=== PATIENT | male | born 1965 | race Caucasian/White ===

== ENCOUNTER → 2022-12-12 | Outpatient (CLI) | payer OTHER ==
[~2022-12-12] MED LIST: CYCL10TA25 PO
--- NOTE | 2022-12-12 16:29 | Diagnostic Imaging Report ---
PROCEDURE: US Scrotum. TECHNIQUE: Multiple real-time grayscale images were obtained over the scrotum in various projections bilaterally. INDICATION: Epididymitis. Right testicle measures 4.3 x 2.2 x 2.8 cm and the left testicle measures 4.3 x 2.3 x 3.0 cm. Both testes show homogeneous echotexture. No discrete mass is detected. There is blood flow to both testes. Right epididymis does appear to be enlarged and heterogeneous and shows some increased vascularity consistent with epididymitis. Left epididymis is unremarkable apart from a small approximately 6.9 mm cyst. No hydroceles or varicoceles are seen. IMPRESSION: 1. No evidence of testicular mass or vascular compromise. 2. Findings suggestive of acute right-sided epididymitis. 3. Left epididymal cyst. Dictated by: Dictated on workstation # [id number]
== END ==
LOC: RAD 12:13
PROVIDERS: ATTEND Hospitalist
DX: N50.3 Cyst of epididymis (principal); N45.1 Epididymitis
CPT/HCPCS: 76870

== ENCOUNTER 2023-03-26 14:31 | Inpatient (IN) | payer OTHER ==
[~2023-03-26] VITALS: Ht 172 cm; Wt 72.5 kg
[2023-03-26] MEDS ORDERED: ATOR40TA70 PO (15:13)
[2023-03-26] MEDS ORDERED: CARV3.122 PO (15:13)
[2023-03-26] MEDS ORDERED: LISI10TA25 PO (15:13)
[2023-03-26] MEDS ORDERED: CARV12.53 PO (15:13)
[2023-03-26] MEDS ORDERED: APIX5TAB PO (15:13)
[2023-03-26] MEDS ORDERED: OMEP20CA18 PO (15:13)
--- NOTE | 2023-03-26 16:47 | PM&R Post Admission Assessment ---
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 Currently he has regained most of his deficits but still remains left upper extremity deficit in need of aggressive therapy. Smoking cessation discussed. Denies pain or bowel issues. He is swallowing well and is ready to work hard to regain function. He is very motivated. [facility] summary: Name: Phil Vivas Date Of : 1965 Age: 57 y.o. Admit date: 03/21/2023 Discharge date: 03/26/2023 Discharge Attending: Dr. Delmy Cat Discharge Summary Completed By: JUDITH Cottrell Service: Neurology Stroke Reason for hospitalization: Vertebral artery dissection (HCC) [I77.74] Primary Discharge Diagnosis: Dissection of extracranial vertebral artery (HCC) Hospital Diagnoses: Hospital Problems Active Problems * (Principal) Dissection of extracranial vertebral artery (HCC) Acute ischemic multifocal posterior circulation stroke (HCC) Ataxia due to recent cerebrovascular accident Hyponatremia Anticoagulated Impaired mobility and ADLs Primary hypertension Current tobacco use Dyslipidemia Resolved Problems RESOLVED: Dysphagia due to recent stroke RESOLVED: Dysarthria due to acute cerebrovascular accident (CVA) Significant Past Medical History Loredo esophagus GERD (gastroesophageal reflux disease) HLD (hyperlipidemia) HTN (hypertension) TIA (transient ischemic attack) Tobacco abuse Allergies Penicillin, Tetracycline, and Hydrochlorothiazide Brief Hospital Course The patient was admitted and the following issues were addressed during this hospitalization: Phil Vivas is a 57 y.o. male with PMH HTN, HLD, diet controlled DMII, current tobacco use, GERD, Loredo's esophagus, and recent right cerebellar infarct (Jan 2023) with diagnosis of pituitary apoplexy who presented to [facility] on 03/20/2023 after waking with left eye blurred vision with symptom progression to left sided weakness & ataxia. CT head showed left cerebellar infarct. Outside IV thrombolytic window. CTA H/N showed left superior cerebellar artery occlusion and probable right vertebral artery occlusion. Transferred to [facility] on 03/21/2023 with admission to Neuro ICU for close monitoring. He was started on a heparin drip for right vertebral artery dissection at origin, then transitioned to Eliquis on 03/22/2023. He remained stable and transferred to Stroke Service on 03/22/2023. MRI head showed several small acute infarcts bilateral cerebellar hemispheres and right occipital lobe without hemorrhagic conversion. MRA head/neck showed left SCA occlusion and right vertebral artery occlusion at origin with reconstitution at V1 segment favoring dissection. Echo showed EF 63%, LA normal size, and no shunt. He was started on atorvastatin 40 mg daily for LDL 78 with goal < 70. His Hgb A1c was within goal range at 5.7. He was continued on his home Coreg and lisinopril doses. Smoking Cessation was consulted with patient interested in quitting smoking, but declined medication support. 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 Plan to repeat CTA head/neck in 3 months and continue Eliquis until outpatient follow up with Neurology after vessel imaging. Given his history of Loredo's esophagus, his home PPI dose was increased while on anticoagulation. He will continue with his previously scheduled follow up with Endocrinology for management of pituitary apoplexy and hyponatremia. He remained stable and discharged to [facility] by way of private vehicle in stable condition. Exam at discharge: A&Ox4, speech fluent & clear, CN II-XII intact, LUE 4+/5 distally otherwise 5/5 strength throughout, ataxia LUE, sensation intact Past Lxphmgh-Mcwmru-Envizd Hx Past Med/Social Hx: Reviewed Nursing Past Med/Soc Hx, Reviewed and Corrections made Patient Social History Marrital Status: Employed/Student: unemployed Alcohol Use: Occasionally Uses Smoking Status: Current Everyday Smoker Seasonal Allergies Seasonal Allergies: No Past Medical History Surgeries: Abdominal, Appendectomy, Gallbladder, Tonsillectomy Cardiac: Heart Attack, High Cholesterol, Hypertension Neurological: Neuropathy Reproductive: No Gastrointestinal: Gastroesophageal Reflux, Loredo's Esophagus, Pancreatitis, Ulcer Endocrine: Diabetes, Non-Insulin dep PM&R Allergy/Meds/Data Review Allergies Coded Allergies: Penicillins (Verified Allergy, Unknown, 02/07/15) Tetracyclines (Verified Allergy, Unknown, 02/07/15) Home Medications Scheduled Apixaban (Eliquis), 5 MG PO BID, (Reported) Atorvastatin Calcium (Atorvastatin Calcium), 40 MG PO DAILY, (Reported) Carvedilol (Carvedilol), 12.5 MG PO BID WITH MEALS, (Reported) Lisinopril (Lisinopril), 10 MG PO DAILY, (Reported) Omeprazole (Omeprazole), 40 MG PO DAILY BEFORE B-FAST, (Reported) Discontinued Medications Carvedilol (Carvedilol), 3.125 MG PO BID WITH MEALS, (Reported) Discontinued Reason: Prescription changed Cyclobenzaprine HCl (Cyclobenzaprine HCl), 10 MG PO Q8H PRN for SPASMS Discontinued Reason: No Longer Taking Current Medications Current Medications Reviewed Review of Systems Constitutional: see HPI, malaise, weakness EENTM: no symptoms reported Respiratory: no symptoms reported Cardiovascular: no symptoms reported Gastrointestinal: no symptoms reported Genitourinary: no symptoms reported Musculoskeletal: no symptoms reported Skin: no symptoms reported Psychiatric/Neurological: Anxiety, Depressed, Numbness, Tingling, Weakness All Other Systems Reviewed Negative Unless Noted: Yes Physical Exam Physical Exam Vital Signs Capillary Refill : Height, Weight, BMI Height: 5'8" Weight: 155lbs. oz. [id number]; 25.00 BMI Method:Stated General Appearance: No Apparent Distress, WD/WN, Chronically ill, Thin Eyes: Bilateral Eye Normal Inspection, Bilateral Eye PERRL HEENT: PERRL/EOMI, Normal ENT Inspection, Pharynx Normal Neck: Full Range of Motion, Normal Inspection, Non Tender, Supple, Carotid Bruit Respiratory: Chest Non Tender, Lungs Clear, Normal Breath Sounds, No Accessory Muscle Use, No Respiratory Distress Cardiovascular: Regular Rate, Rhythm, No Edema, No Gallop, No JVD, No Murmur, Normal Peripheral Pulses Gastrointestinal: Normal Bowel Sounds, No Organomegaly, No Pulsatile Mass, Non Tender, Soft Back: Normal Inspection, No CVA Tenderness, No Vertebral Tenderness Extremity: Normal Capillary Refill, Normal Inspection, Normal Range of Motion, Non Tender, No Calf Tenderness, No Pedal Edema Neurologic/Psychiatric: Alert, Oriented x3, Normal Mood/Affect, assessment clinician II-XII Norm as Tested, Abnormal Gait, Motor Weakness (LUE 4/5) Skin: Normal Color, Warm/Dry Lymphatic: No Adenopathy PM&R Medical Assessment & Plan REHAB/MEDICAL ASSESSMENT AND PLAN: REHAB IMPAIRMENT GROUP: Bilateral involvement ETIOLOGIC DIAGNOSIS: Acute bilateral cerebellar strokes The comorbidities that impact the patients function and/or functional outcome by: smoker, fall risk, HTN, embolic source of CVA REHAB PLAN: The patient is being admitted to our comprehensive inpatient rehabilitation facility and can tolerate the intensity of service consisting of at least: 180 minutes of therapy a day, 5 out of 7 days a week Rehab treatment will consist of: PT OT will focus on regaining function with the use of AD in order to decrease falls and increase stamina and return to independence The patient/family has a good understanding of our discharge process and will benefit from an interdisciplinary inpatient rehabilitation program. The patient has potential to make improvement and is in need of at least two of the following multidisciplinary therapies including but not limited to physical, occupational, speech, and prosthetics and orthotics. Additionally the patient will need services from respiratory, nutritional services, wound care, psychology, etc. (Customize this to each patient). Given the patients complex condition and risk of further medical complications, rehabilitation services cannot be safely or effectively provided at a lower level of care such as a half-way facility. BARRIERS TO DISCHARGE: Loss of balance increased fall risk ESTIMATED LOS: 7 days DISPOSITION: Home RELEVANT CHANGES SINCE PREADMISSION SCREENING: I have compared the patients medical and functional status at the time of the preadmission screening and there are: no changes PROGNOSIS: Good REHABILITATION GOALS: 1. PT OT will focus on regaining function with the use of AD in order to decrease falls and increase stamina and return to independence All the above goals were reviewed with the patient and he/she is in agreement. By signing this document, I acknowledge that I have personally performed a full physical examination on this patient within 24 hours of admission to this inpatient rehabilitation facility and have determined the patient to be able to tolerate the above course of treatment at an intensive level for a reasonable period of time. I will be completing a detailed individualized Plan of Care for this patient by day #4 of the patients stay based upon the Preadmission Screen, the Post-Admission Evaluation, and the therapy evaluations. Admission Dx/Comorbidities: (1) Cerebellar stroke ICD Codes: I63.9 - Cerebral infarction, unspecified Assessment/Plan Assessment and Plan Assess & Plan/Chief Complaint Assessment: Bilateral cerebellar strokes suspected embolic event maintained on OAC HTN HLP Smoker Loredo's esophagus Plan: Monitor closely Fall risk Home meds Aggressive therapy DIA MOORE DO Mar 26, 2023 16:47
[2023-03-26 16:50] VITALS: BP 140/72
--- OUTSIDE RECORDS SUMMARY | 2023-03-26 16:53 | XMS REPORT | Clinical Summary ---
Author Author [facility] Organization [facility] Address Unknown Phone Unavailable Care Team Providers Care Senior Service Technician Name Role Phone Taran Prajapati MD PCP [phone] Source Comments Some departments are not documenting in the electronic medical record. If you do not see the information that you expected, contact Release of Information in the Health Information Management department at [phone] for further assistance in locating additional records.[facility] Allergies Active Allergy Reactions Criticality Noted Date Comments Hydrochlorothiazide SEE COMMENTS Low 03/21/2023 "Acute Pancreatitis" Penicillin ANAPHYLAXIS High 03/21/2023 Tetracycline ANAPHYLAXIS High 03/21/2023 Medications Medication Sig Dispensed Refills Start Date End Date Status lisinopriL (ZESTRIL) 10 mg tablet Take one tablet by mouth daily. 0 Active carvediloL (COREG) 12.5 mg tablet Take one tablet by mouth twice daily with meals. Take with food. 0 Active atorvastatin (LIPITOR) 40 mg tablet Take one tablet by mouth daily. [address] (PRILOSEC) 20 mg capsule Take two capsules by mouth daily before breakfast. 90 capsule 0 03/26/20 23 Active apixaban (ELIQUIS) 5 mg tabletIndications: prevention of thromboembolism with vertebral artery dissection Take one tablet by mouth twice daily. Indications: prevention of thromboembolism with vertebral artery dissection 180 tablet 1 03/26/20 23 Active aspirin EC (ASPIR-LOW) 81 mg tablet Take one tablet by mouth daily. [address] (PRILOSEC) 20 mg capsule Take one capsule by mouth daily before breakfast. 0 023 Discontinued(R eorder) Active Problems Problem Noted Date Diagnosed Date Acute ischemic multifocal posterior circulation stroke 03/21/2023 Dissection of extracranial vertebral artery 02/22 Overview: Right Ataxia due to recent cerebrovascular accident Hyponatremia 03/21/2023 Anticoagulated 03/21/2023 Impaired mobility and ADLs 03/21/2023 Primary hypertension 03/21/2023 Current tobacco use 03/21/2023 Dyslipidemia 03/21/2023 Overview: Hdl 32 Resolved Problems Problem Noted Date Diagnosed Date Resolved Date Dysphagia due to recent stroke 03/21/2023 03/26/2023 Dysarthria due to acute cere brovascular accident (CVA) 03/21/2023 03/26/2023 Encounters Date Type Department Care Team Description 03/21/2023 12:06 AM CDT - 03/26/2023 1:00 PM CDT Hospital Encounter Patient Care Unit CA6: [facility] A [address] [place] [address] [address] [place] [address] Meet Cerda MD Husmann, MD Cristiano Hearn Yunxia, MD Barkley, Delmy Duran, DO Dissection of extracranial vertebral artery (HCC) Discharge Disposition: Rehab Facility (Not [facility]) from Last 3 Months Medical History Medical History Date Comments TIA (transient ischemic attack) 02/21/2023 HTN (hypertension) HLD (hyperlipidemia) GERD (gastroesophageal reflux disease) Loredo esophagus Tobacco abuse Social History Tobacco Use Types Packs/Day Years Used Date Smoking Tobacco: Every Day Cigarettes 1 Smokeless Tobacco: Current Tobacco Cessation:Ready to Q uit: No; Counseling Given: Yes Alcohol Use Standard Drinks/Week Comments Yes 6 (1 standard drink = 0.6 oz pur e alcohol) drinks 2-3 days week/beer Alcohol Use Answer Date Recorded Alcohol Use Yes Male: 9+ ounces (15+ Standard Drinks) per week T hreshold 3.6 Female: 4.8+ ounces (8+ Standard Drinks) per wee k Threshold Not on file Sex and Gender Information Value Date Recorded Sex Assigned at Not on file Gender Identity Not on file Sexual Orientation Not on file Obstetrics History Last Filed Vital Signs Vital Sign Reading Time Taken Comments Blood Pressure 150/65 03/26/2023 8:31 AM CDT Pulse 72 03/26/2023 8:31 AM CDT Temperature 36.3 °C (97.4 °F) 03/26/2023 8:31 AM C DT Respiratory Rate - - Oxygen Saturation 98% 03/26/2023 8:31 AM CDT Inhaled Oxygen Concentration - - Weight 73.5 kg (162 lb 0.6 oz) 03/26/2023 5:00 AM CDT Height 172.7 cm (5' 8") 03/21/2023 12:00 PM CDT Body Mass Index 24.64 03/21/2023 12:00 PM CDT Plan of Treatment Health Maintenance Due Date Last Done Comments COVID-19 VACCINE (#1) 1963 PNEUMOCOCCAL VACCINE 0-64 YRS (1 - PCV) 1969 HIV SCREENING 1978 DTAP/TDAP VACCINES (1 - Tdap) 1981 HEPATITIS C SCREENING 1981 PHYSICAL (COMPREHENSIVE) EXAM 1981 COLORECTAL CANCER SCREENING 2008 SHINGLES RECOMBINANT VACCINE (1 of 2) 2013 DEPRESSION SCREENING 06/23/2022 INFLUENZA VACCINE Completed 03/12/2023 Goals Goal Patient Goal Type Associated Problems Recent Progress Patient-Stated? Author GOAL General On track(03/25/20 23 1:55 PM CDT) Yes Carolina Page, RN Note: Take first step without being nervous. Procedures Procedure Name Priority Date/Time Associated Diagnosis Comments PHOSPHORUS Routine 03/26/2023 6:05 AM CDT MAGNESIUM Routine 03/26/2023 6:05 AM CDT CBC AND DIFF Routine 03/26/2023 6:05 AM CDT BASIC METABOLIC PANEL Routine 03/26/2023 6:05 AM CDT HC PHOSPHOROUS, SERUM Routine 03/25/2023 6:45 AM CDT HC MAGNESIUM Routine 03/25/2023 6:45 AM CDT HC CBC W/ AUTOMATED DIFF Routine 03/25/2023 6:45 AM CDT HC BASIC METABOLIC PANEL Routine 03/25/2023 6:45 AM CDT HC PHOSPHOROUS, SERUM Routine 03/24/2023 5:02 AM CDT HC MAGNESIUM Routine 03/24/2023 5:02 AM CDT HC CBC W/ AUTOMATED DIFF Routine 03/24/2023 5:02 AM CDT HC BASIC METABOLIC PANEL Routine 03/24/2023 5:02 AM CDT HC PHOSPHOROUS, SERUM Routine 03/23/2023 3:56 AM CDT HC MAGNESIUM Routine 03/23/2023 3:56 AM CDT HC BASIC METABOLIC PANEL Routine 03/23/2023 3:56 AM CDT HC CBC W/ AUTOMATED DIFF Routine 03/23/2023 3:56 AM CDT HC HEPARIN ASSAY STAT 03/22/2023 9:1 0 AM CDT HC CREATININE-URINE Routine 03/22/2023 4:39 AM CDT HC SODIUM-URINE Routine 03/22/2023 4:39 AM CDT HC OSMOLALITY-URINE Routine 03/22/2023 4:39 AM CDT HC UREA NITROGEN-URINE Routine 4:39 AM CDT HC OSMOLALITY;BLOOD Routine 03/22/2023 4:[address] HEAD WO CONTRAST Routine 03/22/2023 4:38 AM CDT HC HEPARIN ASSAY STAT 03/22/2023 2:0 8 AM CDT HC PHOSPHOROUS, SERUM Routine 03/22/2023 2:08 AM CDT HC MAGNESIUM Routine 03/22/2023 2:08 AM CDT HC CALCIUM IONIZED Routine 03/22/2023 2 :08 AM CDT HC BASIC METABOLIC PANEL Routine 03/22/2023 2:08 AM CDT HC CBC W/ AUTOMATED DIFF Routine 03/22/2023 2:08 AM CDT HC HEPARIN ASSAY STAT 03/21/2023 7:[address] HEAD WO CONTRAST Routine 03/21/2023 1:08 PM CDT HC HEPARIN ASSAY STAT 03/21/2023 12:2 8 PM CDT 2D + DOPPLER ECHO W/ CONTRAST Routine 03/21/2023 12:21 PM CDT HC FENTANYL URINE Routine 03/21/2023 5: 45 AM CDT HC PHENCYCLIDINES; QUAL Routine 03/21/2023 5:45 AM CDT HC OPIATES; QUAL Routine 03/21/2023 5:4 5 AM CDT HC COCAINE; QUAL Routine 03/21/2023 5:4 5 AM CDT HC CANNABINOIDS; QUAL Routine 03/21/2023 5:45 AM CDT HC BENZODIAZEPINES, QUAL Routine 03/21/2023 5:45 AM CDT HC BARBITURATES Routine 03/21/2023 5:45 AM CDT HC AMPHETAMINES QUAL, URINE Routine 03/21/2023 5:45 AM CDT HC PTT(APTT) Routine 03/21/2023 4:52 AM CDT HC PT(INR) Routine 03/21/2023 4:52 AM CDT HC HEMOGLOBIN A1C 03/21/2023 3: 16 AM CDT HC PHOSPHOROUS, SERUM Routine 03/21/2023 3:16 AM CDT HC MAGNESIUM Routine 03/21/2023 3:16 AM CDT HC CALCIUM IONIZED Routine 03/21/2023 3 :16 AM CDT HC COMPREHENSIVE METABOLIC PANEL Routine 03/21/2023 3:16 AM CDT HC CBC W/ AUTOMATED DIFF Routine 03/21/2023 3:16 AM CDT HC LIPID-5:CHOL/TRG/HDL/L DL+VLDL Routine 03/21/2023 3:16 AM CDT MRA NECK WO/W CONTRAST STAT 3:10 AM CDT MRA HEAD WO CONTRAST STAT 03/21/2023 3:10 AM CDT MRI HEAD WO CONTRAST STAT 03/21/2023 3:10 AM CDT HC CALCIUM IONIZED Routine 03/21/2023 12 :17 AM CDT HC MAGNESIUM STAT 03/21/2023 12:08 AM CDT COMPREHENSIVE METABOLIC PANEL STAT 03/21/2023 12:08 AM CDT HC CBC W/ AUTOMATED DIFF STAT 03/21/2023 12:08 AM CDT HC HEMOGLOBIN A1C STAT 03/21/2023 12: 08 AM CDT TELEMETRY STRIPS-SCAN 03/21/2023 12:00 AM CDT TELEMETRY STRIPS-SCAN 03/21/2023 12:00 AM CDT TELEMETRY STRIPS-SCAN 03/21/2023 12:00 AM CDT TELEMETRY STRIPS-SCAN 03/21/2023 12:00 AM CDT TELEMETRY STRIPS-SCAN 03/21/2023 12:00 AM CDT TELEMETRY STRIPS-SCAN 03/21/2023 12:00 AM CDT TELEMETRY STRIPS-SCAN 03/21/2023 12:00 AM CDT TELEMETRY STRIPS-SCAN 03/21/2023 12:00 AM CDT TELEMETRY STRIPS-SCAN 03/21/2023 12:00 AM CDT from Last 3 Months Results * (ABNORMAL) CBC AND DIFF (03/26/2023 6:05 AM CDT) Only the most recent of7 resultswithin the time period is included. White Blood Cells 5.8 4.5 - 11.0 K/UL 03/26/2023 6:30 AM CDT [facility] RBC 4.73 4.4 - 5.5 M/UL 03/26/2023 6:30 AM CDT [facility] Hemoglobin 14.8 13.5 - 16.5 GM/DL 03/26/2023 6:30 AM CDT [facility] PATH AND LAB MEDICINE Hematocrit 43.0 40 - 50 % 03/26/2023 6:30 AM CDT [facility] DE[facility] PATH AND LAB MEDICINE MCV 90.9 80 - 100 FL 03/26/2023 6:30 AM CDT [facility] MCH 31.2 26 - 34 PG 03/26/2023 6:30 AM CDT [facility] MCHC 34.3 32.0 - 36.0 G/DL 03/26/2023 6:30 AM CDT [facility] RDW 13.7 11 - 15 % 03/26/2023 6:30 AM CDT [facility] Platelet Count 182 150 - 400 K/UL 03/26/2023 6:30 AM CDT [facility] MPV 9.9 7 - 11 FL 03/26/2023 6:30 AM CDT [facility] Neutrophils 52 41 - 77 % 03/26/2023 6:30 AM CDT [facility] Lymphocytes 26 24 - 44 % 03/26/2023 6:30 AM CDT [facility] Monocytes 15(H) 4 - 12 % 03/26/2023 6:30 AM CDT [facility] Eosinophils 6(H) 0 - 5 % 03/26/2023 6:30 AM CDT [facility] Basophils 1 0 - 2 % 03/26/2023 6:30 AM CDT [facility] Absolute Neutrophil Count 3.06 1.8 - 7.0 K/UL 03/26/2023 6:30 AM CDT [facility] Absolute Lymph Count 1.53 1.0 - 4.8 K/UL 03/26/2023 6:30 AM CDT [facility] Absolute Monocyte Count 0.88(H) 0 - 0.80 K/UL 03/26/2023 6:30 AM CDT [facility] Absolute Eosinophil Count 0.32 0 - 0.45 K/UL 03/26/2023 6:30 AM CDT [facility] Absolute Basophil Count 0.06 0 - 0.20 K/UL 03/26/2023 6:30 AM CDT [facility] LAB [facility] BLOOD / Unknown 03/26/2023 6:05 AM CDT 03/26/2023 6:06 AM CDT Aspen Quinonez MD LABORATORY ORDERABLE S Performing Organization Address [facility]/ZIP Co de Phone Number [facility] PATH AND LAB MEDICINE [address] [place] [address], * (ABNORMAL) PHOSPHORUS (03/26/2023 6:05 AM CDT) Only the most recent of6 resultswithin the time period is included. Phosphorus 5.1(H) 2.0 - 4.5 MG/DL 03/26/2023 6:57 AM CDT [facility] BLOOD / Unknown 03/26/2023 6:05 AM CDT 03/26/2023 6:06 AM CDT Aspen Quinonez MD LABORATORY ORDERABLE S Performing Organization Address [facility] Co de Phone Number [facility] [address] [place] [address], [place] * MAGNESIUM (03/26/2023 6:05 AM CDT) Only the most recent of7 resultswithin the time period is included. Magnesium 1.7 1.6 - 2.6 mg/dL 03/26/2023 6:57 AM CDT [facility] BLOOD / Unknown 03/26/2023 6:05 AM CDT 03/26/2023 6:06 AM CDT Aspen Quinonez MD LABORATORY ORDERABLE S Performing Organization Address City/[facility]/ZIP Co de Phone Number [facility] [address] [place] [address], [place] * (ABNORMAL) BASIC METABOLIC PANEL (03/26/2023 6:05 AM CDT) Only the most recent of6 resultswithin the time period is included. Sodium 134(L) 137 - 147 MMOL/L 03/26/2023 6:57 AM CDT [facility] DE[facility] PATH [facility] LAB MEDICINE Potassium 4.2 3.5 - 5.1 MMOL/L 03/26/2023 6:57 AM CDT [facility] Chloride 101 98 - 110 MMOL/L 03/26/2023 6:57 AM CDT [facility] LAB MED[facility] CO2 23 21 - 30 MMOL/L 03/26/2023 6:57 AM CDT [facility] Anion Gap 10 3 - 12 03/26/2023 6:57 AM CDT [facility] Glucose 95 70 - 100 MG/DL 03/26/2023 6:57 AM CDT [facility] Blood Urea Nitrogen 8 7 - 25 MG/DL 03/26/2023 6:57 AM CDT [facility] MEDIC[facility] Creatinine 0.58 0.4 - 1.24 MG/DL 03/26/2023 6:57 AM CDT [facility] LAB MEDIC[facility] Calcium 9.6 8.5 - 10.6 MG/DL 03/26/2023 6:57 AM CDT [facility] DE[facility] PATH AND LAB MEDICINE eGFR >60 >60 mL/min 03/26/2023 6:57 AM CDT [facility] DEPT PATH AND LAB MEDICINE Comment:eGFR calculated glen mohamud the CKD-EPIcr_R equation BLOOD / Unknown 03/26/2023 6:05 AM CDT 03/26/2023 6:06 AM CDT Aspen Quinonez MD LABORATORY ORDERABLE S [facility] [address] [place] [address], * HEPARIN ASSAY (UNFRACTIONATED) (03/22/2023 9:10 AM CDT) Only the most recent of4 resultswithin the time period is included. Heparin Assay 0.37 0.30 - 0.70 IU/ML 03/22/2023 9:55 AM CDT [facility] DE[facility] PATH [facility] LAB MED[facility] BLOOD / Unknown 03/22/2023 9:10 AM CDT 03/22/2023 10:19 AM CDT Parul Coronel APRN-TURNTABLE WORKER LABORATORY ORD ERABLES Performing Organization Address City/[facility]/ZIP Co de Phone Number [facility] [address] [place] [address], [place] * UREA NITROGEN-URINE RANDOM (03/22/2023 4:39 AM CDT) Urea Nitrogen 148 MG/DL 03/22/2023 5:[address] [facility] Urine URINE SPECIMEN / Unknown 03/22/2023 4:39 AM CDT 03/22/2023 5:06 AM CDT Parul Coronel APRN-TURNTABLE WORKER URINE ORDERABL ES Performing Organization Address [facility] Co de Phone Number [facility] [address] [place] [address], [place] * SODIUM-URINE RANDOM (03/22/2023 4:39 AM CDT) Sodium, Random 39 MMOL/L 03/22/2023 5:[address] [facility] Urine URINE SPECIMEN / Unknown 03/22/2023 4:39 AM CDT 03/22/2023 5:06 AM CDT Parul Coronel BLADE SHARPENER-TURNTABLE WORKER URINE ORDERABL ES Performing Organization Address [facility] Co de Phone Number [facility] [address] [place] [address], [place] * OSMOLALITY-URINE RANDOM (03/22/2023 4:39 AM CDT) Osmolality-Urin e 145 50 - 1,400 MOS/KG 03/22/2023 6:[address] [facility] Urine URINE SPECIMEN / Unknown 03/22/2023 4:39 AM CDT 03/22/2023 5:06 AM CDT Parul Coronel BLADE SHARPENER-TURNTABLE WORKER URINE ORDERABL ES Performing Organization Address [facility] Co de Phone Number [facility] [address] [place] [address], [place] * CREATININE-URINE RANDOM (03/22/2023 4:39 AM CDT) Creatinine, Random 32 MG/DL 03/22/2023 5:56 AM CDT [facility] Urine URINE SPECIMEN / Unknown 03/22/2023 4:39 AM CDT 03/22/2023 5:06 AM CDT Parul Coronel APRN-TURNTABLE WORKER URINE ORDERABL ES Performing Organization Address [facility] Phone Number [facility] [address] [place] [address], [place] * OSMOLALITY (03/22/2023 4:39 AM CDT) Osmolality 282 280 - 307 MOSMOL/KG 03/22/2023 5:58 AM CDT [facility] BLOOD / Unknown 03/22/2023 4:39 AM CDT 03/22/2023 5:06 AM CDT Parul Coronel APRN-TURNTABLE WORKER LABORATORY ORD ERABLES Performing Organization Address [facility] Co de Phone Number [facility] [address] [place] [address], [place] * CT HEAD WO CONTRAST (03/22/2023 4:38 AM CDT) Only the most recent of2 resultswithin the time period is included. Anatomical Region Laterality Modality Head Computed Tomogra phy 03/22/2023 6:3 7 AM CDT Impressions 03/22/2023 6:41 AM CDT 1. Evolving recent infarcts involving the bilateral cerebellar hemispheres and right occipital lobe without gross hemorrhagic conversion or obvious new area of infarct. 2. Mild patchy cerebral white matter hyperintensities, likely chronic microvascular ischemic changes, with stable chronic right deep burt nuclei lacunar infarcts. Finalized by Fabrizio Jones DO on 03/22/2023 6:41 AM. Dictated by Fabrizio Jones DO on 03/22/2023 6:37 AM. Narrative 03/22/2023 6:41 AM CDT EXAM: CT HEAD HISTORY: Stability CT while patient on IV heparin drip after ischemic stroke / vert dissection. TECHNIQUE: Multiple contiguous axial images were obtained of the brain without intravenous contrast. COMPARISON: CT head 03/21/2023. FINDINGS: Evolving multifocal recent infarcts involving the bilateral cerebellar hemispheres and right occipital lobe without gross hemorrhagic conversion or obvious new area of infarct identified. Small chronic right deep burt nuclei lacunar infarcts. Mild patchy supratentorial white matter hypointensities, likely chronic microvascular ischemic changes. Ventricles and subarachnoid spaces are normal in size and configuration. No midline shift or mass effect. Burt white matter interfaces are otherwise maintained. Basal cisterns are patent. No evidence of acute intracranial hemorrhage or extra-axial fluid collection. Mastoid air cells and visualized paranasal sinuses are well-aerated. No acute calvarial fracture. Procedure Note Fabrizio Jones DO - 03/22/2023 EXAM: CT HEAD HISTORY: Stability CT while patient on IV heparin drip after ischemicstroke / vert dissection. TECHNIQUE: Multiple contiguous axial images were obtained of the brainwithout intravenous contrast. COMPARISON: CT head 03/21/2023. FINDINGS: Evolving multifocal recent infarcts involving the bilateral cerebellarhemispheres and right occipital lobe without gross hemorrhagic conversionor obvious new area of infarct identified. Small chronic right deep graynuclei lacunar infarcts. Mild patchy supratentorial white matterhypointensities, likely chronic microvascular ischemic changes. Ventriclesand subarachnoid spaces are normal in size and configuration. No midlineshift or mass effect. Burt white matter interfaces are otherwisemaintained. Basal cisterns are patent. No evidence of acute intracranialhemorrhage or extra- axial fluid collection. Mastoid air cells andvisualized paranasal sinuses are well- aerated. No acute calvarialfracture. IMPRESSION 1. Evolving recent infarcts involving the bilateral cerebellarhemispheres and right occipital lobe without gross hemorrhagic conversionor obvious new area of infarct. 2. Mild patchy cerebral white matter hyperintensities, likely chronicmicrovascular ischemic changes, with stable chronic right deep burt nucleilacunar infarcts. Finalized by Fabrizio Jones DO on 03/22/2023 6:41 AM. Dictated by DO Hawa on 03/22/2023 6:37 AM. Debbie Roblero MD CT ORDERABLES * IONIZED CALCIUM (03/22/2023 2:08 AM CDT) Only the most recent of3 resultswithin the time period is included. Pathologist [facility] Ionized Calcium 1.15 1.0 - 1.3 MMOL/L 03/22/2023 2:32 AM CDT [facility] DEPT PATH AND LAB MEDICINE BLOOD / Unknown 03/22/2023 2:08 AM CDT 03/22/2023 2:23 AM CDT Meet Cerda MD LABORATORY ORDERABLE S Performing Organization Address City/State/[facility] Co de Phone Number [facility] DEPT PATH AND LAB MEDICINE [address] [place] [address], * 2D + DOPPLER ECHO W/ CONTRAST (03/21/2023 12:21 PM CDT) Left Ventricle Diastolic Volume 109.00 62 - 150 mL OTHER OUTSIDE LAB Left Ventricle Systolic Volume 40.00 21 - 61 mL OTHER OUTSIDE LAB IVS 0.80 0.6 - 1.0 cm OTHER OUTSIDE LAB LVIDD 5.00 4.2 - 5.8 cm OTHER OUTSIDE LAB LVIDS 3.40 2.5 - 4.0 cm OTHER OUTSIDE LAB LVOT diameter 2.00 cm OTHER OUTSIDE LAB LVOT peak VTI 20.90 cm OTHER OUTSIDE LAB PW 1.00 0.6 - 1.0 cm OTHER OUTSIDE LAB TDI lateral e' 0.10 m/s OTHER OUTSIDE LAB TDI Medial e' 0.09 m/s OTHER OUTSIDE LAB LA volume 55.00 18 - 58 mL OTHER OUTSIDE LAB LA size 3.70 3.0 - 4.0 cm OTHER OUTSIDE LAB AV peak velocity 1.10 m/s OTHER OUTSIDE LAB Sinus 3.50 2.8 - 4.0 cm OTHER OUTSIDE LAB MV Peak A Samuel 0.51 m/s OTHER OUTSIDE LAB MV Peak E Samuel PW 0.77 m/s OTHER OUTSIDE LAB Right Heart Systolic Mmode TAPSE 2.06 >1.7 cm OTHER OUTSIDE LAB Right Ventricular Mid Diameter 3.30 1.9 - 3.5 cm OTHER OUTSIDE LAB Right Ventricular Basal Diameter 4.10 2.5 - 4.1 cm OTHER OUTSIDE LAB Right Atrial Area 14.60 <18 cm2 OTHER OUTSIDE LAB Right Heart Systolic TDI S' 0.12 m/s OTHER OUTSID E LAB BSA 1.87 m2 OTHER OUTS [facility] LAB FS 32.00 28 - 44 % OTHER OUTS [facility] LAB Teichholtz 54.40 % OTHER OUT SIDE LAB Left Ventricle Systolic Volume Index 21 11 - 31 mL/m2 OTHER OUTSIDE LAB Left Ventricle Diastolic Volume Index 58 34 - 74 mL/m2 OTHER OUTSIDE LAB Left Atrium Index 29.41 16 - 34 mL/m2 OTHER OUTSIDE LAB LV mass 158 88 - 224 g OTHER OUTSIDE LAB Left Ventricle Mass Index 85 49 - 115 g/m2 OTHER OUTSIDE LAB RWT 0.40 <=0.42 OTHER OUTS [facility] LAB LVOT area 3.14 cm2 OTHER OUT[facility] LVOT stroke volume 65.66 cm3 OTHER OUTSIDE LAB E/A ratio 1.51 OTHER OUTS [facility] LAB Medial E/E' ratio 8.56 OTHER OUTSIDE LAB Lateral E/E' ratio 7.70 OTHER OUTSIDE LAB CV ECHO PV INSPECTOR TYPE SALUD Rojas OTHER OUTSIDE LAB Cardiology Ultrasound Machine Massimo Epiq OTHER OUTSIDE LAB GARCIA'S BIPLANE EF 63 % OTHER OUTSIDE LAB Ascending aorta 3.8 cm OTHE R OUTSIDE LAB RA PRESSURE 3 OTHER OU TSIDE LAB Anatomical Region Laterality Modality Ultrasound Narrative 03/21/2023 1:00 PM CDT Normal left ventricular size and wall thickness. Normal left ventricular systolic function with an estimated ejection fraction of 60 to 65%. Normal left ventricular diastolic function. Normal right ventricular size and systolic function. Normal biatrial size. There is no interatrial shunting by color-flow Doppler and saline contrast studies. Normal central venous pressure (0-5 mm Hg). No hemodynamically significant valvular abnormalities. The ascending aorta is mildly dilated. No pericardial effusion. No prior studies available for comparison. Please see full report below. Left Ventricle The left ventricular size is normal. The left ventricular wall thickness is normal. Normal geometry. The left ventricular systolic function is normal. The ejection fraction by Garcia's biplane method is 63%. Normal left ventricular diastolic function. Normal left atrial pressure. Right Ventricle The right ventricular size is normal. The right ventricular systolic function is normal. The pulmonary artery pressure could not be estimated due to inadequate tricuspid regurgitation signal. Left Atrium Normal size. There is no interatrial shunting by color flow Doppler and saline contrast studies. Right Atrium Normal size. IVC/SVC Normal central venous pressure (0-5 mm Hg). Mitral Valve Normal valve structure. No stenosis. Trace regurgitation. Tricuspid Valve Normal valve structure. No stenosis. Trace regurgitation. Aortic Valve Normal valve structure. No stenosis. No regurgitation. Pericardium No pericardial effusion. Pulmonary The pulmonic valve was not seen well but no Doppler evidence of stenosis. Trace regurgitation. Aorta The aortic root is normal in size. The ascending aorta is mildly dilated. Wall Scoring Resting Score Index: 1.00 The left ventricular wall motion is normal. Meet Cerda MD ECHO ORDERABLES * FENTANYL URINE (03/21/2023 5:45 AM CDT) Fentanyl Urine NEG NEG-NEG 03/21/2023 6:[address] [facility] Comment: RESULTS WERE OBTAINED BY IMMUNOASSAY AND ARE PRESUMPTIVE ONLY. POSITIVE INDICATES THE PRESENCE OF SUBSTANCE WITH CHARACTERISTICS SIMILAR TO DRUG-DRUG CLASS OR METABOLITE IN CONC. EQUAL TO OR EXCEEDING VALUES LISTED. FENTANYL 5 NG/ML Urine URINE SPECIMEN / Unknown 03/21/2023 5:45 AM CDT 03/21/2023 5:50 AM CDT Meet Cerda MD URINE ORDERABLES [facility] [address] [place] [address], * PHENCYCLIDINES-URINE RANDOM (03/21/2023 5:45 AM CDT) Phencyclidine (PCP) NEG NEG-NEG 03/21 6:[address] [facility] Comment: RESULTS WERE OBTAINED BY IMMUNOASSAY AND ARE PRESUMPTIVE ONLY. POSITIVE INDICATES THE PRESENCE OF SUBSTANCE WITH CHARACTERISTICS SIMILAR TO DRUG-DRUG CLASS OR METABOLITE IN CONC. EQUAL TO OR EXCEEDING VALUES LISTED. PHENCYCLIDINE (PCP) 25 NG/ML Urine URINE SPECIMEN / Unknown 03/21/2023 5:45 AM CDT 03/21/2023 5:50 AM CDT Meet Cerda MD URINE ORDERABLES Performing Organization Address [facility] Co de Phone Number [facility] [address] * OPIATES-URINE RANDOM (03/21/2023 5:45 AM CDT) Opiates-Urine NEG NEG-NEG 03/21/2023 6:[address] [facility] Comment: RESULTS WERE OBTAINED BY IMMUNOASSAY AND ARE PRESUMPTIVE ONLY. POSITIVE INDICATES THE PRESENCE OF SUBSTANCE WITH CHARACTERISTICS SIMILAR TO DRUG-DRUG CLASS OR METABOLITE IN CONC. EQUAL TO OR EXCEEDING VALUES LISTED. OPIATES 2000 NG/ML Urine URINE SPECIMEN / Unknown 03/21/2023 5:45 AM CDT 03/21/2023 5:50 AM CDT Meet Cerda MD URINE ORDERABLES Performing Organization Address [facility] de Phone Number [email or web address] [address] * COCAINE-URINE RANDOM (03/21/2023 5:45 AM CDT) Cocaine-Urine NEG NEG-NEG 03/21/2023 6:[address] [facility] Comment: RESULTS WERE OBTAINED BY IMMUNOASSAY AND ARE PRESUMPTIVE ONLY. POSITIVE INDICATES THE PRESENCE OF SUBSTANCE WITH CHARACTERISTICS SIMILAR TO DRUG-DRUG CLASS OR METABOLITE IN CONC. EQUAL TO OR EXCEEDING VALUES LISTED. COCAINE 300 NG/ML Urine URINE SPECIMEN / Unknown 03/21/2023 5:45 AM CDT 03/21/2023 5:50 AM CDT Meet Cerda MD URINE ORDERABLES Performing Organization Address [facility] Co de Phone Number [facility] [address] [place] [address], * CANNABINOIDS-URINE RANDOM (03/21/2023 5:45 AM CDT) THC NEG NEG-NEG 03/21/2023 6:[address] [facility] Comment: RESULTS WERE OBTAINED BY IMMUNOASSAY AND ARE PRESUMPTIVE ONLY. POSITIVE INDICATES THE PRESENCE OF SUBSTANCE WITH CHARACTERISTICS SIMILAR TO DRUG-DRUG CLASS OR METABOLITE IN CONC. EQUAL TO OR EXCEEDING VALUES LISTED. CANNABINOIDS 50 NG/ML Urine URINE SPECIMEN / Unknown 03/21/2023 5:45 AM CDT 03/21/2023 5:50 AM CDT Meet Cerda MD URINE ORDERABLES Performing Organization Address [facility] Co de Phone Number [facility] PATH AND LAB MEDICINE [address] [place] [address], * BENZODIAZEPINES-URINE RANDOM (03/21/2023 5:45 AM CDT) Benzodiazepines NEG NEG-NEG 6:[address] [facility] Comment: RESULTS WERE OBTAINED BY IMMUNOASSAY AND ARE PRESUMPTIVE ONLY. POSITIVE INDICATES THE PRESENCE OF SUBSTANCE WITH CHARACTERISTICS SIMILAR TO DRUG-DRUG CLASS OR METABOLITE IN CONC. EQUAL TO OR EXCEEDING VALUES LISTED. BENZODIAZEPINES 200 NG/ML Urine URINE SPECIMEN / Unknown 03/21/2023 5:45 AM CDT 03/21/2023 5:50 AM CDT Meet Cerda MD URINE ORDERABLES [facility] PATH [facility] LAB MEDICINE [address] [place] [address], * BARBITURATES-URINE RANDOM (03/21/2023 5:45 AM CDT) Barbiturates,Urine NEG NEG-NEG 2022 6:[address] [facility] Comment: RESULTS WERE OBTAINED BY IMMUNOASSAY AND ARE PRESUMPTIVE ONLY. POSITIVE INDICATES THE PRESENCE OF SUBSTANCE WITH CHARACTERISTICS SIMILAR TO DRUG-DRUG CLASS OR METABOLITE IN CONC. EQUAL TO OR EXCEEDING VALUES LISTED. BARBITURATES 200 NG/ML Urine URINE SPECIMEN / Unknown 03/21/2023 5:45 AM CDT 03/21/2023 5:50 AM CDT Meet Cerda MD URINE ORDERABLES Performing Organization Address [facility] Co de Phone Number [facility] PATH AND LAB MEDICINE [address] [place] [address], * AMPHETAMINES-URINE RANDOM (03/21/2023 5:45 AM CDT) Amphetamines NEG NEG-NEG 03/21/2023 6:[address] [facility] Comment: RESULTS WERE OBTAINED BY IMMUNOASSAY AND ARE PRESUMPTIVE ONLY. POSITIVE INDICATES THE PRESENCE OF SUBSTANCE WITH CHARACTERISTICS SIMILAR TO DRUG-DRUG CLASS OR METABOLITE IN CONC. EQUAL TO OR EXCEEDING VALUES LISTED. AMPHETAMINES 1000 NG/ML Urine URINE SPECIMEN / Unknown 03/21/2023 5:45 AM CDT 03/21/2023 5:50 AM CDT Meet Cerda MD URINE ORDERABLES Performing Organization Address [facility] Co de Phone Number [facility] PATH [facility] LAB MEDICINE [address] [place] [address], * PTT (APTT) (03/21/2023 4:52 AM CDT) APTT 28.6 24.0 - 36.5 SEC 03/21/2023 5:41 AM CDT [facility] BLOOD / Unknown 03/21/2023 4:52 AM CDT 03/21/2023 5:09 AM CDT Parul Coronel APRN-TURNTABLE WORKER LABORATORY ORD ERABLES Performing Organization Address [facility] Co de Phone Number [facility] [address] [place] [address], [place] * PROTIME INR (PT) (03/21/2023 4:52 AM CDT) Protime 12.8 9.5 - 14.2 SEC 03/21/2023 5:41 AM CDT [facility]IC[facility] INR 1.1 0.8 - 1.2 03/21/2023 5:41 AM CDT [facility] PATH AND LAB MEDICINE BLOOD / Unknown 03/21/2023 4:52 AM CDT 03/21/2023 5:09 AM CDT Parul Coronel BLADE SHARPENER-TURNTABLE WORKER LABORATORY ORD ERABLES [facility] MED[facility] [address] [place] [address], * HEMOGLOBIN A1C (03/21/2023 3:16 AM CDT) Only the most recent of2 resultswithin the time period is included. Hemoglobin A1C 5.7 4.0 - 5.7 % 03/21/2023 5:56 AM CDT [facility] PATH AND LAB MEDICINE Comment: The ADA recommends that most patients with type 1 and type 2 diabetes maintain an A1c level <7%. 03/21/2023 3:1 6 AM CDT 03/21/2023 3:47 AM CDT Maddy Whalen DO LABORATORY ORDERABLE S Performing Organization Address [facility]/ZIP Co de Phone Number [facility] [address] [place] [address], * (ABNORMAL) LIPID PROFILE (03/21/2023 3:16 AM CDT) Cholesterol 123 <200 MG/DL 03/21/2023 4:26 AM CDT [facility] Triglycerides 84 <150 MG/DL 03/21/2023 4:26 AM CDT [facility] PATH AND LAB MEDICINE HDL 32(L) >40 MG/DL 03/21/2023 4:26 AM CDT [facility] LDL 78 <100 mg/dL 03/21/2023 4:26 AM CDT [facility]IC[facility] VLDL 17 MG/DL 03/21/2023 4:[address] [facility] Non HDL Cholesterol 91 MG/DL 03/21/2023 4:[address] [facility] Comment: Calculated non-HDL Cholesterol (non-HDL-C) indirectly measures LDL-C, Lp(a), IDL-C, and VLDL-C. It is a surrogate marker for Apoprotein B. Goal should be less than 130 mg/dL. BLOOD / Unknown 03/21/2023 3:16 AM CDT 03/21/2023 3:47 AM CDT Meet Cerda MD LABORATORY ORDERABLE [facility] [address] [place] [address], [place] * MRA NECK WO/W CONTRAST (03/21/2023 3:10 AM CDT) Anatomical Region Laterality Modality HEAD/NECK Magnetic Resonan ce 03/21/2023 3:1 8 AM CDT Addenda Addendum by Mack Juarez MD on 03/21/2023 5:31 AM CDT Finalized by Mack Juarez M.D. on 03/21/2023 3:32 AM. Dictated by Mack Juarez M.D. on 03/21/2023 3:18 AM.Addendum: Addendum: Following corrected reviewing attention to the pituitary gland, note is made of eccentric T1 hypointense circumscribed nodule in the left aspect of the sella measuring 7 mm (series 5 image 12). This favored to represent eccentric position of the normal pituitary bright spot. A proteinaceous Rathke's cyst could appear similar. Dedicated MRI of the pituitary gland with contrast could be obtained for further evaluation as indicated. Patchy T1 hypointense calvarial and skull base marrow signal favored to represent marrow heterogeneity related to red marrow reconversion. Findings were discussed with Dr. Whalen by Dr. Juarez by telephone at 5:23 AM 03/21/2023. Finalized by Mack Juarez M.D. on 03/21/2023 5:28 AM. Dictated by Mack Juarez M.D. on 03/21/2023 5:26 AM. Impressions 03/21/2023 3:32 AM CDT MR brain: 1. Several small acute appearing infarcts involving the bilateral cerebellar hemispheres and right occipital lobe. No hemorrhagic conversion. 2. Mild to moderate nonspecific cerebral white matter and pontine FLAIR hyperintensity, likely small vessel ischemic change. Chronic right deep burt nuclei lacunar infarcts are also present. MRA head: 1. Occluded left superior cerebellar artery. 2. Diminutive flow within a small caliber intracranial right vertebral artery. 3. Otherwise patent intracranial arterial vasculature without additional flow-limiting stenosis or branch occlusion. MRA neck: 1. Occluded right vertebral artery origin, reconstituting at the V1 segment with otherwise diminutive flow throughout the remaining cervical right vertebral artery. Findings are similar to outside CTA neck and favored for dissection. 2. Multifocal irregularity of the bilateral carotid arteries without measurable stenosis by NASCET criteria. 3. Patent dominant left cervical vertebral artery without superimposed stenosis. 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 This was done both before and after the administration of MultiHance contrast. 3D [id number] images of the [place] was performed without contrast. 3D contrast enhanced MRA of the carotids and the vertebral arteries was performed. MRA maximum intensity projection images were obtained of the brain and neck with image postprocessing. COMPARISON: CTA/CTA head 03/20/2023 FINDINGS: MR brain: There are a few small acute infarcts involving the inferomedial right and superolateral right cerebellum and paramedian and basal right occipital lobe. No hemorrhagic conversion or significant mass effect is identified. No herniation or hydrocephalus. Mild patchy cerebral white matter FLAIR hyperintensity and moderate confluent pontine FLAIR hyperintensity. Chronic appearing right basal ganglia and thalamic lacunar infarcts patchy areas of T1 hypointense marrow signal throughout the calvarium and skull base. MRA head: Multifocal irregularity of the intracranial internal carotid arteries without stenosis. The anterior and middle cerebral arteries. Irregularity of the nondominant left vertebral artery without stenosis. The basilar artery is widely patent. 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 There is absent flow related signal in the left superior cerebellar artery. There is muted flow related enhancement and small luminal caliber of the intracranial right vertebral artery. MRA neck: Three-vessel arch branching pattern patent origins. Diffuse irregularity of the bilateral common carotid artery without stenosis. Irregularity of the bilateral carotid bifurcation and proximal ICAs without measurable stenosis by NASCET criteria. Left vertebral artery is patent without focal stenosis. The right vertebral artery origin is occluded with reconstitution at the proximal V1 segment and diffuse diminutive flow-related enhancement of the extracranial right vertebral artery. Procedure Note Mack Juarez MD - 03/21/2023 EXAM: MRI AND MRA BRAIN, MRA NECK HISTORY: Acute cerebellar infarct with L SCA occlusion and possible rightvertebral dissection; blurry vision and L ataxia, TECHNIQUE: Multiplanar and multisequence MR imaging of the head wasperformed. This was done both before and after the administration ofMultiHance contrast. 3D vgnh-ud-tzjpkq images of the [place] wasperformed without contrast. 3D contrast enhanced MRA of the carotids andthe vertebral arteries was performed. MRA maximum intensity projectionimages were obtained of the brain and neck with image postprocessing. COMPARISON: CTA/CTA head 03/20/2023 FINDINGS: MR brain: There are a few small acute infarcts involving the inferomedial right andsuperolateral right cerebellum and paramedian and basal right occipitallobe. No hemorrhagic conversion or significant mass effect is identified.No herniation or hydrocephalus. Mild patchy cerebral white matter FLAIRhyperintensity and moderate confluent pontine FLAIR hyperintensity.Chronic appearing right basal ganglia and thalamic lacunar infarcts patchyareas of T1 hypointense marrow signal throughout the calvarium and skullbase. MRA head: Multifocal irregularity of the intracranial internal carotid arterieswithout stenosis. The anterior and middle cerebral arteries. Irregularityof the nondominant left vertebral artery without stenosis. The basilarartery is widely patent. 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 There is absentflow related signal in the left superior cerebellar artery. There is mutedflow related enhancement and small luminal caliber of the intracranialright vertebral artery. MRA neck: Three-vessel arch branching pattern patent origins. Diffuse irregularityof the bilateral common carotid artery without stenosis. Irregularity ofthe bilateral carotid bifurcation and proximal ICAs without measurablestenosis by NASCET criteria. Left vertebral artery is patent without focalstenosis. The right vertebral artery origin is occluded withreconstitution at the proximal V1 segment and diffuse diminutiveflow-related enhancement of the extracranial right vertebral artery. IMPRESSION MR brain: 1. Several small acute appearing infarcts involving the bilateralcerebellar hemispheres and right occipital lobe. No hemorrhagicconversion. 2. Mild to moderate nonspecific cerebral white matter and pontine FLAIRhyperintensity, likely small vessel ischemic change. Chronic right deepgray nuclei lacunar infarcts are also present. MRA head: 1. Occluded left superior cerebellar artery. 2. Diminutive flow within a small caliber intracranial right vertebralartery. 3. Otherwise patent intracranial arterial vasculature without additionalflow-limiting stenosis or branch occlusion. MRA neck: 1. Occluded right vertebral artery origin, reconstituting at the [id number] with otherwise diminutive flow throughout the remaining cervicalright vertebral artery. Findings are similar to outside CTA neck andfavored for dissection. 2. Multifocal irregularity of the bilateral carotid arteries withoutmeasurable stenosis by NASCET criteria. 3. Patent dominant left cervical vertebral artery without superimposedstenosis. Meet Cerda MD MR ORDERABLES * MRA HEAD WO CONTRAST (03/21/2023 3:10 AM CDT) Anatomical Region Laterality Modality Head Magnetic Resonan ce 03/21/2023 3:1 8 AM CDT Addenda Addendum by Mack Juarez MD on 03/21/2023 5:31 AM CDT Finalized by Mack Juarez M.D. on 03/21/2023 3:32 AM. Dictated by Mack Juarez M.D. on 03/21/2023 3:18 AM.Addendum: Addendum: Following corrected reviewing attention to the pituitary gland, note is made of eccentric T1 hypointense circumscribed nodule in the left aspect of the sella measuring 7 mm (series 5 image 12). This favored to represent eccentric position of the normal pituitary bright spot. A proteinaceous Rathke's cyst could appear similar. Dedicated MRI of the pituitary gland with contrast could be obtained for further evaluation as indicated. Patchy T1 hypointense calvarial and skull base marrow signal favored to represent marrow heterogeneity related to red marrow reconversion. Findings were discussed with Dr. Whalen by Dr. Juarez by telephone at 5:23 AM 03/21/2023. Finalized by Mack Juarez M.D. on 03/21/2023 5:28 AM. Dictated by Mack Juarez M.D. on 03/21/2023 5:26 AM. Impressions 03/21/2023 3:32 AM CDT MR brain: 1. Several small acute appearing infarcts involving the bilateral cerebellar hemispheres and right occipital lobe. No hemorrhagic conversion. 2. Mild to moderate nonspecific cerebral white matter and pontine FLAIR hyperintensity, likely small vessel ischemic change. Chronic right deep burt nuclei lacunar infarcts are also present. MRA head: 1. Occluded left superior cerebellar artery. 2. Diminutive flow within a small caliber intracranial right vertebral artery. 3. Otherwise patent intracranial arterial vasculature without additional flow-limiting stenosis or branch occlusion. MRA neck: 1. Occluded right vertebral artery origin, reconstituting at the V1 segment with otherwise diminutive flow throughout the remaining cervical right vertebral artery. Findings are similar to outside CTA neck and favored for dissection. 2. Multifocal irregularity of the bilateral carotid arteries without measurable stenosis by NASCET criteria. 3. Patent dominant left cervical vertebral artery without superimposed stenosis. 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 This was done both before and after the administration of MultiHance contrast. 3D fywq-ga-swyrje images of the [place] was performed without contrast. 3D contrast enhanced MRA of the carotids and the vertebral arteries was performed. MRA maximum intensity projection images were obtained of the brain and neck with image postprocessing. COMPARISON: CTA/CTA head 03/20/2023 FINDINGS: MR brain: There are a few small acute infarcts involving the inferomedial right and superolateral right cerebellum and paramedian and basal right occipital lobe. No hemorrhagic conversion or significant mass effect is identified. No herniation or hydrocephalus. Mild patchy cerebral white matter FLAIR hyperintensity and moderate confluent pontine FLAIR hyperintensity. Chronic appearing right basal ganglia and thalamic lacunar infarcts patchy areas of T1 hypointense marrow signal throughout the calvarium and skull base. MRA head: Multifocal irregularity of the intracranial internal carotid arteries without stenosis. The anterior and middle cerebral arteries. Irregularity of the nondominant left vertebral artery without stenosis. The basilar artery is widely patent. 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 There is absent flow related signal in the left superior cerebellar artery. There is muted flow related enhancement and small luminal caliber of the intracranial right vertebral artery. MRA neck: Three-vessel arch branching pattern patent origins. Diffuse irregularity of the bilateral common carotid artery without stenosis. Irregularity of the bilateral carotid bifurcation and proximal ICAs without measurable stenosis by NASCET criteria. Left vertebral artery is patent without focal stenosis. The right vertebral artery origin is occluded with reconstitution at the proximal V1 segment and diffuse diminutive flow-related enhancement of the extracranial right vertebral artery. Procedure Note Mack Juarez MD - 03/21/2023 EXAM: MRI AND MRA BRAIN, MRA NECK HISTORY: Acute cerebellar infarct with L SCA occlusion and possible rightvertebral dissection; blurry vision and L ataxia, TECHNIQUE: Multiplanar and multisequence MR imaging of the head wasperformed. This was done both before and after the administration ofMultiHance contrast. 3D ssbe-vm-csaxel images of the [place] wasperformed without contrast. 3D contrast enhanced MRA of the carotids andthe vertebral arteries was performed. MRA maximum intensity projectionimages were obtained of the brain and neck with image postprocessing. COMPARISON: CTA/CTA head 03/20/2023 FINDINGS: MR brain: There are a few small acute infarcts involving the inferomedial right andsuperolateral right cerebellum and paramedian and basal right occipitallobe. No hemorrhagic conversion or significant mass effect is identified.No herniation or hydrocephalus. Mild patchy cerebral white matter FLAIRhyperintensity and moderate confluent pontine FLAIR hyperintensity.Chronic appearing right basal ganglia and thalamic lacunar infarcts patchyareas of T1 hypointense marrow signal throughout the calvarium and skullbase. MRA head: Multifocal irregularity of the intracranial internal carotid arterieswithout stenosis. The anterior and middle cerebral arteries. Irregularityof the nondominant left vertebral artery without stenosis. The basilarartery is widely patent. 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 There is absentflow related signal in the left superior cerebellar artery. There is mutedflow related enhancement and small luminal caliber of the intracranialright vertebral artery. MRA neck: Three-vessel arch branching pattern patent origins. Diffuse irregularityof the bilateral common carotid artery without stenosis. Irregularity ofthe bilateral carotid bifurcation and proximal ICAs without measurablestenosis by NASCET criteria. Left vertebral artery is patent without focalstenosis. The right vertebral artery origin is occluded withreconstitution at the proximal V1 segment and diffuse diminutiveflow-related enhancement of the extracranial right vertebral artery. IMPRESSION MR brain: 1. Several small acute appearing infarcts involving the bilateralcerebellar hemispheres and right occipital lobe. No hemorrhagicconversion. 2. Mild to moderate nonspecific cerebral white matter and pontine FLAIRhyperintensity, likely small vessel ischemic change. Chronic right deepgray nuclei lacunar infarcts are also present. MRA head: 1. Occluded left superior cerebellar artery. 2. Diminutive flow within a small caliber intracranial right vertebralartery. 3. Otherwise patent intracranial arterial vasculature without additionalflow-limiting stenosis or branch occlusion. MRA neck: 1. Occluded right vertebral artery origin, reconstituting at the [id number] with otherwise diminutive flow throughout the remaining cervicalright vertebral artery. Findings are similar to outside CTA neck andfavored for dissection. 2. Multifocal irregularity of the bilateral carotid arteries withoutmeasurable stenosis by NASCET criteria. 3. Patent dominant left cervical vertebral artery without superimposedstenosis. Meet Cerda MD MR ORDERABLES * MRI HEAD WO CONTRAST (03/21/2023 3:10 AM CDT) Anatomical Region Laterality Modality Head Magnetic Resonan ce 03/21/2023 3:1 8 AM CDT Addenda Addendum by Mack Juarez MD on 03/21/2023 5:31 AM CDT Finalized by Mack Juarez M.D. on 03/21/2023 3:32 AM. Dictated by Mack Juarez M.D. on 03/21/2023 3:18 AM.Addendum: Addendum: Following corrected reviewing attention to the pituitary gland, note is made of eccentric T1 hypointense circumscribed nodule in the left aspect of the sella measuring 7 mm (series 5 image 12). This favored to represent eccentric position of the normal pituitary bright spot. A proteinaceous Rathke's cyst could appear similar. Dedicated MRI of the pituitary gland with contrast could be obtained for further evaluation as indicated. Patchy T1 hypointense calvarial and skull base marrow signal favored to represent marrow heterogeneity related to red marrow reconversion. Findings were discussed with Dr. Whalen by Dr. Juarez by telephone at 5:23 AM 03/21/2023. Finalized by Mack Juarez M.D. on 03/21/2023 5:28 AM. Dictated by Mack Juarez M.D. on 03/21/2023 5:26 AM. Impressions 03/21/2023 3:32 AM CDT MR brain: 1. Several small acute appearing infarcts involving the bilateral cerebellar hemispheres and right occipital lobe. No hemorrhagic conversion. 2. Mild to moderate nonspecific cerebral white matter and pontine FLAIR hyperintensity, likely small vessel ischemic change. Chronic right deep burt nuclei lacunar infarcts are also present. MRA head: 1. Occluded left superior cerebellar artery. 2. Diminutive flow within a small caliber intracranial right vertebral artery. 3. Otherwise patent intracranial arterial vasculature without additional flow-limiting stenosis or branch occlusion. MRA neck: 1. Occluded right vertebral artery origin, reconstituting at the V1 segment with otherwise diminutive flow throughout the remaining cervical right vertebral artery. Findings are similar to outside CTA neck and favored for dissection. 2. Multifocal irregularity of the bilateral carotid arteries without measurable stenosis by NASCET criteria. 3. Patent dominant left cervical vertebral artery without superimposed stenosis. 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 This was done both before and after the administration of MultiHance contrast. 3D xyhv-xo-sqahew images of the [place] was performed without contrast. 3D contrast enhanced MRA of the carotids and the vertebral arteries was performed. MRA maximum intensity projection images were obtained of the brain and neck with image postprocessing. COMPARISON: CTA/CTA head 03/20/2023 FINDINGS: MR brain: There are a few small acute infarcts involving the inferomedial right and superolateral right cerebellum and paramedian and basal right occipital lobe. No hemorrhagic conversion or significant mass effect is identified. No herniation or hydrocephalus. Mild patchy cerebral white matter FLAIR hyperintensity and moderate confluent pontine FLAIR hyperintensity. Chronic appearing right basal ganglia and thalamic lacunar infarcts patchy areas of T1 hypointense marrow signal throughout the calvarium and skull base. MRA head: Multifocal irregularity of the intracranial internal carotid arteries without stenosis. The anterior and middle cerebral arteries. Irregularity of the nondominant left vertebral artery without stenosis. The basilar artery is widely patent. 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 There is absent flow related signal in the left superior cerebellar artery. There is muted flow related enhancement and small luminal caliber of the intracranial right vertebral artery. MRA neck: Three-vessel arch branching pattern patent origins. Diffuse irregularity of the bilateral common carotid artery without stenosis. Irregularity of the bilateral carotid bifurcation and proximal ICAs without measurable stenosis by NASCET criteria. Left vertebral artery is patent without focal stenosis. The right vertebral artery origin is occluded with reconstitution at the proximal V1 segment and diffuse diminutive flow-related enhancement of the extracranial right vertebral artery. Procedure Note Mack Juarez MD - 03/21/2023 EXAM: MRI AND MRA BRAIN, MRA NECK HISTORY: Acute cerebellar infarct with L SCA occlusion and possible rightvertebral dissection; blurry vision and L ataxia, TECHNIQUE: Multiplanar and multisequence MR imaging of the head wasperformed. This was done both before and after the administration ofMultiHance contrast. 3D xqoe-si-henlra images of the [place] wasperformed without contrast. 3D contrast enhanced MRA of the carotids andthe vertebral arteries was performed. MRA maximum intensity projectionimages were obtained of the brain and neck with image postprocessing. COMPARISON: CTA/CTA head 03/20/2023 FINDINGS: MR brain: There are a few small acute infarcts involving the inferomedial right andsuperolateral right cerebellum and paramedian and basal right occipitallobe. No hemorrhagic conversion or significant mass effect is identified.No herniation or hydrocephalus. Mild patchy cerebral white matter FLAIRhyperintensity and moderate confluent pontine FLAIR hyperintensity.Chronic appearing right basal ganglia and thalamic lacunar infarcts patchyareas of T1 hypointense marrow signal throughout the calvarium and skullbase. MRA head: Multifocal irregularity of the intracranial internal carotid arterieswithout stenosis. The anterior and middle cerebral arteries. Irregularityof the nondominant left vertebral artery without stenosis. The basilarartery is widely patent. 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 There is absentflow related signal in the left superior cerebellar artery. There is mutedflow related enhancement and small luminal caliber of the intracranialright vertebral artery. MRA neck: Three-vessel arch branching pattern patent origins. Diffuse irregularityof the bilateral common carotid artery without stenosis. Irregularity ofthe bilateral carotid bifurcation and proximal ICAs without measurablestenosis by NASCET criteria. Left vertebral artery is patent without focalstenosis. The right vertebral artery origin is occluded withreconstitution at the proximal V1 segment and diffuse diminutiveflow-related enhancement of the extracranial right vertebral artery. IMPRESSION MR brain: 1. Several small acute appearing infarcts involving the bilateralcerebellar hemispheres and right occipital lobe. No hemorrhagicconversion. 2. Mild to moderate nonspecific cerebral white matter and pontine FLAIRhyperintensity, likely small vessel ischemic change. Chronic right deepgray nuclei lacunar infarcts are also present. MRA head: 1. Occluded left superior cerebellar artery. 2. Diminutive flow within a small caliber intracranial right vertebralartery. 3. Otherwise patent intracranial arterial vasculature without additionalflow-limiting stenosis or branch occlusion. MRA neck: 1. Occluded right vertebral artery origin, reconstituting at the [id number] with otherwise diminutive flow throughout the remaining cervicalright vertebral artery. Findings are similar to outside CTA neck andfavored for dissection. 2. Multifocal irregularity of the bilateral carotid arteries withoutmeasurable stenosis by NASCET criteria. 3. Patent dominant left cervical vertebral artery without superimposedstenosis. Meet Cerda MD MR ORDERABLES * (ABNORMAL) COMPREHENSIVE METABOLIC PANEL (03/21/2023 12:08 AM CDT) Sodium 134(L) 137 - 147 MMOL/L 03/21/2023 1:20 AM CDT [facility] Potassium 4.3 3.5 - 5.1 MMOL/L 03/21/2023 1:20 AM CDT [facility] Chloride 102 98 - 110 MMOL/L 03/21/2023 1:20 AM CDT [facility] Glucose 109(H) 70 - 100 MG/DL 03/21/2023 1:20 AM CDT [facility] Blood Urea Nitrogen 4(L) 7 - 25 MG/DL 03/21/2023 1:20 AM CDT [facility] Creatinine 0.65 0.4 - 1.24 MG/DL 03/21/2023 1:20 AM CDT [facility] Calcium 9.2 8.5 - 10.6 MG/DL 03/21/2023 1:20 AM CDT [facility] Total Protein 7.6 6.0 - 8.0 G/DL 03/21/2023 1:20 AM CDT [facility] Total Bilirubin 0.6 0.3 - 1.2 MG/DL 03/21/2023 1:20 AM CDT [facility] Albumin 4.4 3.5 - 5.0 G/DL 03/21/2023 1:20 AM CDT [facility] Alk Phosphatase 65 25 - 110 U/L 03/21/2023 1:20 AM CDT [facility] AST (SGOT) 16 7 - 40 U/L 03/21/2023 1:20 AM CDT [facility] CO2 23 21 - 30 MMOL/L 03/21/2023 1:20 AM CDT [facility] ALT (SGPT) 14 7 - 56 U/L 03/21/2023 1:20 AM CDT [facility] Anion Gap 9 3 - 12 03/21/2023 1:20 AM CDT [facility] eGFR >60 >60 mL/min 03/21/2023 1:20 AM CDT [facility] Comment:eGFR calculated glen mohamud the CKD-EPIcr_R equation BLOOD / Unknown 03/21/2023 1 2:08 AM CDT 03/21/2023 12:21 AM CDT Meet Cerda MD LABORATORY ORDERABLE [facility] [address] [place] [address], [place] * TELEMETRY STRIPS-SCAN (03/21/2023 12:00 AM CDT) Narrative 03/21/2023 12:00 AM CDT Ordered by an unspecified provider. Scanned Document PROCEDURE DUMMY ORDE RS * TELEMETRY STRIPS-SCAN (03/21/2023 12:00 AM CDT) Narrative 03/21/2023 12:00 AM CDT Ordered by an unspecified provider. Scanned Document PROCEDURE DUMMY ORDE RS * TELEMETRY STRIPS-SCAN (03/21/2023 12:00 AM CDT) Narrative 03/21/2023 12:00 AM CDT Ordered by an unspecified provider. Scanned Document PROCEDURE DUMMY ORDE RS * TELEMETRY STRIPS-SCAN (03/21/2023 12:00 AM CDT) Narrative 03/21/2023 12:00 AM CDT Ordered by an unspecified provider. Scanned Document PROCEDURE DUMMY ORDE RS * TELEMETRY STRIPS-SCAN (03/21/2023 12:00 AM CDT) Narrative 03/21/2023 12:00 AM CDT Ordered by an unspecified provider. Scanned Document PROCEDURE DUMMY ORDE RS * TELEMETRY STRIPS-SCAN (03/21/2023 12:00 AM CDT) Narrative 03/21/2023 12:00 AM CDT Ordered by an unspecified provider. Scanned Document PROCEDURE DUMMY ORDE RS * TELEMETRY STRIPS-SCAN (03/21/2023 12:00 AM CDT) Narrative 03/21/2023 12:00 AM CDT Ordered by an unspecified provider. Scanned Document PROCEDURE DUMMY ORDE RS * TELEMETRY STRIPS-SCAN (03/21/2023 12:00 AM CDT) Narrative 03/21/2023 12:00 AM CDT Ordered by an unspecified provider. Scanned Document PROCEDURE DUMMY ORDE RS * TELEMETRY STRIPS-SCAN (03/21/2023 12:00 AM CDT) Narrative 03/21/2023 12:00 AM CDT Ordered by an unspecified provider. Scanned Document PROCEDURE DUMMY ORDE RS from Last 3 Months Advance Directives Latest Code Status on File Code Status Date Activated Date Inactivated Comments Full Code 03/21/2023 12:06 AM 03/26/2023 3:38 PM Question Answer Comments Provider has discussed Code Status w/Patient or Family? No, more discussion needed Care Teams Senior Service Technician Relationship Specialty Start Date End Date Taran Prajapati MD [address] [place] [place] [id number] PCP - General Hospitalist 03/21/23
--- OUTSIDE RECORDS SUMMARY | 2023-03-26 16:54 | XMS REPORT | Continuity of Care Document ---
Author Author [facility],, [facility] Organization [place] [facility],, [facility] Address [address] [place] [address] Phone [phone] Care Team Providers Care Record Cutter Name Role Phone DAVID SHAW Assessment Encounter Date Assessment Date Assessment 03/10/2023 03/10/[address] Calvin browne I had the pleasure of seeing Phil, known to have Diet controlled DM as well as HTN and hyperlipidemia. 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 Plan; 1. Will get pituitary work up to r/o - Adrenal insufficiency - secondary hypothyroidism 2. Will get a work up for his hyponatremia 3. Was advised to limit fluid intake to~ 70 oz a day 4. will need a repeat Pituitary MRI w/o in 3 months 5. follow up in 4 months or sooner if needed Plan was discussed with the patient and she expressed understanding Thank you for allowing me to participate in the care of your patient Plan of Treatment Reminders Order Date Submit Date Provider Details Appointments NEW PATIENT 30 03/10/2023 07:00AM Dr Estrada FOLLOW UP 15 07/10/2023 03:45PM Dr Estrada Lab TSH + free T4, serum 03/10/2023 03/10/2023 [facility], [address], [address], [place], [address], acth, plasma 03/10/2023 03/10/2023 [facility], [address], [address], [place], [address], cortisol, serum (acth stimulation test) 03/10/2023 03/10/2023 [facility], [address], [address], [place], [address], renal function panel, serum 03/10/2023 03/10/2023 [facility], [address], [address], [place], [address], osmolality, urine 03/10/2023 03/10/2023 [facility], [address], [address], [place], [address], uric acid, serum or plasma 03/10/2023 03/10/2023 [facility], [address], [address], [place], [address], Referral None recorded. Procedures None recorded. Surgeries None recorded. Imaging MRI, brain + pituitary, w/wo contrast - CPT: 90029 03/10/2023 03/10/2023 [facility], [address], [place], [address], Medication Orders cosyntropin 0.25 mg solution for injection 03/10/2023 03/10/2023 [facility] Patient TargetsNo targets recorded. Patient InstructionsNo instructions recorded. Reason for Referral None Reported. Medical Equipment None Reported. Allergies Allergen ID Allergen Name Reaction Reaction Severity Criticality Documentation Date Start Date Code Code System Note 20591 tetracycl ine Not available Not available Not available 03/10/2023 68770 RxNorm 36094 penicilla mine Not available Not available Not available 03/10/2023 7975 RxNorm 80118 hydrochlo rothiazid e Not available Not available Not available 03/10/2023 5465 RxNorm Medications Name Sig Start Date Stop Date Status Note atorvastatin 40 mg tablet Take 1 tablet every day by oral route. active carvedilol 25 mg tablet Take 0.5 tablets twice a day by oral route. active cosyntropin 0.25 mg solution for injection Take 0.25 mg by injection route. 03/10/2023 active omeprazole 20 mg capsule,delayed release Take 1 capsule twice a day by oral route. active lisinopril 5 mg tablet Take 1 tablet cherie day by oral route. active Vitals Date Recorded Body height Body mass index (BMI) Body weight Oxygen saturation Oxygen saturation in Arterial blood by Pulse oximetry Heart rate Systolic blood pressure Diastolic blood pressure 03/10/2023 172.72 cm 24.6 kg/m2 10725.96 g 98 % 98 % 65 /min 123 mm[Hg] 82 mm[Hg] Social History None recorded. Functional Status None recorded. Mental Status None recorded. Family History Nothing Reported. Medical History No medical history recorded. Past Encounters Encounter ID Performer Location Encounter date Diagnosi s/Indication [id number] Law Estrada MD [facility] [address] [facility] [place] [address] 03/10/2023 Pituitary apoplexy Hyponatremia Health Concerns Section Related Observation None Recorded Concern Status Updated by Updated on None Recorded Payers Encounter Date Sequence Insurance Name Policy Number Policy Humphrey Covered Member ID Humphrey Member ID Guarantor Name 03/10/2023 [employer] [place] [employer] ([facility]) Phil Nurys Vivas [id number] Phil Vivas Notes Date Note Type Note 03/10/2023 text/html HPI Notes: Coco browne is a 57 yr old male patient known to have DM off therapy for the last 5-6 years, HTN, hyperlipidemia as well as lara esophagus and osteoarthritis, and a history of pancreatitis due to HCTZ. Patient report that at the end of January 2023, he started having dizziness/vertigo, weakness, excessive sweating, nausea and vomiting, the episodes lasted for ~ 4 hours and kept happening over the course of 2-3 days, he ended up going to the hospital and his brain MRI showed pituitary apoplexy as well as a subacute right cerebellar infarct work up at [facility] showed hyponatremia with Sodium ~ 132, Hb ~ 14.9, and GFR > 60, A1C ~ 5.6%, TSH ~4.63, ACTH ~ 24, cortisol ~ 13.3, IGF1 ~ 140 and Prolactin ~ 7.6 report mother with thyroid cancer
--- OUTSIDE RECORDS SUMMARY | 2023-03-26 16:54 | XMS REPORT | Encounter Summary ---
Author Author [facility] Organization [facility] Address Unknown Phone Unavailable Care Team Providers Care Textile Chemist Name Role Phone Taran Prajapati MD PCP [phone] Reason for Referral * Consult, Test & Treat (Discharge Pending) - New Request Specialty Diagnoses / Procedures Referred By Contac t Referred To Contact Neurology Diagnoses Acute ischemic multifocal posterior circulation stroke, unspecified laterality (HCC) Procedures APPOINTMENT REQUEST: NEUROLOGY Yesika Bee APRN-NP [address] [place] [address] [facility] Neurology [address] 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 posterior circulation stroke, unspecified laterality (HCC) Procedures CTA NECK WO/W CONT Yesika Bee APRN-NP [address] [place] [address] Referral ID Status Reason Start Date Expiration Date V isits Requested Visits Authorized [id number] New Request 03/26/2023 03/26/2024 1 1 * Radiology Services (Routine) - New Request Specialty Diagnoses / Procedures Referred By Contkimani t Referred To Contact Radiology Diagnoses Dissection of extracranial vertebral artery (HCC) Acute ischemic multifocal posterior circulation stroke, unspecified laterality (HCC) Procedures CTA HEAD WO/W Yesika Reno APRN-NP [address] [place] [address] Referral ID Status Reason Start Date Expiration Date V isits Requested Visits Authorized [id number] New Request 03/26/2023 03/26/2024 1 1 Reason for Visit * Auth/Cert (Routine) Specialty Diagnoses / Procedures Referred By Bruce del rosario Referred To Contact Diagnoses Vertebral artery dissection (HCC) Stroke Referral ID Status Reason Start Date Expiration Date Visits Re quested Visits Authorized [id number] 1 1 Encounter Details Date Type Department Care Team Description 03/21/2023 12:06 AM CDT - 03/26/2023 1:00 PM CDT Hospital Encounter Patient Care Unit CA6: [facility] [address] [facility] [address] [place] [id number] Meet Cerda MD [id number] [place] [address] Debbie Roblero MD [address] [place] [address] Aspen Quinonez MD [address] [place] [address] Angela Thacker DO [address] [place] [address] Dissection of extracranial vertebral artery (HCC) Discharge Disposition: Rehab Facility (Not [facility]) Social History Tobacco Use Types Packs/Day Years [...] on file Sexual Orientation Not on file documented as of this encounter Last Filed Vital Signs Vital Sign Reading [...] Mass Index 24.64 03/21/2023 12:00 PM CDT documented in this encounter Functional Status Functional Status Response Date of Assess ment Does the patient have a hearing impairment: Yes 03/21/2023 documented as of this encounter Discharge Summaries * Jaimie De La Torre - 03/26/2023 11:40 AM CDT ENGINEER AUTOMATED EQUIPMENT Note: Printed and placed transfer packet in the pt's wall unit per request from ,Pascale Lewis Darby De La Torre Shipping Room Helper For additional assistance please contact [facility] * * Jaimie De La Torre - 03/26/2023 11:13 AM CDT ENGINEER AUTOMATED EQUIPMENT Note: Request from SILVIANO Mcgraw Student to schedule W/C transport for today to [facility] at 12:30 today Aveso: No availability Melrude: Called twice no answer [employer] Representative: Availability $746.85 , scheduled transport. [employer] Representative [phone] will arrive at 12:30 to transport patient. Jaimie De La Torre Shipping Room Helper For additional assistance please contact [facility] * * Pascale Lewis - 03/26/2023 10:31 AM CDT Case Management Progress Note NAME:Phil Vivas :1965 AGE: 57 y.o. ADMISSION DATE: 03/21/2023 DAYS ADMITTED: LOS: 5 days Today's Date: 03/26/2023 PLAN: Patient will discharge to [facility] today at 12:30pm via wheel chair van. Expected Discharge Date: 03/26/2023 Is Patient Medically Stable: yes Are there Barriers to Discharge? no INTERVENTION/DISPOSITION: • Discharge Planning SILVIANO spoke with Maximo ([phone] ext [phone]) at the [place] in [facility] to receive auth for pt's IPR.Maximo gave auth number (Auth # [id number]) and faxed auth information to [facility]. SILVIANO called facility to check on admission cut off time. September recycling coordinator from [facility] reprted the patient has to arrive at 3:00pm. SILVIANO tasked [facility] to set up transport for patient. ENGINEER AUTOMATED EQUIPMENT reported [facility] can transport today at 12:30 pm. SW emailed CM escalation to assist with transportation cost to [facility]. CM escalation approved transportation for $746.85. SILVIANO notified Stroke team of dc today. SW notified bedside nurse of dc today and provided number for report. SILVIANO tasked [facility] to print and deliver transfer packet to pt bedside. SW notified pt of dc time today. REPORT: [phone] SILVIANO faxed dc orders to [phone] SW will continue to remain available and assist with discharge needs as they arise. • Transportation Does the Patient Need Case Management to Arrange Discharge Transport? (ex: facility, ambulance, wheelchair/stretcher, Medicaid, cab, other): No Will the Patient Use Family Transport?: Yes Transportation Name, Phone and Availability #1: Sister Alycia [phone] • Support • Info or Referral • Positive SDOH Domains and Potential Barriers • Medication Needs • Financial • Legal • Other • Discharge Disposition Selected Continued Care - Admitted Since 03/21/2023 No services have been selected for the patient. CJ Alvares Social Work Case Management Available on [employer] * Pascale Lewis - 03/24/2023 10:15 AM CDT Case Management Admission Assessment NAME:Phil Vivas :1965 AGE:57 y.o. ADMISSION DATE: 03/21/2023 DAYS ADMITTED: LOS: 3 days Today’s Date: 03/24/2023 Source of Information: Patient Plan Anticipated discharge to [facility], pending [place] auth Plan: Case Management Assessment, Assist PRN with SW/NCM Services Plan: Case Management Assessment, Assist PRN with SW/NCM Services, Discharge Planning for Home withPost-Acute Care Needs Most recent therapy recommendations: • PT: IPR • OT: IPR • ST: NA NCM/SW team to continue to follow patient's plan of care via EMR and team huddle; will assist with discharge planning needs as indicated. Assessment Notes Patient is agreeable to completing assessment at this time. SW provided contact information, explanation of CM roles, and general review of Preparing for Discharge, [facility] + Preferred Provider Network handouts. Patient encouraged to contact casemanagement with questions and concerns during hospitalization. • Patient lives with alone. The home does accomodates single-level living. The home has 3 LEATHA to enter. • Patient is typically independent in all ADLs and mobility. • Home support is assessed to be intermittent, if needed. • Patient's previous HH, LTACH, SNF, IPR, DME, outpatient therapy experience includes: o [facility] o DME: roller walker while in the hospital. Pt states he will not need it after discharge. • Transport plan will be Sister alycia. • Pt fills medications at [place] • Last seen PCP- 2 weeks ago • Patient completed DPOA with sister Alycia and she will woodrow in a copy to put on file. • Patients primary support is sister Alycia ([phone]). • SW discussed IPR's with patient and was agreeable to send referrals to [facility] and [facility]. • SW reached out to [facility] ([phone]) to get insurance auth for IPR. SW was transferred to [facility] (Transfer Nurse) EXT [phone] and left . • [facility] September called Silviano to inform pt has been accepted pending [place] auth. • SILVIANO called [facility] and spoke with critical access hospital rep Oswaldo ext [phone] she informed SW to send request for service form to fax [phone]. • SILVIANO completed and faxed to ([phone]) [place] request for service form with MD signature by angela Thacker. • SILVIANO informed patient he has been accepted by [facility] pending [place] auth and no transportation is provided. Pt states his sister lives 3 hours away and travel information center supervisor leave and transport. SILVIANO sent H&P, OT/PT notes, PMR, and Neurology progress note. [facility] [address] [place] [address] Office Center Main phone: [phone] SW will continue to remain available and assist with discharge needs as they arise. Patient Address/Phone [address] [facility] [phone] (home) Emergency Contact Extended Emergency Contact Information Primary Emergency Contact: Alycia Bryant Mobile Relation: Sister Preferred language: SRI LANKAN Ropewalk Rope Maker needed? No Secondary Emergency Contact: Reddy Bryant Mobile Relation: Other/Unknown Preferred language: SRI LANKAN Ropewalk Rope Maker needed? No Healthcare Directive Patient completed DPOA with sister Alycia and she will woodrow in a copy to put on file. Transportation Does the Patient Need Case Management to Arrange Discharge Transport? (ex: facility, ambulance, wheelchair/stretcher, Medicaid, cab, other): No Will the Patient Use Family Transport?: Yes Transportation Name, Phone and Availability #1: Sister Alycia [phone] Expected Discharge Date Living Situation Prior to Admission • Living Arrangements Type of Residence: Home, independent Living Arrangements: Alone Bathroom Shower / Tub: Tub/Shower Unit How many levels in the residence?: 1 Can patient live on one level if needed?: Yes Does residence have entry and/or inside stairs?: Yes (Pt has 3 stairs to enter) Assistance needed prior to admit or anticipated on discharge: No Who provides assistance or could if needed?: Sister alycia Are they in good health?: Yes Can support system provide 24/7 care if needed?: Maybe • Level of Function Prior level of function: Independent • Cognitive Abilities Cognitive Abilities: Alert and Oriented Financial Resources • Coverage Primary Insurance: [place]/[facility] Location: [facility] Secondary Insurance: No insurance • Source of Income Source Of Income: Other group home income ([facility]) • Financial Assistance Needed? NA Psychosocial Needs • Mental Health Mental Health History: In the past Agency name: [place] Mental Health Provider: [place] Counselor Mental Health Symptoms: Feeling depressed (Pt lost 6 family members in 1 year and was diagnosed with Sever Bereavement disorder) • Substance Use History Substance Use History Screen: Yes (Pt drinks 3 x a week and about 3-4 beers at a time) • Other NA Current/Previous Services • PCP Taran Prajapati, , • Pharmacy No Pharmacies Listed • Durable Medical Equipment Durable Medical Equipment at home: Roller Walker • Home Health Receiving home health: No • Hemodialysis or Peritoneal Dialysis Undergoing hemodialysis or peritoneal dialysis: No • Tube/Enteral Feeds Receive tube/enteral feeds: No • Infusion Receive infusions: No • Private Duty Private duty help used: No • Home and Community Based Services Home and community based services: No • Bassam Olson Bassam White: N/A • Hospice Hospice: No • Outpatient Therapy PT: In the past When did patient receive care?: 16 years ago [facility]group[facility] OT: No CLINICAL LABORATORY AIDE: No • Mcfp Facility/Half-Way SNF: No NH: No • Inpatient Rehab IPR: No • Long-Term Acute Care Hospital LTACH: No • Acute Hospital Stay Acute Hospital Stay: No CJ Mcgraw Social Work Case Management Available on [facility] Associated attestation - CarolinEulaie - 03/24/2023 4:57 PM CDT Per Stroke team, he may be stable for dc tomorrow.Pt has been accepted at [facility] IPR. SW has submitted auth to [facility] for IPR. Pt's sister can provide transportation but lives 3 hours away - [facility] will assist with arranging and logistics. * Linda Camarillo - 03/21/2023 1:17 PM CDT Case Management Progress Note NAME:Phil Vivas :1965 AGE: 57 y.o. ADMISSION DATE: 03/21/2023 DAYS ADMITTED: LOS: 0 days Today's Date: 03/21/2023 57 y.o. male with a PMH of tobacco abuse, HTN, HLD, GERD, Loredo esophagus and a TIA in early February 2023 who presented to an OSH with blurred/reduced vision, ptosis, dizziness, and facial droop that started when he awoke around 0700 on 03/20. Cranial images demonstrated a posterior fossa strokeand concern for vertebral artery dissection. He was not a candidate for intervention, but given thelocation and size of stroke, he was transferred to [facility] for a higher level of care. NCM attempted to complete initial admission assessment with pt and or family, no contact numbers listed in chart, NCM attempted to call hospital room phone with no answer. NCM will attempt at a later time to complete assessment; PT/OT recs in for rehab med consult. NCM/MARINE OILER will continue to follow for d/c planning as appropriate. Linda Camarillo RN BSN CPN Nurse Pharmacist Critical Care Voalte extension: [phone] documented in this encounter Discharge Instructions * Appointments* Yesika Bee APRN-NP - 03/26/2023 11:20 AM CDT You will have a repeat CT angiogram of your head & neck in 3 months and follow up with Neurology after that imaging. An appointment has been requested and you will be contacted to set that up. documented in this encounter Medications at Time of Discharge Medication Sig Dispensed Refills Start Date End Date apixaban (ELIQUIS) 5 mg tabletIndications:prev ention of thromboembolism with vertebral artery dissection Take one tablet by mouth twice daily. Indications: prevention of thromboembolism with vertebral artery dissection 180 tablet 1 03/26/2023 atorvastatin (LIPITOR) 40 mg tablet Take one tablet by mouth daily. 0 carvediloL (COREG) 12.5 mg tablet Take one tablet by mouth twice daily with meals. Take with food. 0 lisinopriL (ZESTRIL) 10 mg tablet Take one tablet by mouth daily. [address] (PRILOSEC) 20 mg capsule Take two capsules by mouth daily before breakfast. 90 capsule 0 03/26/2023 documented as of this encounter Ordered Prescriptions Prescription Sig Dispensed Refills Start Date End Da te apixaban (ELIQUIS) 5 mg tabletIndications:prev ention of thromboembolism with vertebral artery dissection Take one tablet by mouth twice daily. Indications: prevention of thromboembolism with vertebral artery dissection 180 tablet 1 03/26/[address] (PRILOSEC) 20 mg capsule Take two capsules by mouth daily before breakfast. 90 capsule 0 03/26/2023 documented in this encounter Discharge Disposition Disposition Code Departure Means Destination Rehab Facility (Not [facility]) Wheelchair documented in this encounter Progress Notes * Heather Carr RN - 03/26/2023 1:00 PM CDT Patient Health Questionnaire - 2 (PHQ2): The patient completed the PHQ2 questionnaire with a score of 0 (? 3 indicating potential depression). The patient scored less than 3 and requires no further follow-up at this time. Stroke Education : The patient was given the stroke education informational booklet which was subsequently reviewed with the patient.. Stroke Risk Factors Form: The patient was provided with the Stroke Risk Factors Form. This form was reviewed with the patient. and completed by the patient, with the assistance of this RN, to the best of their ability.. RN completed personal stroke education, medications prescribed, warning signs, when to seek treatment. All questions addressed. * Aleshia Ha RN - 03/26/2023 11:54 AM CDT Report given to [facility] * Lidia Torres, PT - 03/26/2023 10:32 AM CDT PHYSICAL THERAPY PROGRESS NOTE Name: Phil Vivas : 1965 Age: 57 y.o. Admission Date: 03/21/2023 LOS: 5 days Date of Service: 03/26/2023 Mobility Patient Turn/Position: Weight shifted (Bed) Progressive Mobility Level: Walk in hallway Distance Walked (feet): 450 ft Level of Assistance: Assist X1 Assistive Device: None Activity Limited By: Weakness Subjective Significant hospital events: 57 y.o. male with a PMH of tobacco abuse, HTN, HLD, GERD, Loredo esophagus and a TIA in early February 2023 who presented to an OSH with blurred/reduced vision, ptosis,dizziness, and facial droop that started when he awoke around 0700 on 03/20. Cranial images demonstrated a posterior fossa stroke and concern for vertebral artery dissection. He was not a candidate for intervention, but given the location and size of stroke, he was transferred to [facility] for a higher level of care. He is now admitted to [facility]ICU for further management and evaluation. MRI: R and L cerebellar infarcts and right occipital lobe infarct. No evidence of hemorrhage on SWI - MRA H&N: Lsuperior cerebellar artery occlusion and occluded R vertebral artery at the origin and R vertebral d issection Mental / Cognitive Status: Alert;Oriented;Cooperative;Follows Commands Pain: Patient has no complaint of pain Pain Interventions: Patient agrees to participate in therapy;Patient assisted into position of comfort Ambulation Assist: Independent Mobility in Community without Device Patient Owned Equipment: None Home Situation: Lives Alone Type of Home: House Entry Stairs: 3-5 Stairs;Rail on Both Sides (3 steps) In-Home Stairs: Able to Live on One Level Comments: Patient independent with mobility and ADLs without a device. No falls. Posture/Neurological Coordination: Ataxia of LLE;Ataxia of LUE;Impaired Heel to Hauser LLE;Impaired Finger Nose Finger LUE Bed Mobility/Transfer Bed Mobility: Supine to Sit: Standby Assist;Verbal Cues;Head of Bed Elevated;Safety Considerations Bed Mobility: Sit to Supine: Standby Assist;Bed Flat Transfer Type: Sit to/from Stand Transfer: Assistance Level: To/From;Bed;Minimal Assist Transfer: Assistive Device: None Transfers: Type Of Assistance: Verbal Cues;For Balance;For Safety Considerations;Requires Extra Time End Of Activity Status: Sitting at Edge of Bed;Instructed Patient to Request Assist with Mobility;Instructed Patient to Use Call Light (alarm set) Balance Sitting Balance: Static Sitting Balance;Dynamic Sitting Balance;Independent Standing Balance: Dynamic Standing Balance;No UE support;Minimal Assist Gait Gait Distance: 450 feet Gait: Assistance Level: Minimal Assist;Moderate Assist (modA with balance loss) Gait: Assistive Device: None Gait: Descriptors: Pace: Normal;Pathway deviations;Decreased heel strike LLE;Variable step length;Loss of balance Activity Limited By: Weakness Comments: Steppage gait on LLE and a few instances of balance loss towards the left side requiring moderate physical assist. Otherwise minimal assist. Activity/Exercise Comments: Quadruped and tall kneeling reaching activities on therapy mat in gym x5 minutes Education Persons Educated: Patient Patient Barriers To Learning: Decreased Hearing Interventions: Louder Voice Required Teaching Methods: Verbal Instruction Patient Response: Verbalized Understanding Topics: Plan/Goals of PT Interventions;Use of Assistive Device/Orthosis;Mobility Progression;SafetyAwareness;Up with Assist Only;Importance of Increasing Activity;Positioning;Recommend Continued Therapy;Therapy Schedule Assessment/Progress Impaired Mobility Due To: Impaired Balance;Medical Status Limitation Assessment/Progress: Should Improve w/ Continued PT Comments: Patient scores as a high fall risk on the FISH with slowed gait speed noted on the 10 meter walk test. Ongoing coordination deficits although continues to improve with skilled intervention.Will benefit from intensive therapies at discharge to address deficits AM-PAC 6 Clicks Basic Mobility Inpatient Turning from your back to your side while in a flat bed without using bed rails: None Moving from lying on your back to sitting on the side of a flat bed without using bedrails : None Moving to and from a bed to a chair (including a wheelchair): A Little Standing up from a chair using your arms (e.g. wheelchair, or bedside chair): A Little To walk in hospital room: A Little Climbing 3-5 steps with a railing: A Little Basic Mobility Inpatient Raw Score: 20 Standardized (T-scale) Score: 43.99 Goals Goal Formulation: With Patient Time For Goal Achievement: 5 days, To, 7 days Patient Will Transfer Bed/Chair: w/ Stand By Assist Patient Will Transfer Sit to Stand: w/ Stand By Assist Patient Will Ambulate: Greater than 200 Feet, w/ Stand By Assist (with least restrictive device) Patient Will Go Up / Down Stairs: 3-5 Stairs, w/ Stand By Assist (3 steps) Plan Treatment Interventions: Mobility Training;Balance Activities;Coordination Training;Neuromuscular Reeducation Plan Frequency: 5 Days per Week PT Plan for Next Visit: Progress gait varying mely, changing directions, target practice/toe taps LLE PT Discharge Recommendations Recommendation: Inpatient setting;Recommend rehab medicine consult Therapist: Lidia Torres PT, DPT Date: 03/26/2023 * Yesika Bee, MARKET MANAGER-TRANSMISSION SYSTEM OPERATOR - 03/26/2023 8:48 AM CDT Vascular Neurology Progress Note Admission Date: 03/21/2023 LOS: 5 days Principal Problem: Dissection of extracranial vertebral artery (HCC) Active Problems: Acute ischemic multifocal posterior circulation stroke (HCC) 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 male with PMH HTN, HLD, diet controlled DMII, current tobacco use, GERD, Loredo's esophagus, and recent right cerebellar infarct (Jan 2023) with diagnosis of pituitary apoplexy who presented to [facility] 03[facility]2023 after waking with left eye blurred vision with symptom progression to left sided weakness & ataxia. CT head showed left cerebellar infarct. Outside IV thrombolytic window. CTA H/N showed left superior cerebellar artery occlusion andprobable right vertebral artery occlusion. Transferred to [facility] with admission to Neuro ICU for close monitoring. He was started on a heparin drip for right vertebral artery dissection at origin, then transitioned to Eliquis on 03/22/2023. Imaging remained stable and transferred to Stroke Service on 03/22/2023. Suspected Stroke Etiology: Spontaneous vertebral artery dissection Current Exam: A&Ox4, speech fluent & clear, CN II-XII intact, LUE 4+/5 distally otherwise 5/5 strength throughout, ataxia LUE, sensation intact Acute left cerebellar & right occipital infarcts Right vertebral artery dissection Ataxia Acute left hemiparesis Hx recent right cerebellar stroke (01/2023) - MRA head/neck: occluded left superior cerebellar artery, occluded right vertebral artery origin reconstituting at V1 segment with diminutive flow within small intracranial right vertebral artery favored for dissection, multifocal irregularity of bilateral carotid arteries without measurable stenosis, patent dominant left cervical vertebral artery without stenosis - MRI head: Several small acute appearing infarcts involving the bilateral cerebellar hemispheres and right occipital lobe. No hemorrhagic conversion. - 03/22 CT head: Evolving recent infarcts involving the bilateral cerebellar hemispheres and right occipital lobe without gross hemorrhagic conversion or obvious new area of infarct. - Echo: EF 63%, LA normal size, no shunt - Secondary Stroke Risk Optimization: - Blood Pressure Goal: <130/80 - Antiplatelet/Anticoagulation: Eliquis 5 mg BID - Lipids: LDL is 78, with goal of <70 - Blood Glucose: Hgb A1c is 5.7, with goal of <7 - Tobacco use: Smoking Cessation consulted - Rehabilitation: PT/OT: Following CLINICAL LABORATORY AIDE: Following for dysphagia Rehab Medicine: Consulted for recommendations on post discharge disposition > Scopolamine patch for dizziness > Repeat CTA head/neck in 3 months > Continue Eliquis 5 mg BID until outpatient follow up after vessel imaging > Continue high-intensity statin > Neurology follow up outpatient Primary hypertension > Continue COPING MACHINE OPERATOR Coreg 12.5 mg BID > Continue COPING MACHINE OPERATOR lisinopril 10 mg daily Hyperlipidemia > Continue atorvastatin 40 mg daily (new) Tobacco use - Smokes 1/2 ppd - Smoking Cessation consulted - Interested in quitting, declined medication for support GERD Loredo's esophagus > Continue COPING MACHINE OPERATOR PPI but increase dose while on anticoagulation Pituitary apoplexy Hyponatremia - Diagnosed with recent admission to [facility] January 2023 - Seen by Endocrinology 03/10/2023 - Plan for further work up: - Adrenal insufficiency, secondary hypothyroidism, hyponatremia - Limit fluid intake to ~70 oz per day - Repeat pituitary MRI w/o in 3 months - Follow up with Endocrinology 2023 Nutrition: Regular diet Fluids: SL Electrolytes: - Monitor Daily BMP: Electrolyte replacement as needed > 400 mg Mg PO x 1 Ppx: - DVT: Eliquis - GI: Debbie, MOM; last BM 03/26 Consults: Rehab Medicine Dispo: Via [facility] via private vehicle today, 03/26 Patient was seen and examined by myself and Dr. Thacker who agrees with the plan. Yesika Bee APRN-TRANSMISSION SYSTEM OPERATOR Available on Voalte Subjective: Patient seen resting in bed. Reports doing laps yesterday without his walker, but still feels "a bit wobbly" with his left leg. Denies headache or dizziness. Discussed plan to continueAC until follow up and discharge today. Questions answered, no further concerns. Scheduled Meds:apixaban (ELIQUIS) tablet 5 mg, 5 mg, Oral, BID atorvastatin (LIPITOR) tablet 40 mg, 40 mg, Oral, QDAY carvediloL (COREG) tablet 12.5 mg, 12.5 mg, Oral, BID w/meals docusate (COLACE) capsule 100 mg, 100 mg, Oral, BID lisinopriL (ZESTRIL) tablet 10 mg, 10 mg, Oral, QDAY milk of magnesium oral suspension 30 mL, 30 mL, Oral, QDAY pantoprazole DR (PROTONIX) tablet 20 mg, 20 mg, Oral, QDAY(21) scopolamine (TRANSDERM-SCOP) 1mg over 3 days patch 1 patch, 1 patch, Transdermal, Q72H* And Verification of Patch Placement and Integrity - Scopolamine base 1 mg/3 days 1 patch, 1 patch, Transdermal, BID sennosides-docusate sodium (SENOKOT-S) tablet 1 tablet, 1 tablet, Oral, BID Continuous Infusions: PRN and Respiratory Meds:albuterol 0.083% Q4H PRN, artificial tears (PF) single dose PRN, diphenhydrAMINE HCL Q6H PRN, ondansetron (ZOFRAN) IV Q6H PRN Vital Signs: Last Filed in 24 hours Vital Signs: 24 hour Range BP: 150/65 (03/26 831) Temp: 36.3 °C (97.4 °F) (03/26 831) Pulse: 72 (03/26 831) Respirations: 16 PER MINUTE (03/26 831) SpO2: 98 % (03/26 831) O2 Device: None (Room air) (03/26 831) BP: (131-150)/(50-73) Temp: [36.2 °C (97.2 °F)-37.1 °C (98.8 °F)] Pulse: [63-73] Respirations: [16 PER MINUTE-20 PER MINUTE] SpO2: [97 %-99 %] O2 Device: None (Room air) General physical exam: HEENT: normocephalic, eyes open with no discharge, nares patent, oropharynx is clear with no lesions, palate intact CV: regular rate, distal pulses palpable, no dependent edema Chest: normal configuration, equal chest rise bilaterally Ab: soft, non-tender, no masses, no organomegaly Skin: no rashes or lesions Neuro exam: MS: alert and oriented to self, place, and time Speech: fluent and clear CN II-XII intact Cerebellar exam: LUE ataxia, no nystagmus Strength: moves all 4 limbs spontaneously, 4+/5 LUE distally otherwise 5/5 throughout Sensation: Reportedly intact to touch Gait: Deferred Lab/Radiology/Other Diagnostic Tests: Pertinent labs reviewed JUDITH Cottrell Vascular Neurology Available on Voalte * Rl New RT - 03/25/2023 2:56 PM CDT RT Adult Assessment Note NAME:Phil Vivas :1965 AGE: 57 y.o. ADMISSION DATE: 03/21/2023 DAYS ADMITTED: LOS: 4 days RT Treatment Plan: Protocol Plan: Medications Albuterol: Nebulizer PRN Vital Signs: Pulse: 73 RR: 16 PER MINUTE SpO2: 97 % O2 Device: None (Room air) Liter Flow: O2%: Breath Sounds: Clear (Implies normal) Respiratory Effort: * Desire Gillette, OT - 03/25/2023 2:48 PM CDT OCCUPATIONAL THERAPY PROGRESS NOTE Name: Phil Vivas : 1965 Age: 57 y.o. Admission Date: 03/21/2023 LOS: 4 days Date of Service: 03/25/2023 Mobility Patient Turn/Position: Supine (HOB elevated) Progressive Mobility Level: Walk in hallway Distance Walked (feet): 400 ft Level of Assistance: Assist X1 Assistive Device: None Activity Limited By: Weakness Subjective Pertinent Dx per Physician: 57 y.o. male with a PMH of tobacco abuse, HTN, HLD, GERD, Loredo esophagus and a TIA in early February 2023 who presented to an OSH with blurred/reduced vision, ptosis, dizziness, and facial droop that started when he awoke around 0700 on 03/20. Cranial images demonstrated a posterior fossa stroke and concern for vertebral artery dissection. He was not a candidate forintervention, but given the location and size of stroke, he was transferred to [facility] for a higher level of care. He is now admitted to [facility] for further management and evaluation. MRI: R and L cerebellar infarcts and right occipital lobe infarct. 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 RN notified. Objective Psychosocial Status: Willing and Cooperative to Participate Home Living Type of Home: House Home Layout: One Level (3 steps to enter with bilateral rails) Bathroom Shower / Tub: Walk-in Shower;Tub/Shower Unit (Utilizes walk-in shower) Home Equipment: (None) Prior Function Level Of [place]: Independent with ADLs and functional transfers;Independent with homemaking w/ ambulation (Without use of assistive device) Lives With: Alone Receives Help From: None Needed Other Function Comments: Pt denies recent falls Vision Corrective Lenses: Wears glasses all of the time Comment: denies acute changes. ADL's Comment: Pt politely declines opportunity to complete ADLs this date stating he had just completed toileting ADL using urinal and brushed his teeth twice today. ADL Mobility Bed Mobility: Supine to Sit: Standby assist Transfer Type: Sit to stand Transfer: Assistance Level: To/from;Bed;Minimal assist Transfer: Assistive Device: None Transfer: Type of Assistance: For balance;For safety considerations;For strength deficit End of Activity Status: In bed;Instructed patient to request assist with mobility;Instructed patient to use call light;Nursing notified Sitting Balance: Static sitting balance;Standby assist Standing Balance: Dynamic standing balance;Minimal assist Gait Distance: 400 feet Gait: Assistance Level: Minimal assist;Safety considerations Gait Comments: Pt ambulates ~400ft in corley w/ min assist. Pt w/ LLE ataxia; pt hikes LLE up to hip level while ambulating and stomps L foot down. Pt w/ x1 near LOB. Pt states he cannot feel where hisfoot is in space and is not aware of what his LLE is doing while he ambulates. Activity Tolerance Endurance: 3/5 Tolerates 25-30 Minutes Exercise w/Multiple Rests Cognition Social Interaction: Interacts in a Spontaneous,Cooperative Manner Orientation: Alert & Oriented x4 Attention: Awake/Alert ROM R UE ROM: WFL R UE ROM Method: Active L UE ROM: WFL L UE ROM Method: Active R LE ROM: WFL R LE ROM Method: Active L LE ROM: WFL L LE ROM Method: Active Coordination: Moderate Delay (mild delay on R side for serial opposition; moderate delay on L side for serial opposition, alternating hands, and dysmetria noted finger to nose.) Grasp: Bilateral Grasp Functional for Activity UE Strength / Tone Strength Position Assessed: Seated R UE Strength: WFL (5/5 grossly) L UE Strength: WFL (4+/5 grossly) Education Persons Educated: Patient Teaching Methods: Verbal Instruction Patient Response: Verbalized Understanding Topics: Role of OT, Goals for Therapy Goal Formulation: With Patient Assessment Assessment: Decreased Safe/Judg during ADL;Decreased Endurance;Decreased Fine Motor Coordination;Decreased Self-Care Trans;Decreased High-Level ADLs Prognosis: Good;w/Cont OT s/p Acute Discharge Goal Formulation: Patient Comments: Pt currently limited by impaired LLE coordination, decreased balance, and decreased weakness. OT will continue to follow to increase independence and safety w/ ADLs and functional mobility. AM-PAC 6 Clicks Daily Activity Inpatient Putting on and taking off regular lower body clothes: A Little Bathing (Including washing, rinsing, drying): A Little Toileting, which includes using toilet, bedpan, or urinal: A Little Putting on and taking off regular upper body clothing: None Taking care of personal grooming such as brushing teeth: None Eating meals: None Daily Activity Raw Score: 21 Standardized (T-scale) Score: 44.27 Plan OT Frequency: 5x/week OT Plan for Next Visit: toileting, dynamic balance for ADLs, progress toward IADL simulation and clothing retrieval ADL Goals Patient Will Perform All ADL's: w/ Stand By Assist Functional Transfer Goals Pt Will Perform All Functional Transfers: w/ Stand By Assist OT Discharge Recommendations Recommendation: Inpatient setting;Recommend rehab medicine consult Patient Currently Requires Physical Assist With: All personal care ADLs;All home functioning ADLs;Ambulation Patient Currently Requires Supervision For: ADLs;Mobility Therapist: LACI Barrera, OTR/L Date: 03/25/2023 * Louise Pnia - 03/25/2023 2:04 PM CDT SPEECH-LANGUAGE PATHOLOGY COGNITIVE ASSESSMENT EVALUATION SUMMARY Pt seen for a cognitive screening utilizing the [place] Cognitive Assessment (MOCA). Pt scored 27/30, which indicates no evidence of cognitive impairment. Points missed in the areas of recall, attention, and abstraction. Additional measures completed in order to target possible cognitive affectivesyndrome symptoms. Pt again presented with no evidence of impairment No family present at time of evaluation. Please see further details below. Follow-up completed this date with pt re: tolerance of current diet. Per pt, no concerns for s/sx of aspiration/penetration. Anticipate pt functional with least restrictive diet. No other concerns at this time; CLINICAL LABORATORY AIDE to sign-off. Please re-consult should needs arise. RECOMMENDATIONS: No further CLINICAL LABORATORY AIDE intervention recommended PRAGMATICS Comments*: Appropriate eye contact and affect for the situation. BEHAVIOR Comments*: Pleasant and participatory for all tasks. AUDITORY COMPREHENSION Comments*: No focal language deficits noted. Mike Cognitive Assessment (MoCA), Version 8.1 Subtest / MOCA item Patient Score Comments Visuospatial/ Executive Function Trails 06/23 Cube 06/23 Clock 3 Naming 3/ Attention Digit Span 2/2 Letter A 06/23 Serial 7 2/ Language Sentence Repetition 2/2 Fluency 06/23 Abstraction / Delayed Recall 09/25 Orientation 11/26 Total 27/30 Within normal limits = 26 or greater Mild cognitive impairment = 18-25 Moderate cognitive impairment = 10-17 Severe cognitive impairment = less than 10 Additional prompts targeting possible cerebellar cognitive affective symptoms: Domain Raw Score Result Criteria Semantic fluency PASS Greater than 15 = PASS Phonemic fluency PASS Greater than 10 = PASS Category switching PASS Greater than 9 = PASS Verbal registration 1 # of trials PASS Less than 4 trials = PASS Digit span forward 5/8 PASS 5 or greater = PASS Digit span backward 4/6 PASS 4 or greater = PASS Cube (draw) 14/15 FAIL 12 lines present and diagram is 3-dimensional = PASS Cube (copy) 12/12 PASS 1 point for each line; 12 lines present = PASS Verbal recall 13/15 PASS Greater than 10 = PASS Similarities 8/8 PASS Greater than 6 = PASS Go No-Go 2/2 PASS Greater than 0 = PASS Affect 6/6 PASS Greater than 4 = PASS Objective Relevant Med Background: Pt is a 57 y.o. male with a PMH of tobacco abuse, HTN, HLD, GERD, Loredo esophagus and a TIA in early February 2023 who presented to an OSH with blurred/reduced vision, ptosis, dizziness, and facial droop that started when he awoke around 0700 on 03/20. Cranial images demonstrated a posterior fossa stroke and concern for vertebral artery dissection. He was not a candidate for intervention, but given the location and size of stroke, he was transferred to [facility] for a higher level of care. He is now admitted to NEICU for further management and evaluation. Pertinent Dysphagia History: Hx GERD, Loredo's esophagus; no functional impact on eating/drinking Lives With: Alone Receives Help From: None Needed Psychosocial Status: Willing and Cooperative to Participate Persons Present: None Subjective Pain: Patient has no complaint of pain Pain Level Current: No pain Trach Presence: No Feeding Tube Present During Eval: None Education* Persons Educated: Pt/Family Barriers To Learning: None Noted Interventions: Repetition of Instructions Teaching Methods: Verbal Topics: Dysphagia Speech Discharge Recommendations Recommendation: No further ST recommended at this time Therapist: Louise Calix MA, CCC-CLINICAL LABORATORY AIDE Voalte: [id number] Date: 03/25/2023 * Lidia Torres, PT - 03/25/2023 1:27 PM CDT PHYSICAL THERAPY PROGRESS NOTE Name: Phil Vivas : 1965 Age: 57 y.o. Admission Date: 03/21/2023 LOS: 4 days Date of Service: 03/25/2023 Mobility Patient Turn/Position: Chair Progressive Mobility Level: Walk laps Distance Walked (feet): 600 ft Level of Assistance: Assist X1 Assistive Device: None Activity Limited By: Weakness Subjective Significant hospital events: 57 y.o. male with a PMH of tobacco abuse, HTN, HLD, GERD, Loredo esophagus and a TIA in early February 2023 who presented to an OSH with blurred/reduced vision, ptosis,dizziness, and facial droop that started when he awoke around 0700 on 03/20. Cranial images demonstrated a posterior fossa stroke and concern for vertebral artery dissection. He was not a candidate for intervention, but given the location and size of stroke, he was transferred to [facility] for a higher level of care. He is now admitted to NEICU for further management and evaluation. MRI: R and L cerebellar infarcts and right occipital lobe infarct. No evidence of hemorrhage on SWI - MRA H&N: Lsuperior cerebellar artery occlusion and occluded R vertebral artery at the origin and R vertebral d issection Mental / Cognitive Status: Alert;Oriented;Cooperative;Follows Commands Pain: Patient has no complaint of pain Pain Interventions: Patient agrees to participate in therapy;Patient assisted into position of comfort Comments: SBP <180 - 24 hours; Hard of hearing, better on L Ambulation Assist: Independent Mobility in Community without Device Patient Owned Equipment: None Home Situation: Lives Alone Type of Home: House Entry Stairs: 3-5 Stairs;Rail on Both Sides (3 steps) In-Home Stairs: Able to Live on One Level Comments: Patient independent with mobility and ADLs without a device. No falls. Posture/Neurological Coordination: Ataxia of LLE;Ataxia of LUE;Impaired Heel to Hauser LLE;Impaired Finger Nose Finger LUE Bed Mobility/Transfer Transfer Type: Sit to/from Stand Transfer: Assistance Level: To/From;Bed Side Chair;Minimal Assist Transfer: Assistive Device: Hand Hold Assist Transfers: Type Of Assistance: For Balance;For Safety Considerations Other Transfer Type: Stand Pivot Other Transfer: Assistance Level: From;Bed Side Chair;To;Bed;Minimal Assist Other Transfer: Assistive Device: None Other Transfer: Type Of Assistance: For Balance;For Safety Considerations End Of Activity Status: Up in Chair;Nursing Notified;Instructed Patient to Request Assist with Mobility;Instructed Patient to Use Call Light (alarm set) Balance Sitting Balance: Static Sitting Balance;Dynamic Sitting Balance;Standby Assist Standing Balance: Static Standing Balance;No UE support;Standby Assist;Dynamic Standing Balance;Minimal Assist Fish Balance Scale: Assessed Sit to Stand: Needs minimal aid to stand or to stabilize Standing Unsupported: Able to stand 30 seconds unsupported Sitting w/o Back Support, Feet Supported: Able to sit safely and securely 2 minutes Stand to Sit: Sits independently. but has uncontrolled descent Transfers: Needs one person to assist Standing Unsupported Eyes Closed: Unable to keep eyes closed 3 seconds but stays steady Standing Unsupported Feet Together: Needs help to attain position and unable to hold for 15 seconds Reaching Forward While Standing: Reaches forward but needs supervision Vacuum System Tester Object From Floor While Standing: Unable to try/needs assist to keep from losing balance orfalling Standing, Looking Over L/R Shoulders: Needs supervision when turning Turn 360 Degrees: Needs close supervision or verbal cueing Alternate Foot on Step, Standing Unsuppo: Needs assistance to keep from falling/unable to try Tandem Standing: Loses balance while stepping or standing Single Leg Stance: Unable to try or needs assist to prevent fall Fish Balance Score: 13 out of 56 Fish Balance Score ([place] Row): 13 Fish Fall Risk: At Risk for Falls (< 45/56 indicates increased risk for falls) Gait Gait Distance: 620 feet Gait: Assistance Level: Minimal Assist;Moderate Assist (modA with balance loss) Gait: Assistive Device: None Gait: Descriptors: Pace: Normal;Pathway deviations;Decreased heel strike LLE;Variable step length;Loss of balance Stairs: Number Climbed: 3 Stairs: Descriptors: Ascend;Descend;Reciprocal Stairs: Assistance Level: Ascend;Descend;Minimal Assist Stairs: Assistive Device: Two Rails Activity Limited By: Weakness Comments: Steppage gait on LLE and a few instances of balance loss towards the left side requiring moderate physical assist. Otherwise minimal assist. Activity/Exercise 10 Meter Walk: Assessed 10 Meter Walk: Average Gait Speed (seconds): 9.60 10 Meter Walk: Average Gait Speed (meters/second): 0.63 10 Meter Walk: Comfortable Gait Speed: Device Used: No device and minimal assist 10 Meter Walk: Comfortable Gait Speed: Comment: 0.4-0.8 m/s indicates patient is a limited community ambulator and requires intervention to reduce falls. 10 Meter Walk: Average Maximum Gait Speed (seconds): 8.4 10 Meter Walk: Average Maximum Gait Speed (meters/second): 0.71 10 Meter Walk: Maximum Gait Speed: Device Used : No device and minimal assist 10 Meter Walk: Maximum Gait Speed: Comment: 0.4-0.8 m/s indicates patient is a limited community ambulator and requires intervention to reduce falls. Education Persons Educated: Patient/Family Patient Barriers To Learning: Decreased Hearing Interventions: Louder Voice Required Teaching Methods: Verbal Instruction Patient Response: Verbalized Understanding Topics: Plan/Goals of PT Interventions;Use of Assistive Device/Orthosis;Mobility Progression;SafetyAwareness;Up with Assist Only;Importance of Increasing Activity;Positioning;Recommend Continued Therapy;Therapy Schedule Assessment/Progress Impaired Mobility Due To: Impaired Balance;Medical Status Limitation Assessment/Progress: Should Improve w/ Continued PT Comments: Patient scores as a high fall risk on the FISH with slowed gait speed noted on the 10 meter walk test. Ongoing coordination deficits although continues to improve with skilled intervention.Will benefit from intensive therapies at discharge to address deficits AM-PAC 6 Clicks Basic Mobility Inpatient Turning from your back to your side while in a flat bed without using bed rails: None Moving from lying on your back to sitting on the side of a flat bed without using bedrails : A Little Moving to and from a bed to a chair (including a wheelchair): A Little Standing up from a chair using your arms (e.g. wheelchair, or bedside chair): A Little To walk in hospital room: A Lot Climbing 3-5 steps with a railing: A Lot Basic Mobility Inpatient Raw Score: 17 Standardized (T-scale) Score: 39.67 Goals Goal Formulation: With Patient/Family Time For Goal Achievement: 5 days, To, 7 days Patient Will Transfer Bed/Chair: w/ Stand By Assist Patient Will Transfer Sit to Stand: w/ Stand By Assist Patient Will Ambulate: Greater than 200 Feet, w/ Stand By Assist (with least restrictive device) Patient Will Go Up / Down Stairs: 3-5 Stairs, w/ Stand By Assist (3 steps) Plan Treatment Interventions: Mobility Training;Balance Activities;Coordination Training;Neuromuscular Reeducation Plan Frequency: 5 Days per Week PT Plan for Next Visit: Progress gait varying mely, changing directions, target practice/toe taps LLE PT Discharge Recommendations Recommendation: Inpatient setting;Recommend rehab medicine consult Therapist: Lidia Torres PT, DPT Date: 03/25/2023 * Barbara White, MARKET MANAGER-TRANSMISSION SYSTEM OPERATOR - 03/25/2023 7:51 AM CDT Vascular Neurology Progress Note Admission Date: 03/21/2023 LOS: 4 days Principal Problem: Vertebral artery dissection (HCC) Active Problems: Stroke (cerebrum) (HCC) 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 male with PMH of tobacco abuse, HTN, HLD, GERD, Loredo esophagus dustin TIA in early February 2023 who presented to an OSH with blurred/reduced vision, ptosis, dizziness, and facial droop that when he awoke around 0700 on 03/20. Imaging demonstrated a posterior fossa stroke and concern for vertebral artery dissection. He was not a candidate for intervention, but given the location and size of stroke, he was transferred to [facility] for a higher level of care. He was admitted to NEICU for further management and evaluation and was started on heparin gtt. CT head 6 hours after starting heparin was stable. MRI/MRA head was completed and showed several small acute appearing infarcts involving the bilateral cerebellar hemispheres and right occipital lobe without hemorrhagic conversion, an occluded left superior cerebellar artery, and diminutive flow within a smallcaliber intracranial right vertebral artery with occluded right vertebral artery origin and reconstituting at the V1 segment with otherwise diminutive flow throughout the remaining cervical right vertebral artery. Repeat head CT at 24 hours remained stable. Heparin discontinued and patient was transitioned to Eliquis 5 mg BID. He had significant improvement in exam and was stable for transfer to floor team on 03/22. PT/OT recommending IPR, will discharge to rehab as soon as able to be accepted. Suspected Stroke Etiology: Spontaneous dissection Current Exam: Alert and awake, PERRL, ROSALES, LUE 4+/5, RUE 5/5, LLE 4-/5, RLE 5/5, follows commands, sensation intact throughout, CN intact, LUE ataxia (improving), gait stable with walker, clear and fluent speech Acute cerebellar strokes Occluded L SCA R vertebral artery dissection - Vascular Imaging: MR brain 03/21: 1. Several small acute appearing infarcts involving the bilateral cerebellar hemispheres and right occipital lobe. No hemorrhagic conversion. 2. Mild to moderate nonspecific cerebral white matter and pontine FLAIR hyperintensity, likely small vessel ischemic change. Chronic right deep burt nuclei lacunar infarcts are also present. MRA head 03/21: 1. Occluded left superior cerebellar artery 2. Diminutive flow within a small caliber intracranial right vertebral artery. 3. Otherwise patent intracranial arterial vasculature without additional flow- limiting stenosis or branch occlusion. MRA neck 03/21: 1. Occluded right vertebral artery origin, reconstituting at the V1 segment with otherwise diminutive flow throughout the remaining cervical right vertebral artery. Findings are similar to outside CTA neck and favored for dissection. 2. Multifocal irregularity of the bilateral carotid arteries without measurable stenosis by NASCET criteria. 3. Patent dominant left cervical vertebral artery without superimposed stenosis. CT Head 03/21: Redemonstration of small acute or early subacute infarcts involving the bilateral cerebellar hemispheres and right occipital lobe without gross hemorrhagic conversion or obvious new area of infarct. CT Head 03/22: Evolving recent infarcts involving the bilateral cerebellar hemispheres and right occipital lobe without gross hemorrhagic conversion or obvious new area of infarct. -ECHO 03/21: EF 63%, LA normal, no PFO Plan/Recommendations: - Patient was transitioned to Eliquis from heparin drip - Pending rehab placement - SBP goal <160 Secondary Stroke Risk Optimization: - Blood Pressure Goal: <130/80 - Current meds: Carvedilol 12.5 mg BID, Lisinopril 10 mg - Antiplatelet/Anticoagulation: - Lipids: LDL is 78, with goal of <70 - Blood Glucose: Hgb A1c is 5.7, with goal of <7 - Tobacco use/abstinence HTN HLD - SBP goal: <160 - Restarted COPING MACHINE OPERATOR carvedilol 12.5 mg BID - COPING MACHINE OPERATOR atorvastatin 40mg (recently switched from simvastatin) - Lipid profile Chol 123 Tri 84 HDL 32 LDL 78 - ECHO 03/21: Normal LV function, EF 60-65%, normal biatrial size, no PFO > Restarted COPING MACHINE OPERATOR Lisinopril 10 mg on 03/24 GERD Loredo Esophagus - Feeding: regular diet per speech - COPING MACHINE OPERATOR omeprazole changed to pantoprazole on admit - neuro bowel regimen, ensure daily BM Rehabilitation PT/OT: Following, recommending IPR CLINICAL LABORATORY AIDE: Following for dysphagia/aphasia Rehab Medicine: Consulted for recommendations on post discharge disposition Fluids: S/L Electrolytes: - Monitor Daily BMP: Electrolyte replacement as needed Nutrition: Cardiac diet Ppx: - DVT: SCDs, - GI: Colace, Senokot, last BM: 03/24 Consults: PT/OT, CLINICAL LABORATORY AIDE, Rehab, Neuro stroke Dispo: Continue IP care, anticipate discharge to [facility] in [facility] Patient was seen and examined by myself and Dr. Thacker who agrees with the plan. Barbara White APRN-TRANSMISSION SYSTEM OPERATOR Available on Voalte Pager: [phone] Subjective: Phil was seen this AM while in room. He has been stable with walker and feels like he is ready to go home. PT recommending IPR, waiting for insurance acceptance for facility. No acute overnight events, all questions answered. Scheduled Meds:apixaban (ELIQUIS) tablet 5 mg, 5 mg, Oral, BID atorvastatin (LIPITOR) tablet 40 mg, 40 mg, Oral, QDAY carvediloL (COREG) tablet 12.5 mg, 12.5 mg, Oral, BID w/meals docusate (COLACE) capsule 100 mg, 100 mg, Oral, BID lisinopriL (ZESTRIL) tablet 10 mg, 10 mg, Oral, QDAY milk of magnesium oral suspension 30 mL, 30 mL, Oral, QDAY pantoprazole DR (PROTONIX) tablet 20 mg, 20 mg, Oral, QDAY(21) scopolamine (TRANSDERM-SCOP) 1mg over 3 days patch 1 patch, 1 patch, Transdermal, Q72H* And Verification of Patch Placement and Integrity - Scopolamine base 1 mg/3 days 1 patch, 1 patch, Transdermal, BID sennosides-docusate sodium (SENOKOT-S) tablet 1 tablet, 1 tablet, Oral, BID Continuous Infusions: PRN and Respiratory Meds:albuterol 0.083% Q4H PRN, artificial tears (PF) single dose PRN, diphenhydrAMINE HCL Q6H PRN, ondansetron (ZOFRAN) IV Q6H PRN Vital Signs: Last Filed in 24 hours Vital Signs: 24 hour Range BP: 132/62 (03/25 532) Temp: 36.6 °C (97.9 °F) (03/25 532) Pulse: 66 (03/24 2100) Respirations: 16 PER MINUTE (03/25 532) SpO2: 96 % (03/25 532) O2 Device: None (Room air) (03/25 532) BP: (131-152)/(56-75) Temp: [36.4 °C (97.5 °F)-36.8 °C (98.3 °F)] Pulse: [58-68] Respirations: [12 PER MINUTE-18 PER MINUTE] SpO2: [95 %-99 %] O2 Device: None (Room air) General physical exam: HEENT: normocephalic, eyes open with no discharge, nares patent, oropharynx is clear with no lesions, palate intact CV: regular rate, distal pulses palpable, no dependent edema Chest: normal configuration, equal chest rise bilaterally Ab: soft, non-tender, no masses, no organomegaly Skin: no rashes or lesions MSK: WNL Lab/Radiology/Other Diagnostic Tests: Pertinent labs reviewed JUDITH Steven Vascular Neurology Available on Voorte Pager: [phone] * Tracy Harris OT - 03/24/2023 3:08 PM CDT OCCUPATIONAL THERAPY PROGRESS NOTE Name: Phil Vivas : 1965 Age: 57 y.o. Admission Date: 03/21/2023 LOS: 3 days Date of Service: 03/24/2023 Mobility Patient Turn/Position: Chair Progressive Mobility Level: Walk in hallway Distance Walked (feet): 200 ft Level of Assistance: Assist X1 Assistive Device: None Activity Limited By: Weakness Subjective Pertinent Dx per Physician: 57 y.o. male with a PMH of tobacco abuse, HTN, HLD, GERD, Loredo esophagus and a TIA in early February 2023 who presented to an OSH with blurred/reduced vision, ptosis, dizziness, and facial droop that started when he awoke around 0700 on 03/20. Cranial images demonstrated a posterior fossa stroke and concern for vertebral artery dissection. He was not a candidate forintervention, but given the location and size of stroke, he was transferred to [facility] for a higher level of care. [facility] management and evaluation. MRI: R and L cerebellar infarcts and right occipital lobe infarct. No evidence of hemorrhage on SWI - MRA H&N: L superior cerebellar artery occlusion and occluded R vertebral artery at the origin and R vertebral dissection Precautions: Falls Pain / Complaints: Patient has no c/o pain Objective Psychosocial Status: Willing and Cooperative to Participate Persons Present: RehabTechnician Home Living Type of Home: House Home Layout: One Level (3 steps to enter with bilateral rails) Bathroom Shower / Tub: Walk-in Shower;Tub/Shower Unit (Utilizes walk-in shower) Home Equipment: (None) Prior Function Level Of [place]: Independent with ADLs and functional transfers;Independent with homemaking w/ ambulation (Without use of assistive device) Lives With: Alone (Sister and niece live close) Receives Help From: None Needed Other Function Comments: Pt denies recent falls Vision Corrective Lenses: Wears glasses all of the time Comment: denies acute changes. ADL's Grooming Assist: Minimal Assist Grooming Deficits: Steadying;Teeth Care;Wash/Dry Face LE Dressing Assist: Minimal Assist LE Dressing Deficits: Don/Doff R Sock;Don/Doff L Sock;Thread RLE Into Pants;Thread LLE Into Pants;Pull Up Over Hips;Fasteners;Steadying Comment: Able to to open and close toothpaste, turn water on and off and perform all aspects of grooming with steadying assist. Did graze his head lightly on faucet when rinsing/spitting. Able to find ADL items to R and L. Doffed/donned socks and jeans and belt sitting edge of bed/standing with steadying assist. Pt bracing lower legs against the bed for balance, aware that he is doing this. ADL Mobility Bed Mobility: Supine to Sit: Standby assist Transfer Type: Sit to stand;Stand to sit;Stand pivot Transfer: Assistance Level: Minimal assist Transfer: Assistive Device: None Gait Distance: 200 feet Gait: Assistance Level: Minimal assist Gait: Assistive Device: None Gait Comments: LLE ataxia, as pt fatigues this worsens, pt then taking high steps with both legs and stomping down with heels. Not yet safe to attempt higher level balance activities such as head turns, gait speed changes or picking up objects. Anticipate significantly more difficulty with unlevel terrain. AM-PAC 6 Clicks Daily Activity Inpatient Putting on and taking off regular lower body clothes: A Little Bathing (Including washing, rinsing, drying): A Little Toileting, which includes using toilet, bedpan, or urinal: A Little Putting on and taking off regular upper body clothing: None Taking care of personal grooming such as brushing teeth: None Eating meals: None Daily Activity Raw Score: 21 Standardized (T-scale) Score: 44.27 Plan OT Frequency: 5x/week OT Plan for Next Visit: toileting, dynamic balance for ADLs, progress toward IADL simulation and clothing retrieval ADL Goals Patient Will Perform All ADL's: w/ Stand By Assist Functional Transfer Goals Pt Will Perform All Functional Transfers: w/ Stand By Assist OT Discharge Recommendations Recommendation: Inpatient setting;Recommend rehab medicine consult Although pt is ambulating in halls, he requires hands on assist and is not yet safe to attempt higher level balance activities such as head turns, gait speed changes or picking up/carrying objects, all of which would be required to perform normal household tasks. Anticipate significant difficulty with unlevel terrain. Pt is normally very active and independent and currently requiring hands-on assist for all mobility and mobility-related ADLs. Making daily progress and is highly motivated and should have no difficulty tolerating 3 hours/day of intensive rehab. Anticipate pt to benefit greatly from intensity of an inpatient rehabilitation setting prior to dc home. Patient Currently Requires Physical Assist With: All mobility;All home functioning ADLs;Bathing;Dressing;Toileting Therapist: Tracy Harris OT Date: 03/24/2023 * Susan Francois RT - 03/24/2023 1:18 PM CDT RT Adult Assessment Note NAME:Phil Vivas :1965 AGE: 57 y.o. ADMISSION DATE: 03/21/2023 DAYS ADMITTED: LOS: 3 days RT Treatment Plan: Protocol Plan: Medications Albuterol: Nebulizer PRN Additional Comments: Impressions of the patient: Pt. Comfortably in bed, NAD Intervention(s)/outcome(s): see RT treatment plan. Patient education that was completed: n/a Recommendations to the care team: n/a Vital Signs: Pulse: 62 RR: 18 PER MINUTE SpO2: O2 Device: None (Room air) Liter Flow: O2%: Breath Sounds: Clear (Implies normal) Respiratory Effort: * Lois Gracia PT - 03/24/2023 10:35 AM CDT PHYSICAL THERAPY PROGRESS NOTE Name: Phil Vivas : 1965 Age: 57 y.o. Admission Date: 03/21/2023 LOS: 3 days Date of Service: 03/24/2023 Mobility Progressive Mobility Level: Walk laps Distance Walked (feet): 620 ft Level of Assistance: Assist X1 Assistive Device: Walker;None Activity Limited By: Fatigue;Weakness Subjective Significant hospital events: 57 y.o. male with a PMH of tobacco abuse, HTN, HLD, GERD, Loredo esophagus and a TIA in early February 2023 who presented to an OSH with blurred/reduced vision, ptosis,dizziness, and facial droop that started when he awoke around 0700 on 03/20. Cranial images demonstrated a posterior fossa stroke and concern for vertebral artery dissection. He was not a candidate for intervention, but given the location and size of stroke, he was transferred to [facility] for a higher level of care. He is now [facility] for [facility] management and evaluation. MRI: R and L cerebellar infarcts and right occipital lobe infarct. No evidence of hemorrhage on SWI - MRA H&N: Lsuperior cerebellar artery occlusion and occluded R vertebral artery at the origin and R vertebral d issection Mental / Cognitive Status: Alert;Oriented;Cooperative;Follows Commands Persons Present: RehabTechnician Pain: Patient has no complaint of pain Pain Interventions: Patient agrees to participate in therapy;Patient assisted into position of comfort Comments: SBP <180 - 24 hours; Hard of hearing, better on L Ambulation Assist: Independent Mobility in Community without Device Patient Owned Equipment: None Home Situation: Lives Alone Type of Home: House Entry Stairs: 3-5 Stairs;Rail on Both Sides (3 steps) In-Home Stairs: Able to Live on One Level Comments: Patient independent with mobility and ADLs without a device. No falls. Posture/Neurological Head Control: Independent Posture: Rounded shoulders Coordination: Ataxia of LLE;Ataxia of LUE;Impaired Heel to Hauser LLE;Impaired Finger Nose Finger LUE Bed Mobility/Transfer Bed Mobility: Supine to Sit: Standby Assist;Verbal Cues;Head of Bed Elevated;Safety Considerations Comments: Tolerated sitting edge of bed with standby assist Transfer Type: Sit to Stand Transfer: Assistance Level: From;Bed;Minimal Assist;x2 People Transfer: Assistive Device: Hand Hold Assist Transfers: Type Of Assistance: For Balance;For Safety Considerations End Of Activity Status: Up in Chair;Nursing Notified;Instructed Patient to Request Assist with Mobility;Instructed Patient to Use Call Light (Chair alarm active, all needs met) Balance Sitting Balance: Dynamic Sitting Balance;Static Sitting Balance;Standby Assist Standing Balance: Static Standing Balance;Minimal Assist Gait Gait Distance: 620 feet Gait: Assistance Level: Moderate Assist;Minimal Assist Gait: Assistive Device: Roller Walker;None Gait: Descriptors: Pace: Normal;Pathway deviations;Decreased heel strike LLE;Variable step length;Loss of balance (Variable step length) Comments: Patient ambulated first 100 feet with roller walker and minimal assist. Second person [facility]. Ambulated additional 500 feet with no device and primarily moderate assist to correct multip;le losses of balance due to L LE ataxia Stairs: Number Climbed: 3 Stairs: Descriptors: Ascend;Descend;Reciprocal Stairs: Assistance Level: Ascend;Descend;Minimal Assist Stairs: Assistive Device: Two Rails Activity Limited By: Complaint of Fatigue;Weakness Activity/Exercise Sit Edge Of Bed: 5 minutes Sit Edge Of Bed Assist: Stand By Assist Stand At Bedside : 1 minutes Stand At Bedside Assist: Minimal Assist Education Persons Educated: Patient/Family Patient Barriers To Learning: Decreased Hearing Interventions: Louder Voice Required Teaching Methods: Verbal Instruction Patient Response: Verbalized Understanding Topics: Plan/Goals of PT Interventions;Use of Assistive Device/Orthosis;Mobility Progression;SafetyAwareness;Up with Assist Only;Importance of Increasing Activity;Positioning;Recommend Continued Therapy;Therapy Schedule Assessment/Progress Impaired Mobility Due To: Impaired Balance;Medical Status Limitation Assessment/Progress: Should Improve w/ Continued PT Comments: Patient continues to improve from PT standpoint. Tolerated increased ambualtion distance this date. Would continue to beneift from IPR at discharge AM-PAC 6 Clicks Basic Mobility Inpatient Turning from your back to your side while in a flat bed without using bed rails: None Moving from lying on your back to sitting on the side of a flat bed without using bedrails : A Little Moving to and from a bed to a chair (including a wheelchair): A Lot Standing up from a chair using your arms (e.g. wheelchair, or bedside chair): A Lot To walk in hospital room: A Lot Climbing 3-5 steps with a railing: A Lot Basic Mobility Inpatient Raw Score: 15 Standardized (T-scale) Score: 36.97 Goals Goal Formulation: With Patient/Family Time For Goal Achievement: 5 days, To, 7 days Patient Will Transfer Bed/Chair: w/ Stand By Assist Patient Will Transfer Sit to Stand: w/ Stand By Assist Patient Will Ambulate: Greater than 200 Feet, w/ Stand By Assist (with least restrictive device) Patient Will Go Up / Down Stairs: 3-5 Stairs, w/ Stand By Assist (3 steps) Plan Treatment Interventions: Mobility Training;Balance Activities;Coordination Training;Neuromuscular Reeducation Plan Frequency: 5 Days per Week PT Plan for Next Visit: Increase ambulation distance and work on controlled steps on L LE. Step taps with target L LE. 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 male with PMH of tobacco abuse, HTN, HLD, GERD, Loredo esophagus dustin TIA in early February 2023 who presented to an OSH with blurred/reduced vision, ptosis, dizziness, and facial droop that when he awoke around 0700 on 03/20. Imaging demonstrated a posterior fossa stroke and concern for vertebral artery dissection. He was not a candidate for intervention, but given the location and size of stroke, he was transferred to [facility] for a higher level of care. He was admitted to NEICU for further management and evaluation and was started on heparin gtt. CT head 6 hours after starting heparin was stable. MRI/MRA head was completed and showed several small acute appearing infarcts involving the bilateral cerebellar hemispheres and right occipital lobe without hemorrhagic conversion, an occluded left superior cerebellar artery, and diminutive flow within a smallcaliber intracranial right vertebral artery with occluded right vertebral artery origin and reconstituting at the V1 segment with otherwise diminutive flow throughout the remaining cervical right vertebral artery. Repeat head CT at 24 hours remained stable. Heparin discontinued and patient was transitioned to Eliquis 5 mg BID. He had significant improvement in exam and was stable for transfer to floor team on 03/22. PT/OT recommending IPR, will discharge to rehab as soon as able to be accepted. 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 Several small acute appearing infarcts involving the bilateral cerebellar hemispheres and right occipital lobe. No hemorrhagic conversion. 2. Mild to moderate nonspecific cerebral white matter and pontine FLAIR hyperintensity, likely small vessel ischemic change. Chronic right deep burt nuclei lacunar infarcts are also present. MRA head 03/21: 1. Occluded left superior cerebellar artery 2. Diminutive flow within a small caliber intracranial right vertebral artery. 3. Otherwise patent intracranial arterial vasculature without additional flow- limiting stenosis or branch occlusion. MRA neck 03/21: 1. Occluded right vertebral artery origin, reconstituting at the V1 segment with otherwise diminutive flow throughout the remaining cervical right vertebral artery. Findings are similar to outside CTA neck and favored for dissection. 2. Multifocal irregularity of the bilateral carotid arteries without measurable stenosis by NASCET criteria. 3. Patent dominant left cervical vertebral artery without superimposed stenosis. CT Head 03/21: Redemonstration of small acute or early subacute infarcts involving the bilateral cerebellar hemispheres and right occipital lobe without gross hemorrhagic conversion or obvious new area of infarct. CT Head 03/22: Evolving recent infarcts involving the bilateral cerebellar hemispheres and right occipital lobe without gross hemorrhagic conversion or obvious new area of infarct. -ECHO 03/21: EF 63%, LA normal, no PFO Plan/Recommendations: - Patient was transitioned to Eliquis from heparin drip - Still holding ASA, will re-discuss on Friday - Pending rehab placement - SBP goal <160 Secondary Stroke Risk Optimization: - Blood Pressure Goal: <130/80 - Current meds: Carvedilol 12.5 mg BID, Lisinopril 10 mg - Antiplatelet/Anticoagulation: - Lipids: LDL is 78, with goal of <70 - Blood Glucose: Hgb A1c is 5.7, with goal of <7 - Tobacco use/abstinence HTN HLD - SBP goal: <160 - Restarted COPING MACHINE OPERATOR carvedilol 12.5 mg BID - COPING MACHINE OPERATOR atorvastatin 40mg (recently switched from simvastatin) - Lipid profile Chol 123 Tri 84 HDL 32 LDL 78 - ECHO 03/21: Normal LV function, EF 60-65%, normal biatrial size, no PFO > Restarted COPING MACHINE OPERATOR Lisinopril 10 mg GERD Loredo Esophagus - Feeding: regular diet per speech - COPING MACHINE OPERATOR omeprazole changed to pantoprazole on admit - neuro bowel regimen, ensure daily BM Rehabilitation PT/OT: Following, recommending IPR CLINICAL LABORATORY AIDE: Following for dysphagia/aphasia Rehab Medicine: Consulted for recommendations on post discharge disposition Fluids: S/L Electrolytes: - Monitor Daily BMP: Electrolyte replacement as needed Nutrition: Cardiac diet Ppx: - DVT: SCDs, - GI: Colace, Senokot, last BM: 03/24 Consults: PT/OT, CLINICAL LABORATORY AIDE, Rehab, Neuro stroke Dispo: Continue IP care, discharge plan ongoing Patient was seen and examined by myself and Dr. Thacker who agrees with the plan. Barbara White APRN-TRANSMISSION SYSTEM OPERATOR Available on Voalte Pager: [phone] Subjective: Phil was seen this AM while in room. He has been stable with walker and feels like he is ready to go home. PT recommending IPR, rehab consulted. No acute overnight events, all questions answered. Scheduled Meds:apixaban (ELIQUIS) tablet 5 mg, 5 mg, Oral, BID [Held by Provider] aspirin chewable tablet 81 mg, 81 mg, Oral, QDAY atorvastatin (LIPITOR) tablet 40 mg, 40 mg, Oral, QDAY carvediloL (COREG) tablet 12.5 mg, 12.5 mg, Oral, BID w/meals docusate (COLACE) capsule 100 mg, 100 mg, Oral, BID milk of magnesium oral suspension 30 mL, 30 mL, Oral, QDAY pantoprazole DR (PROTONIX) tablet 20 mg, 20 mg, Oral, QDAY(21) scopolamine (TRANSDERM-SCOP) 1mg over 3 days patch 1 patch, 1 patch, Transdermal, Q72H* And Verification of Patch Placement and Integrity - Scopolamine base 1 mg/3 days 1 patch, 1 patch, Transdermal, BID sennosides-docusate sodium (SENOKOT-S) tablet 1 tablet, 1 tablet, Oral, BID Continuous Infusions: PRN and Respiratory Meds:albuterol 0.083% Q4H PRN, artificial tears (PF) single dose PRN, diphenhydrAMINE HCL Q6H PRN, ondansetron (ZOFRAN) IV Q6H PRN Vital Signs: Last Filed in 24 hours Vital Signs: 24 hour Range BP: 151/86 (03/24 500) Temp: 36.8 °C (98.2 °F) (03/24 500) Pulse: 67 (03/24 500) Respirations: 18 PER MINUTE (03/24 500) SpO2: 96 % (03/23 2200) O2 Device: None (Room air) (03/24 500) BP: (142-159)/(72-86) Temp: [36.8 °C (98.2 °F)-37.2 °C (98.9 °F)] Pulse: [58-67] Respirations: [13 PER MINUTE-23 PER MINUTE] SpO2: [96 %-97 %] O2 Device: None (Room air) General physical exam: HEENT: normocephalic, eyes open with no discharge, nares patent, oropharynx is clear with no lesions, palate intact CV: regular rate, distal pulses palpable, no dependent edema Chest: normal configuration, equal chest rise bilaterally Ab: soft, non-tender, no masses, no organomegaly Skin: no rashes or lesions MSK: WNL Lab/Radiology/Other Diagnostic Tests: Pertinent labs reviewed JUDITH Steven Vascular Neurology Available on Voalte Pager: [phone] * Xavier Yoder MD - 03/23/2023 2:00 PM CDT Neurology Progress Note Phil Vivas Admission Date: 03/21/2023 LOS: 2 days Assessment/Plan: Principal Problem: Vertebral artery dissection (HCC) Active Problems: Stroke (cerebrum) (HCC) Ataxia due to recent cerebrovascular accident Hyponatremia Anticoagulated Dysphagia due to recent stroke Dysarthria due to acute cerebrovascular accident (CVA) Impaired mobility and ADLs Primary hypertension Current tobacco use Dyslipidemia Phil Vivas is a 57 y.o. male with a PMH of tobacco abuse, HTN, HLD, GERD, Loredo esophagus and a TIA in early February 2023 who presented to an OSH with blurred/reduced vision, ptosis, dizziness, and facial droop that started when he awoke around 0700 on 03/20. Cranial images demonstrated a posterior fossa stroke and concern for vertebral artery dissection. He was not a candidate for interv ention, but given the location and size of stroke, he was transferred to [facility] for a higher level of care. He was admitted to NEICU for further management and evaluation. He was started on heparin gtt. CT head 6 hours after starting heparin was stable. MRI/MRA head was completed and showed several small acute appearing infarcts involving the bilateral cerebellar hemispheres and right occipital lobe without hemorrhagic conversion, an occluded left superior cerebellar artery, and diminutive flow within a small caliber intracranial right vertebral artery with occluded right vertebral artery origin and reconstituting at the V1 segment with otherwise diminutive flow throughout the remaining cervi nadia right vertebral artery. Repeat head CT at 24 hours remained stable. Heparin discontinued and patient was transitioned to Eliquis 5 mg BID. He had significant improvement in exam and was stable for transfer to floor team on 03/22. PT/OT recommending IPR, will discharge to rehab as soon as able to be accepted. #Acute cerebellar strokes #Occluded L SCA #R vertebral artery dissection - Patient was transitioned to Eliquis from heparin drip - Still holding ASA, will re-discuss on Friday - Pending rehab placement - SBP goal <160 MR brain: 1. Several small acute appearing [...] Otherwise patent intracranial arterial vasculature without additional flow- limiting stenosis or branch occlusion. MRA neck: 1. Occluded right vertebral artery origin, reconstituting at the V1 segment with otherwise diminutive flow throughout the remaining cervical right vertebral artery. Findings are similar to outside CTA neck and favored for dissection. 2. Multifocal irregularity of the bilateral carotid arteries without measurable stenosis by NASCET criteria. 3. Patent dominant left cervical vertebral artery without superimposed stenosis. CT Head 03/21: Redemonstration of small acute or early subacute infarcts involving the bilateral cerebellar hemispheres and right occipital lobe without gross hemorrhagic conversion or obvious new area of infarct. CT Head 03/22: Evolving recent infarcts involving the bilateral cerebellar hemispheres and right occipital lobe without gross hemorrhagic conversion or obvious new area of infarct. #HTN #HLD - SBP goal: <160 - Holding COPING MACHINE OPERATOR lisinopril - Restarted COPING MACHINE OPERATOR carvedilol 12.5 mg BID - COPING MACHINE OPERATOR atorvastatin 40mg (recently switched from simvastatin) - Lipid profile Chol 123 Tri 84 HDL 32 LDL 78 - ECHO 03/21: Normal LV function, EF 60-65%, normal biatrial size, no PFO #GERD #Loredo Esophagus - Feeding: regular diet per speech - COPING MACHINE OPERATOR omeprazole changed to pantoprazole on admit - neuro bowel regimen, ensure daily BM Xavier Yoder MD Neuro PGY-2 Patient seen and discussed with Dr. Quinonez Subjective: Phil Vivas is a 57 y.o. male. Patient has no acute/new complaints today. Objective: Vital Signs: Last Filed Vital Signs: 24 Hour Range BP: 147/76 (03/23 0800) Temp: 37.2 °C (98.9 °F) (03/23 800) Pulse: 58 (03/23 800) Respirations: 13 PER MINUTE (03/23 800) SpO2: 96 % (03/23 400) O2 Device: None (Room air) (03/23 400) BP: (147-160)/(76-82) Temp: [36.7 °C (98.1 °F)-37.2 °C (98.9 °F)] Pulse: [56-69] Respirations: [12 PER MINUTE-16 PER MINUTE] SpO2: [96 %-97 %] O2 Device: None (Room air) Intensity Pain Scale (Self Report): (not recorded) Intake/Output Summary: (Last 24 hours) Intake/Output Summary (Last 24 hours) at 03/23/2023 1400 Last data filed at 03/23/2023 0400 Gross per 24 hour Intake 832 ml Output 2350 ml Net -1518 ml Medications: Scheduled Meds:apixaban (ELIQUIS) tablet 5 mg, 5 mg, Oral, BID [Held by Provider] aspirin chewable tablet 81 mg, 81 mg, Oral, QDAY atorvastatin (LIPITOR) tablet 40 mg, 40 mg, Oral, QDAY carvediloL (COREG) tablet 12.5 mg, 12.5 mg, Oral, BID w/meals docusate (COLACE) capsule 100 mg, 100 mg, Oral, BID milk of magnesium oral suspension 30 mL, 30 mL, Oral, QDAY pantoprazole DR (PROTONIX) tablet 20 mg, 20 mg, Oral, QDAY(21) scopolamine (TRANSDERM-SCOP) 1mg over 3 days patch 1 patch, 1 patch, Transdermal, Q72H* And Verification of Patch Placement and Integrity - Scopolamine base 1 mg/3 days 1 patch, 1 patch, Transdermal, BID sennosides-docusate sodium (SENOKOT-S) tablet 1 tablet, 1 tablet, Oral, BID Continuous Infusions: PRN and Respiratory Meds:albuterol 0.083% Q4H PRN, artificial tears (PF) single dose PRN, diphenhydrAMINE HCL Q6H PRN, ondansetron (ZOFRAN) IV Q6H PRN Neuro exam: Mental status: alert, oriented to person/place/time Speech: Normal Abnormal Fluency x Comprehension x Articulation x Repetition Naming Cranial Nerves: Cranial nerves 2-12 INTACT by inspection. - Pupil exam: Size: 2 mm, normally reactive - EOM: intact - Face symmetric Muscle/motor: Tone: nml Bulk: nml NF NE SA EF EE WE WF FF FE FA TA HF MELO HE KF KE DF PF In Ev TF TE R 5 5 5 5 5 5 5 5 5 L 5 5 5 5 5 5 5 5 5 Sensation: Intact To light touch Coordination: LUE and LLE ataxia Gait and Sation: Deferred Laboratory Review: No results found for: "PHART", "PCO2A", "PO2ART", "HCO3A", "BASEEXA", "BASEDEFA", "[id number]" Lab Results Component Value Date HGB 13.7 03/23/2023 HCT 40.2 03/23/2023 PLTCT 204 03/23/2023 WBC 7.1 03/23/2023 NEUT 62 03/23/2023 ANC 4.40 03/23/2023 Lab Results Component Value Date NA 135 (L) 03/23/2023 K 4.0 03/23/2023 CL 105 03/23/2023 CO2 21 03/23/2023 GAP 9 03/23/2023 BUN 5 (L) 03/23/2023 CR 0.57 03/23/2023 GLU 103 (H) 03/23/2023 CA 9.0 03/23/2023 MG 1.9 03/23/2023 PO4 4.3 03/23/2023 OBSCA 1.15 03/22/2023 TOTPROT 7.6 03/21/2023 AST 16 03/21/2023 ALT 14 03/21/2023 ALKPHOS 65 03/21/2023 OSMOS 282 03/22/2023 No results found for: "TNI", "CKMB", "MYOGLB" Lab Results Component Value Date PTT 28.6 03/21/2023 INR 1.1 03/21/2023 No results found for: "TSH", "OFXOK4N", "CORTRAN" Lab Results Component Value Date CHOL 123 03/21/2023 TRIG 84 03/21/2023 HDL 32 (L) 03/21/2023 LDL 78 03/21/2023 VLDL 17 03/21/2023 No results found for: "VANRAN", "VANPK", "VANTR" No results found for: "CYCLOSPOR", "TACROLIMUS", "FREEPHENY" Point of Care Testing: (Last 24 hours): Glucose: (!) 103 Radiology and Other Diagnostics Reviewed Xavier Yoder MD Neurology Resident Associated attestation - Aspen Quinonez MD - 03/23/2023 6:08 PM CDT I personally performed the santos portions of the E/M visit on : 03/23/23, I discussed case with resident and concur with resident documentation of history, physical exam, assessment, and treatment planunless otherwise noted. 55 yo transferred on 03/20 for l ataxia, cta showed r vertebral dissection, left sca occlusion. Opt is on Eliquis. Doing well. waiting for rehab * Dali Dave RN - 03/22/2023 12:01 PM CDT 1200: Spoke with pt sister, Alycia-- requesting to be contacted by nursing staff upon pt transfer todifferent unit. Alycia's phone number can be found under the patient contact information in the demographics tab. Alycia also verbalizes Friday she plans to fax over DPOA information. * Albertina Barbosa OT - 03/22/2023 9:25 AM CDT OCCUPATIONAL THERAPY PROGRESS NOTE Name: Phil Vivas : 1965 Age: 57 y.o. Admission Date: 03/21/2023 LOS: 1 day Date of Service: 03/22/2023 Mobility Patient Turn/Position: Chair Progressive Mobility Level: Walk in hallway Distance Walked (feet): 150 ft Level of Assistance: Assist X2 Assistive Device: Hand Held Activity Limited By: Weakness Subjective Pertinent Dx per Physician: 57 y.o. male with a PMH of tobacco abuse, HTN, HLD, GERD, Loredo esophagus and a TIA in early February 2023 who presented to an OSH with blurred/reduced vision, ptosis, dizziness, and facial droop that started when he awoke around 0700 on 03/20. Cranial images demonstrated a posterior fossa stroke and concern for vertebral artery dissection. He was not a candidate forintervention, but given the location and size of stroke, he was transferred to [facility] for a higher level of care. He is now admitted to NEU for further management and evaluation. MRI: R and L cerebellar infarcts and right occipital lobe infarct. No evidence of hemorrhage on SWI - MRA H&N: L superior cerebellar artery occlusion and occluded R vertebral artery at the origin and R vertebral dissection Precautions: Falls;Hearing Impaired, No Hearing Aid (L ear is better than R; SBP <180 for 24 hours) Pain / Complaints: Patient agrees to participate in therapy Pain Location: (Headache) Pain Level Current: (Does not rate) Comments: Patient in bed at arrival & remains in chair at exit with alarm activated. Objective Psychosocial Status: Willing and Cooperative to Participate Persons Present: Physical Therapist Home Living Type of Home: House Home Layout: One Level (3 steps to enter with bilateral rails) Bathroom Shower / Tub: Walk-in Shower;Tub/Shower Unit (Utilizes walk-in shower) Home Equipment: (None) Prior Function Level Of [place]: Independent with ADLs and functional transfers;Independent with homemaking w/ ambulation (Without use of assistive device) Lives With: Alone (Sister and niece live close) Receives Help From: None Needed Other Function Comments: Pt denies recent falls ADL's Where Assessed: Standing at Sink Grooming Assist: Minimal Assist Grooming Deficits: Setup;Steadying;Teeth Care Comment: Patient utilizes LUE during oral care with encouragement. ADL Mobility Bed Mobility: Supine to Sit: Standby assist Transfer Type: Sit to/from stand Transfer: Assistance Level: To/from;Bed;Bedside chair;Minimal assist Transfer: Assistive Device: None Transfer: Type of Assistance: For balance;For safety considerations End of Activity Status: Up in chair;Instructed patient to request assist with mobility;Instructed patient to use call light;Nursing notified Sitting Balance: Static sitting balance;Dynamic sitting balance;Standby assist Standing Balance: Static standing balance;Dynamic standing balance;Minimal assist Gait Distance: 150 feet Gait: Assistance Level: Moderate assist;of 1st person;Minimal assist;of 2nd person;Management of lines Gait: Assistive Device: Hand hold assist Gait Comments: Pt with LLE ataxia with mobility; few losses of balance requiring moderate assistance to correct. 9-Hole Peg Test: 2 Trial Average L Hand R Hand Actual Test 1.35 minutes 40 seconds 9-Hole Peg Assessment norms according to age grouping: Male: 56-60 R AV.9 ; SD: 4.55 -- L AV.64 ; SD: 3.39 Activity Tolerance Endurance: 3/5 Tolerates 25-30 Minutes Exercise w/Multiple Rests Cognition Overall Cognitive Status: WFL to Adequately Complete Self Care Tasks Safely Social Interaction: Interacts in a Spontaneous,Cooperative Manner;WFL Adequate to Solve Routine Tasks Orientation: Alert & Oriented x4 Attention: Awake/Alert Assessment Assessment: Decreased ADL Status;Decreased Safe/Judg during ADL;Decreased Endurance;Decreased Fine Motor Coordination;Decreased Self-Care Trans;Decreased High-Level ADLs Prognosis: Good;w/Cont OT s/p Acute Discharge Goal Formulation: Pt/family Comments: Patient agreeable & pleasant throughout OT session this date. Patient continues to require increased physical and cognitive assistance than their prior level of functioning. Patient requires SBA-minimal assist during ADLs and moderate assistance for functional mobility throughout the entirety of today's OT session. Patient is making daily gains and is motivated to participate in therapy, however is not safe to discharge home at this time and would continue to benefit from intensive therapy to maximize their safety & independence in ADLs and functional mobility prior to homegoing. AM-PAC 6 Clicks Daily Activity Inpatient Putting on and taking off regular lower body clothes: A Little Bathing (Including washing, rinsing, drying): A Little Toileting, which includes using toilet, bedpan, or urinal: A Little Putting on and taking off regular upper body clothing: None Taking care of personal grooming such as brushing teeth: None Eating meals: None Daily Activity Raw Score: 21 Standardized (T-scale) Score: 44.27 Plan OT Frequency: 5x/week OT Plan for Next Visit: LB dressing with socks and pants, toileting as able, progress mobility to hallway. ADL Goals Patient Will Perform All ADL's: w/ Stand By Assist Functional Transfer Goals Pt Will Perform All Functional Transfers: w/ Stand By Assist OT Discharge Recommendations Recommendation: Inpatient setting;Recommend rehab medicine consult Therapist: Albertina Barbosa OT Date: 03/22/2023 * Lois Gracia, PT - 03/22/2023 9:24 AM CDT PHYSICAL THERAPY PROGRESS NOTE Name: Phil Vivas : 1965 Age: 57 y.o. Admission Date: 03/21/2023 LOS: 1 day Date of Service: 03/22/2023 Mobility Progressive Mobility Level: Walk in hallway Distance Walked (feet): 250 ft Level of Assistance: Assist X2 Assistive Device: Hand Held Activity Limited By: Weakness Subjective Significant hospital events: 57 y.o. male with a PMH of tobacco abuse, HTN, HLD, GERD, Loredo esophagus and a TIA in early February 2023 who presented to an OSH with blurred/reduced vision, ptosis,dizziness, and facial droop that started when he awoke around 0700 on 03/20. Cranial images demonstrated a posterior fossa stroke and concern for vertebral artery dissection. He was not a candidate for intervention, but given the location and size of stroke, he was transferred to [facility] for a higher level of care. [facility] further management and evaluation. MRI: R and L cerebellar infarcts and right occipital lobe infarct. No evidence of hemorrhage on SWI - MRA H&N: Lsuperior cerebellar artery occlusion and occluded R vertebral artery at the origin and R vertebral d issection Mental / Cognitive Status: Alert;Oriented;Cooperative;Follows Commands Persons Present: Occupational Therapist Pain: Patient has no complaint of pain Pain Interventions: Patient agrees to participate in therapy;Patient assisted into position of comfort Comments: SBP <180 - 24 hours; Hard of hearing, better on L Ambulation Assist: Independent Mobility in Community without Device Patient Owned Equipment: None Home Situation: Lives Alone Type of Home: House Entry Stairs: 3-5 Stairs;Rail on Both Sides (3 steps) In-Home Stairs: Able to Live on One Level Comments: Patient independent with mobility and ADLs without a device. No falls. ROM R UE ROM: WFL R UE ROM Method: Active L UE ROM: WFL L UE ROM Method: Active R LE ROM: WFL R LE ROM Method: Active L LE ROM: WFL L LE ROM Method: Active Strength Strength Position Assessed: Seated Overall Strength: WFL Posture/Neurological Head Control: Independent Coordination: Ataxia of LLE;Ataxia of LUE;Impaired Heel to Hauser LLE;Impaired Finger Nose Finger LUE Bed Mobility/Transfer Bed Mobility: Supine to Sit: Standby Assist;Verbal Cues;Head of Bed Elevated;Safety Considerations Transfer Type: Sit to Stand Transfer: Assistance Level: From;Bed;Minimal Assist;x2 People Transfer: Assistive Device: Hand Hold Assist Transfers: Type Of Assistance: For Balance;For Safety Considerations End Of Activity Status: Up in Chair;Nursing Notified;Instructed Patient to Request Assist with Mobility;Instructed Patient to Use Call Light (Chair alarm active, all needs met) Balance Sitting Balance: Dynamic Sitting Balance;Static Sitting Balance;Standby Assist Standing Balance: Static Standing Balance;Minimal Assist Gait Gait Distance: 250 feet Gait: Assistance Level: Moderate Assist;of 1st person;Minimal Assist;of 2nd person Gait: Assistive Device: Hand Hold Assist Gait: Descriptors: Pace: Normal;Pathway deviations;Decreased heel strike LLE;Variable step length;Loss of balance (Variable step length) Comments: LLE ataxia Activity Limited By: Complaint of Dizziness Activity/Exercise Sit Edge Of Bed: 3 minutes Sit Edge Of Bed Assist: Stand By Assist Stand At Bedside : 1 minutes Stand At Bedside Assist: Minimal Assist Education Persons Educated: Patient/Family Patient Barriers To Learning: Decreased Hearing Interventions: Louder Voice Required Teaching Methods: Verbal Instruction Patient Response: Verbalized Understanding Topics: Plan/Goals of PT Interventions;Use of Assistive Device/Orthosis;Mobility Progression;SafetyAwareness;Up with Assist Only;Importance of Increasing Activity;Positioning;Recommend Continued Therapy;Therapy Schedule Assessment/Progress Impaired Mobility Due To: Impaired Balance;Medical Status Limitation Assessment/Progress: Should Improve w/ Continued PT AM-PAC 6 Clicks Basic Mobility Inpatient Turning from your back to your side while in a flat bed without using bed rails: None Moving from lying on your back to sitting on the side of a flat bed without using bedrails : A Little Moving to and from a bed to a chair (including a wheelchair): A Lot Standing up from a chair using your arms (e.g. wheelchair, or bedside chair): A Lot To walk in hospital room: A Lot Climbing 3-5 steps with a railing: A Lot Basic Mobility Inpatient Raw Score: 15 Standardized (T-scale) Score: 36.97 Goals Goal Formulation: With Patient/Family Time For Goal Achievement: 5 days, To, 7 days Patient Will Transfer Bed/Chair: w/ Stand By Assist Patient Will Transfer Sit to Stand: w/ Stand By Assist Patient Will Ambulate: Greater than 200 Feet, w/ Stand By Assist (with least restrictive device) Patient Will Go Up / Down Stairs: 3-5 Stairs, w/ Stand By Assist (3 steps) Plan Treatment Interventions: Mobility Training;Balance Activities;Coordination Training;Neuromuscular Reeducation Plan Frequency: 5 Days per Week PT Plan for Next Visit: Increase ambulation distance and work on controlled steps on L LE. Step taps with target L LE. 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 male with a PMH of tobacco abuse, HTN, HLD, GERD, Loredo esophagus and a TIA in early February 2023 who presented to an OSH with blurred/reduced vision, ptosis, dizziness, and facial droop that started when he awoke around 0700 on 03/20. Cranial images demonstrated a posterior fossa stroke and concern for vertebral artery dissection. He was not a candidate for interv ention, but given the location and size of stroke, he was transferred to [facility] for a higher level of care. He is now admitted to NEICU for further management and evaluation. Hospital and ICU course: 03/21: Admitted to NEICU, reports improved dizziness 03/22: rpt CTH stable. Mild hypovolemic hyponatremia (133), given 1 L NS. Transitioned from heparin to Eliquis. Stable for transfer to floor team Neuro: Ischemic Stroke - L SCA Occlusion R Vertebral Artery Dissection Hx: TIA Stroke Symptom Onset time: 0700, 03/20 Initial NIH: 7 IR: No Follow up Imaging: MRI/MRA W/WO Ischemic Stroke Risk Factors Risk factor Present? Target Patient at target? Comments 1. Hypertension Yes BP <200 Yes 2. Diabetes No HBA1C<7 yes 5.7 3. Dyslipidemia Yes LDL<70? no LDL 78 4. H/o stroke/TIA Yes 5. Atrial fibrillation No 6. Tobacco abuse Yes Current, 0.5PPD Smoking cessation consultation > stroke etiology: embolic/dissection > continue risk factor modification > high risk anti-Xa heparin gtt initiated - will need to determine termite exterminator plan > CTH at 6 hours after starting heparin stable > Please stop ASA 81mg when on heparin > CTH stable at 24h after start of IV heparin. > Discontinue heparin and transition to eliquis 5 mg bid > Rehab Medicine, PT, OT, CLINICAL LABORATORY AIDE consulted - recommending IPR > Neurochecks q 4 hrs > will need pituitary MRI MR brain: 1. Several small acute appearing [...] Otherwise patent intracranial arterial vasculature without additional flow- limiting stenosis or branch occlusion. MRA neck: 1. Occluded right vertebral artery origin, reconstituting at the V1 segment with otherwise diminutive flow throughout the remaining cervical right vertebral artery. Findings are similar to outside CTA neck and favored for dissection. 2. Multifocal irregularity of the bilateral carotid arteries without measurable stenosis by NASCET criteria. 3. Patent dominant left cervical vertebral artery without superimposed stenosis. CT Head 03/21: Redemonstration of small acute or early subacute infarcts involving the bilateral cerebellar hemispheres and right occipital lobe without gross hemorrhagic conversion or obvious new area of infarct. CT Head 03/22: Evolving recent infarcts involving the bilateral cerebellar hemispheres and right occipital lobe without gross hemorrhagic conversion or obvious new area of infarct. Sedation/Pain Management: - PRN benadryl for dizziness - denies any pain - Assess for delirium daily Cardiac: HTN HLD - SBP goal: <160 - MAP goal > 65 - EKG: SR/SB - Hold COPING MACHINE OPERATOR lisinopril - Restart COPING MACHINE OPERATOR carvedilol 12.5 mg BID - COPING MACHINE OPERATOR atorvastatin 40mg (recently switched from simvastatin) - Lipid profile Chol 123 Tri 84 HDL 32 LDL 78 - ECHO 03/21: Normal LV function, EF 60-65%, normal biatrial size, no PFO Respiratory: Tobacco Abuse - stable on RA - PRN duonebs - PaO2 goal >100, Spo2 goal >95%, PCO2 goal 35-40 torr GI: GERD Loredo Esophagus - Feeding: regular diet thin liquids per speech - speech evaluation - COPING MACHINE OPERATOR omeprazole changed to pantoprazole on admit - neuro bowel regimen, ensure daily BM Heme: Hgb: 14.8 Plt: 248 - INR 1.1 - Daily CBC - VTE prophylaxis: Eliquis and SCDs ID: WBC: 8.1 (9.0) - Afebrile - 98.7 Renal: BUN: 6 Creat: 0.63 - Monitor hourly I/O balance - Daily BMP - Aim for normovolemia Intake/Output Summary (Last 24 hours) at 03/22/2023 1149 Last data filed at 03/22/2023 1030 Gross per 24 hour Intake 1888.79 ml Output 3700 ml Net -1811.21 ml Endocrine: SB - HgbA1C pending - monitor glucose on chemistry - Blood glucose goal 100-180mg/dl FEN: - IVF: none - Critical care electrolyte replacement protocol - Magnesium goal >2.0, i-Nadia goal > 1.0, Potassium goal >4.0 mEq/L Prophylaxis Review: A) GI: COPING MACHINE OPERATOR PPI B) Lines: No C) Urinary Catheter: No D) Antibiotic Usage: No E) VTE: Pharmacological prophylaxis; Contraindication: Bleeding risk; pending MRI and Mechanical prophylaxis; Sequential compression device F) Isolation: Not indicated. G)Seizures: Not indicated. H) Restraints: Patient assessed for need for restraints. I) Disposition/Family: Stable for transfer to floor team. Primary service: NCC Consults: Stroke __ SUBJECTIVE Phil Vivas is a 57 y.o. male. Overnight Events: No new events noted. Patient reports overall improvement in symptoms. He is stable for transfer to floor team. Medical History: Diagnosis Date • Loredo esophagus • GERD (gastroesophageal reflux disease) • HLD (hyperlipidemia) • HTN (hypertension) • TIA (transient ischemic attack) 02/21/2023 • Tobacco abuse No past surgical history on file. No family history on file. Social History Social History Narrative Lives at home, alone. He is . Retired [employer]. Prior to his TIA at the beginning of February, he was completley independent with limited issues. Since then, he has continued to drive in a limited capacity. Code Status: Full Code Decision Maker: Alycia Bryant - sister Immunizations (includes history and patient reported): There is no immunization history on file for this patient. Allergies: Penicillin, Tetracycline, and Hydrochlorothiazide Medications Prior to Admission Medication Sig • aspirin EC (ASPIR-LOW) 81 mg tablet Take one tablet by mouth daily. • atorvastatin (LIPITOR) 40 mg tablet Take one tablet by mouth daily. • carvediloL (COREG) 12.5 mg tablet Take one tablet by mouth twice daily with meals. Take with food. • lisinopriL (ZESTRIL) 10 mg tablet Take one tablet by mouth daily. • omeprazole DR (PRILOSEC) 20 mg capsule Take one capsule by mouth daily before breakfast. Review of Systems: A 14 point review of systems was negative except for: Neurological: positive for dizziness, vertigo, coordination problems and vision changes OBJECTIVE Vital Signs: Last Filed Vital Signs: 24 Hour Range BP: 158/71 (03/22 1000) Temp: 36.7 °C (98 °F) (03/22 0800) Pulse: 54 (03/22 1000) Respirations: 13 PER MINUTE (03/22 1000) SpO2: 96 % (03/22 1000) O2 Device: None (Room air) (03/22 1000) Height: 172.7 cm (5' 8") (03/21 1200) Weight: 73 kg (161 lb) (03/21 1200) SpO2 Pulse: 62 (03/22 0600) BP: (97-169)/(51-102) Temp: [36.5 °C (97.7 °F)-37.1 °C (98.7 °F)] Pulse: [51-66] Respirations: [11 PER MINUTE-23 PER MINUTE] SpO2: [92 %-98 %] O2 Device: None (Room air) Intensity Pain Scale (Self Report): (not recorded) Vitals: 03/21/23 0500 03/21/23 1100 03/21/23 1200 Weight: 73.3 kg (161 lb 9.6 oz) 73 kg (161 lb) 73 kg (161 lb) Lines: Peripheral Line Drains: None Intake/Output Summary: (Last 24 hours) Intake/Output Summary (Last 24 hours) at 03/22/2023 1149 Last data filed at 03/22/2023 1030 Gross per 24 hour Intake 1888.79 ml Output 3700 ml Net -1811.21 ml Physical Exam: Blood pressure (!) 158/71, pulse 54, temperature 36.7 °C (98 °F), height 172.7 cm (5' 8"), [id number] kg (161 lb), SpO2 96 %. Christiane coma score: E: 4 - Opens eyes on own M: 6 - Follows simple motor commands V: 5 - Alert and oriented Neuro: Mental Status: AOx4 Cranial Nerves: Cranial nerves 2-12 INTACT by inspection. - Pupil exam: Size: 2 Reactivity: Brisk - EOM: intact, has frequent saccades - Grimace/facial movement: present - Cough: present Motor: 5/5 throughout, follows commands - slight drift in LUE possibly due to ataxia Sensory: normal Coordination: left upper and lower ataxia Lungs: coarse bilaterally Pulmonary: Respiratory status: Stable Heart: regular rate and rhythm Abdomen: soft, non-tender. Bowel sounds normal. Extremities: extremities normal, atraumatic, no cyanosis or edema Skin: Skin color, texture, turgor normal. No rashes or lesions Point of Care Testing: (Last 24 hours): Glucose: (!) 109 (03/22/23 0208) Lab Review: Pertinent labs reviewed Radiology and Other Diagnostic Procedures Review: Pertinent radiologic and diagnostic procedures reviewed. Associated attestation - Debbie Roblero MD - 03/22/2023 12:05 PM CDT ATTESTATION I have seen, personally fully evaluated, and discussed patient with Dr. Moura. I agree with the objective findings and agree with the plan of care as documented by the resident with the exceptions noted. The patient is critically ill with acute stroke - posterior fossa and suspected vertebral dissection. Address stroke risk factors and continue with therapies for stroke recovery. I spent 32 minutes (excluding time spent performing or supervising any procedures) providing and personally directing critical care services, including reviewing imaging and laboratory results. Staff name: Debbie Roblero MD Date: 03/22/2023 * Louise Pina - 03/21/2023 10:35 AM CDT SPEECH-LANGUAGE PATHOLOGY CLINICAL SWALLOW ASSESSMENT Name: Phil Vivas : 1965 Age: 57 y.o. Admission Date: 03/21/2023 LOS: 0 days Date of Service: 03/21/2023 Evaluation Summary Clinical swallow evaluation completed. Clinical Impression: Mild dysphagia Sources of Dysphagia: Incoordination Anticipated Improvement: Tolerate baseline diet w/o difficulty Discussed risk for silent aspiration with posterior circulation stroke given overall presentation clinically this date. Offered the option of an instrumental swallow study for further characterization of swallowing function. Given the following factors (outlined below), anticipate pt at significantly low risk for aspiration pneumonia at this time. Pt states he wishes to eat/drink with known risk of aspiration in conjunction with thorough oral cares and mobility. In addition to dysphagia, the following are considerations related to this individual's risk for the development of aspiration pneumonia(1, 2): • Factors that increase risk for aspiration pneumonia: gastroesophageal reflux • Factors that decrease risk for aspiration pneumonia: functional reserve, good mobility (walked 20 feet with PT), maintains good oral hygiene , independent with oral care, independent with feedingand well-nourished (1) Sonia S, Robert M, Frantz A, Marian Y, Jacobo J, Evelyn Isaacs, Luc W: Predictors of Aspiration Pneumonia: How Important is Dysphagia? Dysphagia 13: 69-81, 1997 (2) María Adam, Wagner O, Fermin Lewis, Agueda M: Interventions to Prevent Aspiration Pneumonia in Older Adults: An Updated Systematic Review Journal of Speech, Language, and Hearing Research 64: 464-480, 2020 Swallow Recommendations PO: Thin liquids, Regular Medications: As tolerated Supervision: No supervision needed Positioning: Upright 90 degrees or chair mode Oral Hygiene: 3 times per day, Complete oral care to minimize the risk of aspirating oral bacteria Dysphagia Management: Less aggressive management of dysphagia with known risk for aspiration PO Presentation Presentations: Therapist Fed, Patient Fed Self Thin Liquid: 1 Tsp, Cup, Straw, 3 oz Other Consistencies: Puree, Regular solids Clinical Interpretation of Oral Stage Withdraw Bolus: WFL Form Bolus: WFL Masticate Bolus: WFL Transfer Bolus: WFL Anterior Bolus Spillage: None Oral Residue: None Clinical Interpretation of Pharyngeal Stage Swallow Initiation: Timely Laryngeal Elevation: Suspected to be reduced Signs / Symptoms Of Aspiration: Thin liquid Thin Liquid: Cough Suspected Pharyngeal Stage Impairment: Mistimed airway protection Oral Mech Exam Oral Mech WFL: No Lips: WFL Tongue: Impaired ROM - L, Impaired Coordination Buccal: WFL Jaw: WFL Velopharynx: Impaired Coordination Visceral Swallow: Timely Vocal Quality: WFL Volitional Cough: WFL Dentition: Natural - Good Attempted Swallow Strategies Attempted Swallow Strategies Comment: S/sx highly variable; did not appear to increase/decreased with a given swallow strategy Objective Relevant Med Background: Pt is a 57 y.o. male with a PMH of tobacco abuse, HTN, HLD, GERD, Loredo esophagus and a TIA in early February 2023 who presented to an OSH with blurred/reduced vision, ptosis, dizziness, and facial droop that started when he awoke around 0700 on 03/20. Cranial images demonstrated a posterior fossa stroke and concern for vertebral artery dissection. He was not a candidate for intervention, but given the location and size of stroke, he was transferred to [facility] for a higher level of care. He is now admitted to NEICU for further management and evaluation. Pertinent Dysphagia History: Hx GERD, Loredo's esophagus; no functional impact on eating/drinking Lives With: Alone (Sister and niece live close) Receives Help From: None Needed Psychosocial Status: Willing and Cooperative to Participate Persons Present: Daughter MRI Head WO Contrast 03/21 IMPRESSION 1. Several small acute appearing infarcts involving the bilateral cerebellar hemispheres and right occipital lobe. No hemorrhagic conversion. 2. Mild to moderate nonspecific cerebral white matter and pontine FLAIR hyperintensity, likely small vessel ischemic change. Chronic right deep burt nuclei lacunar infarcts are also present. Subjective Pain: Patient has no complaint of pain Pain Level Current: No pain Trach Presence: No Feeding Tube Present During Eval: None Nutrition Nutrition Prior To Hospitalization: Oral, Regular, Thin Liquids Current Form Of Nutrition: NPO Education Persons Educated: Pt/Family Barriers To Learning: None Noted Interventions: Repetition of Instructions Teaching Methods: Verbal Topics: Dysphagia Patient Response: Verbalized Understanding Goal Formulation: With Pt/Family Assessment/Prognosis Plan: Other (Comment) (Follow-up for diet tolerance) Prognosis: Good NOMS Dysphagia Ratin-Mild Dysphagia -Swallow safe w/ min diet restriction &/or occasionallyrequires min cues to use compensatory strategies. May occasionally self-cue. All nutrition/hydration needs met by mouth at mealtime. Clinical Swallow Goals Goal : Pt will tolerate least restrictive diet with <10% s/sx of aspiration/penetration given minimal cues. Therapist:Louise Calix MA, CCC-CLINICAL LABORATORY AIDE Voalte: [id number] Date:03/21/2023 * Patel Tracy OT - 03/21/2023 9:06 AM CDT OCCUPATIONAL THERAPY ASSESSMENT NOTE Name: Phil Vivas : 1965 Age: 57 y.o. Admission Date: 03/21/2023 LOS: 0 days Date of Service: 03/21/2023 Mobility Patient Turn/Position: Chair Progressive Mobility Level: Walk in room Distance Walked (feet): 20 ft Level of Assistance: Assist X2 Assistive Device: Hand Held Subjective Pertinent Dx per Physician: 57 y.o. male with a PMH of tobacco abuse, HTN, HLD, GERD, Loredo esophagus and a TIA in early February 2023 who presented to an OSH with blurred/reduced vision, ptosis, dizziness, and facial droop that started when he awoke around 0700 on 03/20. Cranial images demonstrated a posterior fossa stroke and concern for vertebral artery dissection. He was not a candidate forintervention, but given the location and size of stroke, he was transferred to [facility] for a higher level of care. [facility] management and evaluation. MRI: R and L cerebellar infarcts and right occipital lobe infarct. No evidence of hemorrhage on SWI - MRA H&N: L superior cerebellar artery occlusion and occluded R vertebral artery at the origin and R vertebral dissection Precautions: Falls;Hearing Impaired, No Hearing Aid (L ear is better than R; SBP <180 for 24 hours) Pain / Complaints: Patient agrees to participate in therapy Pain Location: (Headache) Pain Level Current: (Does not rate) Objective Psychosocial Status: Willing and Cooperative to Participate Persons Present: Physical Therapist;Family Home Living Type of Home: House Home Layout: One Level (3 steps to enter with bilateral rails) Bathroom Shower / Tub: Walk-in Shower;Tub/Shower Unit (Utilizes walk-in shower) Home Equipment: (None) Prior Function Level Of [place]: Independent with ADLs and functional transfers;Independent with homemaking w/ ambulation (Without use of assistive device) Lives With: Alone (Sister and niece live close) Receives Help From: None Needed Other Function Comments: Pt denies recent falls Vision Corrective Lenses: Wears glasses all of the time (Denies acute changes; reports photophobia in combinaton with headache) ADL's Where Assessed: Supine, Bed;Edge of Bed;Standing at Sink;Chair Eating Deficits: NPO, but hand to mouth WNL Grooming Assist: Minimal Assist Grooming Deficits: Setup;Steadying;Teeth Care ADL Mobility Bed Mobility: Supine to Sit: Standby assist (HOB elevated) Transfer Type: Sit to/from stand Transfer: Assistance Level: From;Bed;To;Bedside chair;Minimal assist;x2 people Transfer: Assistive Device: Hand hold assist Transfer: Type of Assistance: For balance;For safety considerations Other Transfer Type: Stand pivot Other Transfer: Assistance Level: From;Bed;Bedside chair;Moderate assist;of 1st person;Minimal assist;of 2nd person Other Transfer: Assistive Device: Hand hold assist Other Transfer: Type of Assistance: For balance;For safety considerations;For slide board placement End of Activity Status: Up in chair;Instructed patient to request assist with mobility;Instructed patient to use call light;Nursing notified (Chair alarm activated) Sitting Balance: Static sitting balance;Standby assist Standing Balance: Static standing balance;1 UE support;Minimal assist;Dynamic standing balance (CGA) Gait Distance: 20 feet Gait: Assistance Level: Moderate assist;of 1st person;Minimal assist;of 2nd person Gait: Assistive Device: Hand hold assist Gait Comments: Pt with LLE ataxia with mobility Activity Tolerance Endurance: 2/5 Tolerates 10-20 Minutes Exercise w/Multiple Rests Comment: Vitals WFL throughut therapy session Cognition Overall Cognitive Status: WFL to Adequately Complete Self Care Tasks Safely Social Interaction: Interacts in a Spontaneous,Cooperative Manner Orientation: Alert & Oriented x4 Attention: Awake/Alert ROM R UE ROM: WFL R UE ROM Method: Active L UE ROM: WFL L UE ROM Method: Active R LE ROM: WFL R LE ROM Method: Active L LE ROM: WFL L LE ROM Method: Active Coordination: Moderate Delay (mild delay on R side for serial opposition; moderate delay on L side for serial opposition, alternating hands, and dysmetria noted finger to nose.) Grasp: Bilateral Grasp Functional for Activity UE Strength / Tone Strength Position Assessed: Supine R UE Strength: WFL (5/5 grossly) L UE Strength: WFL (4+/5 grossly) Education Persons Educated: Patient/Family Teaching Methods: Verbal Instruction Patient Response: Verbalized and Demo Understanding Topics: Role of OT, Goals for Therapy Goal Formulation: With Patient/Family Assessment Assessment: Decreased ADL Status;Decreased Safe/Judg during ADL;Decreased Endurance;Decreased Fine Motor Coordination;Decreased Self-Care Trans;Decreased High-Level ADLs Prognosis: Good;w/Cont OT s/p Acute Discharge Goal Formulation: Pt/family Comments: Pt primary affected by left sided coordination deficits affecting independence with ADLs and MRADLs. Recommend intensive skilled therapy following discharge in order to maximize independence with self care tasks as pt lives alone. AM-PAC 6 Clicks Daily Activity Inpatient Putting on and taking off regular lower body clothes: A Little Bathing (Including washing, rinsing, drying): A Lot Toileting, which includes using toilet, bedpan, or urinal: A Little Putting on and taking off regular upper body clothing: A Little Taking care of personal grooming such as brushing teeth: A Little Eating meals: None Daily Activity Raw Score: 18 Standardized (T-scale) Score: 38.66 Plan OT Frequency: 5x/week OT Plan for Next Visit: Outcome measures-9 hole peg test. LB dressing with socks and pants, toileting as able, progress mobility to hallway. ADL Goals Patient Will Perform All ADL's: w/ Stand By Assist Functional Transfer Goals Pt Will Perform All Functional Transfers: w/ Stand By Assist OT Discharge Recommendations Recommendation: Inpatient setting;Recommend rehab medicine consult Patient Currently Requires Physical Assist With: All mobility;All personal care ADLs;All home functioning ADLs Therapist: OMAIRA Hoff/Debbie [id number] Date: 03/21/2023 * Tali Gates PT - 03/21/2023 9:05 AM CDT PHYSICAL THERAPY ASSESSMENT Name: Phil Vivas : 1965 Age: 57 y.o. Admission Date: 03/21/2023 LOS: 0 days Date of Service: 03/21/2023 Mobility Patient Turn/Position: Chair Progressive Mobility Level: Walk in room Distance Walked (feet): 20 ft Level of Assistance: Assist X2 Assistive Device: Hand Held Subjective Significant hospital events: 57 y.o. male with a PMH of tobacco abuse, HTN, HLD, GERD, Loredo esophagus and a TIA in early February 2023 who presented to an OSH with blurred/reduced vision, ptosis,dizziness, and facial droop that started when he awoke around 0700 on 03/20. Cranial images demonstrated a posterior fossa stroke and concern for vertebral artery dissection. He was not a candidate for intervention, but given the location and size of stroke, he was transferred to [facility] for a higher level of care. [facility] is [facility] management and evaluation. MRI: R and L cerebellar infarcts and right occipital lobe infarct. No evidence of hemorrhage on SWI - MRA H&N: Lsuperior cerebellar artery occlusion and occluded R vertebral artery at the origin and R vertebral d issection Mental / Cognitive Status: Alert;Oriented;Cooperative;Follows Commands Persons Present: Family;Occupational Therapist;Student Pain: Patient has no complaint of pain Pain Interventions: Patient agrees to participate in therapy;Patient assisted into position of comfort Comments: SBP <180 - 24 hours; Hard of hearing, better on L Ambulation Assist: Independent Mobility in Community without Device Patient Owned Equipment: None Home Situation: Lives Alone Type of Home: House Entry Stairs: 3-5 Stairs;Rail on Both Sides (3 steps) In-Home Stairs: Able to Live on One Level Comments: Patient independent with mobility and ADLs without a device. No falls. ROM R UE ROM: WFL R UE ROM Method: Active L UE ROM: WFL L UE ROM Method: Active R LE ROM: WFL R LE ROM Method: Active L LE ROM: WFL L LE ROM Method: Active Strength Strength Position Assessed: Seated Overall Strength: WFL Posture/Neurological Head Control: Independent Coordination: Ataxia of LLE;Ataxia of LUE;Impaired Heel to Hauser LLE;Impaired Finger Nose Finger LUE Bed Mobility/Transfer Bed Mobility: Supine to Sit: Standby Assist;Verbal Cues;Head of Bed Elevated;Safety Considerations Transfer Type: Sit to Stand Transfer: Assistance Level: From;Bed;Minimal Assist;x2 People Transfer: Assistive Device: Hand Hold Assist Transfers: Type Of Assistance: For Balance;For Safety Considerations End Of Activity Status: Up in Chair;Nursing Notified;Instructed Patient to Request Assist with Mobility;Instructed Patient to Use Call Light (Chair alarm active, all needs met) Balance Sitting Balance: Dynamic Sitting Balance;Static Sitting Balance;Standby Assist Standing Balance: Static Standing Balance;Minimal Assist Gait Gait Distance: 20 feet Gait: Assistance Level: Moderate Assist;of 1st person;Minimal Assist;of 2nd person (Mod on L, Min on R) Gait: Assistive Device: Hand Hold Assist Gait: Descriptors: Pace: Slow;Pathway deviations;Scissoring;Variable step length (Variable step length) Comments: LLE ataxia Activity Limited By: Complaint of Dizziness Education Persons Educated: Patient/Family Patient Barriers To Learning: Decreased Hearing Interventions: Louder Voice Required Teaching Methods: Verbal Instruction Patient Response: Verbalized Understanding Topics: Plan/Goals of PT Interventions;Use of Assistive Device/Orthosis;Mobility Progression;SafetyAwareness;Up with Assist Only;Importance of Increasing Activity;Positioning;Recommend Continued Therapy;Therapy Schedule Assessment/Progress Impaired Mobility Due To: Impaired Balance;Medical Status Limitation Assessment/Progress: Should Improve w/ Continued PT AM-PAC 6 Clicks Basic Mobility Inpatient Turning from your back to your side while in a flat bed without using bed rails: None Moving from lying on your back to sitting on the side of a flat bed without using bedrails : A Little Moving to and from a bed to a chair (including a wheelchair): A Lot Standing up from a chair using your arms (e.g. wheelchair, or bedside chair): A Lot To walk in hospital room: A Lot Climbing 3-5 steps with a railing: A Lot Basic Mobility Inpatient Raw Score: 15 Standardized (T-scale) Score: 36.97 Goals Goal Formulation: With Patient/Family Time For Goal Achievement: 5 days, To, 7 days Patient Will Transfer Bed/Chair: w/ Stand By Assist Patient Will Transfer Sit to Stand: w/ Stand By Assist Patient Will Ambulate: Greater than 200 Feet, w/ Stand By Assist (with least restrictive device) Patient Will Go Up / Down Stairs: 3-5 Stairs, w/ Stand By Assist (3 steps) Plan Treatment Interventions: Mobility Training;Balance Activities;Coordination Training;Neuromuscular Reeducation Plan Frequency: 5 Days per Week PT Plan for Next Visit: Progress gait - october trial mirror for visual cues, balance assessment PT Discharge Recommendations Recommendation: Inpatient setting;Recommend rehab medicine consult Therapist Tali [place] DPT [id number] Date 03/21/2023 * Ramon Brown MD - 03/21/2023 6:09 AM CDT Neuro Critical Care Progress Phil Vivas Admission Date: 03/21/2023 LOS: 0 days Full Code ASSESSMENT/PLAN Patient Active Problem List Diagnosis Date Noted • Stroke (cerebrum) (HCC) 03/21/2023 • Vertebral artery dissection (HCC) 03/21/2023 Phil Vivas is a 57 y.o. male with a PMH of tobacco abuse, HTN, HLD, GERD, Loredo esophagus dustin TIA in early February 2023 who presented to an OSH with blurred/reduced vision, ptosis, dizziness, and facial droop that started when he awoke around 0700 on 03/20. Cranial images demonstrated a posterior fossa stroke and concern for vertebral artery dissection. He was not a candidate for interven tion, but given the location and size of stroke, he was transferred to [facility] for a higher level of care. He is now admitted to NEICU for further management and evaluation. Hospital and ICU course: 03/21: Admitted to NEICU, reports improved dizziness Neuro: Ischemic Stroke - L SCA Occlusion R/O Vertebral Artery Dissection Hx: TIA Stroke Symptom Onset time: 07, 03/20 Initial NIH: 7 IR: No Follow up Imaging: MRI/MRA W/WO Ischemic Stroke Risk Factors Risk factor Present? Target Patient at target? Comments 1. Hypertension Yes BP <200 Yes 2. Diabetes No HBA1C<7 yes 5.7 3. Dyslipidemia Yes LDL<70? no LDL 78 4. H/o stroke/TIA Yes 5. Atrial fibrillation No 6. Tobacco abuse Yes Current, 0.5PPD Smoking cessation consultation - stroke etiology: large artery v cardioembolic - continue risk factor modification > high risk anti-Xa heparin gtt initiated - will need to determine shelter plan > CTH at 6 hours after starting heparin for stability and at 24 hours as well > Please stop ASA 81mg when on heparin > If on heparin gtt, new BP goals: SBP < 180 for the first 24 hours of symptom onset then SBPgoal 100-160 > if CTH stable 24h after start of IV heparin, transition to eliquis bid > cerebral edema watch, given posterior fossa insult, CT H morning 03/21 pending - Rehab Medicine, PT, OT, CLINICAL LABORATORY AIDE consulted - Neuro-ICU monitoring, neurochecks q 1 hrs > will need pituitary MRI MR brain: 1. Several small acute appearing [...] Otherwise patent intracranial arterial vasculature without additional flow- limiting stenosis or branch occlusion. MRA neck: 1. Occluded right vertebral artery origin, reconstituting at the V1 segment with otherwise diminutive flow throughout the remaining cervical right vertebral artery. Findings are similar to outside CTA neck and favored for dissection. 2. Multifocal irregularity of the bilateral carotid arteries without measurable stenosis by NASCET criteria. 3. Patent dominant left cervical vertebral artery without superimposed stenosis. CT H 03/21: Pending at 1100 Sedation/Pain Management: - PRN benadryl for dizziness - denies any pain - Assess for delirium daily Cardiac: HTN HLD - SBP goal: <180, permissive HTN - MAP goal > 65 - EKG: SR/SB - Hold COPING MACHINE OPERATOR lisinopril, coreg for permissive HTN (perfusion) - COPING MACHINE OPERATOR atorvastatin 40mg (recently switched from simvastatin) - Lipid profile Chol 123 Tri 84 HDL 32 LDL 78 - ECHO 03/21 ordered Respiratory: Tobacco Abuse - stable on RA - PRN duonebs - PaO2 goal >100, Spo2 goal >95%, PCO2 goal 35-40 torr GI: GERD Loredo Esophagus - Feeding: regular diet thin liquids per speech - speech evaluation - COPING MACHINE OPERATOR omeprazole - neuro bowel regimen, ensure daily BM Heme: Hgb: 14.8 Plt: 248 - INR 1.1 - Daily CBC - VTE prophylaxis: Pharmacological prophylaxis; Contraindication: Bleeding risk; pending MRI for size of stroke burden and Mechanical prophylaxis; Sequential compression device ID: WBC: 9.0 - Afebrile - 98.3 Renal: BUN: 4 Creat: 0.65 - Monitor hourly I/O balance - Daily BMP - Aim for normovolemia Intake/Output Summary (Last 24 hours) at 03/21/2023 0609 Last data filed at 03/21/2023 0500 Gross per 24 hour Intake 322.5 ml Output 275 ml Net 47.5 ml Endocrine: SB - HgbA1C pending - monitor glucose on chemistry - Blood glucose goal 100-180mg/dl FEN: - IVF: none - Critical care electrolyte replacement protocol - Magnesium goal >2.0, i-Nadia goal > 1.0, Potassium goal >4.0 mEq/L Prophylaxis Review: A) GI: COPING MACHINE OPERATOR PPI B) Lines: No C) Urinary Catheter: No D) Antibiotic Usage: No E) VTE: Pharmacological prophylaxis; Contraindication: Bleeding risk; pending MRI and Mechanical prophylaxis; Sequential compression device F) Isolation: Not indicated. G)Seizures: Not indicated. H) Restraints: Patient assessed for need for restraints. I) Disposition/Family: ICU Primary service: NCC Consults: Stroke __ MAE Vivas is a 57 y.o. male. Overnight Events: No new events noted. Patient reports improvedvertigo Medical History: Diagnosis Date • Loredo esophagus • GERD (gastroesophageal reflux disease) • HLD (hyperlipidemia) • HTN (hypertension) • TIA (transient ischemic attack) 02/21/2023 • Tobacco abuse No past surgical history on file. No family history on file. Social History Social History Narrative Lives at home, alone. He is . Retired [employer]. Prior to his TIA at the beginning of February, he was completley independent with limited issues. Since then, he has continued to drive in a limited capacity. Code Status: Full Code Decision Maker: Alycia Bryant - sister Immunizations (includes history and patient reported): There is no immunization history on file for this patient. Allergies: Penicillin, Tetracycline, and Hydrochlorothiazide Medications Prior to Admission Medication Sig • aspirin EC (ASPIR-LOW) 81 mg tablet Take one tablet by mouth daily. • atorvastatin (LIPITOR) 40 mg tablet Take one tablet by mouth daily. • carvediloL (COREG) 12.5 mg tablet Take one tablet by mouth twice daily with meals. Take with food. • lisinopriL (ZESTRIL) 10 mg tablet Take one tablet by mouth daily. • omeprazole DR (PRILOSEC) 20 mg capsule Take one capsule by mouth daily before breakfast. Review of Systems: A 14 point review of systems was negative except for: Neurological: positive for dizziness, vertigo, coordination problems and vision changes OBJECTIVE Vital Signs: Last Filed Vital Signs: 24 Hour Range BP: 137/65 (03/21 0400) Temp: 36.8 °C (98.3 °F) (03/21 0010) Pulse: 54 (03/21 0500) Respirations: 14 PER MINUTE (03/21 050) SpO2: 94 % (03/21 0500) O2 Device: None (Room air) (03/21 500) Height: 172.7 cm (5' 8") (03/21 10) Weight: 73.3 kg (161 lb 9.6 oz) (03/21 10) BP: (133-168)/(54-87) Temp: [36.8 °C (98.3 °F)] Pulse: [54-69] Respirations: [12 PER MINUTE-14 PER MINUTE] SpO2: [93 %-96 %] O2 Device: None (Room air) Intensity Pain Scale (Self Report): (not recorded) Vitals: 03/21/239 Weight: 73.3 kg (161 lb 9.6 oz) Lines: Peripheral Line Drains: None Intake/Output Summary: (Last 24 hours) Intake/Output Summary (Last 24 hours) at 03/21/2023 0609 Last data filed at 03/21/2023 0500 Gross per 24 hour Intake 322.5 ml Output 275 ml Net 47.5 ml Physical Exam: Blood pressure 137/65, pulse 54, temperature 36.8 °C (98.3 °F), height 172.7 cm (5' 8"), weight 73.3 kg (161 lb 9.6 oz), SpO2 94 %. [place] coma score: E: 4 - Opens eyes on own M: 6 - Follows simple motor commands V: 5 - Alert and oriented Neuro: Mental Status: AOx4 Cranial Nerves: Cranial nerve 2 (visual smith): Abnormal., Cranial nerve 8 (vestibular - nystagmus, pointing, Romberg): Abnormal. - Pupil exam: Size: 2 Reactivity: Brisk - EOM: intact, has frequent saccades - Grimace/facial movement: present - Cough: present Motor: 5/5 throughout, follows commands - can appear to have a drift due to the degree of ataxia onLUE Sensory: normal Coordination: right upper and lower ataxia Lungs: coarse bilaterally Pulmonary: Respiratory status: Stable Heart: regular rate and rhythm, S1, S2 normal, no murmur, click, rub or gallop Abdomen: soft, non-tender. Bowel sounds normal. No masses, no organomegaly Extremities: extremities normal, atraumatic, no cyanosis or edema Skin: Skin color, texture, turgor normal. No rashes or lesions Point of Care Testing: (Last 24 hours): Glucose: 98 (03/21/23 0316) Lab Review: Pertinent labs reviewed Radiology and Other Diagnostic Procedures Review: Pertinent radiologic and diagnostic procedures reviewed. Ramon Brown MD Date: 03/21/2023 voalte Associated attestation - Debbie Roblero MD - 03/21/2023 1:02 PM CDT ATTESTATION I have seen, personally fully evaluated, and discussed patient with Dr. Brown. I agree with the objective findings and agree with the plan of care as documented by the resident with the exceptions noted. The patient is critically ill with posterior fossa strokes with concern for vertebral dissection. I spent 35 minutes (excluding time spent performing or supervising any procedures) providing and personally directing critical care services, including reviewing imaging and laboratory results. Staff name: Debbie Roblero MD Date: 03/21/2023 * Maddy Whalen DO - 03/21/2023 4:40 AM CDT Brief Stroke Team Update Note: Reviewed MRI and MRA H&N: - MRI: R and L cerebellar infarcts and right occipital lobe infarct. No evidence of hemorrhage on SWI - MRA H&N: L superior cerebellar artery occlusion and occluded R vertebral artery at the originand R vertebral dissection Etiology of stroke likely secondary to R vertebral dissection with emboli to RESERVATION MANAGER and L SCA Recommendations: > Can consider starting heparin gtt low dose/stroke protocol with no bolus > CTH at 6 hours after starting heparin for stability and at 24 hours as well > Please stop ASA 81mg when on heparin > If on heparin gtt, new BP goals: SBP < 180 for the first 24 hours of symptom onset then SBPgoal 100-160 > UDS Plan discussed with Dr. Kedar Whalen DO PGY4, Neurology Resident Available on Voalte documented in this encounter H&P Notes * Parul Coronel, XIAO-TRANSMISSION SYSTEM OPERATOR - 03/21/2023 12:25 AM CDT Neuro Critical Care History and Physical Phil Vivas Admission Date: 03/21/2023 LOS: 0 days Full Code ASSESSMENT/PLAN Patient Active Problem List Diagnosis Date Noted • Stroke (cerebrum) ([facility]) 03/21/2023 • Vertebral artery dissection ([facility]) 03/21/2023 Phil Vivas is a 57 y.o. male with a PMH of tobacco abuse, HTN, HLD, GERD, Loredo esophagus dustin TIA in early February 2023 who presented to an OSH with blurred/reduced vision, ptosis, dizziness, and facial droop that started when he awoke around 0700 on 03/20. Cranial images demonstrated a posterior fossa stroke and concern for vertebral artery dissection. He was not a candidate for interven tion, but given the location and size of stroke, he was transferred to [facility] for a higher level of care. He is now admitted to NEICU for further management and evaluation. Hospital and ICU course: 03/21: Admitted to NEICU Neuro: Ischemic Stroke - L SCA Occlusion R/O Vertebral Artery Dissection Hx: TIA Stroke Symptom Onset time: 0700, 03/20 Initial NIH: 7 IR: No Follow up Imaging: MRI/MRA W/WO Ischemic Stroke Risk Factors Risk factor Present? Target Patient at target? Comments 1. Hypertension Yes BP <200 Yes 2. Diabetes No HBA1C<7 Pending 3. Dyslipidemia Yes LDL<70? Pending 4. H/o stroke/TIA Yes 5. Atrial fibrillation No 6. Tobacco abuse Yes Current, 1PPD Smoking cessation consultation - stroke etiology: large artery v cardioembolic - continue risk factor modification - Anti-platelet treatment with ASA 81mg on arrival - high risk anti-Xa heparin gtt initiated - depending on MRI results, if vertebral artery dissection is positive, will initiate a high risk heparin infusion - cerebral edema watch, given posterior fossa insult - Rehab Medicine, PT, OT, CLINICAL LABORATORY AIDE consulted - Neuro-ICU monitoring, neurochecks q 1 hrs MR brain: 1. Several small acute appearing [...] Otherwise patent intracranial arterial vasculature without additional flow- limiting stenosis or branch occlusion. MRA neck: 1. Occluded right vertebral artery origin, reconstituting at the V1 segment with otherwise diminutive flow throughout the remaining cervical right vertebral artery. Findings are similar to outside CTA neck and favored for dissection. 2. Multifocal irregularity of the bilateral carotid arteries without measurable stenosis by NASCET criteria. 3. Patent dominant left cervical vertebral artery without superimposed stenosis. Sedation/Pain Management: - PRN benadryl for dizziness - denies any pain - Assess for delirium daily Cardiac: HTN HLD - SBP goal: <200 - MAP goal > 65 - EKG: SR/SB - Hold COPING MACHINE OPERATOR lisinopril, coreg for permissive HTN (perfusion) - COPING MACHINE OPERATOR atorvastatin 40mg (recently switched from simvastatin) - Lipid profile pending - ECHO 03/21 Respiratory: Tobacco Abuse - stable on RA - PRN duonebs - PaO2 goal >100, Spo2 goal >95%, PCO2 goal 35-40 torr GI: GERD Loredo Esophagus - Feeding: NPO - speech evaluation - COPING MACHINE OPERATOR omeprazole - neuro bowel regimen, ensure daily BM Heme: Hgb: 15.2 Plt: 247 - Daily CBC - VTE prophylaxis: Pharmacological prophylaxis; Contraindication: Bleeding risk; pending MRI for size of stroke burden and Mechanical prophylaxis; Sequential compression device - assess for coagulopathy, maintain platelets above 100k, INR <1.5 ID: WBC: 11.4 - Afebrile - aim for normothermia, Temp <38.3 celsius, normothermia protocol if febrile Renal: BUN: 4 Creat: 0.71 - Monitor hourly I/O balance - Daily BMP - Aim for normovolemia No intake or output data in the 24 hours ending 03/21/23 0115 Endocrine: SB - HgbA1C pending - monitor glucose on chemistry - Blood glucose goal 100-180mg/dl FEN: - IVF: NS @ 75mL/hr while NPO - Critical care electrolyte replacement protocol - Magnesium goal >2.0, i-Nadia goal > 1.0, Potassium goal >4.0 mEq/L Prophylaxis Review: A) GI: COPING MACHINE OPERATOR PPI B) Lines: No C) Urinary Catheter: No D) Antibiotic Usage: No E) VTE: Pharmacological prophylaxis; Contraindication: Bleeding risk; pending MRI and Mechanical prophylaxis; Sequential compression device F) Isolation: Not indicated. G)Seizures: Not indicated. H) Restraints: Patient assessed for need for restraints. I) Disposition/Family: ICU Primary service: NCC Consults: Stroke SUBJECTIVE Chief Complaint: Blurred Vision History of Present Illness: Phil Vivas is a 57 y.o. male with a PMH of tobacco abuse, HTN, HLD,GERD, Loredo esophagus and a TIA in early February 2023 who presented to an OSH with blurred/reduced vision, ptosis, dizziness, and facial droop that started when he awoke around 0700 on 03/20. Cranial images demonstrated a posterior fossa stroke and concern for vertebral artery dissection. He wasnot a candidate for intervention, but given the location and size of stroke, he was transferred to [facility] for a higher level of care. He is [facility] for further management and evaluation. Of note, Mr. Vivas reports that approximately 1 month ago he had similar incident of acute onset vertigo and nausea and vomiting and presented to [facility] for which she had a CT head and CTA and he was transferred to [facility] where he had an MRI and was told that he had right posterior "mini strokes". He does not report being told that he had a dissection at that time. 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 And he was started on aspirin however he just started taking the medication 2 days ago. He had plans to have Holter monitor as well. Medical History: Diagnosis Date • Loredo esophagus • GERD (gastroesophageal reflux disease) • HLD (hyperlipidemia) • HTN (hypertension) • TIA (transient ischemic attack) 02/21/2023 • Tobacco abuse No past surgical history on file. No family history on file. Social History Social History Narrative Lives at home, alone. He is . Retired [employer]. Prior to his TIA at the beginning of February, [facility] with limited issues. Since then, he has continued to drive in a limited capacity. Code Status: Full Code Decision Maker: Alycia Bryant - sister Immunizations (includes history and patient reported): There is no immunization history on file for this patient. Allergies: Penicillin, Tetracycline, and Hydrochlorothiazide Medications Prior to Admission Medication Sig • aspirin EC (ASPIR-LOW) 81 mg tablet Take one tablet by mouth daily. • atorvastatin (LIPITOR) 40 mg tablet Take one tablet by mouth daily. • carvediloL (COREG) 12.5 mg tablet Take one tablet by mouth twice daily with meals. Take with food. • lisinopriL (ZESTRIL) 10 mg tablet Take one tablet by mouth daily. • omeprazole DR (PRILOSEC) 20 mg capsule Take one capsule by mouth daily before breakfast. Review of Systems: A 14 point review of systems was negative except for: Neurological: positive for dizziness, vertigo, coordination problems and vision changes OBJECTIVE Vital Signs: Last Filed Vital Signs: 24 Hour Range BP: 157/74 (03/21 100) Temp: 36.8 °C (98.3 °F) (03/21 10) Pulse: 57 (03/21 100) Respirations: 13 PER MINUTE (03/21 100) SpO2: 95 % (03/21 100) O2 Device: None (Room air) (03/21 100) Height: 172.7 cm (5' 8") (03/21 10) Weight: 73.3 kg (161 lb 9.6 oz) (03/21 10) BP: (157-168)/(74-87) Temp: [36.8 °C (98.3 °F)] Pulse: [57-69] Respirations: [12 PER MINUTE-13 PER MINUTE] SpO2: [95 %-96 %] O2 Device: None (Room air) Intensity Pain Scale (Self Report): (not recorded) Vitals: 03/21/239 Weight: 73.3 kg (161 lb 9.6 oz) Lines: Peripheral Line Drains: None Intake/Output Summary: (Last 24 hours) No intake or output data in the 24 hours ending 03/21/23 011 Physical Exam: Blood pressure (!) 157/74, pulse 57, temperature 36.8 °C (98.3 °F), height 172.7 cm (5' 8"), weight 73.3 kg (161 lb 9.6 oz), SpO2 95 %. [place]e coma score: E: 4 - Opens eyes on own M: 6 - Follows simple motor commands V: 5 - Alert and oriented Neuro: Mental Status: AOx4 Cranial Nerves: Cranial nerve 2 (visual smith): Abnormal., Cranial nerve 8 (vestibular - nystagmus, pointing, Romberg): Abnormal. - Pupil exam: Size: 2 Reactivity: Brisk - EOM: Intact by inspection, nystagmus is a limiting factor - Grimace/facial movement: present - Cough: present Motor: 5/5 throughout, follows commands - can appear to have a drift due to the degree of ataxia onLUE Sensory: normal Coordination: right upper and lower ataxia Lungs: coarse bilaterally Pulmonary: Respiratory status: Stable Heart: regular rate and rhythm, S1, S2 normal, no murmur, click, rub or gallop Abdomen: soft, non-tender. Bowel sounds normal. No masses, no organomegaly Extremities: extremities normal, atraumatic, no cyanosis or edema Skin: Skin color, texture, turgor normal. No rashes or lesions Point of Care Testing: (Last 24 hours): Lab Review: Pertinent labs reviewed Radiology and Other Diagnostic Procedures Review: Pertinent radiologic and diagnostic procedures reviewed. I spent 64 minutes managing the care of this patient. Phil Vivas is in critical condition with a stroke. Cares included: detailed neurologic and systems exam, medication review, laboratory data review and interpretation, electrolyte management, review of available imaging, DVT/PE prophylaxis review, diet review, activity review and coordination of care with consulted teams. Parul Coronel, MARKET MANAGER-TRANSMISSION SYSTEM OPERATOR Date: 03/21/[phone] documented in this encounter Consult Notes * Caleb Olivia MD - 03/24/2023 7:27 PM CDTAssociated Order(s): CONSULT REHABILITATION MEDICINE PHYSICIAN Physical Medicine & Rehabilitation Consult Service Rehab consult received and appreciated. Patient evaluated on 03/21 with recommendation for acute IPRlevel of care at that time. Plans to facilitate transition to this level of care ongoing with assistance of CM/SW. Please contact our service if we can be of any other assistance. Umer Olivia MD Rehabilitation Medicine Pager: [phone] / Voalte * Caleb Olivia MD - 03/21/2023 10:37 AM CDTAssociated Order(s): CONSULT REHABILITATION MEDICINE PHYSICIAN Physical Medicine & Rehabilitation Consult Service Name: Phil Vivas : 1965 Age: 57 y.o. Admission Date: 03/21/2023 LOS: 0 days Date of Service: 03/21/2023 Date of Service: 03/21/2023 Financial Class: [facility]or: [facility] / Plan: [facility]N / Product Type: *No Product type* / Referring Physician: Debbie Roblero MD Reason for Consult: evaluate for Post-Acute Rehab/Placement Precautions: Fall, aspiration Assessment & Plan: Active Problems: Stroke (cerebrum) (HCC) Vertebral artery dissection (HCC) Gait abnormality Impaired mobility/ADLs Impaired transfers R median neuropathy Phil Vivas is a 57 y.o. year old male admitted to [facility] on 03/21/2023 with the following issues: Bilateral cerebellar and right occipital lobe CVAs in setting of occluded L superior cerebellar artery and occluded right vertebral artery origin Recommendations: Post-acute care rehabilitation needs: acute inpatient rehabilitation -Patient’s medical complexity warrants daily physician oversight and functional goals consistent with intensive rehabilitation in acute inpatient rehabilitation. -Patient is motivated to participate in intensive rehab at discharge. Given complexity of neurologic skilled therapy needs patient can be most appropriately managed but high likelihood of neurologicand functional recovery at acute IPR setting. -Patient resides alone however endorses ability to have assistance from family and friends as needed. Impairments: dysphagia, loss of coordination, hearing loss and poor activity tolerance Activity Limitations: dressing - upper, dressing - lower, toileting, transfers, ambulation and stairs Participation Restrictions: unable to return home safely Family / Patient Dispositional Goals: return home with family supervision Overall Functional Goals Gait and mobility Standby assist Transfers SBA ADLs SBA Barriers/Facilitators: Barriers: lives alone Facilitators: good home setup and patient motivation Rehabilitation Prognosis: Fair to Good Tolerance for three hours of therapy a day: Good Impaired gait/mobility/transfers: The patient will benefit from continued work with PT to address mobility deficits Impaired ADLs: The patient will benefit from ongoing OT to address functional deficits Thank you for this consultation. Please call our consult pager with questions or concerns. Caleb Olivia MD Rehab Consults History of Present Illness: CC: Coordination deficits Hospital Course: Mr. Vivas is a 57 y.o. male with PMH of tobaccoism, HTN, HLD, GERD, Loredo esophagus, left median neuropathy, TIA February 2023 who presented to an OSH with blurred vision, ptosis, dizziness and facial droop upon awakening morning of 03/20. Imaging revealed posterior fossa CVA with concern for vertebral artery dissection. Patient not a tPA candidate however transferred to for higher level of care. Patient admitted to neuro ICU for further management evaluation. MRI brain obtained which revealed several small acute appearing infarcts involving bilateral cerebellar hemispheres and right occipital lobe. MRA H/N revealed occluded left superior cerebellar artery and occluded right vertebral artery origin with reconstitution. The primary team has consulted PT and OT, and will continue working with therapies to address functional and mobility deficits, rehab is now consulted for post-acute rehab/placement recommendations.CLINICAL LABORATORY AIDE has been consulted as well for dysphagia. The patient resides alone however will have assistance available from sister and other close relatives. At time of exam patient endorses persistent left-sided coordination deficits. Medical History: Diagnosis Date • Loredo esophagus • GERD (gastroesophageal reflux disease) • HLD (hyperlipidemia) • HTN (hypertension) • TIA (transient ischemic attack) 02/21/2023 • Tobacco abuse No past surgical history on file. Social History Tobacco Use • Smoking status: Every Day Packs/day: 1 Types: Cigarettes • Smokeless tobacco: Current Substance and Sexual Activity • Alcohol use: Yes Alcohol/week: 6.0 standard drinks of alcohol Types: 6 Cans of beer per week Comment: drinks 2-3 days week/beer Social History Narrative Lives at home, alone. He is . Retired [employer]. Prior to his TIA at the beginning of February, he was completley independent with limited issues. Since then, he has continued to drive in a limited capacity. No family history on file. Scheduled Meds:[Held by Provider] aspirin chewable tablet 81 mg, 81 mg, Oral, QDAY atorvastatin (LIPITOR) tablet 40 mg, 40 mg, Oral, QDAY docusate (COLACE) capsule 100 mg, 100 mg, Oral, BID milk of magnesium oral suspension 30 mL, 30 mL, Oral, QDAY pantoprazole DR (PROTONIX) tablet 20 mg, 20 mg, Oral, QDAY(21) scopolamine (TRANSDERM-SCOP) 1mg over 3 days patch 1 patch, 1 patch, Transdermal, Q72H* And Verification of Patch Placement and Integrity - Scopolamine base 1 mg/3 days 1 patch, 1 patch, Transdermal, BID sennosides-docusate sodium (SENOKOT-S) tablet 1 tablet, 1 tablet, Oral, BID Continuous Infusions: • heparin (porcine) 20,000 units/D5W 500 mL infusion (std conc)(premade) 879.6 Units/hr () • sodium chloride 0.9 % infusion 75 mL/hr at 03/21/23 0042 PRN and Respiratory Meds:albuterol 0.083% Q4H PRN, artificial tears (PF) single dose PRN, calcium gluconate IV PRN (Rcis from Rx) AND Ionized Calcium PRN AND Notify Physician Ongoing, diphenhydrAMINE HCL Q6H PRN, magnesium sulfate PRN AND Magnesium PRN AND Notify Physician Ongoing, ondansetron (ZOFRAN) IV Q6H PRN, perflutren lipid microspheres Once PRN, potassium chloride PRN OR potassium chloride PRN OR potassium chloride in water PRN Allergies Allergen Reactions • Penicillin ANAPHYLAXIS • Tetracycline ANAPHYLAXIS • Hydrochlorothiazide SEE COMMENTS "Acute Pancreatitis" Prior Level of Function: The patient was independent for all mobility/ambulation and activities of daily living. Home Environment: Home Situation: Lives Alone (03/21/2023 9:30 AM) Patient Owned Equipment: None (03/21/2023 9:30 AM) Type of Home: House (03/21/2023 10:00 AM) Entry Stairs: 3-5 Stairs; Rail on Both Sides (3 steps) (03/21/2023 9:30 AM) In-Home Stairs: Able to Live on One Level (03/21/2023 9:30 AM) Comments: Patient independent with mobility and ADLs without a device. No falls. (03/21/2023 9:30 AM) Current Level Of Function: PT Gait:Gait Distance: 20 feet Gait: Assistance Level: Moderate Assist, of 1st person, Minimal Assist, of 2nd person (Mod on L, Min on R) Gait: Assistive Device: Hand Hold Assist Bed Mobility/Transfers Bed Mobility: Supine to Sit: Standby Assist, Verbal Cues, Head of Bed Elevated, Safety Considerations Transfer Type: Sit to Stand Transfer: Assistance Level: From, Bed, Minimal Assist, x2 People Transfer: Assistive Device: Hand Hold Assist Transfers: Type Of Assistance: For Balance, For Safety Considerations End Of Activity Status: Up in Chair, Nursing Notified, Instructed Patient to Request Assist with Mobility, Instructed Patient to Use Call Light (Chair alarm active, all needs met) OT ADL's Where Assessed: Supine, Bed, Edge of Bed, Standing at Sink, Chair Eating Deficits: NPO, but hand to mouth WNL Grooming Assist: Minimal Assist Grooming Deficits: Setup, Steadying, Teeth Care CLINICAL LABORATORY AIDE SWALLOW EVALUATION SUMMARY Swallow Recommendations* PO: Thin liquids, Regular Plan: Other (Comment) (Follow-up for diet tolerance) Prognosis: Good Review of Systems: A 14 point review of systems was negative except for: that noted in the HPI Physical Exam: BP: 139/74 (03/21 900) Temp: 36.6 °C (97.9 °F) (03/21 800) Pulse: 61 (03/21 900) Respirations: 12 PER MINUTE (03/21 900) SpO2: 95 % (03/21 900) O2 Device: None (Room air) (03/21 800) SpO2 Pulse: 51 (03/21 600) Height: 172.7 cm (5' 8") (03/21 0010) Body mass index is 24.57 kg/m². Gen: Seated at his bedside in no acute distress HEENT: EOMI Heart: Extremities well perfused Lungs: non labored breathing Abdomen: Soft, non-tender, non-distended : - Bergeron Skin: no gross lesions appreciated Ext: purposeful movement of extremities - coordination impairment on left MS: Strength grossly intact 5 out of 5 bilateral upper and lower extremities with exception of weakness in R hand (chronic) Neuro: thenar wasting R hand Cranial Nerves Cranial Nerves 2-12 are grossly intact with exception of horizontal nystagmus FTN Severely ataxic LUE HTS Severely ataxic LLE Upper Extremity Tone Normal Lower Extremity Tone Normal Upper Extremity Sensation Intact to light touch bilaterally with exception of diminished sensation to light touch in R median nerve distribution Lower Extremity Sensation Intact to light touch bilaterally Memory/Cognition/Speech Within limits Intake/Output Summary (Last 24 hours) at 03/21/2023 1037 Last data filed at 03/21/2023 0700 Gross per 24 hour Intake 472.5 ml Output 825 ml Net -352.5 ml Hematology: Lab Results Component Value Date HGB 14.8 03/21/2023 HCT 43.8 03/21/2023 PLTCT 248 03/21/2023 WBC 9.0 03/21/2023 NEUT 69 03/21/2023 ANC 6.32 03/21/2023 ALC 1.61 03/21/2023 YONIS 10 03/21/2023 AMC 0.90 03/21/2023 EOSA 2 03/21/2023 ABC 0.06 03/21/2023 MCV 91.5 03/21/2023 MCH 31.0 03/21/2023 MCHC 33.8 03/21/2023 MPV 9.9 03/21/2023 RDW 14.1 03/21/2023 , Coagulation: Lab Results Component Value Date PT 12.8 03/21/2023 PTT 28.6 03/21/2023 INR 1.1 03/21/2023 and General Chemistry: Lab Results Component Value Date NA 135 03/21/2023 K 4.1 03/21/2023 CL 101 03/21/2023 CO2 23 03/21/2023 GAP 11 03/21/2023 BUN 4 03/21/2023 CR 0.64 03/21/2023 GLU 98 03/21/2023 CA 9.0 03/21/2023 ALBUMIN 4.4 03/21/2023 OBSCA 1.08 03/21/2023 MG 1.7 03/21/2023 TOTBILI 0.6 03/21/2023 PO4 4.0 03/21/2023 Radiology: MR brain: 1. Several small acute appearing [...] Otherwise patent intracranial arterial vasculature without additional flow- limiting stenosis or branch occlusion. MRA neck: 1. Occluded right vertebral artery origin, reconstituting at the V1 segment with otherwise diminutive flow throughout the remaining cervical right vertebral artery. Findings are similar to outside CTA neck and favored for dissection. 2. Multifocal irregularity of the bilateral carotid arteries without measurable stenosis by NASCET criteria. 3. Patent dominant left cervical vertebral artery without superimposed stenosis. Caleb Olivia MD documented in this encounter Miscellaneous Notes * Care Plan - Heather Carr RN - 03/26/2023 1:00 PM CDT Problem: Discharge Planning Goal: Participation in plan of care Outcome: Goal Achieved Goal: Knowledge regarding plan of care Outcome: Goal Achieved Goal: Prepared for discharge Outcome: Goal Achieved Problem: Neurological Status, Impaired/Altered Goal: Progress toward maximizing functional outcomes Outcome: Goal Achieved Goal: Cognitive status restored to baseline Outcome: Goal Achieved Problem: High Fall Risk Goal: High Fall Risk Outcome: Goal Achieved Problem: Skin Integrity Goal: Skin integrity intact Outcome: Goal Achieved Goal: Healing of skin (Wound & Incision) Outcome: Goal Achieved Goal: Healing of skin (Pressure Injury) Outcome: Goal Achieved Problem: Tobacco Use Goal: Knowledge of tobacco-use cessation methods Outcome: Goal Achieved Problem: Moderate Fall Risk Goal: Moderate Fall Risk Outcome: Goal Achieved * Care Plan - Juan J Steward RN - 03/25/2023 10:20 PM CDT Problem: Discharge Planning Goal: Participation in plan of care Outcome: Goal Ongoing Flowsheets (Taken 03/25/2023 0026 by Helena Simons, RN) Participation in Plan of Care: Involve patient/caregiver in care planning decision making Goal: Knowledge regarding plan of care Outcome: Goal Ongoing Flowsheets (Taken 03/25/2023 1801 by Aleshia Ha RN) Knowledge regarding plan of care: Provide plan of care education Provide procedural and treatment education Provide fall prevention education Provide medication management education Provide VTE signs and symptoms education Goal: Prepared for discharge Outcome: Goal Ongoing Flowsheets (Taken 03/25/202325 by Helena Simons, RN) Prepared for discharge: Complete ADL ability assessment Provide safe use medical equipment education Provide discharge activity restrictions education Collaborate with multidisciplinary team for hospital discharge coordination Provide diet and oral health education Provide discharge materials appropriate to patient condition Problem: Neurological Status, Impaired/Altered Goal: Progress toward maximizing functional outcomes Outcome: Goal Ongoing Flowsheets (Taken 03/25/20231800 by Aleshia Ha, QAMAR) Progress toward maximizing functional outcomes: Address etiologies Manage environmental safety Promote functional status Observe patient activities Provide positive coping methods education Establish therapeutic relationship Provide safety precautions education Goal: Cognitive status restored to baseline Outcome: Goal Ongoing Flowsheets (Taken 03/25/202325 by Helena Simons, RN) Cognitive status restored to baseline: Assess patient history Reduce delirium risk Consider consult for impaired cognitive status Observe patient acitvities Complete delirium assessment scale [place] patient to reality Promote rest Provide delirium signs and symptoms education Problem: High Fall Risk Goal: High Fall Risk Outcome: Goal Ongoing Flowsheets (Taken 03/25/20231800 by Aleshia Ha RN) High Fall Risk: All patients will receive: High fall risk sign, yellow wristband, yellow socks, gait belt, and shower shoes Engage bed alarm - middle setting Engage chair alarm Stay with the patient while toileting/showering PT/OT consult for fall prevention assessment if scoring in Unsteady Gait or Visual or Auditory impairment Remove excess equipment/supplies Educate patient to use call-light if tethered Use shower shoes Maximize bed functionality (optimize bed height, firm/flat surface) Use safe patient handling equipment as appropriate Assess need for: quick release belt, PSM (video monitoring), assist x2 using clinical staff/equipment Problem: Skin Integrity Goal: Skin integrity intact Outcome: Goal Ongoing Flowsheets (Taken 03/25/202325 by Helena Simons, RN) Skin integrity intact: Assess nutrition Promote nutrition Assure position change Monitor skin integrity Provide skin care interventions Reduce skin shear, friction and tissue load Provide skin self-assessment education Consider consult for skin integrity Provide incontinence management interventions Goal: Healing of skin (Wound & Incision) Outcome: Goal Ongoing Flowsheets (Taken 03/25/202325 by Helena Simons, RN) Healing of wound (wounds and Incisions): Assess for signs and symptoms of wound infection Provide wound/incision care as ordered Assess wound site healing Implement wound/incision care as ordered Goal: Healing of skin (Pressure Injury) Outcome: Goal Ongoing Flowsheets (Taken 03/25/202325 by Helena Simons, RN) Healing of skin (Pressure Injury): Assess for signs and symptoms of pressure injury infection Use the National Pressure Injury Advisory Panel Staging System for grading pressure injuries Assess pressure injury Promote ambulation Implement pressure relieving device/specialty mattress Implement pressure injury care as ordered Provide pressure injury care education as ordered Problem: Tobacco Use Goal: Knowledge of tobacco-use cessation methods Outcome: Goal Ongoing Flowsheets (Taken 03/25/202325 by Helena Simons, RN) Knowledge of tobacco use cessation methods: Offer consult with tobacco helicopter specialist Offer nicotine replacement to prevent/lessen withdrawal (Obtain provider order) Problem: Moderate Fall Risk Goal: Moderate Fall Risk Outcome: Goal Ongoing Flowsheets (Taken 03/25/202325 by Helena Simons, RN) Moderate Fall Risk: All patients will receive: High fall risk sign, yellow wristband, yellow socks, gait belt, and shower shoes Engage bed/chair alarm Stay with patient while toileting/showering PT/OT consult for fall prevention assessment if scoring in Unsteady Gait or Visual or Auditory impairment Move patient near RN station if confused (if possible) Remove excess equipment/supplies Use shower shoes Educate patient to use call-light if tethered Maximize bed functionality (optimize bed height, firm/flat surface) Use safe patient handling equipment as appropriate Assess need for bedside commode with drop arm to be available in room * Care Plan - Aleshia Ha RN - 03/25/2023 6:02 PM CDT Problem: Discharge Planning Goal: Knowledge regarding plan of care Outcome: Goal Ongoing Flowsheets (Taken 03/25/2023 1801) Knowledge regarding plan of care: Provide plan of care education Provide procedural and treatment education Provide fall prevention education Provide medication management education Provide VTE signs and symptoms education Problem: Neurological Status, Impaired/Altered Goal: Progress toward maximizing functional outcomes Outcome: Goal Ongoing Flowsheets (Taken 03/25/20231800) Progress toward maximizing functional outcomes: Address etiologies Manage environmental safety Promote functional status Observe patient activities Provide positive coping methods education Establish therapeutic relationship Provide safety precautions education Problem: High Fall Risk Goal: High Fall Risk Outcome: Goal Ongoing Flowsheets (Taken 03/25/20231800) High Fall Risk: All patients will receive: High fall risk sign, yellow wristband, yellow socks, gait belt, and shower shoes Engage bed alarm - middle setting Engage chair alarm Stay with the patient while toileting/showering PT/OT consult for fall prevention assessment if scoring in Unsteady Gait or Visual or Auditory impairment Remove excess equipment/supplies Educate patient to use call-light if tethered Use shower shoes Maximize bed functionality (optimize bed height, firm/flat surface) Use safe patient handling equipment as appropriate Assess need for: quick release belt, PSM (video monitoring), assist x2 using clinical staff/equipment * Care Plan - Helena Simons RN - 03/25/2023 12:27 AM CDT Problem: Discharge Planning Goal: Participation in plan of care Outcome: Goal Ongoing Flowsheets (Taken 03/25/202325) Participation in Plan of Care: Involve patient/caregiver in care planning decision making Goal: Knowledge regarding plan of care Outcome: Goal Ongoing Flowsheets (Taken 03/25/202325) Knowledge regarding plan of care: Provide admission education to parent/caregiver Provide procedural and treatment education Provide infection prevention education Provide VTE signs and symptoms education Provide plan of care education Provide fall prevention education Provide medication management education Provide pre-operative teaching Goal: Prepared for discharge Outcome: Goal Ongoing Flowsheets (Taken 03/25/202325) Prepared for discharge: Complete ADL ability assessment Provide safe use medical equipment education Provide discharge activity restrictions education Collaborate with multidisciplinary team for hospital discharge coordination Provide diet and oral health education Provide discharge materials appropriate to patient condition Problem: Neurological Status, Impaired/Altered Goal: Progress toward maximizing functional outcomes Outcome: Goal Ongoing Flowsheets (Taken 03/25/202325) Progress toward maximizing functional outcomes: Address etiologies Manage environmental safety Promote functional status Observe patient activities Provide positive coping methods education Provide functional status promotion education Provide stroke risk factors, warning signs and symptoms education Establish therapeutic relationship Consider consult for impaired/altered neurological status Reduce impaired mental status risk [place] patient to reality Provide impaired mental status condition education to family/caregiver Provide safety precautions education Goal: Cognitive status restored to baseline Outcome: Goal Ongoing Flowsheets (Taken 03/25/202325) Cognitive status restored to baseline: Assess patient history Reduce delirium risk Consider consult for impaired cognitive status Observe patient acitvities Complete delirium assessment scale [place] patient to reality Promote rest Provide delirium signs and symptoms education Problem: High Fall Risk Goal: High Fall Risk Outcome: Goal Ongoing Flowsheets (Taken 03/25/202325) High Fall Risk: Engage bed alarm - middle setting All patients will receive: High fall risk sign, yellow wristband, yellow socks, gait belt, and shower shoes Engage chair alarm Stay with the patient while toileting/showering PT/OT consult for fall prevention assessment if scoring in Unsteady Gait or Visual or Auditory impairment Move patient near RN station if confused (if possible) Remove excess equipment/supplies Educate patient to use call-light if tethered Use shower shoes Maximize bed functionality (optimize bed height, firm/flat surface) Use safe patient handling equipment as appropriate Assess need for bedside commode with drop arm to be available in room Assess need for: quick release belt, PSM (video monitoring), assist x2 using clinical staff/equipment Problem: Skin Integrity Goal: Skin integrity intact Outcome: Goal Ongoing Flowsheets (Taken 03/25/202325) Skin integrity intact: Assess nutrition Promote nutrition Assure position change Monitor skin integrity Provide skin care interventions Reduce skin shear, friction and tissue load Provide skin self-assessment education Consider consult for skin integrity Provide incontinence management interventions Goal: Healing of skin (Wound & Incision) Outcome: Goal Ongoing Flowsheets (Taken 03/25/202325) Healing of wound (wounds and Incisions): Assess for signs and symptoms of wound infection Provide wound/incision care as ordered Assess wound site healing Implement wound/incision care as ordered Goal: Healing of skin (Pressure Injury) Outcome: Goal Ongoing Flowsheets (Taken 03/25/202325) Healing of skin (Pressure Injury): Assess for signs and symptoms of pressure injury infection Use the National Pressure Injury Advisory Panel Staging System for grading pressure injuries Assess pressure injury Promote ambulation Implement pressure relieving device/specialty mattress Implement pressure injury care as ordered Provide pressure injury care education as ordered Problem: Tobacco Use Goal: Knowledge of tobacco-use cessation methods Outcome: Goal Ongoing Flowsheets (Taken 03/25/202325) Knowledge of tobacco use cessation methods: Offer consult with tobacco helicopter specialist Offer nicotine replacement to prevent/lessen withdrawal (Obtain provider order) Problem: Moderate Fall Risk Goal: Moderate Fall Risk Outcome: Goal Ongoing Flowsheets (Taken 03/25/202325) Moderate Fall Risk: All patients will receive: High fall risk sign, yellow wristband, yellow socks, gait belt, and shower shoes Engage bed/chair alarm Stay with patient while toileting/showering PT/OT consult for fall prevention assessment if scoring in Unsteady Gait or Visual or Auditory impairment Move patient near RN station if confused (if possible) Remove excess equipment/supplies Use shower shoes Educate patient to use call-light if tethered Maximize bed functionality (optimize bed height, firm/flat surface) Use safe patient handling equipment as appropriate Assess need for bedside commode with drop arm to be available in room * Transfer - Wu Moura MD - 03/22/2023 10:58 AM CDT In-Hospital Transfer Note Admission Diagnosis: Vertebral artery dissection Admission Date: 03/21/2023 Active Hospital Problem List: Principal Problem: Vertebral artery dissection (HCC) Active Problems: Stroke (cerebrum) (HCC) Ataxia due to recent cerebrovascular accident Hyponatremia Anticoagulated Dysphagia due to recent stroke Dysarthria due to acute cerebrovascular accident (CVA) Impaired mobility and ADLs Primary hypertension Current tobacco use Dyslipidemia Hospital Course: Phil Vivas is a 57 y.o. male with a PMH of tobacco abuse, HTN, HLD, GERD, Loredo esophagus and a TIA in early February 2023 who presented to an OSH with blurred/reduced vision, ptosis, dizziness, and facial droop that started when he awoke around 0700 on 03/20. Cranial images demonstrated a posterior fossa stroke and concern for vertebral artery dissection. He was not a candidate for intervention, but given the location and size of stroke, he was transferred to [facility] for a higher level of care. He was admitted to NEICU for further management and evaluation. He was started on heparin gtt. CT head 6 hours after starting heparin was stable. MRI/MRA head was completed and showed several small acute appearing infarcts involving the bilateral cerebellar hemispheres and right occipital lobe without hemorrhagic conversion, an occluded left superior cerebellar artery, and diminutive flow within a small caliber intracranial right vertebral artery with occluded right vertebral artery origin and reconstituting at the V1 segment with otherwise diminutive flow throughout the remaining cervical right vertebral artery. Repeat head CT at 24 hours remained stable. Heparin discontinued and patient was transitioned to Eliquis 5 mg BID. He had significant improvement in examand was stable for transfer to floor team. Significant Medication Information (to include antibiotic duration/indication, anticoagulation and steroids, etc.): Was on heparin gtt until prior to transfer. Now on Eliquis 5 mg BID. Scopolamine patch for nausea Procedures With Dates: none Consults: Rehab, PT, OT, CLINICAL LABORATORY AIDE Follow-Up Items: Discharge medications need to be sent to [facility] Activity/Weight bearing status: Progressive mobility Nutrition: Regular diet, thin liquids Discharge Plan: IPR per rehab consult Wu Moura MD * Care Plan - Lindsey Ferrer - 03/21/2023 10:39 AM CDT [employer] CONSULTATION ASSESSMENT/RECOMMENDATIONS Patient was referred for [employer] consultation Tobacco Use Treatment Practical Counseling was provided in hospital (including recognizing danger situations, developing coping skills and providing basic information about quitting). MEDICATION RECOMMENDATIONS TO QUIT TOBACCO: In-patient quit-tobacco medication: Provided education to patient about available medication and coverage Patient declined using smoking cessation medication at this time Discharge medication options: Provided education to patient about available medication and coveragePatient declined using smoking cessation medication at this time Post discharge support referral: Declined will request any support from his [facility] [employer] Educational Material: Patient already has education materials Materials can also be accessed by patient on our website [email or web address] for consults which are completed remotely during social distancing for infection control. History of Present Illness Reports using 10 cigarettes per day. Used to smokes 1 ppd until recently Reports using tobacco within 6-30 minutes minutes of waking. E-Cigarette or vape use: Never Other tobacco use: None Years used: 37 Withdrawal: No nicotine withdrawal based upon the patient’s rating on the Nicotine Withdrawal Behavior Rating Scale. Patient does not live with other smokers or vapers Plan about smoking after patient leaves the hospital: I plan to try to quit when I leave the hospital Interest in quitting: High Set a quit date: No Contact Information If I can be of further assistance, please call [employer] [phone] * Care Plan - Molly Spears RN - 03/21/2023 2:28 AM CDT Problem: Discharge Planning Goal: Participation in plan of care Outcome: Goal Ongoing Goal: Knowledge regarding plan of care Outcome: Goal Ongoing Goal: Prepared for discharge Outcome: Goal Ongoing Problem: Neurological Status, Impaired/Altered Goal: Progress toward maximizing functional outcomes Outcome: Goal Ongoing Goal: Cognitive status restored to baseline Outcome: Goal Ongoing Problem: High Fall Risk Goal: High Fall Risk Outcome: Goal Ongoing Problem: Skin Integrity Goal: Skin integrity intact Outcome: Goal Ongoing Goal: Healing of skin (Wound & Incision) Outcome: Goal Ongoing Goal: Healing of skin (Pressure Injury) Outcome: Goal Ongoing * Acute Stroke Response - Peg Torres RN - 03/21/2023 2:17 AM CDT RN Stroke Activation Summary Date of Service: 03/21/2023 Phil Vivas is a 57 y.o. male. : 1965 Allergies: Penicillin, Tetracycline, and Hydrochlorothiazide Patient Arrival: 0000 ASRT Arrival: 2352 Location of Response : [facility] 2nd Floor Elevators Page Received: 8942 Outside Hospital: [facility] Clinical Presentation: Ataxia Total Stroke Scale Score: 2 Signs & Symptoms: Last Known Well Last Known Well - Date: 03/20/23 Last Known Well - Time: 0800 Dysphagia screen: Patient Intubated?: No Did Patient Pass The Swallow Screen Part I?: Yes Did Patient Pass The Swallow Screen Part II?: Yes Did Patient Pass The Swallow Screen?: No If "No" Name of Physician Notified: Maddy Whalen MD Plan: Summary: Patient not a candidate for acute stroke intervention at this time. Please see Acute Stroke Response Provider Note for further information. Radiology/Interventional Delay Decision to IR: No Delays: No N/A IV Thrombolytic in the Scanner: No Plan: Patient to be admitted to [facility] NE[facility]. Call Completion: 27 RN handoff: QAMAR Barnes RN * Acute Stroke Response - Maddy Whalen DO - 03/20/2023 10:35 PM CDT Name: Phil Vivas : 1965 Age: 57 y.o. Admission Date: 03/21/2023 LOS: 0 days Date of Service: 03/21/2023 Allergies: Penicillin, Tetracycline, and Hydrochlorothiazide Type of Acute Stroke Response Team note: Consult Stroke Activation Tier: Tier 1 Assessment & Plan Chief Complaint: Dizziness and left sided ataxia Assessment: Phil Vivas is a 57 y.o. male with history of hypertension, tobacco abuse, hyperlipidemia, GERD, Loredo's esophagus, and recent TIA (approximately 1 month ago) that presented to [facility] due to acute onset dizziness on 03/20. Patient reports that he woke up around 630/7AM and was in his normal state of health. He drank his coffee and was watching TV when around 8 AMhe noticed he developed blurry vision of the left side. More specifically, his vision was "hazy" and he had difficulty seeing the corner of the screen. He called ophthalmology to see if he can get an appointment because he has chronic dry eyes. And then in the afternoon, around 1500 he had acute onset vertigo and nausea with vomiting. He called the ambulance and was taken to [facility] and was stroke activated. NIH stroke scale at outside hospital 7 (left-sided weakness, ataxia,left facial droop and lid lag). CT head with developing left cerebellar infarct. CTA head and neck revealed L SCA occlusion and possible right vertebral artery dissection. CTP with completed infarct. He did not get TNK at outside hospital. He is not a thrombectomy candidate. [facility] was [facility] monitoring given large cerebellar stroke. Upon arrival, NIHSS 2 (left arm and legataxia). Patient does have prominent nystagmus however when able to fixate did not identify any visual field deficits. He also has profound ataxia of the left upper and lower extremity but no weakness. Impression: Left cerebellar acute infarct and possible right vertebral dissection Suspected localization of Stroke Sx: Left cerebellum Suspected etiology: Large - Artery Atherosclerosis or cardioembolic or dissection Pre-event Modified Pita Scale (mRS): 0 - No symptoms at all PLAN > Admit to neuro ICU for posterior fossa monitoring given large cerebellar infarct > MRI head without contrast > MRA head without and neck with contrast to evaluate for dissection > Plan to start aspirin 81 mg now and depending on MRI + MRA results may consider heparin drip > Stroke risk factor assessment Labs to include FLP, A1c Echocardiogram with bubble Telemetry to monitor for arrhythmia Evaluation of smoking history and smoking cessation consult if tobaccoism present > PT/OT/CLINICAL LABORATORY AIDE consult eval and treat > Rehab consult for assessment of post stroke care The patient was discussed with Dr. Thacker, to be formally staffed on 03/21 by stroke team History of Present Illness History of Present Illness: Phil Vivas is a 57 y.o. male with history of hypertension, tobacco abuse, hyperlipidemia, GERD,Loredo's esophagus, and recent TIA (approximately 1 month ago) that presented to [facility] due to acute onset dizziness on 03/20. Patient reports that he woke up around 630/7 AM and was in his normal state of health. He drank his coffee and was watching TV when around 8 AM he noticed he developed blurry vision of the left side. More specifically, his vision was "hazy" and he had difficulty seeing the corner of the screen. He called ophthalmology to see if he can get an appointment because he has chronic dry eyes. And then in the afternoon, around 1500 he had acute onset vertigo and nausea with vomiting. He called the ambulance and was taken to [facility] and wasstroke activated. NIH stroke scale at outside hospital 7 (left-sided weakness, ataxia, left facialdroop and lid lag). CT head with developing left cerebellar infarct. CTA head and neck revealed LSCA occlusion and possible right vertebral artery dissection. He did not get TNK at outside hospital. He is not a thrombectomy candidate. He was transferred to [facility] for ICU monitoring given largecerebellar stroke. Of note, patient reports that approximately 1 month ago he had similar incident of acute onset vertigo and nausea and vomiting and presented to [facility] for which she had a CT head and CTA and he was transferred to [facility] where he had an MRI and was told that he had right posterior"mini strokes". He does not report being told that he had a dissection at that time. 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 And he was started on aspirin however he just started taking the medication 2 days ago. He had plans to have Holter monitor as well. Patient is a half a pack a day smoker. He just started aspirin and took 2 doses prior to presentation. He denies any recent history of whiplash, car accidents, neck manipulation, or intense exercise. Denies any abnormality of his aorta. Review of Systems 10 pt ROS are negative unless stated otherwise in subjective above Stroke Activation Summary Patient Arrival: 0000 ASRT Arrival: 2352 Location of Response : [facility] 2nd Floor Elevators Page Received: 1274 Clinical Presentation: Ataxia Signs & Symptoms: Last Known Well Last Known Well - Date: 03/20/23 Last Known Well - Time: 0800 CT/CTP/CTA: CT head with developing left cerebellar infarct. CTA head and neck revealed L SCA occlusion and possible right vertebral artery dissection. CTP with completed infarct. BP: 133/60 (03/21 300) Temp: 36.8 °C (98.3 °F) (03/21 10) Pulse: 60 (03/21 300) Respirations: 14 PER MINUTE (03/21 300) SpO2: 93 % (03/21 300) O2 Device: None (Room air) (03/21 300) Height: 172.7 cm (5' 8") (03/21 10) NIHSS Completed at: 0010 NIH Stroke Scale Item Scoring Definition Score 1a. LOC 0=alert and responsive 1=arousable to minor stimulation 2=arousable only to painful stimulation 3=reflex responses or unrousable 0 1b. LOC questions-as patient’s age and month. Must be exact. 0=both correct 1=one correct (or dysarthria, intubated, foreign language) 2=neither correct 0 1c. Commands-open/close eyes, ethylbenzene converter operator and release non-paretic hand (other 1 step commands or mimic OK) 0=both correct (ok if impaired by weakness) 1=one correct 2=neither correct 0 2. Best Gaze-horizontal EOM by voluntary or Doll’s 0=normal 1=partial gaze palsy (abnormal gaze in one or both eyes) 2=forced eye deviation or total paresis which cannot be overcome by Doll’s 0 3. Visual Field-use visual threat if necessary. If monocular, score field of good eye 0=no visual loss 1=partial hemianopia, quadrantanopia, extinction 2=complete hemianopia 3=bilateral hemianopia or blindness 0 4. Facial Palsy-if stuporous, check symmetry of grimace to pain 0=normal 1=minor paralysis, flat NLF, asymm smile 2=partial paralysis (lower face=UMN) 3=complete paralysis (upper and lower face) 0 5. Motor Arm-arms outstretched 90 deg (sitting) or 45 deg (supine) for 10 seconds. Encourage best effort. 0=no drift x 10 seconds 1=drift but doesn’t hit bed 2=some antigravity effort, but can’t sustain 3=no antigravity effort, but even minimal mvt counts 4=no movement at all X=unable to assess due to amputation, fusion, etc L/R 0/0 6. Motor Leg-raise leg to 30 degrees supine x 5 seconds 0=no drift x 5 seconds 1=drift but doesn’t hit bed 2=some antigravity effort, but can’t sustain 3=no antigravity effort, but even minimal mvt counts 4=no movement at all X=unable to assess due to amputation, fusion, etc L/R 0/0 7. Limb Ataxia-check finger-nose- finger; heel-hauser; and score only if out of proportion to paralysis 0=no ataxia (or aphasic, hemiplegic) 1=ataxia in upper or lower extremity 2=ataxia in upper AND lower extremity X=unable to assess due to amputation, fusion, etc 2 8. Sensory-use safety pin. Check grimace or withdrawal if stuporous. Score only stroke- related losses 0=normal 1=mild-mod unilateral loss but patient aware of touch 9or aphasic, confused) 2=total loss, pt unaware of touch. Coma, bilateral loss 0 9. Best Language-describe cookie jar picture, name objects, read sentences. May use repeating, writing, stereognosis 0=normal 1=mild-mod aphasia (diff but partly comprehensible) 2=severe aphasia (almost no info exchanged) 3=mute, global aphasia, coma. No 1 step commands 0 10. Dysarthria-read list of words 0=normal or intubated or other physical barrier 1=mild-mod; slurred but intelligible 2=severe; unintelligible or mute 0 11. Extinction/Neglect- simultaneously touch patient on both hands, show fingers in both visual smith, ask about deficit, left hand 0=normal, none detected. (visual loss alone) 1=neglects or extinguishes to double stimulation in any modality 2=profound neglect in more than one modality 0 Score 2 Was the patient 4.5-9 hrs from last known well or a wake-up stroke? No Was IV tenecteplase given? No The patient was not a thrombolytic candidate due to Other - Please Comment OSH Advanced imaging was interpreted at OSH The patient was not a thrombectomy candidate due to completed infarct Dysphagia screen: Did Patient Pass The Swallow Screen Part I?: Yes Did Patient Pass The Swallow Screen Part II?: Yes Did Patient Pass The Swallow Screen?: No If "No" Name of Physician Notified: Maddy Whalen MD Performed by nursing staff and passed or Failed screen by nursing staff and awaiting ST evaluation Health History Medical History: Diagnosis Date • [place] esophagus • GERD (gastroesophageal reflux disease) • HLD (hyperlipidemia) • HTN (hypertension) • TIA (transient ischemic attack) 02/21/2023 • Tobacco abuse No past surgical history on file. No family history on file. Social History Tobacco Use • Smoking status: Every Day Packs/day: 1 Types: Cigarettes • Smokeless tobacco: Current Substance and Sexual Activity • Alcohol use: Yes Alcohol/week: 6.0 standard drinks of alcohol Types: 6 Cans of beer per week Comment: drinks 2-3 days week/beer Social History Narrative Lives at home, alone. He is . Retired [employer]. Prior to his TIA at the beginning of February, he was completley independent with limited issues. Since then, he has continued to drive in a limited capacity. 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) Horizontal nystagmus V x VII x VIII x IX, X x XI x XII x Muscle/motor: NF NE SA EF EE WE WF FF FE FA TA HF MELO HE KF KE DF PF R 5 5 5 5 5 5 5 5 L 5 5 5 5 5 5 5 5 Sensation: Normal RUE LUE RLE LLE Light Touch x Pin Prick Temperature Vibration Proprioception Coordination: Normal Abnormal Right Abnormal Left Finger to Nose profound ataxia Rapid alternating Heel to Hauser x profound ataxia Finger tap Foot tap Lab/Radiology/Other Diagnostic Tests: 24-hour labs: Results for orders placed or performed during the hospital encounter of 03/21/23 (from the past 24 hour(s)) CBC AND DIFF Collection Time: 03/21/23 12:08 AM Result Value Ref Range White Blood Cells 11.4 (H) 4.5 - 11.0 K/UL RBC 5.00 4.4 - 5.5 M/UL Hemoglobin 15.2 13.5 - 16.5 GM/DL Hematocrit 45.0 40 - 50 % MCV 90.1 80 - 100 FL MCH 30.3 26 - 34 PG MCHC 33.7 32.0 - 36.0 G/DL RDW 13.9 11 - 15 % Platelet Count 247 150 - 400 K/UL MPV 9.4 7 - 11 FL Neutrophils 78 (H) 41 - 77 % Lymphocytes 14 (L) 24 - 44 % Monocytes 6 4 - 12 % Eosinophils 1 0 - 5 % Basophils 1 0 - 2 % Absolute Neutrophil Count 8.89 (H) 1.8 - 7.0 K/UL Absolute Lymph Count 1.60 1.0 - 4.8 K/UL Absolute Monocyte Count 0.65 0 - 0.80 K/UL Absolute Eosinophil Count 0.14 0 - 0.45 K/UL Absolute Basophil Count 0.10 0 - 0.20 K/UL COMPREHENSIVE METABOLIC PANEL Collection Time: 03/21/23 12:08 AM Result Value Ref Range Sodium 134 (L) 137 - 147 MMOL/L Potassium 4.3 3.5 - 5.1 MMOL/L Chloride 102 98 - 110 MMOL/L Glucose 109 (H) 70 - 100 MG/DL Blood Urea Nitrogen 4 (L) 7 - 25 MG/DL Creatinine 0.65 0.4 - 1.24 MG/DL Calcium 9.2 8.5 - 10.6 MG/DL Total Protein 7.6 6.0 - 8.0 G/DL Total Bilirubin 0.6 0.3 - 1.2 MG/DL Albumin 4.4 3.5 - 5.0 G/DL Alk Phosphatase 65 25 - 110 U/L AST (SGOT) 16 7 - 40 U/L CO2 23 21 - 30 MMOL/L ALT (SGPT) 14 7 - 56 U/L Anion Gap 9 3 - 12 eGFR >60 >60 mL/min MAGNESIUM Collection Time: 03/21/23 12:08 AM Result Value Ref Range Magnesium 1.7 1.6 - 2.6 mg/dL IONIZED CALCIUM Collection Time: 03/21/23 12:17 AM Result Value Ref Range Ionized Calcium 1.01 1.0 - 1.3 MMOL/L CBC AND DIFF Collection Time: 03/21/23 3:16 AM Result Value Ref Range White Blood Cells 9.0 4.5 - 11.0 K/UL RBC 4.78 4.4 - 5.5 M/UL Hemoglobin 14.8 13.5 - 16.5 GM/DL Hematocrit 43.8 40 - 50 % MCV 91.5 80 - 100 FL MCH 31.0 26 - 34 PG MCHC 33.8 32.0 - 36.0 G/DL RDW 14.1 11 - 15 % Platelet Count 248 150 - 400 K/UL MPV 9.9 7 - 11 FL Neutrophils 69 41 - 77 % Lymphocytes 18 (L) 24 - 44 % Monocytes 10 4 - 12 % Eosinophils 2 0 - 5 % Basophils 1 0 - 2 % Absolute Neutrophil Count 6.32 1.8 - 7.0 K/UL Absolute Lymph Count 1.61 1.0 - 4.8 K/UL Absolute Monocyte Count 0.90 (H) 0 - 0.80 K/UL Absolute Eosinophil Count 0.15 0 - 0.45 K/UL Absolute Basophil Count 0.06 0 - 0.20 K/UL IONIZED CALCIUM Collection Time: 03/21/23 3:16 AM Result Value Ref Range Ionized Calcium 1.08 1.0 - 1.3 MMOL/L Glucose: (!) 109 (03/21/23 0008) Pertinent radiology reviewed. Associated attestation - Aspen Quinonez MD - 03/25/2023 4:58 PM CDT I personally performed the santos portions of the E/M visit on : 03/21/23, I discussed case with resident and concur with resident documentation of history, physical exam, assessment, and treatment planunless otherwise noted. 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 Author GOAL General On track(03/25/20 1:55 PM CDT) Yes Carolina Page, RN Note: Take first step without being nervous. documented as of this encounter Procedures Procedure Name Priority Date/Time Associated Diagnosis Comments CBC AND DIFF Routine 03/26/2023 6:05 AM CDT PHOSPHORUS Routine 03/26/2023 6:05 AM CDT MAGNESIUM Routine 03/26/2023 6:05 AM CDT BASIC METABOLIC PANEL Routine 03/26/2023 6:05 AM CDT HC CBC W/ AUTOMATED DIFF Routine 03/25/2023 6:45 AM CDT HC PHOSPHOROUS, SERUM Routine 03/25/2023 6:45 AM CDT HC MAGNESIUM Routine 03/25/2023 6:45 AM CDT HC BASIC METABOLIC PANEL Routine 03/25/2023 6:45 AM CDT HC CBC W/ AUTOMATED DIFF Routine 03/24/2023 5:02 AM CDT HC PHOSPHOROUS, SERUM Routine 03/24/2023 5:02 AM CDT HC MAGNESIUM Routine 03/24/2023 5:02 AM CDT HC BASIC METABOLIC PANEL Routine 03/24/2023 5:02 AM CDT HC CBC W/ AUTOMATED DIFF Routine 03/23/2023 3:56 AM CDT HC PHOSPHOROUS, SERUM Routine 03/23/2023 3:56 AM CDT HC MAGNESIUM Routine 03/23/2023 3:56 AM CDT HC BASIC METABOLIC PANEL Routine 03/23/2023 3:56 AM CDT HC HEPARIN ASSAY STAT 03/22/2023 9:1 0 AM CDT HC UREA NITROGEN-URINE Routine 4:39 AM CDT HC SODIUM-URINE Routine 03/22/2023 4:39 AM CDT HC OSMOLALITY-URINE Routine 03/22/2023 4:39 AM CDT HC CREATININE-URINE Routine 03/22/2023 4:39 AM CDT HC OSMOLALITY;BLOOD Routine 03/22/2023 4:[address] HEAD WO CONTRAST Routine 03/22/2023 4:38 AM CDT HC HEPARIN ASSAY STAT 03/22/2023 2:0 8 AM CDT HC CBC W/ AUTOMATED DIFF Routine 03/22/2023 2:08 AM CDT HC PHOSPHOROUS, SERUM Routine 03/22/2023 2:08 AM CDT HC MAGNESIUM Routine 03/22/2023 2:08 AM CDT HC CALCIUM IONIZED Routine 03/22/2023 2 :08 AM CDT HC BASIC METABOLIC PANEL Routine 03/22/2023 2:08 AM CDT HC HEPARIN [...] PT(INR) Routine 03/21/2023 4:52 AM CDT HC CBC W/ AUTOMATED DIFF Routine 03/21/2023 3:16 AM CDT HC PHOSPHOROUS, SERUM Routine 03/21/2023 3:16 AM CDT HC MAGNESIUM Routine 03/21/2023 3:16 AM CDT HC HEMOGLOBIN A1C 03/21/2023 3: 16 AM CDT HC CALCIUM IONIZED Routine 03/21/2023 3 :16 AM CDT HC LIPID-5:CHOL/TRG/HDL/L DL+VLDL Routine 03/21/2023 3:16 AM CDT HC COMPREHENSIVE METABOLIC PANEL Routine 03/21/2023 3:16 AM CDT MRA NECK WO/W CONTRAST STAT 3:10 AM CDT MRA HEAD WO CONTRAST STAT 03/21/2023 3:10 AM CDT MRI HEAD WO CONTRAST STAT 03/21/2023 3:10 AM CDT HC CALCIUM IONIZED Routine 03/21/2023 12 :17 AM CDT HC CBC W/ AUTOMATED DIFF STAT 03/21/2023 12:08 AM CDT HC MAGNESIUM STAT 03/21/2023 12:08 AM CDT HC HEMOGLOBIN A1C STAT 03/21/2023 12: 08 AM CDT COMPREHENSIVE METABOLIC PANEL STAT 03/21/2023 12:08 AM CDT TELEMETRY STRIPS-SCAN 03/21/2023 12:00 AM CDT TELEMETRY STRIPS-SCAN 03/21/2023 12:00 AM CDT TELEMETRY STRIPS-SCAN 03/21/2023 12:00 AM CDT TELEMETRY STRIPS-SCAN 03/21/2023 12:00 AM CDT TELEMETRY STRIPS-SCAN 03/21/2023 12:00 AM CDT TELEMETRY STRIPS-SCAN 03/21/2023 12:00 AM CDT TELEMETRY STRIPS-SCAN 03/21/2023 12:00 AM CDT TELEMETRY STRIPS-SCAN 03/21/2023 12:00 AM CDT TELEMETRY STRIPS-SCAN 03/21/2023 12:00 AM CDT documented in this encounter Results * (ABNORMAL) PHOSPHORUS (03/26/2023 6:05 AM CDT) Phosphorus 5.1(H) 2.0 - 4.5 MG/DL 03/26/2023 6:57 AM CDT [facility]IC[facility] BLOOD / Unknown 03/26/2023 6:05 AM CDT 03/26/2023 6:06 AM CDT Aspen Quinonez MD LABORATORY ORDERABLE S [facility] DEPT PATH AND LAB MEDICINE [address] [place] [address], * MAGNESIUM (03/26/2023 6:05 AM CDT) Magnesium 1.7 1.6 - 2.6 mg/dL 03/26/2023 6:57 AM CDT [facility] DE[facility] LAB MEDIC[facility] BLOOD / Unknown 03/26/2023 6:05 AM CDT 03/26/2023 6:06 AM CDT Aspen Quinonez MD LABORATORY ORDERABLE S [facility] DEPT PATH AND LAB MEDICINE [address] [place] [address], * (ABNORMAL) CBC AND DIFF (03/26/2023 6:05 AM CDT) White Blood Cells 5.8 4.5 - 11.0 K/UL 03/26/2023 6:30 AM CDT [facility] DEPT PATH AND LAB MEDICINE RBC 4.73 4.4 - 5.5 M/UL 03/26/2023 6:30 AM CDT [facility] DEPT PATH AND LAB MEDICINE Hemoglobin 14.8 13.5 - 16.5 GM/DL 03/26/2023 6:30 AM CDT [facility] DEPT PATH AND LAB MEDICINE Hematocrit 43.0 [...] - 400 K/UL 03/26/2023 6:30 AM CDT [facility] DEPT PATH AND LAB MEDICINE MPV 9.9 7 - 11 FL 03/26/2023 6:30 AM CDT [facility] LAB MEDIC[facility] Neutrophils 52 41 - 77 % 03/26/2023 6:30 AM CDT [facility] LAB [facility]IC[facility] Lymphocytes 26 24 - 44 % 03/26/2023 6:30 AM CDT [facility] DEPT PATH AND LAB MEDICINE Monocytes 15(H) 4 - 12 % 03/26/2023 6:30 AM CDT [facility] DEPT PATH AND LAB MEDICINE Eosinophils 6(H) 0 - 5 % 03/26/2023 6:30 AM CDT [facility] DEPT PATH AND LAB MEDICINE Basophils 1 0 - 2 % 03/26/2023 6:30 AM CDT [facility] DEPT PATH AND LAB MEDICINE Absolute Neutrophil Count 3.06 1.8 - 7.0 K/UL 03/26/2023 6:30 AM CDT [facility] DEPT PATH AND LAB MEDICINE Absolute Lymph Count 1.53 1.0 - 4.8 K/UL 03/26/2023 6:30 AM CDT [facility] DEPT PATH AND LAB MEDICINE Absolute Monocyte Count 0.88(H) 0 - 0.80 K/UL 03/26/2023 6:30 AM CDT [facility] DEPT PATH AND LAB MEDICINE Absolute Eosinophil Count 0.32 0 - 0.45 K/UL 03/26/2023 6:30 AM CDT [facility] DEPT PATH AND LAB MEDICINE Absolute Basophil Count 0.06 0 - 0.20 K/UL 03/26/2023 6:30 AM CDT [facility] DEPT PATH AND LAB MEDICINE BLOOD / Unknown 03/26/2023 6:05 AM CDT 03/26/2023 6:06 AM CDT Aspen Quinonez MD LABORATORY ORDERABLE S [facility] DEPT PATH AND LAB MEDICINE [address] [place] [address], [place] * (ABNORMAL) BASIC METABOLIC PANEL (03/26/2023 6:05 AM CDT) Sodium 134(L) 137 - 147 MMOL/L 03/26/2023 6:57 AM CDT [facility] DEPT PATH AND LAB MEDICINE Potassium 4.2 3.5 - 5.1 MMOL/L 03/26/2023 6:57 AM CDT [facility] DEPT PATH AND LAB MEDICINE Chloride 101 98 - 110 MMOL/L 03/26/2023 6:57 AM CDT [facility] DEPT PATH AND LAB MEDICINE CO2 23 21 - 30 MMOL/L 03/26/2023 6:57 AM CDT [facility] DEPT PATH AND LAB MEDICINE Anion Gap 10 3 - 12 03/26/2023 6:57 AM CDT [facility] DEPT PATH AND LAB MEDICINE Glucose 95 70 - 100 MG/DL 03/26/2023 6:57 AM CDT [facility] DEPT PATH AND LAB MEDICINE Blood Urea Nitrogen 8 7 - 25 MG/DL 03/26/2023 6:57 AM CDT [facility] DEPT PATH AND LAB MEDICINE Creatinine 0.58 0.4 - 1.24 MG/DL 03/26/2023 6:57 AM CDT [facility] DEPT PATH AND LAB MEDICINE Calcium 9.6 8.5 - 10.6 MG/DL 03/26/2023 6:57 AM CDT [facility] DEPT PATH AND LAB MEDICINE eGFR >60 >60 mL/min 03/26/2023 6:57 AM CDT [facility] DEPT PATH AND LAB MEDICINE Comment:eGFR calculated glen mohamud the CKD-EPIcr_R equation BLOOD / Unknown 03/26/2023 6:05 AM CDT 03/26/2023 6:06 AM CDT Aspen Quinonez MD LABORATORY ORDERABLE S [facility] DEPT PATH AND LAB MEDICINE [address] [place] [address], * PHOSPHORUS (03/25/2023 6:45 AM CDT) Phosphorus 4.5 2.0 - 4.5 MG/DL 03/25/2023 8:11 AM CDT [facility] DEPT PATH AND LAB MEDICINE BLOOD / Unknown 03/25/2023 6:45 AM CDT 03/25/2023 6:46 AM CDT Aspen Quinonez [facility] [address] [place] [address], [place] * MAGNESIUM (03/25/2023 6:45 AM CDT) Magnesium 1.8 1.6 - 2.6 mg/dL 03/25/2023 8:11 AM CDT [facility] DE[facility] PATH AND LAB MEDICINE BLOOD / Unknown 03/25/2023 6:45 AM CDT 03/25/2023 6:46 AM CDT Aspen Quinonez MD LABORATORY ORDERABLE S Performing Organization Address City/[facility]/ZIP Co de Phone Number [facility] [address] [place] [address], [place] * (ABNORMAL) CBC AND DIFF (03/25/2023 6:45 AM CDT) White Blood Cells 6.7 4.5 - 11.0 K/UL 03/25/2023 7:44 AM CDT [facility] DEPT PATH AND LAB MEDICINE RBC 4.52 4.4 - 5.5 M/UL 03/25/2023 7:44 AM CDT [facility] DEPT PATH AND LAB MEDICINE Hemoglobin 13.9 13.5 - 16.5 GM/DL 03/25/2023 7:44 AM CDT [facility] DE[facility] PATH AND LAB MEDICINE Hematocrit 41.5 40 - 50 % 03/25/2023 7:44 AM CDT [facility] DEPT PATH AND LAB MEDICINE MCV 91.8 80 - 100 FL 03/25/2023 7:44 AM CDT [facility] DEPT PATH AND LAB MEDICINE MCH 30.8 26 - 34 PG 03/25/2023 7:44 AM CDT [facility] DEPT PATH AND LAB MEDICINE MCHC 33.5 32.0 - 36.0 G/DL 03/25/2023 7:44 AM CDT [facility] DEPT PATH AND LAB MEDICINE RDW 13.9 11 - 15 % 03/25/2023 7:44 AM CDT [facility] DE[facility] PATH AND LAB MEDICINE Platelet Count 189 150 - 400 K/UL 03/25/2023 7:44 AM CDT [facility] DEPT PATH AND LAB MEDICINE MPV 10.3 7 - 11 FL 03/25/2023 7:44 AM CDT [facility] DE[facility] PATH AND LAB MEDICINE Neutrophils 54 41 - 77 % 03/25/2023 7:44 AM CDT [facility] DE[facility] PATH AND LAB MEDICINE Lymphocytes 25 24 - 44 % 03/25/2023 7:44 AM CDT [facility] DE[facility] PATH AND LAB MEDICINE Monocytes 14(H) 4 - 12 % 03/25/2023 7:44 AM CDT [facility] DE[facility] PATH AND LAB MEDICINE Eosinophils 6(H) 0 - 5 % 03/25/2023 7:44 AM CDT [facility] DE[facility] PATH AND LAB MEDICINE Basophils 1 0 - 2 % 03/25/2023 7:44 AM CDT [facility] DE[facility] PATH AND LAB MEDICINE Absolute Neutrophil Count 3.69 1.8 - 7.0 K/UL 03/25/2023 7:44 AM CDT [facility] DEPT PATH AND LAB MEDICINE Absolute Lymph Count 1.64 1.0 - 4.8 K/UL 03/25/2023 7:44 AM CDT [facility] DE[facility] PATH AND LAB MEDICINE Absolute Monocyte Count 0.91(H) 0 - 0.80 K/UL 03/25/2023 7:44 AM CDT [facility] DE[facility] PATH AND LAB MEDICINE Absolute Eosinophil Count 0.37 0 - 0.45 K/UL 03/25/2023 7:44 AM CDT [facility] DE[facility] PATH AND LAB MEDICINE Absolute Basophil Count 0.05 0 - 0.20 K/UL 03/25/2023 7:44 AM CDT [facility] DEPT PATH AND LAB MEDICINE BLOOD / Unknown 03/25/2023 6:45 AM CDT 03/25/2023 6:46 AM CDT Aspen Quinonez MD LABORATORY ORDERABLE S [facility] DEPT PATH AND LAB MEDICINE [address] [place] [address], [place] * (ABNORMAL) BASIC METABOLIC PANEL (03/25/2023 6:45 AM CDT) Sodium 136(L) 137 - 147 MMOL/L 03/25/2023 8:11 AM CDT [facility] DE[facility] PATH [facility] LAB MEDIC[facility] Potassium 3.9 3.5 - 5.1 MMOL/L 03/25/2023 8:11 AM CDT [facility] DEPT PATH AND LAB MEDICINE Chloride 102 98 - 110 MMOL/L 03/25/2023 8:11 AM CDT [facility] DEPT PATH AND LAB MEDICINE CO2 23 21 - 30 MMOL/L 03/25/2023 8:11 AM CDT [facility] DEPT PATH AND LAB MEDICINE Anion Gap 11 3 - 12 03/25/2023 8:11 AM CDT [facility] DEPT PATH AND LAB MEDICINE Glucose 84 70 - 100 MG/DL 03/25/2023 8:11 AM CDT [facility] DEPT PATH AND LAB MEDICINE Blood Urea Nitrogen 7 7 - 25 MG/DL 03/25/2023 8:11 AM CDT [facility] DEPT PATH AND LAB MEDICINE Creatinine 0.72 0.4 - 1.24 MG/DL 03/25/2023 8:11 AM CDT [facility] DEPT PATH AND LAB MEDICINE Calcium 9.3 8.5 - 10.6 MG/DL 03/25/2023 8:11 AM CDT [facility] DEPT PATH AND LAB MEDICINE eGFR >60 >60 mL/min 03/25/2023 8:11 AM CDT [facility] DEPT PATH AND LAB MEDICINE Comment:eGFR calculated glen mohamud the CKD-EPIcr_R equation BLOOD / Unknown 03/25/2023 6:45 AM CDT 03/25/2023 6:46 AM CDT Aspen Quinonez MD [facility] [address] [place] [address], [place] * (ABNORMAL) PHOSPHORUS (03/24/2023 5:02 AM CDT) Phosphorus 4.6(H) 2.0 - 4.5 MG/DL 03/24/2023 6:23 AM CDT [facility] DEPT PATH AND LAB MEDICINE BLOOD / Unknown 03/24/2023 5:02 AM CDT 03/24/2023 5:44 AM CDT Aspen Quinonez MD [facility] [address] [place] [address], * MAGNESIUM (03/24/2023 5:02 AM CDT) Magnesium 1.8 1.6 - 2.6 mg/dL 03/24/2023 6:23 AM CDT [facility] DEPT PATH AND LAB MEDICINE BLOOD / Unknown 03/24/2023 5:02 AM CDT 03/24/2023 5:44 AM CDT Aspen Quinonez MD [facility] [address] [place] [address], * CBC AND DIFF (03/24/2023 5:02 AM CDT) White Blood Cells 6.3 4.5 - 11.0 K/UL 03/24/2023 6:04 AM CDT [facility] DEPT PATH AND LAB MEDICINE RBC 4.83 4.4 - 5.5 M/UL 03/24/2023 6:04 AM CDT [facility] LAB MEDIC[facility] Hemoglobin 15.2 13.5 - 16.5 GM/DL 03/24/2023 6:04 AM CDT [facility] DE[facility] PATH AND LAB MEDICINE Hematocrit 44.3 40 - 50 % 03/24/2023 6:04 AM CDT [facility] DE[facility] PATH AND LAB MEDICINE MCV 91.9 80 - 100 FL 03/24/2023 6:04 AM CDT [facility] DEPT PATH AND LAB MEDICINE MCH 31.4 26 - 34 PG 03/24/2023 6:04 AM CDT [facility] DE[facility] PATH [facility] LAB MEDIC[facility] MCHC 34.2 32.0 - 36.0 G/DL 03/24/2023 6:04 AM CDT [facility] DE[facility] PATH AND LAB MEDICINE RDW 14.0 11 - 15 % 03/24/2023 6:04 AM CDT [facility] DE[facility] PATH AND LAB MEDICINE Platelet Count 205 150 - 400 K/UL 03/24/2023 6:04 AM CDT [facility] DE[facility] PATH AND LAB MEDICINE MPV 10.1 7 - 11 FL 03/24/2023 6:04 AM CDT [facility] DE[facility] PATH AND LAB MEDICINE Neutrophils 55 41 - 77 % 03/24/2023 6:04 AM CDT [facility] DE[facility] PATH AND LAB MEDICINE Lymphocytes 27 24 - 44 % 03/24/2023 6:04 AM CDT [facility] DE[facility] Monocytes 12 4 - 12 % 03/24/2023 6:04 AM CDT [facility] Eosinophils 5 0 - 5 % 03/24/2023 6:04 AM CDT [facility] Basophils 1 0 - 2 % 03/24/2023 6:04 AM CDT [facility] Absolute Neutrophil Count 3.49 1.8 - 7.0 K/UL 03/24/2023 6:04 AM CDT [facility] Absolute Lymph Count 1.67 1.0 - 4.8 K/UL 03/24/2023 6:04 AM CDT [facility] Absolute Monocyte Count 0.75 0 - 0.80 K/UL 03/24/2023 6:04 AM CDT [facility] Absolute Eosinophil Count 0.29 0 - 0.45 K/UL 03/24/2023 6:04 AM CDT [facility] Absolute Basophil Count 0.08 0 - 0.20 K/UL 03/24/2023 6:04 AM CDT [facility] BLOOD / Unknown 03/24/2023 5:02 AM CDT 03/24/2023 5:44 AM CDT Aspen Quinonez MD LABORATORY ORDERABLE [facility] [address] [place] [address], [place] * (ABNORMAL) BASIC METABOLIC PANEL (03/24/2023 5:02 AM CDT) Sodium 133(L) 137 - 147 MMOL/L 03/24/2023 6:23 AM CDT [facility] Potassium 4.2 3.5 - 5.1 MMOL/L 03/24/2023 6:23 AM CDT [facility] Chloride 102 98 - 110 MMOL/L 03/24/2023 6:23 AM CDT [facility] CO2 23 21 - 30 MMOL/L 03/24/2023 6:23 AM CDT [facility] DE[facility] PATH [facility] LAB MEDIC[facility] Anion Gap 8 3 - 12 03/24/2023 6:23 AM CDT [facility] Glucose 95 70 - 100 MG/DL 03/24/2023 6:23 AM CDT [facility] Blood Urea Nitrogen 5(L) 7 - 25 MG/DL 03/24/2023 6:23 AM CDT [facility] Creatinine 0.54 0.4 - 1.24 MG/DL 03/24/2023 6:23 AM CDT [facility] Calcium 9.4 8.5 - 10.6 MG/DL 03/24/2023 6:23 AM CDT [facility] eGFR >60 >60 mL/min 03/24/2023 6:23 AM CDT [facility] DEPT PATH AND LAB MEDICINE Comment:eGFR calculated glen mohamud the CKD-EPIcr_R equation BLOOD / Unknown 03/24/2023 5:02 AM CDT 03/24/2023 5:44 AM CDT Aspen Quinonez MD LABORATORY ORDERABLE S [facility] DE[facility] PATH [facility] LAB MEDICINE [address] [place] [address], [place] * PHOSPHORUS (03/23/2023 3:56 AM CDT) Phosphorus 4.3 2.0 - 4.5 MG/DL 03/23/2023 4:53 AM CDT [facility] DEPT PATH AND LAB MEDICINE BLOOD / Unknown 03/23/2023 3:56 AM CDT 03/23/2023 4:12 AM CDT Parul PRIDETRANSMISSION SYSTEM OPERATOR LABORATORY ORD ERABLES [facility] [address] [place] [address], * MAGNESIUM (03/23/2023 3:56 AM CDT) Magnesium 1.9 1.6 - 2.6 mg/dL 03/23/2023 4:53 AM CDT [facility] DEPT PATH AND LAB MEDICINE BLOOD / Unknown 03/23/2023 3:56 AM CDT 03/23/2023 4:12 AM CDT Meet Cerda MD LABORATORY ORDERABLE S Performing Organization Address City/[facility]/ZIP Co de Phone Number [facility] [address] [place] [address], * (ABNORMAL) BASIC METABOLIC PANEL (03/23/2023 3:56 AM CDT) Sodium 135(L) 137 - 147 MMOL/L 03/23/2023 4:53 AM CDT [facility] Potassium 4.0 3.5 - 5.1 MMOL/L 03/23/2023 4:53 AM CDT [facility] Chloride 105 98 - 110 MMOL/L 03/23/2023 4:53 AM CDT [facility] CO2 21 21 - 30 MMOL/L 03/23/2023 4:53 AM CDT [facility] PATH [facility] LAB MEDICINE Anion Gap 9 3 - 12 03/23/2023 4:53 AM CDT [facility] Glucose 103(H) 70 - 100 MG/DL 03/23/2023 4:53 AM CDT [facility] LAB MEDIC[facility] Blood Urea Nitrogen 5(L) 7 - 25 MG/DL 03/23/2023 4:53 AM CDT [facility] LAB MEDIC[facility] Creatinine 0.57 0.4 - 1.24 MG/DL 03/23/2023 4:53 AM CDT [facility] LAB MEDICINE Calcium 9.0 8.5 - 10.6 MG/DL 03/23/2023 4:53 AM CDT [facility] LAB MEDIC[facility] eGFR >60 >60 mL/min 03/23/2023 4:53 AM CDT [facility] LAB MEDIC[facility] Comment:eGFR calculated glen mohamud the CKD-EPIcr_R equation BLOOD / Unknown 03/23/2023 3:56 AM CDT 03/23/2023 4:12 AM CDT Meet Cerad MD LABORATORY ORDERABLE S [facility] DEPT PATH AND LAB MEDICINE [address] [place] [address], [place] * (ABNORMAL) CBC AND DIFF (03/23/2023 3:56 AM CDT) White Blood Cells 7.1 4.5 - 11.0 K/UL 03/23/2023 4:25 AM CDT [facility] MEDIC[facility] RBC 4.49 4.4 - 5.5 M/UL 03/23/2023 4:25 AM CDT [facility] DE[facility] PATH [facility] LAB MEDICINE Hemoglobin 13.7 13.5 - 16.5 GM/DL 03/23/2023 4:25 AM CDT [facility] LAB MEDIC[facility] Hematocrit 40.2 40 - 50 % 03/23/2023 4:25 AM CDT [facility] PATH [facility] LAB MEDICINE MCV 89.5 80 - 100 FL 03/23/2023 4:25 AM CDT [facility] DE[facility] PATH AND LAB MEDICINE MCH 30.5 26 - 34 PG 03/23/2023 4:25 AM CDT [facility] DE[facility] PATH AND LAB MEDICINE MCHC 34.0 32.0 - 36.0 G/DL 03/23/2023 4:25 AM CDT [facility] DE[facility] PATH AND LAB MEDICINE RDW 14.1 11 - 15 % 03/23/2023 4:25 AM CDT [facility] LAB MEDICINE Platelet Count 204 150 - 400 K/UL 03/23/2023 4:25 AM CDT [facility] DE[facility] PATH AND LAB MEDICINE MPV 9.5 7 - 11 FL 03/23/2023 4:25 AM CDT [facility] LAB MEDICINE Neutrophils 62 41 - 77 % 03/23/2023 4:25 AM CDT [facility] LAB MEDIC[facility] Lymphocytes 20(L) 24 - 44 % 03/23/2023 4:25 AM CDT [facility] LAB MEDICINE Monocytes 12 4 - 12 % 03/23/2023 4:25 AM CDT [facility] LAB MEDIC[facility] Eosinophils 5 0 - 5 % 03/23/2023 4:25 AM CDT [facility] LAB MEDICINE Basophils 1 0 - 2 % 03/23/2023 4:25 AM CDT [facility] DE[facility] PATH AND LAB MEDICINE Absolute Neutrophil Count 4.40 1.8 - 7.0 K/UL 03/23/2023 4:25 AM CDT [facility] DE[facility] PATH AND LAB MEDICINE Absolute Lymph Count 1.45 1.0 - 4.8 K/UL 03/23/2023 4:25 AM CDT [facility] DE[facility] PATH AND LAB MEDICINE Absolute Monocyte Count 0.87(H) 0 - 0.80 K/UL 03/23/2023 4:25 AM CDT [facility] DE[facility] PATH AND LAB MEDICINE Absolute Eosinophil Count 0.33 0 - 0.45 K/UL 03/23/2023 4:25 AM CDT [facility] DE[facility] PATH AND LAB MEDICINE Absolute Basophil Count 0.06 0 - 0.20 K/UL 03/23/2023 4:25 AM CDT [facility] DE[facility] PATH AND LAB MEDICINE BLOOD / Unknown 03/23/2023 3:56 AM CDT 03/23/2023 4:12 AM CDT Meet Cerda MD LABORATORY ORDERABLE S [facility] PATH AND LAB MEDICINE [address] [place] [address], * HEPARIN ASSAY (UNFRACTIONATED) (03/22/2023 9:10 AM CDT) Heparin Assay 0.37 0.30 - 0.70 IU/ML 03/22/2023 9:[address] [facility] BLOOD / Unknown 03/22/2023 9:10 AM CDT 03/22/2023 10:19 AM CDT Parul Coronel APRN-TRANSMISSION SYSTEM OPERATOR LABORATORY ORD ERABLES Performing Organization Address [facility] de Phone Number [facility] PATH AND LAB MEDICINE [address] [place] [address], * CREATININE-URINE RANDOM (03/22/2023 4:39 AM CDT) Creatinine, Random 32 MG/DL 03/22/2023 5:[address] [facility] Urine URINE SPECIMEN / Unknown 03/22/2023 4:39 AM CDT 03/22/2023 5:06 AM CDT Parul Coronel APRN-TRANSMISSION SYSTEM OPERATOR URINE ORDERABL ES Performing Organization Address [facility] de Phone Number [facility] PATH AND LAB MEDICINE [address] [place] [address], * SODIUM-URINE RANDOM (03/22/2023 4:39 AM CDT) Sodium, Random 39 MMOL/L 03/22/2023 5:[address] [facility] Urine URINE SPECIMEN / Unknown 03/22/2023 4:39 AM CDT 03/22/2023 5:06 AM CDT Parul Coronel APRN-TRANSMISSION SYSTEM OPERATOR URINE ORDERABL ES Performing Organization Address [facility] Co de Phone Number [facility] [address] [place] [address], [place] * OSMOLALITY-URINE RANDOM (03/22/2023 4:39 AM CDT) Osmolality-Urin e 145 50 - 1,400 MOS/KG 03/22/2023 6:[address] [facility] Urine URINE SPECIMEN / Unknown 03/22/2023 4:39 AM CDT 03/22/2023 5:06 AM CDT Parul Coronel MARKET MANAGER-TRANSMISSION SYSTEM OPERATOR URINE ORDERABL ES Performing Organization Address [facility] de Phone Number [facility] PATH AND LAB MEDICINE [address] [place] [address], [place] * UREA NITROGEN-URINE RANDOM (03/22/2023 4:39 AM CDT) Urea Nitrogen 148 MG/DL 03/22/2023 5:56 AM CDT [facility] PATH AND LAB MEDICINE Urine URINE SPECIMEN / Unknown 03/22/2023 4:39 AM CDT 03/22/2023 5:06 AM CDT Parul Coronel APRN-TRANSMISSION SYSTEM OPERATOR URINE ORDERABL ES Performing Organization Address [facility] Co de Phone Number [facility] PATH AND LAB MEDICINE [address] [place] [address], [place] * OSMOLALITY (03/22/2023 4:39 AM CDT) Osmolality 282 280 - 307 MOSMOL/KG 03/22/2023 5:58 AM CDT [facility] PATH AND LAB MEDICINE BLOOD / Unknown 03/22/2023 4:39 AM CDT 03/22/2023 5:06 AM CDT Parul Coronel APRN-TRANSMISSION SYSTEM OPERATOR LABORATORY ORD ERABLES Performing Organization Address [facility] Co de Phone Number [facility] PATH AND LAB MEDICINE [address] [place] [address], [place] * CT HEAD WO CONTRAST (03/22/2023 4:38 AM CDT) Anatomical Region Laterality Modality Head Computed Tomogra [...] burt nuclei lacunar infarcts. Finalized by Fabrizio oJnes DO on 03/22/2023 6:41 AM. Dictated by [...] AM. Debbie Roblero MD CT ORDERABLES * (ABNORMAL) HEPARIN ASSAY (UNFRACTIONATED) (03/22/2023 2:08 AM CDT) Heparin Assay 0.23(L) 0.30 - 0.70 IU/ML 03/22/2023 3:[address] [facility] BLOOD / Unknown 03/22/2023 2:08 AM CDT 03/22/2023 2:29 AM CDT Parul WONG LABORATORY ORD ERABLES Performing Organization Address City/[facility]/ZIP Co de Phone Number [facility] [address] [place] [address], [place] * PHOSPHORUS (03/22/2023 2:08 AM CDT) Phosphorus 3.7 2.0 - 4.5 MG/DL 03/22/2023 3:[address] [facility] BLOOD / Unknown 03/22/2023 2:08 AM CDT 03/22/2023 2:30 AM CDT Parul WONG LABORATORY ORD ERABLES [facility] [address] [place] [address], [place] * MAGNESIUM (03/22/2023 2:08 AM CDT) Magnesium 2.0 1.6 - 2.6 mg/dL 03/22/2023 3:07 AM CDT [facility] DEPT PATH AND LAB MEDICINE BLOOD / Unknown 03/22/2023 2:08 AM CDT 03/22/2023 2:30 AM CDT Meet Cerda MD LABORATORY ORDERABLE S [facility] [address] [place] [address], * IONIZED CALCIUM (03/22/2023 2:08 AM CDT) Ionized Calcium 1.15 1.0 - 1.3 MMOL/L 03/22/2023 2:32 AM CDT [facility] DEPT PATH AND LAB MEDICINE BLOOD / Unknown 03/22/2023 2:08 AM CDT 03/22/2023 2:23 AM CDT Meet Cerda MD LABORATORY ORDERABLE S [facility] [address] * (ABNORMAL) BASIC METABOLIC PANEL (03/22/2023 2:08 AM CDT) Sodium 133(L) 137 - 147 MMOL/L 03/22/2023 3:07 AM CDT [facility] DEPT PATH AND LAB MEDICINE Potassium 3.8 3.5 - 5.1 MMOL/L 03/22/2023 3:07 AM CDT [facility] DEPT PATH AND LAB MEDICINE Chloride 100 98 - 110 MMOL/L 03/22/2023 3:07 AM CDT [facility] DEPT PATH AND LAB MEDICINE CO2 24 21 - 30 MMOL/L 03/22/2023 3:07 AM CDT [facility] DEPT PATH AND LAB MEDICINE Anion Gap 9 3 - 12 03/22/2023 3:07 AM CDT [facility] DEPT PATH AND LAB MEDICINE Glucose 109(H) 70 - 100 MG/DL 03/22/2023 3:07 AM CDT [facility] DE[facility] LAB MEDICINE Blood Urea Nitrogen 6(L) 7 - 25 MG/DL 03/22/2023 3:07 AM CDT [facility] PATH [facility] LAB MEDICINE Creatinine 0.63 0.4 - 1.24 MG/DL 03/22/2023 3:07 AM CDT [facility] DEPT PATH AND LAB MEDICINE Calcium 8.9 8.5 - 10.6 MG/DL 03/22/2023 3:07 AM CDT [facility] DEPT PATH AND LAB MEDICINE eGFR >60 >60 mL/min 03/22/2023 3:07 AM CDT [facility] DEPT PATH AND LAB MEDICINE Comment:eGFR calculated glen mohamud the CKD-EPIcr_R equation BLOOD / Unknown 03/22/2023 2:08 AM CDT 03/22/2023 2:30 AM CDT Meet Cerda MD LABORATORY ORDERABLE S [facility] DEPT PATH AND LAB MEDICINE [address] [place] [address], * (ABNORMAL) CBC AND DIFF (03/22/2023 2:08 AM CDT) White Blood Cells 8.1 4.5 - 11.0 K/UL 03/22/2023 2:43 AM CDT [facility] DEPT PATH AND LAB MEDICINE RBC 4.56 4.4 - 5.5 M/UL 03/22/2023 2:43 AM CDT [facility] DEPT PATH AND LAB MEDICINE Hemoglobin 14.0 13.5 - 16.5 GM/DL 03/22/2023 2:43 AM CDT [facility] DEPT PATH AND LAB MEDICINE Hematocrit 41.0 40 - 50 % 03/22/2023 2:43 AM CDT [facility] DEPT PATH AND LAB MEDICINE MCV 89.9 80 - 100 FL 03/22/2023 2:43 AM CDT [facility] DEPT PATH AND LAB MEDICINE MCH 30.6 26 - 34 PG 03/22/2023 2:43 AM CDT [facility] DEPT PATH AND LAB MEDICINE MCHC 34.1 32.0 - 36.0 G/DL 03/22/2023 2:43 AM CDT [facility] DEPT PATH AND LAB MEDICINE RDW 14.1 11 - 15 % 03/22/2023 2:43 AM CDT [facility] DEPT PATH AND LAB MEDICINE Platelet Count 229 150 - 400 K/UL 03/22/2023 2:43 AM CDT [facility] DEPT PATH AND LAB MEDICINE MPV 10.3 7 - 11 FL 03/22/2023 2:43 AM CDT [facility] DEPT PATH AND LAB MEDICINE Neutrophils 51 41 - 77 % 03/22/2023 5:08 AM CDT [facility] DEPT PATH AND LAB MEDICINE Lymphocytes 32 24 - 44 % 03/22/2023 5:08 AM CDT [facility] DEPT PATH AND LAB MEDICINE Monocytes 11 4 - 12 % 03/22/2023 5:08 AM CDT [facility] DEPT PATH AND LAB MEDICINE Eosinophils 4 0 - 5 % 03/22/2023 5:08 AM CDT [facility] DEPT PATH AND LAB MEDICINE Basophils 2 0 - 2 % 03/22/2023 5:08 AM CDT [facility] DEPT PATH AND LAB MEDICINE Absolute Neutrophil Count 4.20 1.8 - 7.0 K/UL 03/22/2023 5:08 AM CDT [facility] DEPT PATH AND LAB MEDICINE Absolute Lymph Count 2.54 1.0 - 4.8 K/UL 03/22/2023 5:08 AM CDT [facility] DEPT PATH AND LAB MEDICINE Absolute Monocyte Count 0.89(H) 0 - 0.80 K/UL 03/22/2023 5:08 AM CDT [facility] DEPT PATH AND LAB MEDICINE Absolute Eosinophil Count 0.28 0 - 0.45 K/UL 03/22/2023 5:08 AM CDT [facility] DEPT PATH AND LAB MEDICINE Absolute Basophil Count 0.16 0 - 0.20 K/UL 03/22/2023 5:08 AM CDT [facility] DEPT PATH AND LAB MEDICINE BLOOD / Unknown 03/22/2023 2:08 AM CDT 03/22/2023 2:30 AM CDT Meet Cerda MD LABORATORY ORDERABLE S Performing Organization Address City/[facility]/ZIP Co de Phone Number [facility] PATH AND LAB MEDICINE [address] [place] [address], [place] * (ABNORMAL) HEPARIN ASSAY (UNFRACTIONATED) (03/21/2023 7:58 PM CDT) Heparin Assay 0.18(L) 0.30 - 0.70 IU/ML 03/21/2023 8:44 PM CDT [facility] PATH AND LAB MEDICINE BLOOD / Unknown 03/21/2023 7:58 PM CDT 03/21/2023 8:12 PM CDT Parul WONG LABORATORY ORD ERABLES Performing Organization Address [facility] Co de Phone Number [facility] PATH AND LAB MEDICINE [address] [place] [address], [place] * CT HEAD WO CONTRAST (03/21/2023 1:08 PM CDT) Anatomical Region Laterality Modality Head Computed Tomogra phy 03/21/2023 1:0 9 PM CDT Impressions 03/21/2023 1:35 PM CDT 1. Redemonstration of small acute or early subacute infarcts involving the bilateral cerebellar hemispheres and right occipital lobe without gross hemorrhagic conversion or obvious new area of infarct. 2. 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 By my electronic signature, I attest that I have personally reviewed the images for this examination and formulated the interpretations and opinions expressed in this report Finalized by Fabrizio Jones DO on 03/21/2023 1:35 PM. Dictated by Esequiel Grier MD on 03/21/2023 1:09 PM. Narrative 03/21/2023 1:35 PM CDT EXAM: CT HEAD HISTORY: New heparin GTT. TECHNIQUE: Multiple contiguous axial images were obtained of the brain without intravenous contrast. COMPARISON: MRI head 03/21/2023. MRA head 03/21/2023. FINDINGS: Redemonstration of multifocal small acute or early subacute infarcts involving the bilateral cerebellar hemispheres and [...] fracture. Procedure Note Fabrizio Jones DO - 03/21/2023 EXAM: CT HEAD HISTORY: New heparin GTT. TECHNIQUE: Multiple contiguous axial images were obtained of the brainwithout intravenous contrast. COMPARISON: MRI head 03/21/2023. MRA head 03/21/2023. FINDINGS: Redemonstration of multifocal small acute or early subacute infarctsinvolving the bilateral cerebellar hemispheres and right occipital lobewithout gross hemorrhagic conversion or obvious new area of infarctidentified. Small chronic right deep burt nuclei lacunar infarcts. Mildpatchy supratentorial white matter hypointensities, likely chronicmicrovascular ischemic changes. Ventricles and subarachnoid spaces arenormal in size and configuration. No midline shift or mass effect. Graywhite matter interfaces are otherwise maintained. Basal cisterns arepatent. No evidence of acute intracranial hemorrhage or extra-axial fluidcollection. Mastoid air cells and visualized paranasal sinuses arewell-aerated. No acute calvarial fracture. IMPRESSION 1. Redemonstration of small acute or early subacute infarcts involvingthe bilateral cerebellar hemispheres and right occipital lobe withoutgross hemorrhagic conversion or obvious new area of infarct. 2. Mild patchy cerebral white matter hyperintensities, likely chronicmicrovascular ischemic changes, with chronic right deep burt nucleilacunar infarcts. By my electronic signature, I attest that I have personally reviewed theimages for this examination and formulated the interpretations andopinions expressed in this report Finalized by Fabrizio Jones DO on 03/21/2023 1:35 PM. Dictated by MD Tamara on 03/21/2023 1:09 PM. Parul Coronel MARKET MANAGER-TRANSMISSION SYSTEM OPERATOR CT ORDERABLES * (ABNORMAL) HEPARIN ASSAY (UNFRACTIONATED) (03/21/2023 12:28 PM CDT) Heparin Assay 0.26(L) 0.30 - 0.70 IU/ML 03/21/2023 12:[address] [facility] BLOOD / Unknown 03/21/2023 1 2:28 PM CDT 03/21/2023 12:38 PM CDT Parul Coronel MARKET MANAGER-TRANSMISSION SYSTEM OPERATOR LABORATORY ORD ERABLES [facility] PATH AND LAB MEDICINE [address] [place] [address], [place] * 2D + DOPPLER ECHO W/ CONTRAST (03/21/2023 12:21 PM CDT) [facility] Left Ventricle Diastolic Volume 109.00 62 - [...] 7.70 OTHER OUTSIDE LAB CV ECHO PV DIRECTOR PARK SALUD Rojas OTHER OUTSIDE LAB Cardiology Ultrasound Machine [employer] OTHER OUTSIDE LAB HUTCHINSON'S BIPLANE EF 63 % OTHER OUTSIDE LAB [...] function is normal. The ejection fraction by Hutchinson's biplane method is 63%. Normal left ventricular [...] Urine NEG NEG-NEG 03/21/2023 6:34 AM CDT [facility] DEPT PATH AND LAB MEDICINE Comment: RESULTS WERE OBTAINED BY IMMUNOASSAY AND ARE PRESUMPTIVE ONLY. POSITIVE INDICATES THE PRESENCE OF SUBSTANCE WITH CHARACTERISTICS SIMILAR TO DRUG-DRUG CLASS OR METABOLITE IN CONC. EQUAL TO OR EXCEEDING VALUES LISTED. FENTANYL 5 NG/ML Urine URINE SPECIMEN / Unknown 03/21/2023 5:45 AM CDT 03/21/2023 5:50 AM CDT Meet Cerda MD URINE ORDERABLES Performing Organization Address [facility] Co de Phone Number [facility] [address] [place] [address], * PHENCYCLIDINES-URINE RANDOM (03/21/2023 5:45 AM CDT) Phencyclidine (PCP) NEG NEG-NEG 03/21 6:34 AM CDT [facility] DEPT PATH AND LAB MEDICINE Comment: RESULTS WERE OBTAINED BY IMMUNOASSAY AND ARE PRESUMPTIVE ONLY. POSITIVE INDICATES THE PRESENCE OF SUBSTANCE WITH CHARACTERISTICS SIMILAR TO DRUG-DRUG CLASS OR METABOLITE IN CONC. EQUAL TO OR EXCEEDING VALUES LISTED. PHENCYCLIDINE (PCP) 25 NG/ML Urine URINE SPECIMEN / Unknown 03/21/2023 5:45 AM CDT 03/21/2023 5:50 AM CDT Meet Cerda MD URINE ORDERABLES Performing Organization Address [facility] Co de Phone Number [facility] [address] [place] [address], * OPIATES-URINE RANDOM (03/21/2023 5:45 AM CDT) Opiates-Urine NEG NEG-NEG 03/21/2023 6:[address] [facility] Comment: RESULTS WERE OBTAINED BY IMMUNOASSAY AND ARE PRESUMPTIVE ONLY. POSITIVE INDICATES THE PRESENCE OF SUBSTANCE WITH CHARACTERISTICS SIMILAR TO DRUG-DRUG CLASS OR METABOLITE IN CONC. EQUAL TO OR EXCEEDING VALUES LISTED. OPIATES 2000 NG/ML Urine URINE SPECIMEN / Unknown 03/21/2023 5:45 AM CDT 03/21/2023 5:50 AM CDT Meet Cerda MD URINE ORDERABLES Performing Organization Address [facility] de Phone Number [facility] [address] [place] [address], * COCAINE-URINE RANDOM (03/21/2023 5:45 AM CDT) Cocaine-Urine NEG NEG-NEG 03/21/2023 6:[address] [facility] MED[facility] Comment: RESULTS WERE OBTAINED BY IMMUNOASSAY AND ARE PRESUMPTIVE ONLY. POSITIVE INDICATES THE PRESENCE OF SUBSTANCE WITH CHARACTERISTICS SIMILAR TO DRUG-DRUG CLASS OR METABOLITE IN CONC. EQUAL TO OR EXCEEDING VALUES LISTED. COCAINE 300 NG/ML Urine URINE SPECIMEN / Unknown 03/21/2023 5:45 AM CDT 03/21/2023 5:50 AM CDT Meet Cerda MD URINE ORDERABLES Performing Organization Address City/[facility] Co de Phone Number [facility] [address] [place] [address], * CANNABINOIDS-URINE RANDOM (03/21/2023 5:45 AM CDT) THC NEG NEG-NEG 03/21/2023 6:[address] [facility] Comment: RESULTS WERE OBTAINED BY IMMUNOASSAY AND ARE PRESUMPTIVE ONLY. POSITIVE INDICATES THE PRESENCE OF SUBSTANCE WITH CHARACTERISTICS SIMILAR TO DRUG-DRUG CLASS OR METABOLITE IN CONC. EQUAL TO OR EXCEEDING VALUES LISTED. CANNABINOIDS 50 NG/ML Urine URINE SPECIMEN / Unknown 03/21/2023 5:45 AM CDT 03/21/2023 5:50 AM CDT Meet Cerda MD URINE ORDERABLES Performing Organization Address City/[facility]/ZIP Co de Phone Number [facility] [address] [place] [address], * BENZODIAZEPINES-URINE RANDOM (03/21/2023 5:45 AM CDT) Benzodiazepines NEG NEG-NEG 6:[address] [facility] Comment: RESULTS WERE OBTAINED BY IMMUNOASSAY AND ARE PRESUMPTIVE ONLY. POSITIVE INDICATES THE PRESENCE OF SUBSTANCE WITH CHARACTERISTICS SIMILAR TO DRUG-DRUG CLASS OR METABOLITE IN CONC. EQUAL TO OR EXCEEDING VALUES LISTED. BENZODIAZEPINES 200 NG/ML Urine URINE SPECIMEN / Unknown 03/21/2023 5:45 AM CDT 03/21/2023 5:50 AM CDT Meet Cerda MD URINE ORDERABLES Performing Organization Address [facility] de Phone Number [facility] [address] [place] [address], * BARBITURATES-URINE RANDOM (03/21/2023 5:45 AM CDT) Barbiturates,Urine NEG NEG-NEG 2022 6:[address] [facility] Comment: RESULTS WERE OBTAINED BY IMMUNOASSAY AND ARE PRESUMPTIVE ONLY. POSITIVE INDICATES THE PRESENCE OF SUBSTANCE WITH CHARACTERISTICS SIMILAR TO DRUG-DRUG CLASS OR METABOLITE IN CONC. EQUAL TO OR EXCEEDING VALUES LISTED. BARBITURATES 200 NG/ML Urine URINE SPECIMEN / Unknown 03/21/2023 5:45 AM CDT 03/21/2023 5:50 AM CDT Meet Cerda MD URINE ORDERABLES Performing Organization Address [facility] Co de Phone Number [facility] [address] [place] [address], * AMPHETAMINES-URINE RANDOM (03/21/2023 5:45 AM CDT) Amphetamines NEG NEG-NEG 03/21/2023 6:[address] [facility] Comment: RESULTS WERE OBTAINED BY IMMUNOASSAY AND ARE PRESUMPTIVE ONLY. POSITIVE INDICATES THE PRESENCE OF SUBSTANCE WITH CHARACTERISTICS SIMILAR TO DRUG-DRUG CLASS OR METABOLITE IN CONC. EQUAL TO OR EXCEEDING VALUES LISTED. AMPHETAMINES 1000 NG/ML Urine URINE SPECIMEN / Unknown 03/21/2023 5:45 AM CDT 03/21/2023 5:50 AM CDT Meet Cerda MD URINE ORDERABLES [facility] [address] [place] [address], * PTT (APTT) (03/21/2023 4:52 AM CDT) APTT 28.6 24.0 - 36.5 SEC 03/21/2023 5:[address] [facility] BLOOD / Unknown 03/21/2023 4:52 AM CDT 03/21/2023 5:09 AM CDT Parul Coronel MARKET MANAGER-TRANSMISSION SYSTEM OPERATOR LABORATORY ORD ERABLES [facility] [address] [place] [address], * PROTIME INR (PT) (03/21/2023 4:52 AM CDT) Protime 12.8 9.5 - 14.2 SEC 03/21/2023 5:[address] [facility] INR 1.1 0.8 - 1.2 03/21/2023 5:[address] [facility] BLOOD / Unknown 03/21/2023 4:52 AM CDT 03/21/2023 5:09 AM CDT Parul WONG LABORATORY ORD ERABLES Performing Organization Address [facility]/ZIP Co de Phone Number [facility] MEDICINE [address] * HEMOGLOBIN A1C (03/21/2023 3:16 AM CDT) Hemoglobin A1C 5.7 4.0 - 5.7 % 03/21/2023 5:56 AM CDT [facility] DEPT PATH AND LAB MEDICINE Comment: The ADA recommends that most patients with type 1 and type 2 diabetes maintain an A1c level <7%. 03/21/2023 3:1 6 AM CDT 03/21/2023 3:47 AM CDT Maddy Whalen DO LABORATORY ORDERABLE S Performing Organization Address [facility] Co de Phone Number [facility] [address] [place] [address] * PHOSPHORUS (03/21/2023 3:16 AM CDT) Phosphorus 4.0 2.0 - 4.5 MG/DL 03/21/2023 4:26 AM CDT [facility] DEPT PATH AND LAB MEDICINE BLOOD / Unknown 03/21/2023 3:16 AM CDT 03/21/2023 3:47 AM CDT Parul WONG LABORATORY ORD ERABLES Performing Organization Address [facility] Co de Phone Number [facility] [address] [place] [address], * MAGNESIUM (03/21/2023 3:16 AM CDT) Magnesium 1.7 1.6 - 2.6 mg/dL 03/21/2023 4:26 AM CDT [facility] DEPT PATH AND LAB MEDICINE BLOOD / Unknown 03/21/2023 3:16 AM CDT 03/21/2023 3:47 AM CDT Meet Cerda MD LABORATORY ORDERABLE S [facility] DEPT PATH AND LAB MEDICINE [address] [place] [address], * IONIZED CALCIUM (03/21/2023 3:16 AM CDT) Ionized Calcium 1.08 1.0 - 1.3 MMOL/L 03/21/2023 4:06 AM CDT [facility] DEPT PATH AND LAB MEDICINE BLOOD / Unknown 03/21/2023 3:16 AM CDT 03/21/2023 3:52 AM CDT Meet Cerda MD LABORATORY ORDERABLE S Performing Organization Address City/[facility]/ZIP Co de Phone Number [facility] DEPT PATH AND LAB MEDICINE [address] [place] [address], * (ABNORMAL) BASIC METABOLIC PANEL (03/21/2023 3:16 AM CDT) Sodium 135(L) 137 - 147 MMOL/L 03/21/2023 4:26 AM CDT [facility] DEPT PATH AND LAB MEDICINE Potassium 4.1 3.5 - 5.1 MMOL/L 03/21/2023 4:26 AM CDT [facility] DEPT PATH AND LAB MEDICINE Chloride 101 98 - 110 MMOL/L 03/21/2023 4:26 AM CDT [facility] DEPT PATH AND LAB MEDICINE CO2 23 21 - 30 MMOL/L 03/21/2023 4:26 AM CDT [facility] DEPT PATH AND LAB MEDICINE Anion Gap 11 3 - 12 03/21/2023 4:26 AM CDT [facility] DEPT PATH AND LAB MEDICINE Glucose 98 70 - 100 MG/DL 03/21/2023 4:26 AM CDT [facility] DEPT PATH AND LAB MEDICINE Blood Urea Nitrogen 4(L) 7 - 25 MG/DL 03/21/2023 4:26 AM CDT [facility] DEPT PATH AND LAB MEDICINE Creatinine 0.64 0.4 - 1.24 MG/DL 03/21/2023 4:26 AM CDT [facility] DEPT PATH AND LAB MEDICINE Calcium 9.0 8.5 - 10.6 MG/DL 03/21/2023 4:26 AM CDT [facility] DEPT PATH AND LAB MEDICINE eGFR >60 >60 mL/min 03/21/2023 4:26 AM CDT [facility] DEPT PATH AND LAB MEDICINE Comment:eGFR calculated glen mohamud the CKD-EPIcr_R equation BLOOD / Unknown 03/21/2023 3:16 AM CDT 03/21/2023 3:47 AM CDT Meet Cerda MD LABORATORY ORDERABLE S [facility] DEPT PATH AND LAB MEDICINE [address] [place] [address], [place] * (ABNORMAL) CBC AND DIFF (03/21/2023 3:16 AM CDT) White Blood Cells 9.0 4.5 - 11.0 K/UL 03/21/2023 4:00 AM CDT [facility] DEPT PATH AND LAB MEDICINE RBC 4.78 4.4 - 5.5 M/UL 03/21/2023 4:00 AM CDT [facility] DEPT PATH AND LAB MEDICINE Hemoglobin 14.8 13.5 - 16.5 GM/DL 03/21/2023 4:00 AM CDT [facility] DEPT PATH AND LAB MEDICINE Hematocrit 43.8 40 - 50 % 03/21/2023 4:00 AM CDT [facility] DEPT PATH AND LAB MEDICINE MCV 91.5 80 - 100 FL 03/21/2023 4:00 AM CDT [facility] DEPT PATH AND LAB MEDICINE MCH 31.0 26 - 34 PG 03/21/2023 4:00 AM CDT [facility] DEPT PATH AND LAB MEDICINE MCHC 33.8 32.0 - 36.0 G/DL 03/21/2023 4:00 AM CDT [facility] DEPT PATH AND LAB MEDICINE RDW 14.1 11 - 15 % 03/21/2023 4:00 AM CDT [facility] DEPT PATH AND LAB MEDICINE Platelet Count 248 150 - 400 K/UL 03/21/2023 4:00 AM CDT [facility] DEPT PATH AND LAB MEDICINE MPV 9.9 7 - 11 FL 03/21/2023 4:00 AM CDT [facility] DEPT PATH AND LAB MEDICINE Neutrophils 69 41 - 77 % 03/21/2023 4:00 AM CDT [facility] DEPT PATH AND LAB MEDICINE Lymphocytes 18(L) 24 - 44 % 03/21/2023 4:00 AM CDT [facility] PATH AND LAB MEDICINE Monocytes 10 4 - 12 % 03/21/2023 4:00 AM CDT [facility] DEPT PATH AND LAB MEDICINE Eosinophils 2 0 - 5 % 03/21/2023 4:00 AM CDT [facility] PATH AND LAB MEDICINE Basophils 1 0 - 2 % 03/21/2023 4:00 AM CDT [facility] PATH AND LAB MEDICINE Absolute Neutrophil Count 6.32 1.8 - 7.0 K/UL 03/21/2023 4:00 AM CDT [facility] DE[facility] PATH AND LAB MEDICINE Absolute Lymph Count 1.61 1.0 - 4.8 K/UL 03/21/2023 4:00 AM CDT [facility] DE[facility] PATH AND LAB MEDICINE Absolute Monocyte Count 0.90(H) 0 - 0.80 K/UL 03/21/2023 4:00 AM CDT [facility] DE[facility] PATH AND LAB MEDICINE Absolute Eosinophil Count 0.15 0 - 0.45 K/UL 03/21/2023 4:00 AM CDT [facility] PATH AND LAB MEDICINE Absolute Basophil Count 0.06 0 - 0.20 K/UL 03/21/2023 4:00 AM CDT [facility] DEPT PATH AND LAB MEDICINE BLOOD / Unknown 03/21/2023 3:16 AM CDT 03/21/2023 3:47 AM CDT Meet Cerda MD LABORATORY ORDERABLE S [facility] DEPT PATH AND LAB MEDICINE [address] [place] [address], * (ABNORMAL) LIPID PROFILE (03/21/2023 3:16 AM CDT) [facility] Cholesterol 123 <200 MG/DL 03/21/2023 4:26 AM CDT [facility] DEPT PATH AND LAB MEDICINE Triglycerides 84 <150 MG/DL 03/21/2023 4:[address] [facility] HDL 32(L) >40 MG/DL 03/21/2023 4:[address] [facility] MED[facility] LDL 78 <100 mg/dL 03/21/2023 4:[address] [facility] MED[facility] VLDL 17 MG/DL 03/21/2023 4:[address] [facility] Non HDL Cholesterol 91 MG/DL 03/21/2023 4:[address] [facility] Comment: Calculated non-HDL Cholesterol (non-HDL-C) indirectly measures LDL-C, Lp(a), IDL-C, and VLDL-C. It is a surrogate marker for Apoprotein B. Goal should be less than 130 mg/dL. BLOOD / Unknown 03/21/2023 3:16 AM CDT 03/21/2023 3:47 AM CDT Meet Cerda MD LABORATORY ORDERABLE S [facility] PATH AND LAB MEDICINE [address] [place] [address], [place] * MRA NECK WO/W CONTRAST (03/21/2023 [...] after the administration of MultiHance contrast. 3D cqkn-tl-wclvwh images of [place] was performed without contrast. 3D [...] The basilar artery is widely patent. Bilateral material handler 1st shift are widely patent. There is absent flow [...] and after the administration ofMultiHance contrast. 3D tofq-vl-sxwhhl images [place] wasperformed without contrast. 3D contrast [...] stenosis. The basilarartery is widely patent. Bilateral material handler 1st shift are widely patent. There is absentflow related [...] right vertebral artery origin, reconstituting at the [id number] with otherwise diminutive flow throughout the remaining [...] after the administration of MultiHance contrast. 3D ecro-yk-brwszh images of [place] was performed without contrast. 3D [...] The basilar artery is widely patent. Bilateral material handler 1st shift are widely patent. There is absent flow [...] and after the administration ofMultiHance contrast. 3D xgym-du-qlzhkl images of [place] wasperformed without contrast. 3D contrast [...] stenosis. The basilarartery is widely patent. Bilateral material handler 1st shift are widely patent. There is absentflow related [...] right vertebral artery origin, reconstituting at the [id number] with otherwise diminutive flow throughout the remaining [...] after the administration of MultiHance contrast. 3D tbni-ty-oeogvo images of [place] was performed without contrast. 3D [...] The basilar artery is widely patent. Bilateral material handler 1st shift are widely patent. There is absent flow [...] and after the administration ofMultiHance contrast. 3D qojr-zr-cgmxwv images of [place] wasperformed without contrast. 3D contrast [...] stenosis. The basilarartery is widely patent. Bilateral material handler 1st shift are widely patent. There is absentflow related [...] right vertebral artery origin, reconstituting at the R5lwbsbjt with otherwise diminutive flow throughout the remaining cervicalright vertebral artery. Findings are similar to outside CTA neck andfavored for dissection. 2. Multifocal irregularity of the bilateral carotid arteries withoutmeasurable stenosis by NASCET criteria. 3. Patent dominant left cervical vertebral artery without superimposedstenosis. Meet Cerda MD MR ORDERABLES * IONIZED CALCIUM (03/21/2023 12:17 AM CDT) Ionized Calcium 1.01 1.0 - 1.3 MMOL/L 03/21/2023 12:33 AM CDT [facility] DEPT PATH AND LAB MEDICINE BLOOD / Unknown 03/21/2023 1 2:17 AM CDT 03/21/2023 12:31 AM CDT Meet Cerda MD LABORATORY ORDERABLE S [facility] [address] [place] [address], * MAGNESIUM (03/21/2023 12:08 AM CDT) Magnesium 1.7 1.6 - 2.6 mg/dL 03/21/2023 1:20 AM CDT [facility] DEPT PATH AND LAB MEDICINE BLOOD / Unknown 03/21/2023 1 2:08 AM CDT 03/21/2023 12:21 AM CDT Meet Cerda MD LABORATORY ORDERABLE S [facility] [address] [place] [address], * (ABNORMAL) COMPREHENSIVE METABOLIC PANEL (03/21/2023 12:08 AM CDT) Sodium 134(L) 137 - 147 MMOL/L 03/21/2023 1:20 AM CDT [facility] DEPT PATH AND LAB MEDICINE Potassium 4.3 3.5 - 5.1 MMOL/L 03/21/2023 1:20 AM CDT [facility] DEPT PATH AND LAB MEDICINE Chloride 102 98 - 110 MMOL/L 03/21/2023 1:20 AM CDT [facility] DE[facility] PATH AND LAB MEDICINE Glucose 109(H) 70 - 100 MG/DL 03/21/2023 1:20 AM CDT [facility] DEPT PATH AND LAB MEDICINE Blood Urea Nitrogen 4(L) 7 - 25 MG/DL 03/21/2023 1:20 AM CDT [facility] DEPT PATH AND LAB MEDICINE Creatinine 0.65 0.4 - 1.24 MG/DL 03/21/2023 1:20 AM CDT [facility] DEPT PATH AND LAB MEDICINE Calcium 9.2 8.5 - 10.6 MG/DL 03/21/2023 1:20 AM CDT [facility] DEPT PATH AND LAB MEDICINE Total Protein 7.6 6.0 - 8.0 G/DL 03/21/2023 1:20 AM CDT [facility] DEPT PATH AND LAB MEDICINE Total Bilirubin 0.6 0.3 - 1.2 MG/DL 03/21/2023 1:20 AM CDT [facility] DEPT PATH AND LAB MEDICINE Albumin 4.4 3.5 - 5.0 G/DL 03/21/2023 1:20 AM CDT [facility] DEPT PATH AND LAB MEDICINE Alk Phosphatase 65 25 - 110 U/L 03/21/2023 1:20 AM CDT [facility] DEPT PATH AND LAB MEDICINE AST (SGOT) 16 7 - 40 U/L 03/21/2023 1:20 AM CDT [facility] DEPT PATH AND LAB MEDICINE CO2 23 21 - 30 MMOL/L 03/21/2023 1:20 AM CDT [facility] DEPT PATH AND LAB MEDICINE ALT (SGPT) 14 7 - 56 U/L 03/21/2023 1:20 AM CDT [facility] DEPT PATH AND LAB MEDICINE Anion Gap 9 3 - 12 03/21/2023 1:20 AM CDT [facility] DEPT PATH AND LAB MEDICINE eGFR >60 >60 mL/min 03/21/2023 1:20 AM CDT [facility] DEPT PATH AND LAB MEDICINE Comment:eGFR calculated glen mohamud the CKD-EPIcr_R equation BLOOD / Unknown 03/21/2023 1 2:08 AM CDT 03/21/2023 12:21 AM CDT Meet Cerda MD LABORATORY ORDERABLE S [facility] [address] [place] [address], * (ABNORMAL) CBC AND DIFF (03/21/2023 12:08 AM CDT) White Blood Cells 11.4(H) 4.5 - 11.0 K/UL 03/21/2023 12:39 AM CDT [facility] DEPT PATH AND LAB MEDICINE RBC 5.00 4.4 - 5.5 M/UL 03/21/2023 12:39 AM CDT [facility] DEPT PATH AND LAB MEDICINE Hemoglobin 15.2 13.5 - 16.5 GM/DL 03/21/2023 12:39 AM CDT [facility] DEPT PATH AND LAB MEDICINE Hematocrit 45.0 40 - 50 % 03/21/2023 12:39 AM CDT [facility] DEPT PATH AND LAB MEDICINE MCV 90.1 80 - 100 FL 03/21/2023 12:39 AM CDT [facility] DEPT PATH AND LAB MEDICINE MCH 30.3 26 - 34 PG 03/21/2023 12:39 AM CDT [facility] DEPT PATH AND LAB MEDICINE MCHC 33.7 32.0 - 36.0 G/DL 03/21/2023 12:39 AM CDT [facility] DEPT PATH AND LAB MEDICINE RDW 13.9 11 - 15 % 03/21/2023 12:39 AM CDT [facility] DEPT PATH AND LAB MEDICINE Platelet Count 247 150 - 400 K/UL 03/21/2023 12:39 AM CDT [facility] DEPT PATH AND LAB MEDICINE MPV 9.4 7 - 11 FL 03/21/2023 12:39 AM CDT [facility] DEPT PATH AND LAB MEDICINE Neutrophils 78(H) 41 - 77 % 03/21/2023 12:39 AM CDT [facility] DEPT PATH AND LAB MEDICINE Lymphocytes 14(L) 24 - 44 % 03/21/2023 12:39 AM CDT [facility] DEPT PATH AND LAB MEDICINE Monocytes 6 4 - 12 % 03/21/2023 12:39 AM CDT [facility] DEPT PATH AND LAB MEDICINE Eosinophils 1 0 - 5 % 03/21/2023 12:39 AM CDT [facility] DEPT PATH AND LAB MEDICINE Basophils 1 0 - 2 % 03/21/2023 12:39 AM CDT [facility] DEPT PATH AND LAB MEDICINE Absolute Neutrophil Count 8.89(H) 1.8 - 7.0 K/UL 03/21/2023 12:39 AM CDT [facility] DEPT PATH AND LAB MEDICINE Absolute Lymph Count 1.60 1.0 - 4.8 K/UL 03/21/2023 12:39 AM CDT [facility] DEPT PATH AND LAB MEDICINE Absolute Monocyte Count 0.65 0 - 0.80 K/UL 03/21/2023 12:39 AM CDT [facility] DEPT PATH AND LAB MEDICINE Absolute Eosinophil Count 0.14 0 - 0.45 K/UL 03/21/2023 12:39 AM CDT [facility] DEPT PATH AND LAB MEDICINE Absolute Basophil Count 0.10 0 - 0.20 K/UL 03/21/2023 12:39 AM CDT [facility] PATH AND LAB MEDICINE BLOOD / Unknown 03/21/2023 1 2:08 AM CDT 03/21/2023 12:21 AM CDT Meet Cerda MD LABORATORY ORDERABLE S Performing Organization Address [facility] Co de Phone Number [facility] PATH AND LAB MEDICINE [address] * HEMOGLOBIN A1C (03/21/2023 12:08 AM CDT) Hemoglobin A1C 5.6 4.0 - 5.7 % 03/21/2023 11:59 AM CDT [facility] PATH AND LAB MEDICINE Comment: The ADA recommends that most patients with type 1 and type 2 diabetes maintain an A1c level <7%. BLOOD / Unknown 03/21/2023 1 2:08 AM CDT 03/21/2023 12:21 AM CDT Meet Cerda MD LABORATORY ORDERABLE S Performing Organization Address [facility] de Phone Number [facility] PATH AND LAB MEDICINE [address] * TELEMETRY STRIPS-SCAN (03/21/2023 12:00 AM CDT) [...] provider. 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) Acute ischemic multifocal posterior circulation stroke, unspecified laterality (HCC) Primary hypertension Unspecified essential hypertension Current tobacco use Tobacco use disorder Dyslipidemia Other and unspecified hyperlipidemia Acute ischemic multifocal posterior circulation stroke (HCC) Unspecified cerebral artery occlusion with cerebral infarction Ataxia due to recent cerebrovascular accident Ataxia, late effect of cerebrovascular disease Hyponatremia Hyposmolality and/or hyponatremia Anticoagulated Long-term (current) use of anticoagulants Dysphagia due to recent stroke Dysphagia, late effect of cerebrovascular disease Dysarthria due to acute cerebrovascular accident (CVA) Impaired mobility and ADLs Mechanical problems with limbs Primary hypertension Unspecified essential hypertension Current tobacco use Tobacco use disorder Dyslipidemia Other and unspecified hyperlipidemia documented in this encounter Admitting Diagnoses Diagnosis Vertebral artery dissection (HCC) Dissection of vertebral artery documented in this encounter Administered Medications Inactive Administered Medications Medication Order MAR Action Action Date Dose Rate Site albuterol 0.083% (PROVENTIL) nebulizer solution 2.5 mg 2.5 mg, Inhalation, RT EVERY 4 HOURS PRN, Starting on Fri03/21/23 at 0030, Until Fri03/26/23 at 1533, Dyspnea, When administered by RT, will be per RT policy. apixaban (ELIQUIS) tablet 5 mg 5 mg, Oral, TWICE DAILY, First dose on 03/22/23 at 1400, Until Discontinued, If patient unable to swallow whole tablets, may crush 5mg or 2.5mg tablets and suspend in 60mL of water, D5W, or apple juice or mix with applesauce; administer immediately. For delivery through a nasogastric tube, crushed tablets maybe suspended in 60mL of water or D5W followed immediately by delivery. NOTE: This is a HIGH ALERT Medication. Given 03/26/2023 8:34 AM CDT 5 mg documented in this encounter Discontinued Medications Medication Sig Discontinue Reason Start Date End Da te aspirin EC (ASPIR-LOW) 81 mg tablet Take one tablet by mouth daily. 03/26/[address] (PRILOSEC) 20 mg capsule Take one capsule by mouth daily before breakfast. Reorder 03/26/2023 documented as of this encounter Historical Medications * This list may reflect changes made after this encounter. Medication Sig Dispensed Refills Start Date End Date atorvastatin (LIPITOR) 40 mg tablet Take one tablet by mouth daily. 0 carvediloL (COREG) 12.5 mg tablet Take one tablet by mouth twice daily with meals. Take with food. 0 lisinopriL (ZESTRIL) 10 mg tablet Take one tablet by mouth daily. [address] (PRILOSEC) 20 mg capsule Take one capsule by mouth daily before breakfast. 0 03/26/2023 aspirin EC (ASPIR-LOW) 81 mg tablet Take one tablet by mouth daily. 0 03/26/2023 added in this encounter Active and Recently Administered Medications Times are shown in CDT. Scheduled Medication Order 03/24/2023 03/25/2023 03/26/2023 apixaban (ELIQUIS) tablet 5 mg 5 mg, Oral, TWICE DAILY, First dose on Fri03/22/23 at 1400, Until Discontinued, If patient unable to swallow whole tablets, may crush 5mg or 2.5mg tablets and suspend in 60mL of water, D5W, or apple juice or mix with applesauce; administer immediately. For delivery through a nasogastric tube, crushed tablets maybe suspended in 60mL of water or D5W followed immediately by delivery. NOTE: This is a HIGH ALERT Medication. 0831 (Given - Provider: Dino Amaral RN)2124 (Given - Provider: Helena Simons, RN) 0820 (Given - Provider: Aleshia Ha RN)203 (Given - Provider: Juan J Steward RN) 0834 (Given - Provider: Aleshia Ha RN) atorvastatin (LIPITOR) tablet 40 mg 40 mg, Oral, DAILY, First dose on Fri03/21/23 at 0900, Until Discontinued, Admission/Obs/Extended Recovery 0831 (Given - Provider: Dino Amaral RN) 0820 (Given - Provider: Aleshia Ha RN) 0834 (Given - Provider: Aleshia Ha RN) carvediloL (COREG) tablet 12.5 mg 12.5 mg, Oral, TWICE DAILY WITH MEALS, First dose on 03/22/23 at 1700, Until Discontinued, Hold for heart rate < 55 bpm or systolic BP < 110, Admission/Obs/Extended Recovery 0831 (Given - Provider: Dino Amaral RN)1603 (Given - Provider: Sara Francisco RN) 0820 (Given - Provider: Aleshia Ha RN)1713 (Given - Provider: Aleshia Ha, QAMAR) 0834 (Given - Provider: Aleshia Ha RN) docusate (COLACE) capsule 100 mg 100 mg, Oral, TWICE DAILY, First dose on Fri03/21/23 at 0130, Until Discontinued, Hold for loose stools 0835 (Med Not Given - Provider: Dino Amaral RN - Reason: Patient Refused)212 (Med Not Given - Provider: Helena Simons RN - Reason: Patient Refused) 0821 (Med Not Given - Provider: Aleshia Ha RN - Reason: Patient Refused)2042 (Med Not Given - Provider: Juan J Steward RN - Reason: Patient Refused) 0835 (Med Not Given - Provider: Aleshia Ha RN - Reason: Patient Refused) lisinopriL (ZESTRIL) tablet 10 mg 10 mg, Oral, DAILY, First dose on Fri03/24/23 at 1345, Until Discontinued 1603 (Given - Provider: Sara Francisco RN) 0820 (Given - Provider: Aleshia Ha RN) 0834 (Given - Provider: Aleshia Ha RN) magnesium oxide (MAGOX) tablet 400 mg (COMPLETED) 400 mg, Oral, ONCE, 1 dose, On Fri03/26/23 at 0945, Delivers 241.3mg elemental magnesium per tab 1005 (Given - Provider: Aleshia Ha RN) milk of magnesium oral suspension 30 mL 30 mL, Oral, DAILY, First dose on Fri03/21/23 at 0900, Until Discontinued, May hold if BM within 24 hours of dose. 0835 (Med Not Given - Provider: Dino Amaral RN - Reason: Patient Refused) 0821 (Med Not Given - Provider: Aleshia Ha RN - Reason: Patient Refused) 0835 (Med Not Given - Provider: Aleshia Ha RN - Reason: Patient Refused) pantoprazole DR (PROTONIX) tablet 20 mg 20 mg, Oral, DAILY, First dose on Fri03/21/23 at 0700, Until Discontinued, Do not crush or chew tablet., Admission/Obs/Extended Recovery 2123 (Given - Provider: Helena Simons RN) 2038 (Given - Provider: Juan J Steward RN) scopolamine (TRANSDERM-SCOP) 1mg over 3 days patch 1 patch(Linked Group 1) 1 patch, Transdermal, Administer over 72 Hours, EVERY 72 HOURS, First dose on Fri03/21/23 at 0045, Until Discontinued, Each 1.5 mg patch is formulated to deliver in-vivo approximately 1 mg of scopolamine over 3 days. Apply to hairless area of skin behind the ear. 0007 (Med Not Given - Provider: Stacy Ross RN - Reason: Patient Refused)0008 (Patch/Topical Removed - Provider: Stacy Ross RN) sennosides-docusate sodium (SENOKOT-S) tablet 1 tablet 1 tablet, Oral, TWICE DAILY, First dose on Fri03/21/23 at 0130, Until Discontinued, Hold for loose stools. If patient unable to take tablet, give 10 mL of senna/docusate (SENOKOT-S) solution. Send [employer] message to pharmacy., If patient unable to take tablet, give 10 mL of senna/docusate (SENOKOT-S) solution. 0833 (Med Not Given - Provider: Dino Amaral RN - Reason: Patient Refused)2124 (Med Not Given - Provider: Helena Simons RN - Reason: Patient Refused) 08 (Med Not Given - Provider: Aleshia Ha RN - Reason: Patient Refused)2039 (Given - Provider: Juan J Steward RN) 0835 (Med Not Given - Provider: Aleshia Ha RN - Reason: Patient Refused) Verification of Patch Placement and Integrity - Scopolamine base 1 mg/3 days 1 patch(Linked Group 1) 1 patch, Transdermal, Administer over 12 Hours, TWICE DAILY, First dose on Fri03/21/23 at 1045, Until Discontinued, Patch checks are required every shift to ensure the patch is still intact and in place. Please verify patch check findings using this MAR entry. 0834 (Patch/Topical Verified - Provider: Dino Amaral RN)2124 (Patch/Topical Verified - Provider: Helena Simons RN) 08 (Patch/Topical Verified - Provider: Aleshia Ha RN - Comment: NOT PRESENT)2043 (Patch/Topical Verified - Provider: Juan J Steward RN - Comment: not present) 0835 (Planned Hold - Provider: Aleshia Ha RN - Comment: no patch present) PRN Medication Order 03/24/2023 03/25/2023 03/26/2023 albuterol 0.083% (PROVENTIL) nebulizer solution 2.5 mg 2.5 mg, Inhalation, RT EVERY 4 HOURS PRN, Starting on Fri03/21/23 at 0030, Until Fri03/26/23 at 1533, Dyspnea, When administered by RT, will be per RT policy. artificial tears (PF) single dose ophthalmic solution 1 drop 1 drop, Both Eyes, NEEDED, Starting on Fri03/21/23 at 0157, Until Fri03/26/23 at 1533, Dry Eyes diphenhydrAMINE HCL (BENADRYL) injection 12.5 mg 12.5 mg, Intravenous, EVERY 6 HOURS PRN, Starting on Fri03/21/23 at 0730, Until Fri03/26/23 at 1533, Other..., dizziness 2123 (Given - Provider: Helena Simons RN) 2038 (Given - Provider: Juan J Steward RN) ondansetron HCL (PF) (ZOFRAN (PF)) injection 4 mg 4 mg, Intravenous, EVERY 6 HOURS PRN, Starting on Fri03/21/23 at 0030, Until Fri03/26/23 at 1533, Nausea/Vomiting Injectable Linked Groups Order Group 1: scopolamine (TRANSDERM-SCOP) 1mg over 3 days patch 1 patchJump to med 1 patch, Transdermal, Administer over 72 Hours, EVERY 72 HOURS, First dose on Fri03/21/23 at 0045, Until Discontinued
Each 1.5 mg patch is formulated to deliver in-vivo approximately 1 mg of scopolamine over 3 days. Apply to hairless area of skin behind the ear.
And Verification of Patch Placement and Integrity - Scopolamine base 1 mg/3 days 1 patchJump to med 1 patch, Transdermal, Administer over 12 Hours, TWICE DAILY, First dose on Fri03/21/23 at 1045, Until Discontinued
Patch checks are required every shift to ensure the patch is still intact and in place. Please verify patch check findings using this MAR entry.
documented in this encounter Orders Medications Ordered That Lc ht Not Have Been Administered Count Last Ordered Date First Ordered Date albuterol 0.083% (PROVENTIL) nebulizer solution 2.5 mg 1 03/21/2023 aspirin chewable tablet 81 mg 1 03/21/2023 calcium gluconate 1 g/NS 100 mL infusion 1 03/21/2023 milk of magnesium oral suspension 30 mL 1 0 03/21/2023 ondansetron HCL (PF) (ZOFRAN (PF)) injection 4 mg 1 03/21/2023 potassium chloride in water IVPB 10 mEq 1 0 03/21/2023 potassium chloride oral solution 40-60 mEq 1 03/21/2023 Lab Orders Without Results Count Last Ordered D ate First Ordered Date CBC 2 03/21/2023 PROTIME INR (PT) 1 03/21/2023 Diet Count Last Ordered Date First Orde red Date DISCHARGE DIET CARDIAC 1 03/26/2023 Nursing Count Last Ordered Date First Orde red Date DISCHARGE ACTIVITY NORMAL 1 03/26/2023 DISCHARGE CONTACT 1 03/26/2023 DISCHARGE SIGNS/SYMPTOMS 1 03/26/2023 RISK REDUCTION PLAN 1 03/26/2023 STROKE EDUCATION 1 03/26/2023 Consult Count Last Ordered Date First Orde red Date CONSULT REHABILITATION MEDICINE PHYSICIAN 2 03/24/2023 03/21/2023 OT Count Last Ordered Date First Orde red Date OT CONSULT OCCUPATIONAL THERAPY 1 PT Count Last Ordered Date First Orde red Date PT CONSULT PHYSICAL THERAPY 1 03/21/2023 CLINICAL LABORATORY AIDE Count Last Ordered Date First Orde red Date CLINICAL LABORATORY AIDE CONSULT CLINICAL BEDSIDE SWALLOW EVAL & TX 1 03/21/2023 Admission Count Last Ordered Date First Orde red Date ADMIT TO INPATIENT (NO BED REQUEST) 1 03/21 Transfer Count Last Ordered Date First Orde red Date TRANSFER PATIENT (BED REQUEST) 1 03/22/2023 Discharge Count Last Ordered Date First Orde red Date DISCHARGE PATIENT NOW 1 03/26/2023 Equipment Count Last Ordered Date First Orde red Date COMPRESSION DEVICE, LEG 2 03/24/202302/22 PUMP IV CONTROL UNIT W/MODULES 1 03/20/2023 Vital Signs Count Last Ordered Date First Orde red Date VITAL SIGNS 2 03/21/2023 Activity Count Last Ordered Date First Orde red Date MOBILITY 1 03/21/2023 Smoking Cessation Count Last Ordered Date First Ordered Date CONSULT FOR SMOKING CESSATION EDUCATION 1 0 03/21/2023 Order Set Communication Count Last Ordered Date First Ordered Date ADD AGITATE SALINE BUBBLE STUDY TO ECHO 1 0 03/21/2023 PLATELET MONITORING PER UF PROTOCOL 1 02/22 VTE DRUG PROPHYLAXIS CONTRAINDICATED 1 02/22 VTE DRUG PROPHYLAXIS CONTRAI NDICATED- ADMIT 1 03/21/2023 Appointment Request Count Last Ordered Date Fir st Ordered Date APPOINTMENT REQUEST: NEUROLOGY 1 03/26/2023 Intake & Output Count Last Ordered Date First O rdered Date INTAKE AND OUTPUT 1 03/21/2023 Place & Maintain Count Last Ordered Date First Ordered Date PLACE AND MAINTAIN SCD 1 03/21/2023 ADT Patient Update Count Last Ordered Date Firs t Ordered Date CHANGE SERVICE / LEVEL OF CA RE (NO BED REQUEST) 1 03/22/2023 documented in this encounter Additional Health Concerns Assessment Noted Time A fall risk assessment has been complete d for the patient 03/26/2023 8:18 AM CDT documented as of this encounter Care Teams Textile Chemist Relationship Specialty Start Date End Date Taran Prajapati MD [id number] [id number] PCP - General Hospitalist 03/21/23 documented as of this encounter
[2023-03-26] MEDS: carvediloL 12.5 MG TABLET PO SCH (18:30)
[2023-03-26 20:36] VITALS: BP 139/67
[2023-03-26] MEDS: APIXABAN 5 MG TABLET PO SCH (20:39)
[2023-03-26] MEDS ORDERED: Sodium Phosphate/Sodium Biphosphate ADULT enema PR PRN (20:45)
[2023-03-26] MEDS ORDERED: BISACODYL 10 MG SUPPOSITORY PR PRN (20:45)
[2023-03-26] MEDS ORDERED: LACTULOSE SYRUP 10GM/15ML 30ML UDC PO PRN (20:45)
[2023-03-26] MEDS ORDERED: guaiFENesin/CODEINE 10ML UDC PO PRN (20:45)
[2023-03-26] MEDS ORDERED: CALCIUM CARBONATE 500 MG CHEW TABLET PO PRN (20:45)
[2023-03-26] MEDS ORDERED: ONDANSETRON 4 MG ORAL DISSOLVE TABLET PO PRN (20:45)
[2023-03-26] MEDS ORDERED: LOPERAMIDE 2 MG CAPSULE PO PRN (20:45)
[2023-03-26] MEDS ORDERED: ACETAMINOPHEN 325 MG TABLET PO PRN (20:45)
[2023-03-26] MEDS ORDERED: ALPRAZolam 0.25 MG TABLET PO PRN (20:45)
[2023-03-26] MEDS ORDERED: DOCUSATE SODIUM 100 MG CAPSULE PO PRN (20:45)
[2023-03-26] MEDS ORDERED: MELATONIN 3 MG TABLET PO PRN (20:45)
[2023-03-26] MEDS: DOCUSATE SODIUM 100 MG CAPSULE PO SCH (20:47)
[2023-03-26] MEDS: SENNA W/DOCUSATE TABLET PO SCH (20:48)
[2023-03-26] MEDS ORDERED: diphenhydrAMINE 25 MG TABLET PO ONE (20:50)
[2023-03-26] MEDS: diphenhydrAMINE 25 MG TABLET PO PRN (20:51)
[2023-03-27] MEDS: PANTOPRAZOLE 40 MG TABLET PO SCH (05:20)
[2023-03-27] MEDS ORDERED: OMEPRAZOLE 20 MG CAPSULE (NON-FORMULARY) PO SCH (06:00)
[2023-03-27 06:43] LABS: BASOPHILS % (AUTO) 1 % (0-10); EOSINOPHILS # (AUTO) 0.3 10^3/uL (0.0-0.3); EOSINOPHILS % (AUTO) 5 % (0-10); HEMATOCRIT 42 % (40-54); HEMOGLOBIN 14.3 g/dL (13.3-17.7); LYMPHOCYTES # (AUTO) 1.3 10^3/uL (1.0-4.0); LYMPHOCYTES % (AUTO) 22 % (12-44); MEAN CORPUSCULAR HEMOGLOBIN 30 pg (25-34); MEAN CORPUSCULAR HGB CONC 34 g/dL (32-36); MEAN CORPUSCULAR VOLUME 89 fL (80-99); MEAN PLATELET VOLUME 11.9 fL (9.0-12.2); MONOCYTES # (AUTO) 0.9 10^3/uL (0.0-1.0); MONOCYTES % (AUTO) 14 % (0-12); NEUTROPHILS # (AUTO) 3.7 10^3/uL (1.8-7.8); NEUTROPHILS % (AUTO) 59 % (42-75); PLATELET COUNT 186 10^3/uL (130-400); WHITE BLOOD COUNT 6.2 10^3/uL (4.3-11.0)
[2023-03-27 06:48] LABS: ALBUMIN 4.3 GM/DL (3.2-4.5); POTASSIUM 4.1 MMOL/L (3.6-5.0)
[2023-03-27 06:49] LABS: CALCIUM 9.5 MG/DL (8.5-10.1)
[2023-03-27 06:51] LABS: TOTAL PROTEIN 7.4 GM/DL (6.4-8.2)
[2023-03-27 06:53] LABS: BILIRUBIN,TOTAL 0.9 MG/DL (0.1-1.0)
[2023-03-27 06:54] LABS: CREATININE SERUM 0.7 MG/DL (0.60-1.30)
[2023-03-27] MEDS: carvediloL 12.5 MG TABLET PO SCH ×2 (07:49→18:53)
[2023-03-27] MEDS: SENNA W/DOCUSATE TABLET PO SCH ×2 (07:51→19:48)
[2023-03-27] MEDS: DOCUSATE SODIUM 100 MG CAPSULE PO SCH ×2 (07:51→19:47)
[2023-03-27 08:00] VITALS: BP 137/63
--- NOTE | 2023-03-27 08:08 | Physical Therapy Evaluation ---
PT Evaluation-General Medical Diagnosis Admission Date Mar 26, 2023 at 16:30 Medical Diagnosis: CVA Onset Date: Mar 20, 2023 Therapy Diagnosis Therapy Diagnosis: Weakness, Decreased functional mobility Height/Weight Height (Feet): 5 Height (Inches): 8 Weight (Pounds): 155 Precautions Precautions/Isolations: Fall Prevention, Standard Precautions Weight Bear Status Right Lower Extremity: Right Full Weight Bearing Left Lower Extremity: Left Full Weight Bearing Referral Physician: Marie Reason for Referral: Evaluation/Treatment Medical History Pertinent Medical History: GERD, HTN Additional Medical History Tobacco abuse, HTN, HLD, GERD, Loredo esophagus, TIA Current History blurry vision, ptosis, dizziness, and facial droop on 03/20/23; Admitted to on 03/21/23; Admitted to ARU 03/26/23 Reviewed History: Yes Social History Home: Single Level Current Living Status: Alone Entry Into Home: Stairs With Railing PT Steps Into Home: 3 PT Steps Inside Home: 0 Pt lives alone in a single level home with 3 steps to enter/exit with B HR; Walk-in shower as well as tub shower with SC, GBs, tall toilet Prior Prior Level of Function SCALE: Activities may be completed with or without assistive devices. 7-Nfgpllsiux-lnrkkix completes the activity by him/herself with no assistance from a helper. 5-Set-up or Clean-up Assistance-helper sets up or cleans up; patient completes activity. [place] assists only prior to or following the activity. 4-Supervision or Touching Assistance-helper provides verbal cues and/or touching/steadying and/or contact guard assistance as patient completes activity. Assistance may be provided throughout the activity or intermittently. 3-Partial/Moderate Assistance-helper does LESS THAN HALF the effort. [place] lifts, holds or supports trunk or limbs, but provides less than half the effort. 2-Substantial/Maximal Assistance-helper does MORE THAN HALF the effort. [place] lifts or holds trunk or limbs and provides more than half the effort. 8-Dgkbcvdae-hvrwto does ALL the effort. Patient does none of the effort to complete the activity. Or, the assistance of 2 or more helpers is required for the patient to complete the activity. If activity was not attempted, code reason: 7-Patient Refused. 9-Not Applicable-not attempted and the patient did not perform the activity before the current illness, exacerbation or injury. 10-Not Attempted due to Environmental Limitations-(lack of equipment, weather restraints, etc.). 88-Not Attempted due to Medical Conditions or Safety Concerns. Bed Mobility: 6 Transfers (B,C,W/C): 6 Gait: 6 Stairs: 6 Wheelchair Mobility: 9 Indoor Mobility (Ambulation): Independent Stairs: Independent Prior Devices Use: None At PLOF, pt was Ind with no AD and driving. PT Evaluation-Current Subjective Pt is agreeable to PT. No pain Pain Numeric Pain Scale: 0-No Pain Location: No Pain Reported Section J - Health Conditions 1. Rarely or not at all 2. Occasionally 3. Frequently 4. Almost constantly 8. Unable to answer Pain Effect on Sleep: 1 Pain Interference with Therapy: 1 Pain Interference w/Day-to-Day: 1 Pt/Family Goals Safely return home Objective Patient Orientation: Person, Place, Time, Situation ROM/Strength ROM Upper Extremities See OT eval ROM Lower Extremities WFL Strength Upper Extremities See OT eval Strength Lower Extremities R LE MMT = 4/5 grossly L LE MMT = 4-/5 grossly Integumentary/Posture Integumentary See nurses note Bowel Incontinence: No Bladder Incontinence: No Sensory Vision: Wears Glasses Hearing: Functional (Has hearing aides at home ) Hand Dominance: Right Sensation Right Upper Extremit: Intact Sensation Left Upper Extremity: Intact Sensation Right Lower Extremit: Intact Sensation Left Lower Extremity: Intact Transfers Roll Left & Right (QC): 4 (SBA ) Sit to Lying (QC): 4 (SBA ) Lying to Sitting/Side of Bed(Q: 4 (SBA ) Sit to Stand (QC): 4 (CGA ) Chair/Vrv-gw-Wyfpt Xfer(QC): 4 (CGA ) Toilet Transfer (QC): 4 (CGA ) Car Transfer (QC): 4 (CGA ) Gait Does the Patient Walk?: Yes Mode of Locomotion: Walk Anticipated Mode of Locomotion: Walk Walk 10 feet (QC): 4 (CGA ) Walk 50 ft with 2 Turns(QC): 4 (CGA ) Walk 150 ft (QC): 4 (CGA ) Walking 10ft/uneven surface-QC: 4 (CGA ) Gait Assistive Device: FWW Wheelchair Training Does the Pt Use a Wheelchair?: No Wheel 50 ft with 2 turns (QC): 9 Wheel 150 ft (QC): 9 Type of Wheelchair: N/A Stairs #of Steps: 12 1 Step (curb) (QC): 4 (CGA ) 4 Steps (QC): 4 (CGA ) 12 Steps (QC): 4 (CGA ) Walking Assistive Device: Walker Balance Sitting Static: Normal Sitting Dynamic: Good Standing Static: Fair Standing Dynamic: Fair Picking up an Object (QC): 4 (CGA ) Special Test Comments KU standing balance scale = 3+/5 (goal = 4+/5) Treatment PT eval completed. Pt completed bed mobility tasks with SBA. Pt completed functional transfers with CGA. Pt ambulated 200ft and 340ft with the FWW and CGA. Pt completed 12 steps with B HR and CGA. Pt edu on HEP, with handouts provided. Pt completed seated B LE Ther Ex x 15 reps each with the red Tband. Pt completed 15 min on the nu-step on level 2. After treatment session, pt was sitting EOB with call light in reach and all needs met. Assessment/Needs Pt tolerated PT well with good effort Rehab Potential: Good Post Rehab Potential-Barriers: Weakness, balance Equipment Needs FWW? PT Custodial Goals Custodial Goals PT Custodial Goals Time Frame: Apr 09, 2023 Roll Left to Right (QC): 6 (Pt will be Mod I with functional mobility, in order to safely return home alone. ) Sit to Lying (QC): 6 (Pt will be Mod I with functional mobility, in order to safely return home alone. ) Lying-Sitting on Side/Bed(QC): 6 (Pt will be Mod I with functional mobility, in order to safely return home alone. ) Sit to Stand (QC): 6 (Pt will be Mod I with functional mobility, in order to safely return home alone. ) Chair/Cnq-wu-Rdtdg Xfer(QC): 6 (Pt will be Mod I with functional mobility, in order to safely return home alone. ) Toilet/Commode Transfer (QC): 6 (Pt will be Mod I with functional mobility, in order to safely return home alone. ) Car Transfer (QC): 6 (Pt will be Mod I with functional mobility, in order to safely return home alone. ) Does the Patient Walk: Yes Walk 10 feet (QC): 6 (Pt will be Mod I with functional mobility, in order to safely return home alone. ) Walk 10ft-Uneven Surface(QC): 6 (Pt will be Mod I with functional mobility, in order to safely return home alone. ) Walk 50ft with 2 Turns (QC): 6 (Pt will be Mod I with functional mobility, in order to safely return home alone. ) Walk 150 ft (QC): 6 (Pt will be Mod I with functional mobility, in order to safely return home alone. ) Does the Pt use WC or Scooter?: No Wheel 50 feet with 2 turns (QC: 9 Type: N/A Wheel 150 feet: 9 Type: N/A 1 Step (curb) (QC): 6 (Pt will be Mod I with functional mobility, in order to safely return home alone. ) 4 Steps (QC): 6 (Pt will be Mod I with functional mobility, in order to safely return home alone. ) 12 Steps (QC): 6 (Pt will be Mod I with functional mobility, in order to safely return home alone. ) Picking up an Object (QC): 6 (Pt will be Mod I with functional mobility, in order to safely return home alone. ) KU standing balance goal = 4+/5 PT Plan Problem List Problem List: Activity Tolerance, Functional Strength, Safety, Balance, Gait, Transfer, Bed Mobility, ROM Treatment/Plan Treatment Plan: Continue Plan of Care Treatment Plan: Bed Mobility, Education, Functional Activity Rebecca, Functional Strength, Group Therapy, Gait, Safety, Therapeutic Exercise, Transfers Treatment Duration: Apr 09, 2023 Frequency: At least 5 of 7 days/Wk (IRF) Estimated Hrs Per Day: 1.5 hours per day Patient and/or Family Agrees t: Yes Safety Risks/Education Patient Education: Gait Training, Transfer Techniques, Steps, Correct Positioning, Safety Issues Teaching Recipient: Patient Teaching Methods: Demonstration, Discussion Response to Teaching: Verbalize Understanding, Return Demonstration, Reinforcement Needed Discharge Recommendations Therapy Discharge Recommendati: Home & Family, Post Acute PT Equpiment Recommendations-D/C: Front Wheeled Walker Discharge Status/Home Program Cont per POC Barriers to Progress Weakness, balance Target Placement Home Time Time In: 800 Time Out: 930 DATE: Mar 27, 2023 Total Billed Treatment Time: 90 Total Billed Treatment 90 min 1 visit EVM EX x 1 GT x 2 FA x 2 FELIPA DEAN PT Mar 27, 2023 08:08
[2023-03-27] MEDS: APIXABAN 5 MG TABLET PO SCH ×2 (08:18→20:34)
--- NOTE | 2023-03-27 08:51 | Occupational Therapy Eval ---
OT Evaluation-General/PLF Medical Diagnosis Admission Date Mar 26, 2023 at 16:30 Medical Diagnosis: CVA Onset Date: Mar 20, 2023 Therapy Diagnosis Therapy Diagnosis: Decreased LUE strength, decreased ADL independence and functional mobility Height/Weight Height (Feet): 5 Height (Inches): 8 Weight (Pounds): 155 Precautions Precautions/Isolations: Fall Prevention, Standard Precautions Safety Interventions: None Weight Bear Status Weight Bearing Restriction: Full Weight Bearing Referral Physician: Marie Medical History Pertinent Medical History: GERD, HTN Reviewed History: Yes Social History Home: Single Level Current Living Status: Alone (Sister and niece live nearby ) Entry Into Home: Stairs With Railing (3 steps with bilateral HR) Steps Into Home: 3 Steps Inside Home: 0 Has ADA bathroom ADL-Prior Level of Function SCALE: Activities may be completed with or without assistive devices. 5-Dedodfkiba-fzwbrel completes the activity by him/herself with no assistance from a helper. 5-Set-up or Clean-up Assistance-helper sets up or cleans up; patient completes activity. [place] assists only prior to or following the activity. 4-Supervision or Touching Assistance-helper provides verbal cues and/or touching/steadying and/or contact guard assistance as patient completes activity. Assistance may be provided throughout the activity or intermittently. 3-Partial/Moderate Assistance-helper does LESS THAN HALF the effort. [place] lifts, holds or supports trunk or limbs, but provides less than half the effort. 2-Substantial/Maximal Assistance-helper does MORE THAN HALF the effort. [place] lifts or holds trunk or limbs and provides more than half the effort. 0-Txgrsfgru-yupwyx does ALL the effort. Patient does none of the effort to complete the activity. Or, the assistance of 2 or more helpers is required for the patient to complete the activity. If activity was not attempted, code reason: 7-Patient Refused. 9-Not Applicable-not attempted and the patient did not perform the activity before the current illness, exacerbation or injury. 10-Not Attempted due to Environmental Limitations-(lack of equipment, weather restraints, etc.). 88-Not Attempted due to Medical Conditions or Safety Concerns. Self Care: Independent Functional Cognition: Independent DME/Equipment: Bath Chair, Grab Bars, Shower, Shower Hose Security Guards Dispatcher, Tall Toilet, Tub/Shower Pt not using AD or any AE prior to hospitalization. Occupation: retired Drive Self: Yes Leisure Interests: hunting and fishing OT Current Status Subjective Pt received lying supine in bed and is agree able to therapy. Mental Status/Objective Patient Orientation: Person, Place, Time, Situation Current Glasses/Contacts: Yes Hearing Aids: Yes Dentures/Partials: No Hand Dominance: Right Upper Extremity ROM Bilateral shoulder, elbow wrist and hands WFL Upper Extremity Coordination LUE mild incoordination RUE WFL Upper Extremity Sensation Bilaterally WFL Upper Extremity Strength LUE: Shoulder: 4+/5 Elbow: 4/5 Milk Bottler: 4/5 RUE: Shoulder: 5/5 Elbow: 5/5 Milk Bottler: 5/5 All vision assessments WFL ADL-Treatment Eating (QC): 6 Oral Hygiene (QC): 4 (Standing at sink ) Shower/Bathe Self (QC): 5 (Pt requiring setup to complete shower utilizing shower chair) Upper Body Dressing (QC): 5 Lower Body Dressing (QC): 4 On/Off Footwear (QC): 6 Toileting Hygiene (QC): 6 Other Treatments Pt completed 2x10 strengthening exercises with green theraband and green theraputty for shoulder flexion/abduction, bicep curls, wrist curls and chocolate maker s trengthening. Pt completed dexterity and coordination activities in sitting with emphasis on use of LUE. Completed functional mobility with use of FWW and supervision, requiring min cues for navigation and safety (bumping into things infrequently on the L side). Education OT Patient Education: Correct positioning, Energy conservation, Exercise prog myra, Modified ADL techniques, Progress toward Goal/Update tx plan, Purpose of tx/functional activities, Rehab process, Safety issues, Transfer techniques, Use of adapted equipment Teaching Recipient: Patient Teaching Methods: Demonstration, Discussion Response to Teaching: Verbalize Understanding, Return Demonstration BIMS CAM BIMS Expression of Ideas and Wants: Without Difficulty Understanding Verbal Content: Understands Brief Interview/Mental Status: Yes IRF CECELIA BIMS: IRF CECELIA BIMS Response (Comments) Value Repitition of Three Words Three 3 Recalls Socks Yes, No Cue Required 2 Recalls Blue Yes, No Cue Required 2 Recalls Bed Yes, No Cue Required 2 Year Correct 3 Month Accurate Within 5 Days 2 Day Correct 1 Total 15 Patient Normally Able to Recal: Current Session, Location of own room, Staff Names and faces, That he/she in a hsp Should Staff Asses. Mental St.: No Memory/Recall Ability: Current Season, Location of Own Room, Staff Names and Faces, That He/She in Hospitall CAM Mental Status Change/Baseline: 0 Inattention: 0 Disorganized thinkin Altered level of consciousness: 0 OT Short Term Goals Short Term Goals Time Frame: Apr 04, 2023 Eatin Oral hygiene: 5 Toileting hygiene: 6 Shower/bathe self: 6 Upper body dressin Lower body dressin Putting on/taking off footwear: 6 OT Caster Helper Goals Caster Helper Goals Time Frame: Apr 11, 2023 Acute change in mental status: 0 Inattention: 0 Disorganized thinkin Altered level of consciousness: 0 Eating (QC): 6 Oral Hygiene (QC): 6 Toileting Hygiene (QC): 6 Shower/Bathe Self (QC): 6 Upper Body Dressing (QC): 6 Lower Body Dressing (QC): 6 On/Off Footwear (QC): 6 1=Demonstrate adherence to instructed precautions during ADL tasks. 2=Patient will verbalize/demonstrate understanding of assistive devices/modifications for ADL. 3=Patient will improve strength/tolerance for activity to enable patient to perform ADL's. OT Education/Plan Problem List/Assessment Assessment: Decreased Activ Tolerance, Decreased Safety Aware, Decreased UE Strength, Impaired Coordination, Impaired Funct Balance, Impaired I ADL's, Impaired Self-Care Skills Discharge Recommendations Plan/Recommendations: Continue POC Patient/Family Goals To return home as independently as possible Treatment Plan/Plan of Care Treatment,Training & Education: Yes Patient would benefit from OT for education, treatment and training to promote independence in ADL's, mobility, safety and/or upper extremity function for ADL's. Plan of Care: ADL Retraining, Concurrent Therapy, Functional Mobility, Group Exercise/Act as Ind, UE Funct Exercise/Act, UE Neuromus Re-Ed/Coord Treatment Duration: Apr 11, 2023 Frequency: At least 5 of 7 days/Wk (IRF) Estimated Hrs Per Day: 1.5 hours per day Agreement: Yes Rehab Potential: Good Time Start Time: 10:00 Stop Time: 11:30 DATE: Mar 27, 2023 Total Time Billed (hr/min): 90 Billed Treatment Time 1, EVL, ADL 3, FA 1, EX 1 Mikayla Sandoval OTR/L Mar 27, 2023 08:51
--- NOTE | 2023-03-27 09:52 | PM&R Progress Note ---
Subjective HPI/CC On Admission Date Seen by Provider: Mar 27, 2023 Time Seen by Provider: 10:00 Subjective/Events-last exam 03/27/2023: No major issues Improved overall No pain reported Left leg improved ambulation Review of Systems General: Fatigue, Malaise Neurological: Incoordination Objective Exam Vital Signs Vital Signs Date Time Temp Pulse Resp B/P (MAP) Pulse Ox O2 Delivery O2 Flow Rate FiO2 03/27/23 19:34 36.8 54 16 134/68 (90) 97 Room Air Capillary Refill : General Appearance: No Apparent Distress, WD/WN, Chronically ill, Thin HEENT: PERRL/EOMI, Normal ENT Inspection, Pharynx Normal Neck: Full Range of Motion, Normal Inspection, Non Tender, Supple, Carotid Bruit Respiratory: Chest Non Tender, Lungs Clear, Normal Breath Sounds, No Accessory Muscle Use, No Respiratory Distress Cardiovascular: Regular Rate, Rhythm, No Edema, No Gallop, No JVD, No Murmur, Normal Peripheral Pulses Gastrointestinal: Normal Bowel Sounds, No Organomegaly, No Pulsatile Mass, Non Tender, Soft Back: Normal Inspection, No CVA Tenderness, No Vertebral Tenderness Extremity: Normal Capillary Refill, Normal Inspection, Normal Range of Motion, Non Tender, No Calf Tenderness, No Pedal Edema Neurologic/Psychiatric: Alert, Oriented x3, Normal Mood/Affect, library paraprofessional II-XII Norm as Tested, Abnormal Gait, Motor Weakness (LUE 4/5) Skin: Normal Color, Warm/Dry Lymphatic: No Adenopathy Results/Procedures Lab Laboratory Tests 03/27/23 06:23 Patient resulted labs reviewed. FIM Transfers Therapy Code Descriptions/Definitions Functional [place] Measure: 0=Not Assessed/NA 4=Minimal Assistance 1=Total Assistance 5=Supervision or Setup 2=Maximal Assistance 6=Modified [place] 3=Moderate Assistance 7=Complete IndependenceSCALE: Activities may be completed with or without assistive devices. 7-Rztgafwuwg-hydzeap completes the activity by him/herself with no assistance from a helper. 5-Set-up or Clean-up Assistance-helper sets up or cleans up; patient completes activity. [place] assists only prior to or following the activity. 4-Supervision or Touching Assistance-helper provides verbal cues and/or touching/steadying and/or contact guard assistance as patient completes activity. Assistance may be provided throughout the activity or intermittently. 3-Partial/Moderate Assistance-helper does LESS THAN HALF the effort. [place] lifts, holds or supports trunk or limbs, but provides less than half the effort. 2-Substantial/Maximal Assistance-helper does MORE THAN HALF the effort. [place] lifts or holds trunk or limbs and provides more than half the effort. 0-Bbugtwtcn-ylspqp does ALL the effort. Patient does none of the effort to complete the activity. Or, the assistance of 2 or more helpers is required for the patient to complete the activity. If activity was not attempted, code reason: 7-Patient Refused. 9-Not Applicable-not attempted and the patient did not perform the activity before the current illness, exacerbation or injury. 10-Not Attempted due to Environmental Limitations-(lack of equipment, weather restraints, etc.). 88-Not Attempted due to Medical Conditions or Safety Concerns. Roll Left to Right (QC): 4 (SBA ) Sit to Lying (QC): 4 (SBA ) Sit to Stand (QC): 4 (CGA ) Chair/Lef-jl-Felmn Xfer(QC): 4 (CGA ) Car Transfer (QC): 4 (CGA ) Gait Training Does the Patient Walk?: Yes Walk 10 feet (QC): 4 (CGA ) Walk 50 ft with 2 Turns(QC): 4 (CGA ) Walk 150 ft (QC): 4 (CGA ) Walking 10ft/uneven surface-QC: 4 (CGA ) Gait Assistive Device: FWW Wheelchair Training Does the Pt Use a Wheelchair?: No Wheel 50 ft with 2 turns (QC): 9 Wheel 150 ft (QC): 9 Type of Wheelchair: N/A Stair Training #of Steps: 12 1 Step (curb) (QC): 4 (CGA ) 4 Steps (QC): 4 (CGA ) 12 Steps (QC): 4 (CGA ) Balance Picking up an Object (QC): 4 (CGA ) Assessment/Plan Assessment and Plan Assess & Plan/Chief Complaint Assessment: Bilateral cerebellar strokes suspected embolic event maintained on OAC HTN HLP Smoker Loredo's esophagus Plan: Monitor closely Fall risk Home meds Aggressive therapy 03/27/2023: Aggressive therapy OAC (1) Cerebellar stroke DIA MOORE DO Mar 27, 2023 09:52
--- NOTE | 2023-03-27 09:56 | ST Cognitive Linguistic Eval ---
Speech Evaluation-General Medical Diagnosis CVA Onset Date: Mar 20, 2023 Therapy Diagnosis Therapy Diagnosis: CVA Precautions Precautions/Isolations: Standard Precautions Referral Referring Physician: Dr. Salazar Reason for Referral: Consult Medical History Pertinent Medical History: CVA, GERD, HTN Loredo's esophagus, h/o TIA Current History Bilateral cerebellar CVA, ataxia Reviewed History: Yes Social History Current Living Status: Alone (Sister and niece live nearby ) Speech PLF-Current Status Prior Level of Function Fully indpendent, enjoys hunting and fishing Subjective Pt was alert and appropriate throughout session, no c/o speech or swallow deficits Language Eval: Auditory Comprehends Simple Yes/No Ques: Functional Follows Complex Directions: Functional Follows General Conversations: Functional Language Eval: Verbal Language Completes Spontaneous Greeting: Functional Word Finding: Functional Requests Basic Needs: Functional States Basic Personal Info: Functional Expresses Complex Ideas: Functional Objective Formal/Standardized Tests MMSE Results 30/30 on the MMSE. The pt was fully oriented, 3/3 registration, 3/3 recall, intact serial 7's. Clock drawing also completed with good accuracy. Oral Motor/Speech Production Speech was clear and precise. Oral motor function was normal, with normal ROM and coordination, fully symmetrical facial and lingual movement. Swallow was screened with soft solid and thin liquid trial, no concerns noted. Impression Intact cognitive, language, and swallow functions Speech-Plan Treatment Plan Speech Therapy Treatment Plan: Discontinue ST Frequency: Modified Program (IRF) (no treatment) Estimated Hrs Per Day: Other (no treatment) Rehab Potential: Good Pt/Family Agrees to Plan: Yes Time Speech Therapy Time In: 09:30 Speech Therapy Time Out: 09:50 DATE: Mar 27, 2023 Total Billed Time: 20 Billed Treatment Time 1 SPSANALY (20 min) TAZ FITCH Mar 27, 2023 09:56
--- NOTE | 2023-03-27 10:16 | Individualized Plan of Care ---
Individualized Plan of Care Rehab Nursing IPOC Order Admission Date Mar 26, 2023 at 16:30 Current Orders Orders Admission Arrival Bed Request (03/26/23 16:30) Code/Resuscitation (03/26/23 16:37) Apixaban Tablet (Apixaban Tablet) (03/26/23 21:00) Atorvastatin Tablet (Atorvastatin Tablet (03/27/23 09:00) Carvedilol Tablet (Carvedilol Tablet) (03/26/23 18:00) Lisinopril Tablet (Lisinopril Tablet) (03/27/23 09:00) Omeprazole (Non-Formulary) (Omeprazole ( (03/27/23 06:00) Pantoprazole Tablet (Pantoprazole Tablet (03/27/23 06:00) General/Regular (03/26/23 Dinner) Admission Order(Inpt,Obs,Sdc) (03/26/23 20:42) Vital Signs: Per Unit Policy ( ,16,00 (03/26/23 20:42) Bret Davies (03/26/23 20:42) Sequential Compression Device [id number] (03/26/23 20:42) Stockbroking Dealer-Inpt Rehab Con (03/26/23 20:42) Rehab Nursing Orders-Ipoc (03/26/23 20:42) Physical Therapy Rehab Orders (03/26/23 20:42) Occupational Therapy Rehab Ord (03/26/23 20:42) Speech Therapy Rehab Orders (03/26/23 20:42) Cbc And Automated Diff (03/27/23 06:00) Comprehensive Metabolic Panel (03/27/23 06:00) Precautions (Aru) (03/26/23 20:42) Weekly Weight WEEK (03/26/23 20:42) Rehab-Intensity Of Therapy (03/26/23 20:42) Initiate Admission Nursing Pro .admission (03/26/23 20:42) Alprazolam Tablet (Alprazolam Tablet) (03/26/23 20:45) Calcium Carbonate Chew Tablet (Calcium C (03/26/23 20:45) Diphenhydramine Tablet (Diphenhydramine (03/26/23 20:45) Docusate Sodium Capsule (Docusate Sodium (03/26/23 21:00) Docusate Sodium Capsule (Docusate Sodium (03/26/23 20:45) Bisacodyl Suppository (Bisacodyl Supposi (03/26/23 20:45) Lactulose Oral Solution (Enulose Oral So (03/26/23 20:45) Na Phos/Na Biphos Adult Enema (Na Phos/N (03/26/23 20:45) Guaifenesin/Codeine Syrup (Guaifenesin/C (03/26/23 20:45) Loperamide Capsule (Loperamide Capsule) (03/26/23 20:45) Melatonin Tablet (Melatonin Tablet) (03/26/23 20:45) Polyethylene Glycol Powder (Polyethylen (03/26/23 21:00) Ondansetron Oral Dissolve Tab (Ondanset (03/26/23 20:45) Senna W/Docusate Tablet (Senna W/Docusat (03/26/23 21:00) Acetaminophen Tablet (Acetaminophen Ta (03/26/23 20:45) Initiate Admission Nursing Pro .admission (03/26/23 20:42) Code/Resuscitation (03/26/23 20:42) Diphenhydramine Tablet (Diphenhydramine (03/26/23 20:50) Patient Visit (03/27/23 ) Speech Sound Lang Comp (03/27/23 ) Patient Visit (03/27/23 ) Pt Eval Moderate Complexity (03/27/23 ) Exercise Therap, Ea 15 Min (03/27/23 ) Gait Training, Ea 15 Min (03/27/23 ) Functional Activities, Ea 15 (03/27/23 ) Artifical Tears Ophth Solution (Artifica (03/27/23 20:30) Loratadine Tablet (Loratadine Tablet) (03/27/23 20:30) Loratadine Tablet (Loratadine Tablet) (03/28/23 09:00) Patient Visit (03/28/23 ) Exercise Therap, Ea 15 Min (03/28/23 ) Ex Neuromuscular, Ea 15 Min (03/28/23 ) Functional Activities, Ea 15 (03/28/23 ) Gait Training, Ea 15 Min (03/28/23 ) Rehab Nursing Orders: Ongoing Assess. of Cognitive Status, Ongoing Assess. of Function Status, Bladder Management, Bladder Scan, Bladder Training, Bowel Management, Bowel Training, Disease Management & Educaiton, DVT Prophylaxis, Fall Prevention, Fluid/Electrolyte/Nutrition Mgmt, Infection Prevention, Medication Management & Education, Management of Risks & Complications, Management of Skin Intergrity, Nutrition Management, Pain Management, Patient/Family Support, Safety Management, Swallow Precautions Intensity of Therapy to be met Patient to be seen: Min.3h per day/5 of 7d PT IPOC Problem List: Activity Tolerance, Functional Strength, Safety, Balance, Gait, Transfer, Bed Mobility, ROM Treatment Plan: Continue Plan of Care Bed Mobility, Education, Functional Activity Rebecca, Functional Strength, Group Therapy, Gait, Safety, Therapeutic Exercise, Transfers Treatment Duration: Apr 09, 2023 Frequency: At least 5 of 7 days/Wk (IRF) Estimated Hrs Per Day: 1.5 hours per day OT IPOC Problems: Decreased Activ Tolerance, Decreased Safety Aware, Decreased UE Strength, Dependent Transfers OT Treatment, Training and Edu: Yes Plan of Care: ADL Retraining, Concurrent Therapy, Functional Mobility, Group Exercise/Act as Ind, UE Funct Exercise/Act, UE Neuromus Re-Ed/Coord Treatment Duration: Mar 27, 2023 Frequency: At least 5 of 7 days/Wk (IRF) Estimated Hrs Per Day: [address] IPOC Speech Therapy Treatment Plan: Discontinue ST Treatment Duration: Mar 27, 2023 Frequency: Modified Program (IRF) (no treatment) Estimated Hrs Per Day: Other (no treatment) Stockbroking Dealer/Case Mgmt Stockbroking Dealer/Case Managemen: Discharge Planning Dietitian/Plastics Factory Worker Dietitian/Plastics Factory Worker to monitor nutritional status and make changes and/or recommendations as needed and work with speech pathology on dietary upgrades as the occur. Physician IPOC Medical Issues being managed closely and that require the 24 hour availability of a physician: Recent CVA with bilateral involvement maintain on oral anticoagulation need close monitoring for any decompensation Medical Issues: Bowel/Bladder Function, DVT Prophylaxis, Falls Precautions, Fluid/Electrolyte/Nutrition Balance, Infection Protection, Pain Management Brief Synthesis of Preadmission Screen, Post-Admission Evaluation, and Therapy Evaluations: PT and OT will focus on regaining function with use of assistive devices in order to decrease falls and likely will require AFO Medical Prognosis: Good Anticipated Length of Stay: 7 days DIA MOORE DO Mar 27, 2023 10:16
[2023-03-27 18:50] VITALS: BP 166/74
[2023-03-27 19:34] VITALS: BP 134/68
[2023-03-27] MEDS ORDERED: ARTIFICIAL TEARS Ophth solution 0.4 ML UNIT DOSE OU PRN (20:30)
[2023-03-27] MEDS ORDERED: LORATADINE 10 MG TABLET PO ONE (20:30)
[2023-03-27] MEDS: diphenhydrAMINE 25 MG TABLET PO PRN (20:41)
--- NOTE | 2023-03-28 05:12 | PM&R Progress Note ---
Subjective HPI/CC On Admission Date Seen by Provider: Mar 28, 2023 Time Seen by Provider: 12:00 Subjective/Events-last exam 03/28/2023: Patient doing really well Participation is good PT and OT aggressive therapy No falls 03/27/2023: No major issues Improved overall No pain reported Left leg improved ambulation Review of Systems General: Fatigue, Malaise Objective Exam Vital Signs Vital Signs Date Time Temp Pulse Resp B/P (MAP) Pulse Ox O2 Delivery O2 Flow Rate FiO2 03/28/23 20:53 36.6 62 20 145/78 (100) 96 Room Air Capillary Refill : General Appearance: No Apparent Distress, WD/WN, Chronically ill, Thin HEENT: PERRL/EOMI, Normal ENT Inspection, Pharynx Normal Neck: Full Range of Motion, Normal Inspection, Non Tender, Supple, Carotid Bruit Respiratory: Chest Non Tender, Lungs Clear, Normal Breath Sounds, No Accessory Muscle Use, No Respiratory Distress Cardiovascular: Regular Rate, Rhythm, No Edema, No Gallop, No JVD, No Murmur, Normal Peripheral Pulses Gastrointestinal: Normal Bowel Sounds, No Organomegaly, No Pulsatile Mass, Non Tender, Soft Back: Normal Inspection, No CVA Tenderness, No Vertebral Tenderness Extremity: Normal Capillary Refill, Normal Inspection, Normal Range of Motion, Non Tender, No Calf Tenderness, No Pedal Edema Neurologic/Psychiatric: Alert, Oriented x3, Normal Mood/Affect, business technology architect II-XII Norm as Tested, Abnormal Gait, Motor Weakness (LUE 4/5) Skin: Normal Color, Warm/Dry Lymphatic: No Adenopathy Results/Procedures Lab Patient resulted labs reviewed. FIM Transfers Therapy Code Descriptions/Definitions Functional [place] Measure: 0=Not Assessed/NA 4=Minimal Assistance 1=Total Assistance 5=Supervision or Setup 2=Maximal Assistance 6=Modified [place] 3=Moderate Assistance 7=Complete IndependenceSCALE: Activities may be completed with or without assistive devices. 5-Zxidikzqrq-hljrydk completes the activity by him/herself with no assistance from a helper. 5-Set-up or Clean-up Assistance-helper sets up or cleans up; patient completes activity. [place] assists only prior to or following the activity. 4-Supervision or Touching Assistance-helper provides verbal cues and/or touching/steadying and/or contact guard assistance as patient completes activity. Assistance may be provided throughout the activity or intermittently. 3-Partial/Moderate Assistance-helper does LESS THAN HALF the effort. [place] lifts, holds or supports trunk or limbs, but provides less than half the effort. 2-Substantial/Maximal Assistance-helper does MORE THAN HALF the effort. [place] lifts or holds trunk or limbs and provides more than half the effort. 8-Qugogkfom-bhilif does ALL the effort. Patient does none of the effort to complete the activity. Or, the assistance of 2 or more helpers is required for the patient to complete the activity. If activity was not attempted, code reason: 7-Patient Refused. 9-Not Applicable-not attempted and the patient did not perform the activity before the current illness, exacerbation or injury. 10-Not Attempted due to Environmental Limitations-(lack of equipment, weather restraints, etc.). 88-Not Attempted due to Medical Conditions or Safety Concerns. Roll Left to Right (QC): 4 (SBA ) Sit to Lying (QC): 4 (SBA ) Sit to Stand (QC): 4 (CGA ) Chair/Qkh-zm-Swxzf Xfer(QC): 4 (CGA ) Car Transfer (QC): 4 (CGA ) Gait Training Does the Patient Walk?: Yes Walk 10 feet (QC): 4 (CGA ) Walk 50 ft with 2 Turns(QC): 4 (CGA ) Walk 150 ft (QC): 4 (CGA ) Walking 10ft/uneven surface-QC: 4 (CGA ) Gait Assistive Device: FWW Wheelchair Training Does the Pt Use a Wheelchair?: No Wheel 50 ft with 2 turns (QC): 9 Wheel 150 ft (QC): 9 Type of Wheelchair: N/A Stair Training #of Steps: 12 1 Step (curb) (QC): 4 (CGA ) 4 Steps (QC): 4 (CGA ) 12 Steps (QC): 4 (CGA ) Balance Picking up an Object (QC): 4 (CGA ) ADL-Treatment Eating (QC): 6 Oral Hygiene (QC): 4 (Standing at sink ) Shower/Bathe Self (QC): 5 (Pt requiring setup to complete shower utilizing shower chair) Upper Body Dressing (QC): 5 Lower Body Dressing (QC): 4 On/Off Footwear (QC): 6 Toileting Hygiene (QC): 6 Assessment/Plan Assessment and Plan Assess & Plan/Chief Complaint Assessment: Bilateral cerebellar strokes suspected embolic event maintained on OAC HTN HLP Smoker Loredo's esophagus Plan: Monitor closely Fall risk Home meds Aggressive therapy 03/27/2023: Aggressive therapy OAC 03/28/2023: Supportive care Monitor closely (1) Cerebellar stroke DIA MOORE DO Mar 28, 2023 05:12
[2023-03-28] MEDS: PANTOPRAZOLE 40 MG TABLET PO SCH (05:28)
[2023-03-28 08:00] VITALS: BP 136/65
[2023-03-28] MEDS: LORATADINE 10 MG TABLET PO SCH (08:13)
[2023-03-28] MEDS: carvediloL 12.5 MG TABLET PO SCH ×2 (08:13→16:56)
[2023-03-28] MEDS: SENNA W/DOCUSATE TABLET PO SCH ×2 (08:14→21:15)
[2023-03-28] MEDS: DOCUSATE SODIUM 100 MG CAPSULE PO SCH ×2 (08:14→21:15)
[2023-03-28] MEDS: APIXABAN 5 MG TABLET PO SCH ×2 (08:16→21:15)
--- NOTE | 2023-03-28 08:34 | Physical Therapy Daily Note ---
PT Daily Note-Current Subjective Pt reports he is doing well and is agreeable to PT. No pain Pain Numeric Pain Scale: 0-No Pain Location: No Pain Reported Section J - Health Conditions 1. Rarely or not at all 2. Occasionally 3. Frequently 4. Almost constantly 8. Unable to answer Pain Effect on Sleep: 1 Pain Interference with Therapy: 1 Pain Interference w/Day-to-Day: 1 Transfers SCALE: Activities may be completed with or without assistive devices. 3-Nelbetrpna-okvbpcx completes the activity by him/herself with no assistance from a helper. 5-Set-up or Clean-up Assistance-helper sets up or cleans up; patient completes activity. [place] assists only prior to or following the activity. 4-Supervision or Touching Assistance-helper provides verbal cues and/or touching/steadying and/or contact guard assistance as patient completes activity. Assistance may be provided throughout the activity or intermittently. 3-Partial/Moderate Assistance-helper does LESS THAN HALF the effort. [place] lifts, holds or supports trunk or limbs, but provides less than half the effort. 2-Substantial/Maximal Assistance-helper does MORE THAN HALF the effort. [place] lifts or holds trunk or limbs and provides more than half the effort. 8-Aniygwuzg-ifevwy does ALL the effort. Patient does none of the effort to complete the activity. Or, the assistance of 2 or more helpers is required for the patient to complete the activity. If activity was not attempted, code reason: 7-Patient Refused. 9-Not Applicable-not attempted and the patient did not perform the activity before the current illness, exacerbation or injury. 10-Not Attempted due to Environmental Limitations-(lack of equipment, weather restraints, etc.). 88-Not Attempted due to Medical Conditions or Safety Concerns. Lying to Sitting/Side of Bed(Q: 4 Sit to Stand (QC): 4 Weight Bearing Right Lower Extremity: Right Full Weight Bearing Left Lower Extremity: Left Full Weight Bearing Gait Training Does the Patient Walk?: Yes Walk 10 feet (QC): 4 Walk 50 ft with 2 Turns(QC): 4 Walk 150 ft (QC): 4 Gait Persons Needed: 1 Gait Assistive Device: FWW Wheelchair Training Does the Pt Use a Wheelchair?: No Wheel 50 ft with 2 turns (QC): 9 Wheel 150 ft (QC): 9 Type of Wheelchair: N/A Treatments Pt completed bed mobility and functional transfers with SBA. Pt ambulated 400ft x 2 with the FWW and CGA/SBA. Pt completed standing B LE Ther Ex x 15 reps each in the // bars with B UE support and SBA: PF/DF, marching, hip abd/ext, HS curls, and mini-squats. Pt completed dynamic standing balance tasks x 80ft each with no AD and CGA/Min A: forward/backward walking, B side stepping, forward walking with head turns and head nods, and tandem walking. Pt completed 20 min on the nu-step on level 2. After treatment session, pt was sitting EOB with call light in reach and all needs met. Assessment Current Status: Good Progress Pt tolerated PT well with good effort PT Instrument Installer Goals Snf Goals PT Instrument Installer Goals Time Frame: Apr 09, 2023 Roll Left & Right (QC): 6 (Pt will be Mod I with functional mobility, in order to safely return home alone. ) Sit to Lying (QC): 6 (Pt will be Mod I with functional mobility, in order to safely return home alone. ) Lying-Sitting on Side/Bed(QC): 6 (Pt will be Mod I with functional mobility, in order to safely return home alone. ) Sit to Stand (QC): 6 (Pt will be Mod I with functional mobility, in order to safely return home alone. ) Chair/Xnp-ge-Hduch Xfer(QC): 6 (Pt will be Mod I with functional mobility, in order to safely return home alone. ) Toilet Transfer (QC): 6 (Pt will be Mod I with functional mobility, in order to safely return home alone. ) Car Transfer (QC): 6 (Pt will be Mod I with functional mobility, in order to safely return home alone. ) Does the Patient Walk: Yes Walk 10 feet (QC): 6 (Pt will be Mod I with functional mobility, in order to safely return home alone. ) Walk 50ft with 2 Turns (QC): 6 (Pt will be Mod I with functional mobility, in order to safely return home alone. ) Walk 150 ft (QC): 6 (Pt will be Mod I with functional mobility, in order to safely return home alone. ) Walking 10ft on Uneven Surface: 6 (Pt will be Mod I with functional mobility, in order to safely return home alone. ) 1 Step (curb) (QC): 6 (Pt will be Mod I with functional mobility, in order to safely return home alone. ) 4 Steps (QC): 6 (Pt will be Mod I with functional mobility, in order to safely return home alone. ) 12 Steps (QC): 6 (Pt will be Mod I with functional mobility, in order to safely return home alone. ) Picking up an Object (QC): 6 (Pt will be Mod I with functional mobility, in order to safely return home alone. ) Does the Pt use WC or Scooter?: No Wheel 50 feet with 2 turns (QC: 9 Type: N/A Wheel 150 feet: 9 Type: N/A PT Plan Problem List Problem List: Activity Tolerance, Functional Strength, Safety, Balance, Gait, Transfer, Bed Mobility, ROM Treatment/Plan Treatment Plan: Continue Plan of Care Treatment Plan: Bed Mobility, Education, Functional Activity Rebecca, Functional Strength, Group Therapy, Gait, Safety, Therapeutic Exercise, Transfers Treatment Duration: Apr 09, 2023 Frequency: At least 5 of 7 days/Wk (IRF) Estimated Hrs Per Day: 1.5 hours per day Patient and/or Family Agrees t: Yes Safety Risks/Education Patient Education: Gait Training, Transfer Techniques, Correct Positioning, Safety Issues Teaching Recipient: Patient Teaching Methods: Demonstration, Discussion Response to Teaching: Verbalize Understanding, Return Demonstration, Reinforcement Needed Discharge Recommendations Therapy Discharge Recommendati: Home & Family, Post Acute PT Equpiment Recommendations-D/C: Front Wheeled Walker Discharge Status/Home Program Cont per POC Barriers to Progress Weakness, endurance, balance Target Placement Home Time Time In: 830 Time Out: 1000 DATE: Mar 28, 2023 Total Billed Treatment Time: 90 Total Billed Treatment 90 min 1 visit EX x 1 NM x 1 FA x 2 GT x 2 FELIPA DEAN PT Mar 28, 2023 08:34
--- NOTE | 2023-03-28 10:50 | Occupational Ther Daily Note ---
OT Current Status-Daily Note Subjective Pt agreeable to OT Tx. States he is ready to go home, but understands that he still has some balance deficits ADL-Treatment Therapy Code Descriptions/Definitions Functional [place] Measure: 0=Not Assessed/NA 4=Minimal Assistance 1=Total Assistance 5=Supervision or Setup 2=Maximal Assistance 6=Modified [place] 3=Moderate Assistance 7=Complete IndependenceSCALE: Activities may be completed with or without assistive devices. 9-Ftttxzfipp-fhksyia completes the activity by him/herself with no assistance from a helper. 5-Set-up or Clean-up Assistance-helper sets up or cleans up; patient completes activity. [place] assists only prior to or following the activity. 4-Supervision or Touching Assistance-helper provides verbal cues and/or touching/steadying and/or contact guard assistance as patient completes activity. Assistance may be provided throughout the activity or intermittently. 3-Partial/Moderate Assistance-helper does LESS THAN HALF the effort. [place] lifts, holds or supports trunk or limbs, but provides less than half the effort. 2-Substantial/Maximal Assistance-helper does MORE THAN HALF the effort. [place] lifts or holds trunk or limbs and provides more than half the effort. 9-Eofzwgmxg-frlghk does ALL the effort. Patient does none of the effort to complete the activity. Or, the assistance of 2 or more helpers is required for the patient to complete the activity. If activity was not attempted, code reason: 7-Patient Refused. 9-Not Applicable-not attempted and the patient did not perform the activity before the current illness, exacerbation or injury. 10-Not Attempted due to Environmental Limitations-(lack of equipment, weather restraints, etc.). 88-Not Attempted due to Medical Conditions or Safety Concerns. Eating (QC): 6 Oral Hygiene (QC): 6 (IND stand at sink.) Upper Body Dressing (QC): 5 Lower Body Dressing (QC): 4 (Supervision in standing) On/Off Footwear: 5 Other Treatment Pt at EOB, agreeable to OT Tx. Pt used FWW to gather clothes from closet, SBA for balance. Pt transferred to toilet in bathroom to change clothes. Pt stood at sink to complete oral care and shaving, IND, no LOB noted. Pt used FWW to perform functional mobility to therapy gym, SBA. OT Tx focused on neuromuscular reeducation LUE, increasing BUE strength and activity tolerance, and L fine motor coordination. Pt completed arm bike, x15 mins, 1 rest break, 20 watt resistance. He then removed/placed graded clothespins (1-5lbs) using LUE. He removed beads from mod-heavy resistance (green) theraputty, able to locate all beads without cues. Pt used tweezers in LUE to picking crew supervisor small beads from table and place in container, completing 40 total. Pt returned to his room using FWW, SBA. Post tx, pt EOB, call light in reach and all needs met. Dynamometer ip/mosaic technician testing complete RUE: 93 lbs, 87 lbs, 98 lbs (avg 92.67lbs) LUE: 93 lbs, 97 lbs, 99 lbs (avg 96.33lbs) Education OT Patient Education: Correct positioning, Energy conservation, Modified ADL techniques, Progress toward Goal/Update tx plan, Purpose of tx/functional activities, Rehab process Teaching Recipient: Patient Teaching Methods: Discussion Response to Teaching: Verbalize Understanding OT Short Term Goals Short Term Goals Time Frame: Apr 04, 2023 Eatin Oral hygiene: 5 Toileting hygiene: 6 Shower/bathe self: 6 Upper body dressin Lower body dressin Putting on/taking off footwear: 6 OT Supervising Bailiff Goals Detention Goals Time Frame: Apr 11, 2023 Acute change in mental status: 0 Inattention: 0 Disorganized thinkin Altered level of consciousness: 0 Eating (QC): 6 Oral Hygiene (QC): 6 Toileting Hygiene (QC): 6 Shower/Bathe Self (QC): 6 Upper Body Dressing (QC): 6 Lower Body Dressing (QC): 6 On/Off Footwear (QC): 6 1=Demonstrate adherence to instructed precautions during ADL tasks. 2=Patient will verbalize/demonstrate understanding of assistive devices/modifications for ADL. 3=Patient will improve strength/tolerance for activity to enable patient to perform ADL's. OT Education/Plan Problem List/Assessment Assessment: Decreased Activ Tolerance, Impaired Funct Balance, Impaired I ADL's Discharge Recommendations Plan/Recommendations: Continue POC Treatment Plan/Plan of Care Patient would benefit from OT for education, treatment and training to promote independence in ADL's, mobility, safety and/or upper extremity function for ADL's. Plan of Care: ADL Retraining, Concurrent Therapy, Functional Mobility, Group Exercise/Act as Ind, UE Funct Exercise/Act, UE Neuromus Re-Ed/Coord Treatment Duration: Apr 11, 2023 Frequency: At least 5 of 7 days/Wk (IRF) Estimated Hrs Per Day: 1.5 hours per day Agreement: Yes Rehab Potential: Good Time Start Time: 10:00 Stop Time: 11:30 DATE: Mar 28, 2023 Total Time Billed (hr/min): 90 Billed Treatment Time 1, ADL 2 (30'), NM 4 (60') STEPHANIE RENO OT Mar 28, 2023 10:50
[2023-03-28 20:53] VITALS: BP 145/78
[2023-03-28] MEDS: diphenhydrAMINE 25 MG TABLET PO PRN (21:15)
[2023-03-29] MEDS: PANTOPRAZOLE 40 MG TABLET PO SCH (06:09)
[2023-03-29 08:00] VITALS: BP 130/70
--- NOTE | 2023-03-29 08:53 | PM&R Progress Note ---
Subjective HPI/CC On Admission Date Seen by Provider: Mar 29, 2023 Time Seen by Provider: 09:00 Subjective/Events-last exam 03/29/2023: Patient doing well Birthday tomorrow so he will have lunch with his family No pain is reported No falls 03/28/2023: Patient doing really well Participation is good PT and OT aggressive therapy No falls 03/27/2023: No major issues Improved overall No pain reported Left leg improved ambulation Review of Systems General: Fatigue, Malaise Objective Exam Vital Signs Vital Signs Date Time Temp Pulse Resp B/P (MAP) Pulse Ox O2 Delivery O2 Flow Rate FiO2 03/29/23 08:00 36.6 68 13 130/70 (90) 96 Room Air Capillary Refill : General Appearance: No Apparent Distress, WD/WN, Chronically ill, Thin HEENT: PERRL/EOMI, Normal ENT Inspection, Pharynx Normal Neck: Full Range of Motion, Normal Inspection, Non Tender, Supple, Carotid Bruit Respiratory: Chest Non Tender, Lungs Clear, Normal Breath Sounds, No Accessory Muscle Use, No Respiratory Distress Cardiovascular: Regular Rate, Rhythm, No Edema, No Gallop, No JVD, No Murmur, Normal Peripheral Pulses Gastrointestinal: Normal Bowel Sounds, No Organomegaly, No Pulsatile Mass, Non Tender, Soft Back: Normal Inspection, No CVA Tenderness, No Vertebral Tenderness Extremity: Normal Capillary Refill, Normal Inspection, Normal Range of Motion, Non Tender, No Calf Tenderness, No Pedal Edema Neurologic/Psychiatric: Alert, Oriented x3, Normal Mood/Affect, belt measurer II-XII Norm as Tested, Abnormal Gait, Motor Weakness (LUE 4/5) Skin: Normal Color, Warm/Dry Lymphatic: No Adenopathy Results/Procedures Lab Patient resulted labs reviewed. FIM Transfers Therapy Code Descriptions/Definitions Functional [place] Measure: 0=Not Assessed/NA 4=Minimal Assistance 1=Total Assistance 5=Supervision or Setup 2=Maximal Assistance 6=Modified [place] 3=Moderate Assistance 7=Complete IndependenceSCALE: Activities may be completed with or without assistive devices. 6-Mxizndlhaz-lsjaufr completes the activity by him/herself with no assistance from a helper. 5-Set-up or Clean-up Assistance-helper sets up or cleans up; patient completes activity. [place] assists only prior to or following the activity. 4-Supervision or Touching Assistance-helper provides verbal cues and/or touching/steadying and/or contact guard assistance as patient completes activity. Assistance may be provided throughout the activity or intermittently. 3-Partial/Moderate Assistance-helper does LESS THAN HALF the effort. [place] lifts, holds or supports trunk or limbs, but provides less than half the effort. 2-Substantial/Maximal Assistance-helper does MORE THAN HALF the effort. [place] lifts or holds trunk or limbs and provides more than half the effort. 7-Mkoaxzrzx-rewbww does ALL the effort. Patient does none of the effort to complete the activity. Or, the assistance of 2 or more helpers is required for the patient to complete the activity. If activity was not attempted, code reason: 7-Patient Refused. 9-Not Applicable-not attempted and the patient did not perform the activity before the current illness, exacerbation or injury. 10-Not Attempted due to Environmental Limitations-(lack of equipment, weather restraints, etc.). 88-Not Attempted due to Medical Conditions or Safety Concerns. Roll Left to Right (QC): 4 (SBA ) Sit to Lying (QC): 4 (SBA ) Sit to Stand (QC): 4 Chair/Lgt-rx-Kigrb Xfer(QC): 4 (CGA ) Car Transfer (QC): 4 (CGA ) Gait Training Does the Patient Walk?: Yes Walk 10 feet (QC): 4 Walk 50 ft with 2 Turns(QC): 4 Walk 150 ft (QC): 4 Walking 10ft/uneven surface-QC: 4 (CGA ) Gait Persons Needed: 1 Gait Assistive Device: FWW Wheelchair Training Does the Pt Use a Wheelchair?: No Wheel 50 ft with 2 turns (QC): 9 Wheel 150 ft (QC): 9 Type of Wheelchair: N/A Stair Training #of Steps: 12 1 Step (curb) (QC): 4 (CGA ) 4 Steps (QC): 4 (CGA ) 12 Steps (QC): 4 (CGA ) Balance Picking up an Object (QC): 4 (CGA ) ADL-Treatment Eating (QC): 6 Oral Hygiene (QC): 6 (IND stand at sink.) Shower/Bathe Self (QC): 5 (Pt requiring setup to complete shower utilizing shower chair) Upper Body Dressing (QC): 5 Lower Body Dressing (QC): 4 (Supervision in standing) On/Off Footwear (QC): 5 Toileting Hygiene (QC): 6 Assessment/Plan Assessment and Plan Assess & Plan/Chief Complaint Assessment: Bilateral cerebellar strokes suspected embolic event maintained on OAC HTN HLP Smoker Loredo's esophagus Plan: Monitor closely Fall risk Home meds Aggressive therapy 03/27/2023: Aggressive therapy OAC 03/28/2023: Supportive care Monitor closely 03/29/2023: Supportive care Monitor closely (1) Cerebellar stroke DIA MOORE DO Mar 29, 2023 08:53
[2023-03-29] MEDS: LORATADINE 10 MG TABLET PO SCH (10:20)
[2023-03-29] MEDS: APIXABAN 5 MG TABLET PO SCH ×2 (10:21→21:12)
[2023-03-29] MEDS: SENNA W/DOCUSATE TABLET PO SCH ×2 (10:21→21:15)
[2023-03-29] MEDS: DOCUSATE SODIUM 100 MG CAPSULE PO SCH ×2 (10:21→21:15)
[2023-03-29] MEDS: carvediloL 12.5 MG TABLET PO SCH ×2 (10:21→17:11)
--- NOTE | 2023-03-29 10:26 | Occupational Ther Daily Note ---
OT Current Status-Daily Note Subjective Pt seated EOB upon arrival. Pt is pleasant and agreeable to OT tx. Pt states he has been completing his theraband exercises within room this a.m. Pain Numeric Pain Scale: 0-No Pain ADL-Treatment Pt donns LB dressing items, pants and socks, with supervision, reaching floor level demonstrating good safety and independence with task. Therapy Code Descriptions/Definitions Functional [place] Measure: 0=Not Assessed/NA 4=Minimal Assistance 1=Total Assistance 5=Supervision or Setup 2=Maximal Assistance 6=Modified [place] 3=Moderate Assistance 7=Complete IndependenceSCALE: Activities may be completed with or without assistive devices. 0-Namyrhwfyf-tpldvuh completes the activity by him/herself with no assistance from a helper. 5-Set-up or Clean-up Assistance-helper sets up or cleans up; patient completes activity. [place] assists only prior to or following the activity. 4-Supervision or Touching Assistance-helper provides verbal cues and/or touching/steadying and/or contact guard assistance as patient completes acti vity. Assistance may be provided throughout the activity or intermittently. 3-Partial/Moderate Assistance-helper does LESS THAN HALF the effort. [place] lifts, holds or supports trunk or limbs, but provides less than half the effort. 2-Substantial/Maximal Assistance-helper does MORE THAN HALF the effort. [place] lifts or holds trunk or limbs and provides more than half the effort. 7-Kzzwiqdxw-lkrpgn does ALL the effort. Patient does none of the effort to complete the activity. Or, the assistance of 2 or more helpers is required for the patient to complete the activity. If activity was not attempted, code reason: 7-Patient Refused. 9-Not Applicable-not attempted and the patient did not perform the activity before the current illness, exacerbation or injury. 10-Not Attempted due to Environmental Limitations-(lack of equipment, weather restraints, etc.). 88-Not Attempted due to Medical Conditions or Safety Concerns. Other Treatment Functional mobility with FWW SBA, cues for safety approx. 200 feet. Seated fine motor activities incorporating left upper extremity to promote increased strength, coordination, and control during functional task. Graded clothes pin with various resistance levels. Standing graded coordination task with use of L UE. Incorporation of floor level reaching from standing with a focus on safety and balance. Static/dynamic standing with a focus on standing aerobic capacity, balance, coordination. B UE use during activities. Pt stands for approx. 8 minutes per attempt requiring various levels of assist to correct balance. Pt demonstrates good safety awareness and problem solving during task. Education OT Patient Education: Energy conservation, Safety issues 90 minute treatment including 60 minutes indv and 30 minutes of co-tx with PT to provide higher level balance challenges to promote increased safety and independence during ADl/IADL. OT Short Term Goals Short Term Goals Time Frame: Apr 04, 2023 Eatin Oral hygiene: 5 Toileting hygiene: 6 Shower/bathe self: 6 Upper body dressin Lower body dressin Putting on/taking off footwear: 6 OT Intermediate Goals Soda Worker Goals Time Frame: Apr 11, 2023 Acute change in mental status: 0 Inattention: 0 Disorganized thinkin Altered level of consciousness: 0 Eating (QC): 6 Oral Hygiene (QC): 6 Toileting Hygiene (QC): 6 Shower/Bathe Self (QC): 6 Upper Body Dressing (QC): 6 Lower Body Dressing (QC): 6 On/Off Footwear (QC): 6 1=Demonstrate adherence to instructed precautions during ADL tasks. 2=Patient will verbalize/demonstrate understanding of assistive devices/modifications for ADL. 3=Patient will improve strength/tolerance for activity to enable patient to perform ADL's. OT Education/Plan Problem List/Assessment Assessment: Impaired Funct Balance, Restricted Funct UE ROM Discharge Recommendations Plan/Recommendations: Continue POC Treatment Plan/Plan of Care Patient would benefit from OT for education, treatment and training to promote independence in ADL's, mobility, safety and/or upper extremity function for ADL's. Plan of Care: ADL Retraining, Concurrent Therapy, Functional Mobility, Group Exercise/Act as Ind, UE Funct Exercise/Act, UE Neuromus Re-Ed/Coord Treatment Duration: Mar 27, 2023 Frequency: At least 5 of 7 days/Wk (IRF) Estimated Hrs Per Day: 1 hour per day Agreement: Yes Rehab Potential: Good Time Start Time: 08:32 Stop Time: 10:02 DATE: Mar 29, 2023 Total Time Billed (hr/min): 90 Billed Treatment Time 1 ADL 5 marjorieact KRISSY BIRCH Mar 29, 2023 10:26
--- NOTE | 2023-03-29 11:22 | Physical Therapy Daily Note ---
PT Daily Note-Current Subjective Patient in therapy gym with OT when PT enters room. Patient and OT preparing to start functional balance challenges. Patient agreeable to co-tx with PT/OT for participation in progressive, higher functional challenge. Patient rates pain as 0/10 throughout session and req minimal rest break throughout session. Pain Section J - Health Conditions 1. Rarely or not at all 2. Occasionally 3. Frequently 4. Almost constantly 8. Unable to answer Pain Effect on Sleep: 1 Pain Interference with Therapy: 1 Pain Interference w/Day-to-Day: 1 Transfers SCALE: Activities may be completed with or without assistive devices. 1-Jubjpsbxop-ghhitms completes the activity by him/herself with no assistance from a helper. 5-Set-up or Clean-up Assistance-helper sets up or cleans up; patient completes activity. [place] assists only prior to or following the activity. 4-Supervision or Touching Assistance-helper provides verbal cues and/or touching/steadying and/or contact guard assistance as patient completes activity. Assistance may be provided throughout the activity or intermittently. 3-Partial/Moderate Assistance-helper does LESS THAN HALF the effort. [place] lifts, holds or supports trunk or limbs, but provides less than half the effort. 2-Substantial/Maximal Assistance-helper does MORE THAN HALF the effort. [place] lifts or holds trunk or limbs and provides more than half the effort. 2-Rvqovgeas-nqugai does ALL the effort. Patient does none of the effort to complete the activity. Or, the assistance of 2 or more helpers is required for the patient to complete the activity. If activity was not attempted, code reason: 7-Patient Refused. 9-Not Applicable-not attempted and the patient did not perform the activity b efore the current illness, exacerbation or injury. 10-Not Attempted due to Environmental Limitations-(lack of equipment, weather restraints, etc.). 88-Not Attempted due to Medical Conditions or Safety Concerns. Roll Left & Right (QC): 4 Sit to Lying (QC): 4 Lying to Sitting/Side of Bed(Q: 4 Sit to Stand (QC): 4 Chair/Znz-xv-Bhcfe Xfer(QC): 4 Toilet Transfer (QC): 4 Car Transfer (QC): 88 Patient participated in functional transfer training, advancing from use of FWW to without use of AD focusing on improving performance, sequence, and safety. Patient presents with increased safety concern and limitation with functional practice without external assist. Patient educated on observed impairments and safety concerns and benefits of AD use at this time. Patient perform functional transfers at variable distances and angles between surfaces of variable heights and compliance for improved functional independence in complex environments. Patient participated in functional stair step training, asc/desc up to 12 steps with B rails, CGA. Patient asc with reciprocal pattern and desc with step-to, with functional practice focused on safe return home to home environment. Weight Bearing Right Lower Extremity: Right Full Weight Bearing Left Lower Extremity: Left Full Weight Bearing Gait Training Walk 10 feet (QC): 4 Walk 50 ft with 2 Turns(QC): 4 Walk 150 ft (QC): 4 Walking 10ft/uneven surface-QC: 88 Gait Persons Needed: 1 Gait Assistive Device: FWW Patient participated in functional gait training, initially with use of FWW, advanced to functional practice without AD, demonstrating increased unsteadiness and impairment of mechanics without use of external aide. Patient perform functi onal gait practice focusing on AD management when applicable, maintaining COG/JENIFER, stepping mechanics, amb posture, and environmental awareness with performance of multiple turns. Patient ambs distances >150ft, CGA with and without AD. Stair Training Stair Training: Handrails/: 2 handrails #of Steps: 12 1 Step (curb) (QC): 4 4 Steps (QC): 4 12 Steps (QC): 4 See FA. Exercises Patient rode NuStep for 20 minutes on WL4 with BUE and BLE for improved functional strength, endurance and mobility. NuStep Minutes: 20 NuStep Workload: 4 Neuromuscular Patient participated in progressive standing, dynamic, functional balance challenges on firm and compliant surfaces focusing on improving proprioception, balance, stability, reactive and NM control. Patient participated in dynamic stepping challenges to targets with variable time in SLS, balloon/ball tapping, tossing and kicking challenges, dynamic stepping challenges, dynamic reaching and weight shifting challenges at variable distance and angles outside JENIFER. Progressive and complex balance challenges performed with focus on improving functional balance and NM control/proprioception for reduced fall risk with daily functional tasks and challenges. Assessment Patient tolerated session well without adverse rxn. At end of session patient return to room, seated EOB with all needs met and within reach. Patient adherent to therapy and medical recommendation to request assistance for any weight bearing activity at this time due to instability on feet. co-tx performed with OT for maximized patient benefit due to participation in activity of higher complexity and function challenges with increased utilization of both gross and fine motor movements for achievement of maximum functional potential. PT Longterm Goals Packager And Strapper Goals PT Longterm Goals Time Frame: Apr 09, 2023 Roll Left & Right (QC): 6 (Pt will be Mod I with functional mobility, in order to safely return home alone. ) Sit to Lying (QC): 6 (Pt will be Mod I with functional mobility, in order to safely return home alone. ) Lying-Sitting on Side/Bed(QC): 6 (Pt will be Mod I with functional mobility, in order to safely return home alone. ) Sit to Stand (QC): 6 (Pt will be Mod I with functional mobility, in order to safely return home alone. ) Chair/Pke-bj-Lqnoj Xfer(QC): 6 (Pt will be Mod I with functional mobility, in order to safely return home alone. ) Toilet Transfer (QC): 6 (Pt will be Mod I with functional mobility, in order to safely return home alone. ) Car Transfer (QC): 6 (Pt will be Mod I with functional mobility, in order to safely return home alone. ) Does the Patient Walk: Yes Walk 10 feet (QC): 6 (Pt will be Mod I with functional mobility, in order to safely return home alone. ) Walk 50ft with 2 Turns (QC): 6 (Pt will be Mod I with functional mobility, in order to safely return home alone. ) Walk 150 ft (QC): 6 (Pt will be Mod I with functional mobility, in order to safely return home alone. ) Walking 10ft on Uneven Surface: 6 (Pt will be Mod I with functional mobility, in order to safely return home alone. ) 1 Step (curb) (QC): 6 (Pt will be Mod I with functional mobility, in order to s afely return home alone. ) 4 Steps (QC): 6 (Pt will be Mod I with functional mobility, in order to safely return home alone. ) 12 Steps (QC): 6 (Pt will be Mod I with functional mobility, in order to safely return home alone. ) Picking up an Object (QC): 6 (Pt will be Mod I with functional mobility, in order to safely return home alone. ) Does the Pt use WC or Scooter?: No Wheel 50 feet with 2 turns (QC: 9 Type: N/A Wheel 150 feet: 9 Type: N/A PT Plan Treatment/Plan Treatment Plan: Continue Plan of Care Treatment Plan: Bed Mobility, Education, Functional Activity Rebecca, Functional Strength, Group Therapy, Gait, Safety, Therapeutic Exercise, Transfers Treatment Duration: Apr 09, 2023 Frequency: At least 5 of 7 days/Wk (IRF) Estimated Hrs Per Day: 1.5 hours per day Patient and/or Family Agrees t: Yes Time Time In: 0930 Time Out: 1100 DATE: Mar 29, 2023 Total Billed Treatment Time: 90 Total Billed Treatment 1 session 90 minutes 60 minutes individual 30 minutes co-tx with OT FAx1 NMx2 GTx2 EXx1 NIKKI UMANA PT Mar 29, 2023 11:22
[2023-03-29 20:05] VITALS: BP 162/74
[2023-03-29] MEDS: diphenhydrAMINE 25 MG TABLET PO PRN (21:12)
[2023-03-30] MEDS: PANTOPRAZOLE 40 MG TABLET PO SCH (06:22)
[2023-03-30 08:01] VITALS: BP 136/65
[2023-03-30] MEDS: APIXABAN 5 MG TABLET PO SCH ×2 (08:27→21:10)
[2023-03-30] MEDS: LORATADINE 10 MG TABLET PO SCH (08:27)
[2023-03-30] MEDS: carvediloL 12.5 MG TABLET PO SCH ×2 (08:27→17:22)
[2023-03-30] MEDS: SENNA W/DOCUSATE TABLET PO SCH ×2 (08:28→21:00)
[2023-03-30] MEDS: DOCUSATE SODIUM 100 MG CAPSULE PO SCH ×2 (08:29→21:00)
--- NOTE | 2023-03-30 12:20 | PM&R Progress Note ---
Subjective HPI/CC On Admission Date Seen by Provider: Mar 30, 2023 Time Seen by Provider: 12:00 Subjective/Events-last exam 03/30/2023: Patient doing well Day pass for his bday No concerns Debating going to [place] with his ex- to recover 03/29/2023: Patient doing well Birthday tomorrow so he will have lunch with his family No pain is reported No falls 03/28/2023: Patient doing really well Participation is good PT and OT aggressive therapy No falls 03/27/2023: No major issues Improved overall No pain reported Left leg improved ambulation Review of Systems General: Fatigue, Malaise Objective Exam Vital Signs Vital Signs Date Time Temp Pulse Resp B/P (MAP) Pulse Ox O2 Delivery O2 Flow Rate FiO2 03/30/23 08:01 36.5 62 16 136/65 (88) 96 Room Air Capillary Refill : General Appearance: No Apparent Distress, WD/WN, Chronically ill, Thin HEENT: PERRL/EOMI, Normal ENT Inspection, Pharynx Normal Neck: Full Range of Motion, Normal Inspection, Non Tender, Supple, Carotid Bruit Respiratory: Chest Non Tender, Lungs Clear, Normal Breath Sounds, No Accessory Muscle Use, No Respiratory Distress Cardiovascular: Regular Rate, Rhythm, No Edema, No Gallop, No JVD, No Murmur, Normal Peripheral Pulses Gastrointestinal: Normal Bowel Sounds, No Organomegaly, No Pulsatile Mass, Non Tender, Soft Back: Normal Inspection, No CVA Tenderness, No Vertebral Tenderness Extremity: Normal Capillary Refill, Normal Inspection, Normal Range of Motion, Non Tender, No Calf Tenderness, No Pedal Edema Neurologic/Psychiatric: Alert, Oriented x3, Normal Mood/Affect, cyber security engineer II-XII Norm as Tested, Abnormal Gait, Motor Weakness (LUE 4/5) Skin: Normal Color, Warm/Dry Lymphatic: No Adenopathy Results/Procedures Lab Patient resulted labs reviewed. FIM Transfers Therapy Code Descriptions/Definitions Functional [place] Measure: 0=Not Assessed/NA 4=Minimal Assistance 1=Total Assistance 5=Supervision or Setup 2=Maximal Assistance 6=Modified [place] 3=Moderate Assistance 7=Complete IndependenceSCALE: Activities may be completed with or without assistive devices. 9-Ytprhwlnrt-giayegi completes the activity by him/herself with no assistance from a helper. 5-Set-up or Clean-up Assistance-helper sets up or cleans up; patient completes activity. [place] assists only prior to or following the activity. 4-Supervision or Touching Assistance-helper provides verbal cues and/or touching/steadying and/or contact guard assistance as patient completes activity. Assistance may be provided throughout the activity or intermittently. 3-Partial/Moderate Assistance-helper does LESS THAN HALF the effort. [place] lifts, holds or supports trunk or limbs, but provides less than half the effort. 2-Substantial/Maximal Assistance-helper does MORE THAN HALF the effort. [place] lifts or holds trunk or limbs and provides more than half the effort. 9-Yhbxrionr-dwwvzd does ALL the effort. Patient does none of the effort to complete the activity. Or, the assistance of 2 or more helpers is required for the patient to complete the activity. If activity was not attempted, code reason: 7-Patient Refused. 9-Not Applicable-not attempted and the patient did not perform the activity before the current illness, exacerbation or injury. 10-Not Attempted due to Environmental Limitations-(lack of equipment, weather restraints, etc.). 88-Not Attempted due to Medical Conditions or Safety Concerns. Roll Left to Right (QC): 4 Sit to Lying (QC): 4 Sit to Stand (QC): 4 Chair/Tck-oo-Uqowh Xfer(QC): 4 Car Transfer (QC): 88 Gait Training Does the Patient Walk?: Yes Walk 10 feet (QC): 4 Walk 50 ft with 2 Turns(QC): 4 Walk 150 ft (QC): 4 Walking 10ft/uneven surface-QC: 88 Gait Persons Needed: 1 Gait Assistive Device: FWW Wheelchair Training Does the Pt Use a Wheelchair?: No Wheel 50 ft with 2 turns (QC): 9 Wheel 150 ft (QC): 9 Type of Wheelchair: N/A Stair Training Stair Training: Handrails/: 2 handrails #of Steps: 12 1 Step (curb) (QC): 4 4 Steps (QC): 4 12 Steps (QC): 4 Balance Picking up an Object (QC): 4 (CGA ) ADL-Treatment Eating (QC): 6 Oral Hygiene (QC): 6 (IND stand at sink.) Shower/Bathe Self (QC): 5 (Pt requiring setup to complete shower utilizing shower chair) Upper Body Dressing (QC): 5 Lower Body Dressing (QC): 4 (Supervision in standing) On/Off Footwear (QC): 5 Toileting Hygiene (QC): 6 Assessment/Plan Assessment and Plan Assess & Plan/Chief Complaint Assessment: Bilateral cerebellar strokes suspected embolic event maintained on OAC HTN HLP Smoker Loredo's esophagus Plan: Monitor closely Fall risk Home meds Aggressive therapy 03/27/2023: Aggressive therapy OAC 03/28/2023: Supportive care Monitor closely 03/29/2023: Supportive care Monitor closely 03/30/2023: Monitor closely Day pass (1) Cerebellar stroke DIA MOORE DO Mar 30, 2023 12:20
[2023-03-30 19:29] VITALS: BP 156/72
[2023-03-30] MEDS: diphenhydrAMINE 25 MG TABLET PO PRN (21:10)
--- NOTE | 2023-03-31 05:11 | PM&R Progress Note ---
Subjective HPI/CC On Admission Date Seen by Provider: Mar 31, 2023 Time Seen by Provider: 09:00 Subjective/Events-last exam 03/31/2023: Improved overall Improved morale No falls No pain 03/30/2023: Patient doing well Day pass for his bday No concerns Debating going to [place] with his ex- to recover 03/29/2023: Patient doing well Birthday tomorrow so he will have lunch with his family No pain is reported No falls 03/28/2023: Patient doing really well Participation is good PT and OT aggressive therapy No falls 03/27/2023: No major issues Improved overall No pain reported Left leg improved ambulation Review of Systems General: Fatigue, Malaise Objective Exam Vital Signs Vital Signs Date Time Temp Pulse Resp B/P (MAP) Pulse Ox O2 Delivery O2 Flow Rate FiO2 03/31/23 20:00 36.7 67 16 133/67 (89) 97 Room Air Capillary Refill : General Appearance: No Apparent Distress, WD/WN, Chronically ill, Thin HEENT: PERRL/EOMI, Normal ENT Inspection, Pharynx Normal Neck: Full Range of Motion, Normal Inspection, Non Tender, Supple, Carotid Bruit Respiratory: Chest Non Tender, Lungs Clear, Normal Breath Sounds, No Accessory Muscle Use, No Respiratory Distress Cardiovascular: Regular Rate, Rhythm, No Edema, No Gallop, No JVD, No Murmur, Normal Peripheral Pulses Gastrointestinal: Normal Bowel Sounds, No Organomegaly, No Pulsatile Mass, Non Tender, Soft Back: Normal Inspection, No CVA Tenderness, No Vertebral Tenderness Extremity: Normal Capillary Refill, Normal Inspection, Normal Range of Motion, Non Tender, No Calf Tenderness, No Pedal Edema Neurologic/Psychiatric: Alert, Oriented x3, Normal Mood/Affect, seismology technical officer II-XII Norm as Tested, Abnormal Gait, Motor Weakness (LUE 4/5) Skin: Normal Color, Warm/Dry Lymphatic: No Adenopathy Results/Procedures Lab Laboratory Tests 03/31/23 05:14 Patient resulted labs reviewed. FIM Transfers Therapy Code Descriptions/Definitions Functional [place] Measure: 0=Not Assessed/NA 4=Minimal Assistance 1=Total Assistance 5=Supervision or Setup 2=Maximal Assistance 6=Modified [place] 3=Moderate Assistance 7=Complete IndependenceSCALE: Activities may be completed with or without assistive devices. 9-Fmvepbwrfp-chnpltg completes the activity by him/herself with no assistance from a helper. 5-Set-up or Clean-up Assistance-helper sets up or cleans up; patient completes activity. [place] assists only prior to or following the activity. 4-Supervision or Touching Assistance-helper provides verbal cues and/or touching/steadying and/or contact guard assistance as patient completes activity. Assistance may be provided throughout the activity or intermittently. 3-Partial/Moderate Assistance-helper does LESS THAN HALF the effort. [place] li fts, holds or supports trunk or limbs, but provides less than half the effort. 2-Substantial/Maximal Assistance-helper does MORE THAN HALF the effort. [place] lifts or holds trunk or limbs and provides more than half the effort. 1-Gqxsjyxhl-tztlus does ALL the effort. Patient does none of the effort to complete the activity. Or, the assistance of 2 or more helpers is required for the patient to complete the activity. If activity was not attempted, code reason: 7-Patient Refused. 9-Not Applicable-not attempted and the patient did not perform the activity before the current illness, exacerbation or injury. 10-Not Attempted due to Environmental Limitations-(lack of equipment, weather restraints, etc.). 88-Not Attempted due to Medical Conditions or Safety Concerns. Roll Left to Right (QC): 4 Sit to Lying (QC): 4 Sit to Stand (QC): 4 Chair/Tpc-mb-Ncpre Xfer(QC): 4 Car Transfer (QC): 88 Gait Training Does the Patient Walk?: Yes Walk 10 feet (QC): 4 Walk 50 ft with 2 Turns(QC): 4 Walk 150 ft (QC): 4 Walking 10ft/uneven surface-QC: 88 Gait Persons Needed: 1 Gait Assistive Device: FWW Wheelchair Training Does the Pt Use a Wheelchair?: No Wheel 50 ft with 2 turns (QC): 9 Wheel 150 ft (QC): 9 Type of Wheelchair: N/A Stair Training Stair Training: Handrails/: 2 handrails #of Steps: 12 1 Step (curb) (QC): 4 4 Steps (QC): 4 12 Steps (QC): 4 Balance Picking up an Object (QC): 4 (CGA ) ADL-Treatment Eating (QC): 6 Oral Hygiene (QC): 6 (IND stand at sink.) Shower/Bathe Self (QC): 5 (Pt requiring setup to complete shower utilizing shower chair) Upper Body Dressing (QC): 5 Lower Body Dressing (QC): 4 (Supervision in standing) On/Off Footwear (QC): 5 Toileting Hygiene (QC): 6 Assessment/Plan Assessment and Plan Assess & Plan/Chief Complaint Assessment: Bilateral cerebellar strokes suspected embolic event maintained on OAC HTN HLP Smoker Loredo's esophagus Plan: Monitor closely Fall risk Home meds Aggressive therapy 03/27/2023: Aggressive therapy OAC 03/28/2023: Supportive care Monitor closely 03/29/2023: Supportive care Monitor closely 03/30/2023: Monitor closely Day pass 03/31/2023: Improved overall (1) Cerebellar stroke DIA MOORE DO Mar 31, 2023 05:11
[2023-03-31 05:30] LABS: BASOPHILS % (AUTO) 1 % (0-10); EOSINOPHILS # (AUTO) 0.4 10^3/uL (0.0-0.3); EOSINOPHILS % (AUTO) 7 % (0-10); HEMATOCRIT 41 % (40-54); HEMOGLOBIN 14.2 g/dL (13.3-17.7); LYMPHOCYTES # (AUTO) 1.4 10^3/uL (1.0-4.0); LYMPHOCYTES % (AUTO) 23 % (12-44); MEAN CORPUSCULAR HEMOGLOBIN 31 pg (25-34); MEAN CORPUSCULAR HGB CONC 35 g/dL (32-36); MEAN CORPUSCULAR VOLUME 89 fL (80-99); MEAN PLATELET VOLUME 12.2 fL (9.0-12.2); MONOCYTES # (AUTO) 0.8 10^3/uL (0.0-1.0); MONOCYTES % (AUTO) 12 % (0-12); NEUTROPHILS # (AUTO) 3.7 10^3/uL (1.8-7.8); NEUTROPHILS % (AUTO) 58 % (42-75); PLATELET COUNT 183 10^3/uL (130-400); WHITE BLOOD COUNT 6.3 10^3/uL (4.3-11.0)
[2023-03-31 05:47] LABS: ALBUMIN 4.1 GM/DL (3.2-4.5); POTASSIUM 4.2 MMOL/L (3.6-5.0)
[2023-03-31 05:48] LABS: CALCIUM 9.1 MG/DL (8.5-10.1)
[2023-03-31 05:50] LABS: TOTAL PROTEIN 7.1 GM/DL (6.4-8.2)
[2023-03-31 05:51] LABS: BILIRUBIN,TOTAL 0.4 MG/DL (0.1-1.0)
[2023-03-31 05:53] LABS: CREATININE SERUM 0.74 MG/DL (0.60-1.30)
[2023-03-31] MEDS: PANTOPRAZOLE 40 MG TABLET PO SCH (06:23)
[2023-03-31 07:54] VITALS: BP 152/70
[2023-03-31] MEDS: carvediloL 12.5 MG TABLET PO SCH ×2 (07:56→17:54)
[2023-03-31] MEDS: LORATADINE 10 MG TABLET PO SCH (07:56)
[2023-03-31] MEDS: APIXABAN 5 MG TABLET PO SCH ×2 (07:56→20:55)
[2023-03-31] MEDS: DOCUSATE SODIUM 100 MG CAPSULE PO SCH ×2 (07:58→20:56)
[2023-03-31] MEDS: SENNA W/DOCUSATE TABLET PO SCH ×2 (07:59→20:56)
--- NOTE | 2023-03-31 08:35 | Physical Therapy Daily Note ---
PT Daily Note-Current Subjective Pt reports he is doing well today and is agreeable to PT. Denies pain. Pain Numeric Pain Scale: 0-No Pain Location: No Pain Reported Section J - Health Conditions 1. Rarely or not at all 2. Occasionally 3. Frequently 4. Almost constantly 8. Unable to answer Pain Effect on Sleep: 1 Pain Interference with Therapy: 1 Pain Interference w/Day-to-Day: 1 Transfers SCALE: Activities may be completed with or without assistive devices. 5-Nfycibhuwm-effssql completes the activity by him/herself with no assistance from a helper. 5-Set-up or Clean-up Assistance-helper sets up or cleans up; patient completes activity. [place] assists only prior to or following the activity. 4-Supervision or Touching Assistance-helper provides verbal cues and/or touching/steadying and/or contact guard assistance as patient completes activity. Assistance may be provided throughout the activity or intermittently. 3-Partial/Moderate Assistance-helper does LESS THAN HALF the effort. [place] lifts, holds or supports trunk or limbs, but provides less than half the effort. 2-Substantial/Maximal Assistance-helper does MORE THAN HALF the effort. [place] lifts or holds trunk or limbs and provides more than half the effort. 9-Uwifyeoln-wqfddm does ALL the effort. Patient does none of the effort to complete the activity. Or, the assistance of 2 or more helpers is required for the patient to complete the activity. If activity was not attempted, code reason: 7-Patient Refused. 9-Not Applicable-not attempted and the patient did not perform the activity before the current illness, exacerbation or injury. 10-Not Attempted due to Environmental Limitations-(lack of equipment, weather restraints, etc.). 88-Not Attempted due to Medical Conditions or Safety Concerns. Sit to Stand (QC): 4 Chair/Ddt-cj-[place] Xfer(QC): 4 Weight Bearing Right Lower Extremity: Right Full Weight Bearing Left Lower Extremity: Left Full Weight Bearing Gait Training Does the Patient Walk?: Yes Distance: 400ft x 2 Walk 10 feet (QC): 4 Walk 50 ft with 2 Turns(QC): 4 Walk 150 ft (QC): 4 Gait Persons Needed: 1 Gait Assistive Device: None Wheelchair Training Does the Pt Use a Wheelchair?: No Wheel 50 ft with 2 turns (QC): 9 Wheel 150 ft (QC): 9 Type of Wheelchair: N/A Treatments Pt completed functional transfers with SBA. Pt ambulated 400ft x 2 with no AD and CGA. Pt completed standing B LE Ther Ex x 15-20 reps each with intermittent UE support and SBA: PF/DF, marching, hip abd/ext, HS curls, and mini-squats. Pt completed dynamic balance tasks x 120ft each with CGA: forward/backward walking, B side stepping, forward walking with head turns/head nods, and tandem walking. Pt completed 20 min on the nu-step on level 4. After treatment session, pt was sitting EOB with call light in reach and all needs met. Assessment Current Status: Good Progress Pt tolerated PT well with good effort PT Group Home Goals Small Appliance Assembly Supervisor Goals PT Small Appliance Assembly Supervisor Goals Time Frame: Apr 09, 2023 Roll Left & Right (QC): 6 (Pt will be Mod I with functional mobility, in order to safely return home alone. ) Sit to Lying (QC): 6 (Pt will be Mod I with functional mobility, in order to safely return home alone. ) Lying-Sitting on Side/Bed(QC): 6 (Pt will be Mod I with functional mobility, in order to safely return home alone. ) Sit to Stand (QC): 6 (Pt will be Mod I with functional mobility, in order to safely return home alone. ) Chair/Bjk-jl-Lwbja Xfer(QC): 6 (Pt will be Mod I with functional mobility, in order to safely return home alone. ) Toilet Transfer (QC): 6 (Pt will be Mod I with functional mobility, in order to safely return home alone. ) Car Transfer (QC): 6 (Pt will be Mod I with functional mobility, in order to safely return home alone. ) Does the Patient Walk: Yes Walk 10 feet (QC): 6 (Pt will be Mod I with functional mobility, in order to safely return home alone. ) Walk 50ft with 2 Turns (QC): 6 (Pt will be Mod I with functional mobility, in order to safely return home alone. ) Walk 150 ft (QC): 6 (Pt will be Mod I with functional mobility, in order to safely return home alone. ) Walking 10ft on Uneven Surface: 6 (Pt will be Mod I with functional mobility, in order to safely return home alone. ) 1 Step (curb) (QC): 6 (Pt will be Mod I with functional mobility, in order to safely return home alone. ) 4 Steps (QC): 6 (Pt will be Mod I with functional mobility, in order to safely return home alone. ) 12 Steps (QC): 6 (Pt will be Mod I with functional mobility, in order to safely return home alone. ) Picking up an Object (QC): 6 (Pt will be Mod I with functional mobility, in order to safely return home alone. ) Does the Pt use WC or Scooter?: No Wheel 50 feet with 2 turns (QC: 9 Type: N/A Wheel 150 feet: 9 Type: N/A PT Plan Problem List Problem List: Activity Tolerance, Functional Strength, Safety, Balance, Gait, Transfer, Bed Mobility, ROM Treatment/Plan Treatment Plan: Continue Plan of Care Treatment Plan: Bed Mobility, Education, Functional Activity Rebecca, Functional Strength, Group Therapy, Gait, Safety, Therapeutic Exercise, Transfers Treatment Duration: Apr 09, 2023 Frequency: At least 5 of 7 days/Wk (IRF) Estimated Hrs Per Day: 1.5 hours per day Patient and/or Family Agrees t: Yes Safety Risks/Education Patient Education: Gait Training, Transfer Techniques, Correct Positioning, Safety Issues Teaching Recipient: Patient Teaching Methods: Demonstration, Discussion Response to Teaching: Verbalize Understanding, Return Demonstration, Reinforcement Needed Discharge Recommendations Therapy Discharge Recommendati: Home & Family, Post Acute PT Equpiment Recommendations-D/C: None Discharge Status/Home Program Cont per POC Barriers to Progress Weakness, endurance, balance Target Placement Home Time Time In: 830 Time Out: 1000 DATE: Mar 31, 2023 Total Billed Treatment Time: 90 Total Billed Treatment 90 min 1 visit EX x 1 NM x 1 GT x 2 FA x 2 FELIPA DEAN PT Mar 31, 2023 08:35
[2023-03-31] MEDS ORDERED: ATOR40TA70 PO (10:08)
[2023-03-31] MEDS ORDERED: CARV12.53 PO (10:08)
[2023-03-31] MEDS ORDERED: LISI10TA25 PO (10:08)
[2023-03-31] MEDS ORDERED: OMEP20CA18 PO (10:08)
[2023-03-31] MEDS ORDERED: APIX5TAB PO (10:08)
--- NOTE | 2023-03-31 10:12 | Occupational Ther Daily Note ---
OT Current Status-Daily Note Subjective Pt at EOB, agreeable to OT Tx. Pt states he is ready to discharge home, and would leave tomorrow if able. Mental Status/Objective Patient Orientation: Normal For Age ADL-Treatment Therapy Code Descriptions/Definitions Functional [place] Measure: 0=Not Assessed/NA 4=Minimal Assistance 1=Total Assistance 5=Supervision or Setup 2=Maximal Assistance 6=Modified [place] 3=Moderate Assistance 7=Complete IndependenceSCALE: Activities may be completed with or without assistive devices. 3-Pxtupgbaxk-wujqcdo completes the activity by him/herself with no assistance from a helper. 5-Set-up or Clean-up Assistance-helper sets up or cleans up; patient completes activity. [place] assists only prior to or following the activity. 4-Supervision or Touching Assistance-helper provides verbal cues and/or touching/steadying and/or contact guard assistance as patient completes activity. Assistance may be provided throughout the activity or intermittently. 3-Partial/Moderate Assistance-helper does LESS THAN HALF the effort. [place] lifts, holds or supports trunk or limbs, but provides less than half the effort. 2-Substantial/Maximal Assistance-helper does MORE THAN HALF the effort. [place] lifts or holds trunk or limbs and provides more than half the effort. 8-Ocllslryf-hrzzwe does ALL the effort. Patient does none of the effort to complete the activity. Or, the assistance of 2 or more helpers is required for the patient to complete the activity. If activity was not attempted, code reason: 7-Patient Refused. 9-Not Applicable-not attempted and the patient did not perform the activity before the current illness, exacerbation or injury. 10-Not Attempted due to Environmental Limitations-(lack of equipment, weather restraints, etc.). 88-Not Attempted due to Medical Conditions or Safety Concerns. Eating (QC): 6 Oral Hygiene (QC): 6 Shower/Bathe Self (QC): 6 Upper Body Dressing (QC): 6 Lower Body Dressing (QC): 6 On/Off Footwear: 6 Toileting Hygiene (QC): 6 Toilet Transfer (QC): 6 Other Treatment Pt EOB, performed functional mobility around room, no AD, gathering clothes from closet. Pt completed toileting, showering, and dressing, IND, no LOB noted. Pt stood at sink for grooming tasks, IND. Pt utilized GBS for stabilization throughout ADLS as needed. Pt performed functional mobility to therapy gym, no AD, SBA. OT tx focused on increasing BUE strength and activity tolerance, and neuromuscular reeducation of LUE. Pt completed arm bike, x20 watt resistance, 20 mins total. Pt performed community mobility around hospital, navigating elevators and following signs to go outdoors. SBA with mobility, no AD. 1 slight LOB during mobility required steadying assistance (CGA). Pt returned to his room, transferring to EOB. Post tx, pt at EOB, call light in reach and all needs met. Education OT Patient Education: Correct positioning, Energy conservation, Exercise program, Modified ADL techniques, Progress toward Goal/Update tx plan, Purpose of tx/functional activities, Rehab process, Safety issues Teaching Recipient: Patient Teaching Methods: Discussion Response to Teaching: Verbalize Understanding OT Short Term Goals Short Term Goals Time Frame: Apr 04, 2023 Eatin Oral hygiene: 5 Toileting hygiene: 6 Shower/bathe self: 6 Upper body dressin Lower body dressin Putting on/taking off footwear: 6 OT Correction Goals Correction Goals Time Frame: Apr 11, 2023 Acute change in mental status: 0 Inattention: 0 Disorganized thinkin Altered level of consciousness: 0 Eating (QC): 6 Oral Hygiene (QC): 6 Toileting Hygiene (QC): 6 Shower/Bathe Self (QC): 6 Upper Body Dressing (QC): 6 Lower Body Dressing (QC): 6 On/Off Footwear (QC): 6 1=Demonstrate adherence to instructed precautions during ADL tasks. 2=Patient will verbalize/demonstrate understanding of assistive devices/modifications for ADL. 3=Patient will improve strength/tolerance for activity to enable patient to perform ADL's. OT Education/Plan Problem List/Assessment Assessment: Decreased Activ Tolerance, Impaired Funct Balance, Impaired I ADL's Discharge Recommendations Plan/Recommendations: Continue POC Treatment Plan/Plan of Care Patient would benefit from OT for education, treatment and training to promote independence in ADL's, mobility, safety and/or upper extremity function for ADL's. Plan of Care: ADL Retraining, Concurrent Therapy, Functional Mobility, Group Exercise/Act as Ind, UE Funct Exercise/Act, UE Neuromus Re-Ed/Coord Treatment Duration: Mar 27, 2023 Frequency: At least 5 of 7 days/Wk (IRF) Estimated Hrs Per Day: 1 hour per day Agreement: Yes Rehab Potential: Good Time Start Time: 10:00 Stop Time: 11:30 DATE: Mar 31, 2023 Total Time Billed (hr/min): 90 Billed Treatment Time 1, ADL 2 (30'), EX 2 (25'), FA 2 (35') STEPHANIE RENO OT Mar 31, 2023 10:12
[2023-03-31 17:54] VITALS: BP 128/62
[2023-03-31 20:00] VITALS: BP 133/67
[2023-03-31] MEDS: diphenhydrAMINE 25 MG TABLET PO PRN (20:55)
[2023-04-01] MEDS: PANTOPRAZOLE 40 MG TABLET PO SCH (05:39)
[2023-04-01 08:07] VITALS: BP 145/68
[2023-04-01] MEDS: APIXABAN 5 MG TABLET PO SCH ×2 (08:11→20:29)
[2023-04-01] MEDS: carvediloL 12.5 MG TABLET PO SCH ×2 (08:11→17:40)
[2023-04-01] MEDS: LORATADINE 10 MG TABLET PO SCH (08:12)
[2023-04-01] MEDS: SENNA W/DOCUSATE TABLET PO SCH ×2 (08:15→21:07)
[2023-04-01] MEDS: DOCUSATE SODIUM 100 MG CAPSULE PO SCH ×2 (08:15→21:07)
--- NOTE | 2023-04-01 08:20 | Physical Therapy Daily Note ---
PT Daily Note-Current Subjective Pt reports he is doing well this morning and is agreeable to PT. Denies pain. Pain Numeric Pain Scale: 0-No Pain Location: No Pain Reported Section J - Health Conditions 1. Rarely or not at all 2. Occasionally 3. Frequently 4. Almost constantly 8. Unable to answer Pain Effect on Sleep: 1 Pain Interference with Therapy: 1 Pain Interference w/Day-to-Day: 1 Transfers SCALE: Activities may be completed with or without assistive devices. 5-Jwzjofjiun-kdqyegs completes the activity by him/herself with no assistance from a helper. 5-Set-up or Clean-up Assistance-helper sets up or cleans up; patient completes activity. [place] assists only prior to or following the activity. 4-Supervision or Touching Assistance-helper provides verbal cues and/or touching/steadying and/or contact guard assistance as patient completes activity. Assistance may be provided throughout the activity or intermittently. 3-Partial/Moderate Assistance-helper does LESS THAN HALF the effort. [place] lifts, holds or supports trunk or limbs, but provides less than half the effort. 2-Substantial/Maximal Assistance-helper does MORE THAN HALF the effort. [place] lifts or holds trunk or limbs and provides more than half the effort. 0-Nddwdbips-swjvqt does ALL the effort. Patient does none of the effort to comp lete the activity. Or, the assistance of 2 or more helpers is required for the patient to complete the activity. If activity was not attempted, code reason: 7-Patient Refused. 9-Not Applicable-not attempted and the patient did not perform the activity before the current illness, exacerbation or injury. 10-Not Attempted due to Environmental Limitations-(lack of equipment, weather restraints, etc.). 88-Not Attempted due to Medical Conditions or Safety Concerns. Sit to Stand (QC): 4 Chair/Stg-dj-Iksrp Xfer(QC): 4 Weight Bearing Right Lower Extremity: Right Full Weight Bearing Left Lower Extremity: Left Full Weight Bearing Gait Training Does the Patient Walk?: Yes Distance: 400ft x 2 Walk 10 feet (QC): 4 Walk 50 ft with 2 Turns(QC): 4 Walk 150 ft (QC): 4 Walking 10ft/uneven surface-QC: 4 Gait Persons Needed: 1 Gait Assistive Device: FWW Wheelchair Training Does the Pt Use a Wheelchair?: No Wheel 50 ft with 2 turns (QC): 9 Wheel 150 ft (QC): 9 Type of Wheelchair: N/A Stair Training #of Steps: 20 1 Step (curb) (QC): 4 4 Steps (QC): 4 12 Steps (QC): 4 Stairs: Pattern: Reciprocal Treatments Pt completed functional transfers with SBA/Mod I. Pt ambulated 400ft x 2 with no AD and SBA (inside/outside, even/uneven surfaces, down/up ramp). Pt completed standing B LE Ther Ex x 15 reps each on the blue airex pad with intermittent UE support and SBA. Pt completed 18 steps with B HR and SBA. Pt completed 20 min on the nu-step on level 5. Pt completed 10 min of standing ladder golf with SBA/Mod I. After treatment session, pt was sitting up in the recliner with call light in reach and all needs met. Assessment Current Status: Good Progress Pt tolerated PT well, with good effort PT Grazing Aide Goals Mcfp Goals PT Mcfp Goals Time Frame: Apr 09, 2023 Roll Left & Right (QC): 6 (Pt will be Mod I with functional mobility, in order to safely return home alone. ) Sit to Lying (QC): 6 (Pt will be Mod I with functional mobility, in order to safely return home alone. ) Lying-Sitting on Side/Bed(QC): 6 (Pt will be Mod I with functional mobility, in order to safely return home alone. ) Sit to Stand (QC): 6 (Pt will be Mod I with functional mobility, in order to safely return home alone. ) Chair/Vnw-hv-Bkabd Xfer(QC): 6 (Pt will be Mod I with functional mobility, in order to safely return home alone. ) Toilet Transfer (QC): 6 (Pt will be Mod I with functional mobility, in order to safely return home alone. ) Car Transfer (QC): 6 (Pt will be Mod I with functional mobility, in order to safely return home alone. ) Does the Patient Walk: Yes Walk 10 feet (QC): 6 (Pt will be Mod I with functional mobility, in order to safely return home alone. ) Walk 50ft with 2 Turns (QC): 6 (Pt will be Mod I with functional mobility, in order to safely return home alone. ) Walk 150 ft (QC): 6 (Pt will be Mod I with functional mobility, in order to safely return home alone. ) Walking 10ft on Uneven Surface: 6 (Pt will be Mod I with functional mobility, in order to safely return home alone. ) 1 Step (curb) (QC): 6 (Pt will be Mod I with functional mobility, in order to safely return home alone. ) 4 Steps (QC): 6 (Pt will be Mod I with functional mobility, in order to safely return home alone. ) 12 Steps (QC): 6 (Pt will be Mod I with functional mobility, in order to safely return home alone. ) Picking up an Object (QC): 6 (Pt will be Mod I with functional mobility, in order to safely return home alone. ) Does the Pt use WC or Scooter?: No Wheel 50 feet with 2 turns (QC: 9 Type: N/A Wheel 150 feet: 9 Type: N/A PT Plan Problem List Problem List: Activity Tolerance, Functional Strength, Safety, Balance, Gait, Transfer, Bed Mobility Treatment/Plan Treatment Plan: Continue Plan of Care Treatment Plan: Bed Mobility, Education, Functional Activity Rebecca, Functional Strength, Group Therapy, Gait, Safety, Therapeutic Exercise, Transfers Treatment Duration: Apr 09, 2023 Frequency: At least 5 of 7 days/Wk (IRF) Estimated Hrs Per Day: 1.5 hours per day Patient and/or Family Agrees t: Yes Safety Risks/Education Patient Education: Gait Training, Transfer Techniques, Correct Positioning, Safety Issues Teaching Recipient: Patient Teaching Methods: Demonstration, Discussion Response to Teaching: Verbalize Understanding, Return Demonstration, Rein forcement Needed Discharge Recommendations Therapy Discharge Recommendati: Home & Family, Post Acute PT Equpiment Recommendations-D/C: None Discharge Status/Home Program Cont per POC Barriers to Progress Weakness, endurance, balance Target Placement Home Time Time In: 815 Time Out: 945 DATE: Apr 01, 2023 Total Billed Treatment Time: 90 Total Billed Treatment 90 1 visit EX x 1 FA x 2 GT x 3 FELIPA DEAN PT Apr 01, 2023 08:20
--- NOTE | 2023-04-01 08:21 | PM&R Progress Note ---
Subjective HPI/CC On Admission Date Seen by Provider: Apr 01, 2023 Time Seen by Provider: 12:00 Subjective/Events-last exam 04/01/2023: Patient doing well Improved overall Monitoring BP OAC maintained 03/31/2023: Improved overall Improved morale No falls No pain 03/30/2023: Patient doing well Day pass for his bday No concerns Debating going [facility]- to recover 03/29/2023: Patient doing well Birthday tomorrow so he will have lunch with his family No pain is reported No falls 03/28/2023: Patient doing really well Participation is good PT and OT aggressive therapy No falls 03/27/2023: No major issues Improved overall No pain reported Left leg improved ambulation Review of Systems General: Fatigue, Malaise Objective Exam Vital Signs Vital Signs Date Time Temp Pulse Resp B/P (MAP) Pulse Ox O2 Delivery O2 Flow Rate FiO2 04/01/23 17:39 64 145/66 (92) 99 Room Air 04/01/23 08:07 36.1 16 Capillary Refill : General Appearance: No Apparent Distress, WD/WN, Chronically ill, Thin HEENT: PERRL/EOMI, Normal ENT Inspection, Pharynx Normal Neck: Full Range of Motion, Normal Inspection, Non Tender, Supple, Carotid Bruit Respiratory: Chest Non Tender, Lungs Clear, Normal Breath Sounds, No Accessory Muscle Use, No Respiratory Distress Cardiovascular: Regular Rate, Rhythm, No Edema, No Gallop, No JVD, No Murmur, Normal Peripheral Pulses Gastrointestinal: Normal Bowel Sounds, No Organomegaly, No Pulsatile Mass, Non Tender, Soft Back: Normal Inspection, No CVA Tenderness, No Vertebral Tenderness Extremity: Normal Capillary Refill, Normal Inspection, Normal Range of Motion, Non Tender, No Calf Tenderness, No Pedal Edema Neurologic/Psychiatric: Alert, Oriented x3, Normal Mood/Affect, 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 FIM Transfers Therapy Code Descriptions/Definitions Functional [place] Measure: 0=Not Assessed/NA 4=Minimal Assistance 1=Total Assistance 5=Supervision or Setup 2=Maximal Assistance 6=Modified [place] 3=Moderate Assistance 7=Complete IndependenceSCALE: Activities may be completed with or without assistive devices. 1-Nxpjlukrup-qjnoceo completes the activity by him/herself with no assistance from a helper. 5-Set-up or Clean-up Assistance-helper sets up or cleans up; patient completes activity. [place] assists only prior to or following the activity. 4-Supervision or Touching Assistance-helper provides verbal cues and/or touching/steadying and/or contact guard assistance as patient completes ac tivity. Assistance may be provided throughout the activity or intermittently. 3-Partial/Moderate Assistance-helper does LESS THAN HALF the effort. [place] lifts, holds or supports trunk or limbs, but provides less than half the effort. 2-Substantial/Maximal Assistance-helper does MORE THAN HALF the effort. [place] lifts or holds trunk or limbs and provides more than half the effort. 3-Euagnesae-mysofc does ALL the effort. Patient does none of the effort to complete the activity. Or, the assistance of 2 or more helpers is required for the patient to complete the activity. If activity was not attempted, code reason: 7-Patient Refused. 9-Not Applicable-not attempted and the patient did not perform the activity before the current illness, exacerbation or injury. 10-Not Attempted due to Environmental Limitations-(lack of equipment, weather restraints, etc.). 88-Not Attempted due to Medical Conditions or Safety Concerns. Roll Left to Right (QC): 4 Sit to Lying (QC): 4 Sit to Stand (QC): 4 Chair/Tmr-sa-Rbvse Xfer(QC): 4 Car Transfer (QC): 88 Gait Training Does the Patient Walk?: Yes Distance: 400ft x 2 Walk 10 feet (QC): 4 Walk 50 ft with 2 Turns(QC): 4 Walk 150 ft (QC): 4 Walking 10ft/uneven surface-QC: 88 Gait Persons Needed: 1 Gait Assistive Device: FWW Wheelchair Training Does the Pt Use a Wheelchair?: No Wheel 50 ft with 2 turns (QC): 9 Wheel 150 ft (QC): 9 Type of Wheelchair: N/A Stair Training Stair Training: Handrails/: 2 handrails #of Steps: 12 1 Step (curb) (QC): 4 4 Steps (QC): 4 12 Steps (QC): 4 Balance Picking up an Object (QC): 4 (CGA ) ADL-Treatment Eating (QC): 6 Oral Hygiene (QC): 6 Shower/Bathe Self (QC): 6 Upper Body Dressing (QC): 6 Lower Body Dressing (QC): 6 On/Off Footwear (QC): 6 Toileting Hygiene (QC): 6 Toilet Transfer (QC): 6 Assessment/Plan Assessment and Plan Assess & Plan/Chief Complaint Assessment: Bilateral cerebellar strokes suspected embolic event maintained on OAC HTN HLP Smoker Loredo's esophagus Plan: Monitor closely Fall risk Home meds Aggressive therapy 03/27/2023: Aggressive therapy OAC 03/28/2023: Supportive care Monitor closely 03/29/2023: Supportive care Monitor closely 03/30/2023: Monitor closely Day pass 03/31/2023: Improved overall 04/01/2023: Monitor closely (1) Cerebellar stroke DIA MOORE DO Apr 01, 2023 08:21
--- NOTE | 2023-04-01 11:25 | Occupational Ther Daily Note ---
OT Current Status-Daily Note Subjective Pt agreeable to OT tx. Mental Status/Objective Patient Orientation: Normal For Age ADL-Treatment Therapy Code Descriptions/Definitions Functional [place] Measure: 0=Not Assessed/NA 4=Minimal Assistance 1=Total Assistance 5=Supervision or Setup 2=Maximal Assistance 6=Modified [place] 3=Moderate Assistance 7=Complete IndependenceSCALE: Activities may be completed with or without assistive devices. 7-Ndnycifvnf-gescddc completes the activity by him/herself with no assistance from a helper. 5-Set-up or Clean-up Assistance-helper sets up or cleans up; patient completes activity. [place] assists only prior to or following the activity. 4-Supervision or Touching Assistance-helper provides verbal cues and/or touching/steadying and/or contact guard assistance as patient completes activity . Assistance may be provided throughout the activity or intermittently. 3-Partial/Moderate Assistance-helper does LESS THAN HALF the effort. [place] lifts, holds or supports trunk or limbs, but provides less than half the effort. 2-Substantial/Maximal Assistance-helper does MORE THAN HALF the effort. [place] lifts or holds trunk or limbs and provides more than half the effort. 4-Vhyicfkzb-nfwnnd does ALL the effort. Patient does none of the effort to complete the activity. Or, the assistance of 2 or more helpers is required for the patient to complete the activity. If activity was not attempted, code reason: 7-Patient Refused. 9-Not Applicable-not attempted and the patient did not perform the activity before the current illness, exacerbation or injury. 10-Not Attempted due to Environmental Limitations-(lack of equipment, weather restraints, etc.). 88-Not Attempted due to Medical Conditions or Safety Concerns. Oral Hygiene (QC): 6 On/Off Footwear: 6 (tennis shoes) Toileting Hygiene (QC): 6 Other Treatment Pt agreeable to OT Tx, transferred into bathroom without AD, IND. Pt completed toileting (standing at toilet), and grooming tasks (standing at sink), IND. Pt performed functional mobility to therapy gym, no AD. OT tx focused on increasing BUE Strength and activity tolerance, neuromuscular reeducation LUE, and functional balance during community mobility. Pt completed x22 mins on arm bike, 20 watt resistance, no rest breaks. Pt then removed beads from mod-heavy resistance therputty, locating all beads without cues. Pt performed community mo bility around hospital, gift shop, and outside, navigating hallways using signs without cues, and navigating elevators. Pt required SBA for balance during community mobility, no AD. Pt returned to [facility]. To increase fine motor coordination, pt completed "Perfection" task, manipulating small game pieces within L hand and placing into correct shape on board, pt required 1 VC. Pt then completed medication management, placing correct "pills" into organizer following printed instructions, no errors. Pt returned to his room, no AD, transferring to recliner. Post tx, pt in recliner, call light in reach and all needs met. Education OT Patient Education: Correct positioning, Energy conservation, Modified ADL techniques, Progress toward Goal/Update tx plan, Purpose of tx/functional activities, Rehab process, Safety issues, Transfer techniques Teaching Recipient: Patient Teaching Methods: Discussion Response to Teaching: Verbalize Understanding OT Short Term Goals Short Term Goals Time Frame: Apr 04, 2023 Eatin Oral hygiene: 5 Toileting hygiene: 6 Shower/bathe self: 6 Upper body dressin Lower body dressin Putting on/taking off footwear: 6 OT Nursing Home Goals Streaming Media Specialist Goals Time Frame: Apr 11, 2023 Acute change in mental status: 0 Inattention: 0 Disorganized thinkin Altered level of consciousness: 0 Eating (QC): 6 Oral Hygiene (QC): 6 Toileting Hygiene (QC): 6 Shower/Bathe Self (QC): 6 Upper Body Dressing (QC): 6 Lower Body Dressing (QC): 6 On/Off Footwear (QC): 6 1=Demonstrate adherence to instructed precautions during ADL tasks. 2=Patient will verbalize/demonstrate understanding of assistive devices/modifications for ADL. 3=Patient will improve strength/tolerance for activity to enable patient to perform ADL's. OT Education/Plan Problem List/Assessment Assessment: Decreased Activ Tolerance, Decreased UE Strength, Impaired I ADL's Discharge Recommendations Plan/Recommendations: Continue POC Treatment Plan/Plan of Care Patient would benefit from OT for education, treatment and training to promote independence in ADL's, mobility, safety and/or upper extremity function for ADL' s. Plan of Care: ADL Retraining, Concurrent Therapy, Functional Mobility, Group Exercise/Act as Ind, UE Funct Exercise/Act, UE Neuromus Re-Ed/Coord Treatment Duration: Mar 27, 2023 Frequency: At least 5 of 7 days/Wk (IRF) Estimated Hrs Per Day: 1 hour per day Agreement: Yes Rehab Potential: Good Time Start Time: 09:45 Stop Time: 11:15 DATE: Apr 01, 2023 Total Time Billed (hr/min): 90 Billed Treatment Time 1, ADL 3 (45'), EX 2 (25'), FA (20') STEPHANIE RENO OT Apr 01, 2023 11:25
[2023-04-01] MEDS ORDERED: diphenhydrAMINE 2% CREAM 30 GM TOP PRN (11:45)
[2023-04-01 17:39] VITALS: BP 145/66
[2023-04-01] MEDS: diphenhydrAMINE 25 MG TABLET PO PRN (20:29)
[2023-04-01 20:45] VITALS: BP 152/70
--- NOTE | 2023-04-02 05:07 | PM&R Progress Note ---
Subjective HPI/CC On Admission Date Seen by Provider: Apr 02, 2023 Time Seen by Provider: 12:45 Subjective/Events-last exam 04/02/2023: Patient doing well Supportive care we will continue Discharge plan tomorrow 04/01/2023: Patient doing well Improved overall Monitoring BP OAC maintained 03/31/2023: Improved overall Improved morale No falls No pain 03/30/2023: Patient doing well Day pass for his bday No concerns Debating going to [place] with his ex- to recover 03/29/2023: Patient doing well Birthday tomorrow so he will have lunch with his family No pain is reported No falls 03/28/2023: Patient doing really well Participation is good PT and OT aggressive therapy No falls 03/27/2023: No major issues Improved overall No pain reported Left leg improved ambulation Review of Systems General: Fatigue, Malaise Objective Exam Vital Signs Vital Signs Date Time Temp Pulse Resp B/P (MAP) Pulse Ox O2 Delivery O2 Flow Rate FiO2 04/02/23 19:45 36.5 64 16 129/60 (83) 96 Room Air Capillary Refill : General Appearance: No Apparent Distress, WD/WN, Chronically ill, Thin HEENT: PERRL/EOMI, Normal ENT Inspection, Pharynx Normal Neck: Full Range of Motion, Normal Inspection, Non Tender, Supple, Carotid Bruit Respiratory: Chest Non Tender, Lungs Clear, Normal Breath Sounds, No Accessory Muscle Use, No Respiratory Distress Cardiovascular: Regular Rate, Rhythm, No Edema, No Gallop, No JVD, No Murmur, Normal Peripheral Pulses Gastrointestinal: Normal Bowel Sounds, No Organomegaly, No Pulsatile Mass, Non Tender, Soft Back: Normal Inspection, No CVA Tenderness, No Vertebral Tenderness Extremity: Normal Capillary Refill, Normal Inspection, Normal Range of Motion, Non Tender, No Calf Tenderness, No Pedal Edema Neurologic/Psychiatric: Alert, Oriented x3, Normal 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 FIM Transfers Therapy Code Descriptions/Definitions Functional [place] Measure: 0=Not Assessed/NA 4=Minimal Assistance 1=Total Assistance 5=Supervision or Setup 2=Maximal Assistance 6=Modified [place] 3=Moderate Assistance 7=Complete IndependenceSCALE: Activities may be completed with or without assistive devices. 2-Tlqnvfwcej-hobrkzc completes the activity by him/herself with no assistance from a helper. 5-Set-up or Clean-up Assistance-helper sets up or cleans up; patient completes activity. [place] assists only prior to or following the activity. 4-Supervision or Touching Assistance-helper provides verbal cues and/or touching/steadying and/or contact guard assistance as patient completes activity. Assistance may be provided throughout the activity or intermittently. 3-Partial/Moderate Assistance-helper does LESS THAN HALF the effort. [place] lifts, holds or supports trunk or limbs, but provides less than half the effort. 2-Substantial/Maximal Assistance-helper does MORE THAN HALF the effort. [place] lifts or holds trunk or limbs and provides more than half the effort. 7-Ihvrnhdhj-kvvhhd does ALL the effort. Patient does none of the effort to complete the activity. Or, the assistance of 2 or more helpers is required for the patient to complete the activity. If activity was not attempted, code reason: 7-Patient Refused. 9-Not Applicable-not attempted and the patient did not perform the activity before the current illness, exacerbation or injury. 10-Not Attempted due to Environmental Limitations-(lack of equipment, weather restraints, etc.). 88-Not Attempted due to Medical Conditions or Safety Concerns. Roll Left to Right (QC): 4 Sit to Lying (QC): 4 Sit to Stand (QC): 4 Chair/Umg-zt-Rfkwb Xfer(QC): 4 Car Transfer (QC): 88 Gait Training Does the Patient Walk?: Yes Distance: 400ft x 2 Walk 10 feet (QC): 4 Walk 50 ft with 2 Turns(QC): 4 Walk 150 ft (QC): 4 Walking 10ft/uneven surface-QC: 4 Gait Persons Needed: 1 Gait Assistive Device: FWW Wheelchair Training Does the Pt Use a Wheelchair?: No Wheel 50 ft with 2 turns (QC): 9 Wheel 150 ft (QC): 9 Type of Wheelchair: N/A Stair Training Stair Training: Handrails/: 2 handrails #of Steps: 20 1 Step (curb) (QC): 4 4 Steps (QC): 4 12 Steps (QC): 4 Stairs: Pattern: Reciprocal Balance Picking up an Object (QC): 4 (CGA ) ADL-Treatment Eating (QC): 6 Oral Hygiene (QC): 6 Shower/Bathe Self (QC): 6 Upper Body Dressing (QC): 6 Lower Body Dressing (QC): 6 On/Off Footwear (QC): 6 (tennis shoes) Toileting Hygiene (QC): 6 Toilet Transfer (QC): 6 Assessment/Plan Assessment and Plan Assess & Plan/Chief Complaint Assessment: 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
[2023-04-02] MEDS: PANTOPRAZOLE 40 MG TABLET PO SCH (05:48)
[2023-04-02] MEDS: carvediloL 12.5 MG TABLET PO SCH ×2 (07:46→18:32)
[2023-04-02] MEDS: APIXABAN 5 MG TABLET PO SCH ×2 (07:46→21:45)
[2023-04-02] MEDS: LORATADINE 10 MG TABLET PO SCH (07:46)
[2023-04-02] MEDS: DOCUSATE SODIUM 100 MG CAPSULE PO SCH ×2 (07:49→21:45)
[2023-04-02] MEDS: SENNA W/DOCUSATE TABLET PO SCH ×2 (07:49→21:45)
[2023-04-02 08:00] VITALS: BP 142/72
--- NOTE | 2023-04-02 09:00 | Physical Therapy Daily Note ---
PT Daily Note-Current Subjective Pt sitting up in bed upon arrival. Pt agrees to PT. Pain Location: No Pain Reported Section J - Health Conditions 1. Rarely or not at all 2. Occasionally 3. Frequently 4. Almost constantly 8. Unable to answer Pain Effect on Sleep: 1 Pain Interference with Therapy: 1 Pain Interference w/Day-to-Day: 1 Mental Status Patient Orientation: Person, Place, Time, Situation Transfers SCALE: Activities may be completed with or without assistive devices. 7-Qjwkifoanf-wiydkzz completes the activity by him/herself with no assistance from a helper. 5-Set-up or Clean-up Assistance-helper sets up or cleans up; patient completes activity. [place] assists only prior to or following the activity. 4-Supervision or Touching Assistance-helper provides verbal cues and/or touching/steadying and/or contact guard assistance as patient completes activity. Assistance may be provided throughout the activity or intermittently. 3-Partial/Moderate Assistance-helper does LESS THAN HALF the effort. [place] lifts, holds or supports trunk or limbs, but provides less than half the effort. 2-Substantial/Maximal Assistance-helper does MORE THAN HALF the effort. [place] l ifts or holds trunk or limbs and provides more than half the effort. 2-Hzkeqnogv-fzzsgc does ALL the effort. Patient does none of the effort to complete the activity. Or, the assistance of 2 or more helpers is required for the patient to complete the activity. If activity was not attempted, code reason: 7-Patient Refused. 9-Not Applicable-not attempted and the patient did not perform the activity before the current illness, exacerbation or injury. 10-Not Attempted due to Environmental Limitations-(lack of equipment, weather restraints, etc.). 88-Not Attempted due to Medical Conditions or Safety Concerns. Roll Left & Right (QC): 6 (Mod I) Sit to Lying (QC): 6 (Mod I) Lying to Sitting/Side of Bed(Q: 6 (Mod I) Sit to Stand (QC): 6 (Mod I) Chair/Qiv-lw-Sdmgh Xfer(QC): 6 (Mod I) Toilet Transfer (QC): 6 (Mod I) Car Transfer (QC): 6 (Mod I) Weight Bearing Right Lower Extremity: Right Full Weight Bearing Left Lower Extremity: Left Full Weight Bearing Gait Training Does the Patient Walk?: Yes Distance: 1000+' Walk 10 feet (QC): 6 (Mod I) Walk 50 ft with 2 Turns(QC): 6 (Mod I) Walk 150 ft (QC): 6 (Mod I) Walking 10ft/uneven surface-QC: 6 (Mod I) Gait Assistive Device: None Over exaggerated steppage Wheelchair Training Does the Pt Use a Wheelchair?: No Stair Training Stair Training: Handrails/: 2 handrails #of Steps: 16 1 Step (curb) (QC): 6 (Mod I) 4 Steps (QC): 6 (Mod I) 12 Steps (QC): 6 (Mod I) Stairs: Pattern: Reciprocal Balance Picking up an Object (QC): 6 (Mod I) Treatments Pt completes QC scoring items listed above including extended walking outdoors before returning to room. All needs met, call light in hand Assessment Current Status: Excellent Progress Pt soren. tx very well and is excited to be d/c home tomorrow. PT Supervisor [employer] Goals Supervisor [employer] Goals PT Supervisor [employer] Goals Time Frame: Apr 09, 2023 Roll Left & Right (QC): 6 (Pt will be Mod I with functional mobility, in order to safely return home alone. ) Sit to Lying (QC): 6 (Pt will be Mod I with functional mobility, in order to safely return home alone. ) Lying-Sitting on Side/Bed(QC): 6 (Pt will be Mod I with functional mobility, in order to safely return home alone. ) Sit to Stand (QC): 6 (Pt will be Mod I with functional mobility, in order to safely return home alone. ) Chair/Uyy-ho-Muuzo Xfer(QC): 6 (Pt will be Mod I with functional mobility, in order to safely return home alone. ) Toilet Transfer (QC): 6 (Pt will be Mod I with functional mobility, in order to safely return home alone. ) Car Transfer (QC): 6 (Pt will be Mod I with functional mobility, in order to safely return home alone. ) Does the Patient Walk: Yes Walk 10 feet (QC): 6 (Pt will be Mod I with functional mobility, in order to safely return home alone. ) Walk 50ft with 2 Turns (QC): 6 (Pt will be Mod I with functional mobility, in order to safely return home alone. ) Walk 150 ft (QC): 6 (Pt will be Mod I with functional mobility, in order to safely return home alone. ) Walking 10ft on Uneven Surface: 6 (Pt will be Mod I with functional mobility, in order to safely return home alone. ) 1 Step (curb) (QC): 6 (Pt will be Mod I with functional mobility, in order to safely return home alone. ) 4 Steps (QC): 6 (Pt will be Mod I with functional mobility, in order to safely return home alone. ) 12 Steps (QC): 6 (Pt will be Mod I with functional mobility, in order to safely return home alone. ) Picking up an Object (QC): 6 (Pt will be Mod I with functional mobility, in order to safely return home alone. ) Does the Pt use WC or Scooter?: No Wheel 50 feet with 2 turns (QC: 9 Type: N/A Wheel 150 feet: 9 Type: N/A PT Plan Treatment/Plan Treatment Plan: Continue Plan of Care Treatment Plan: Bed Mobility, Education, Functional Activity Rebecca, Functional Strength, Group Therapy, Gait, Safety, Therapeutic Exercise, Transfers Treatment Duration: Apr 09, 2023 Frequency: At least 5 of 7 days/Wk (IRF) Estimated Hrs Per Day: 1.5 hours per day Patient and/or Family Agrees t: Yes Time Time In: 0730 Time Out: 0900 DATE: Apr 02, 2023 Total Billed Treatment Time: 90 Total Billed Treatment 1, GT x3 (45m) & FA x3 (45m) IRMA HAMILTON PTA Apr 02, 2023 09:00
--- NOTE | 2023-04-02 09:37 | Occupational Ther Daily Note ---
OT Current Status-Daily Note Subjective Pt agreeable to OT Tx, states he is ready to go home tomorrow. Mental Status/Objective Patient Orientation: Normal For Age ADL-Treatment Therapy Code Descriptions/Definitions Functional Early Measure: 0=Not Assessed/NA 4=Minimal Assistance 1=Total Assistance 5=Supervision or Setup 2=Maximal Assistance 6=Modified Early 3=Moderate Assistance 7=Complete IndependenceSCALE: Activities may be completed with or without assistive devices. 9-Nstordjrjn-vrqzsyj completes the activity by him/herself with no assistance from a helper. 5-Set-up or Clean-up Assistance-helper sets up or cleans up; patient completes activity. [place] assists only prior to or following the activity. 4-Supervision or Touching Assistance-helper provides verbal cues and/or touching/steadying and/or contact guard assistance as patient completes activity. Assistance may be provided throughout the activity or intermittently. 3-Partial/Moderate Assistance-helper does LESS THAN HALF the effort. Hull lifts, holds or supports trunk or limbs, but provides less than half the effort. 2-Substantial/Maximal Assistance-helper does MORE THAN HALF the effort. [place] lifts or holds trunk or limbs and provides more than half the effort. 0-Jvdwwuivs-alegsx does ALL the effort. Patient does none of the effort to complete the activity. Or, the assistance of 2 or more helpers is required for the patient to complete the activity. If activity was not attempted, code reason: 7-Patient Refused. 9-Not Applicable-not attempted and the patient did not perform the activity before the current illness, exacerbation or injury. 10-Not Attempted due to Environmental Limitations-(lack of equipment, weather restraints, etc.). 88-Not Attempted due to Medical Conditions or Safety Concerns. Eating (QC): 6 Oral Hygiene (QC): 6 (standing at sink.) Shower/Bathe Self (QC): 6 Upper Body Dressing (QC): 6 Lower Body Dressing (QC): 6 On/Off Footwear: 6 Toileting Hygiene (QC): 6 Toilet Transfer (QC): 6 Other Treatment Pt at EOB, agreeable to OT Tx. Pt reports IND with breakfast this AM. Pt able to gather clothes/ADL supplies around his room, IND, no LOB. Pt completed toileting, showering, dressing and grooming tasks, IND. Pt performed functional mobility to therapy gym. In order to increase BUE strength and activity tolerance, pt completed arm bike, x23 mins, 20 Watt resistance. Pt completed dynamic standing balance task, "ladder golf", able to toss objects using LUE and retrieve objects independently, no LOB noted. Pt taken to shower room, completed tub transfer independently (pt sat on edge of tub, then brought legs over the ledge). Pt returned to his room, IND, transferring to EOB. Post tx, pt EOB, call light in reach and all needs met. Education OT Patient Education: Correct positioning, Energy conservation, Exercise program, Modified ADL techniques, Progress toward Goal/Update tx plan, Purpose of tx/functional activities, Rehab process Teaching Recipient: Patient Teaching Methods: Discussion Response to Teaching: Verbalize Understanding BIMS CAM BIMS Expression of Ideas and Wants: Without Difficulty Understanding Verbal Content: Understands Brief Interview/Mental Status: Yes IRF CECELIA BIMS: IRF CECELIA BIMS Response (Comments) Value Repitition of Three Words Three 3 Recalls Socks Yes, No Cue Required 2 Recalls Blue Yes, No Cue Required 2 Recalls Bed Yes, No Cue Required 2 Year Correct 3 Month Accurate Within 5 Days 2 Day Correct 1 Total 15 Should Staff Asses. Mental St.: No CAM Mental Status Change/Baseline: 0 Inattention: 0 Disorganized thinkin Altered level of consciousness: 0 OT Short Term Goals Short Term Goals Time Frame: Apr 04, 2023 Eatin Oral hygiene: 5 Toileting hygiene: 6 Shower/bathe self: 6 Upper body dressin Lower body dressin Putting on/taking off footwear: 6 OT Orthodontic Technician Goals Group Home Goals Time Frame: Apr 11, 2023 Eating (QC): 6 (met) Oral Hygiene (QC): 6 (met) Toileting Hygiene (QC): 6 (met) Shower/Bathe Self (QC): 6 (met) Upper Body Dressing (QC): 6 (met) Lower Body Dressing (QC): 6 (met) On/Off Footwear (QC): 6 (met) 1=Demonstrate adherence to instructed precautions during ADL tasks. 2=Patient will verbalize/demonstrate understanding of assistive devices/modifications for ADL. 3=Patient will improve strength/tolerance for activity to enable patient to perform ADL's. OT Education/Plan Problem List/Assessment Assessment: No Skilled OT Needs ID'd Discharge Recommendations Plan/Recommendations: Continue POC Treatment Plan/Plan of Care Patient would benefit from OT for education, treatment and training to promote independence in ADL's, mobility, safety and/or upper extremity function for ADL's. Plan of Care: ADL Retraining, Concurrent Therapy, Functional Mobility, Group Exercise/Act as Ind, UE Funct Exercise/Act, UE Neuromus Re-Ed/Coord Treatment Duration: Mar 27, 2023 Frequency: At least 5 of 7 days/Wk (IRF) Estimated Hrs Per Day: 1 hour per day Agreement: Yes Rehab Potential: Good Time Start Time: 09:25 Stop Time: 10:55 DATE: Apr 02, 2023 Total Time Billed (hr/min): 90 Billed Treatment Time 1, ADL 2 (30'), EX 2 (25'), FA 2 (35') STEPHANIE RENO OT Apr 02, 2023 09:37
[2023-04-02 19:45] VITALS: BP 129/60
[2023-04-02] MEDS: diphenhydrAMINE 25 MG TABLET PO PRN (21:45)
--- NOTE | 2023-04-03 05:26 | Discharge Summary ---
Diagnosis/Chief Complaint Date of Admission Mar 26, 2023 at 16:30 Date of Discharge Discharge Date: Apr 03, 2023 Discharge Diagnosis Assessment: Bilateral cerebellar strokes suspected embolic event maintained on OAC HTN HLP Smoker Loredo's esophagus Plan: Monitor closely Fall risk Home meds Aggressive therapy 03/27/2023: Aggressive therapy OAC 03/28/2023: Supportive care Monitor closely 03/29/2023: Supportive care Monitor closely 03/30/2023: Monitor closely Day pass 03/31/2023: Improved overall 04/01/2023: Monitor closely 04/02/2023: Supportive care Discharge tomorrow (1) Cerebellar stroke Discharge Summary Discharge Physical Examination Allergies: Coded Allergies: Penicillins (Verified Allergy, Unknown, 02/07/15) Tetracyclines (Verified Allergy, Unknown, 02/07/15) Vitals & I&Os Vital Signs Date Time Temp Pulse Resp B/P (MAP) Pulse Ox O2 Delivery O2 Flow Rate FiO2 04/03/23 11:41 36.2 65 20 135/68 98 Room Air General Appearance: Alert, Oriented X3, Cooperative Psych/Mental Status: Mental Status NL Hospital Course Was the Problem List Reviewed?: Yes Uneventful hospital course after he was admitted following a stroke. Patient regained function with ambulatory assistive devices and increase stamina quickly. Vitals remained stable. All medications were continued and sent to [facility] for approval. Overall patient was deemed stable for discharge and much improved status. Labs (last 24 hrs) Laboratory Tests 03/27/23 06:23: White Blood Count 6.2, Red Blood Count 4.72, Hemoglobin 14.3, Hematocrit 42, Mean Corpuscular Volume 89, Mean Corpuscular Hemoglobin 30, Mean Corpuscular Hemoglobin Concent 34, Red Cell Distribution Width 12.8, Platelet Count 186, Mean Platelet Volume 11.9, Immature Granulocyte % (Auto) 0, Neutrophils (%) (Auto) 59, Lymphocytes (%) (Auto) 22, Monocytes (%) (Auto) 14H, Eosinophils (%) (Auto) 5, Basophils (%) (Auto) 1, Neutrophils # (Auto) 3.7, Lymphocytes # (Auto) 1.3, Monocytes # (Auto) 0.9, Eosinophils # (Auto) 0.3, Basophils # (Auto) 0.0, Immature Granulocyte # (Auto) 0.0, Sodium Level 133L, Potassium Level 4.1, Chloride Level 102, Carbon Dioxide Level 20L, Anion Gap 11, Blood Urea Nitrogen 8, Creatinine 0.70, Estimat Glomerular Filtration Rate 106, BUN/Creatinine Ratio 11, Glucose Level 94, Calcium Level 9.5, Corrected Calcium 9.3, Total Bilirubin 0.9, Aspartate Amino Transf (AST/SGOT) 31, Alanine Aminotransferase (ALT/SGPT) 42, Alkaline Phosphatase 62, Total Protein 7.4, Albumin 4.3 03/31/23 05:14: White Blood Count 6.3, Red Blood Count 4.58, Hemoglobin 14.2, Hematocrit 41, Mean Corpuscular Volume 89, Mean Corpuscular Hemoglobin 31, Mean Corpuscular Hemoglobin Concent 35, Red Cell Distribution Width 12.7, Platelet Count 183, Mean Platelet Volume 12.2, Immature Granulocyte % (Auto) 0, Neutrophils (%) (Auto) 58, Lymphocytes (%) (Auto) 23, Monocytes (%) (Auto) 12, Eosinophils (%) (Auto) 7, Basophils (%) (Auto) 1, Neutrophils # (Auto) 3.7, Lymphocytes # (Auto) 1.4, Monocytes # (Auto) 0.8, Eosinophils # (Auto) 0.4H, Basophils # (Auto) 0.0, Immature Granulocyte # (Auto) 0.0, Sodium Level 135, Potassium Level 4.2, Chloride Level 105, Carbon Dioxide Level 21, Anion Gap 9, Blood Urea Nitrogen 1 1, Creatinine 0.74, Estimat Glomerular Filtration Rate 104, BUN/Creatinine Ratio 15, Glucose Level 107H, Calcium Level 9.1, Corrected Calcium 9.0, Total Bilirubin 0.4, Aspartate Amino Transf (AST/SGOT) 21, Alanine Aminotransferase (ALT/SGPT) 25, Alkaline Phosphatase 58, Total Protein 7.1, Albumin 4.1 Pending Labs Laboratory Tests 03/27/23 06:23: White Blood Count 6.2, Red Blood Count 4.72, Hemoglobin 14.3, Hematocrit 42, Mean Corpuscular Volume 89, Mean Corpuscular Hemoglobin 30, Mean Corpuscular Hemoglobin Concent 34, Red Cell Distribution Width 12.8, Platelet Count 186, Mean Platelet Volume 11.9, Immature Granulocyte % (Auto) 0, Neutrophils (%) (Auto) 59, Lymphocytes (%) (Auto) 22, Monocytes (%) (Auto) 14, Eosinophils (%) (Auto) 5, Basophils (%) (Auto) 1, Neutrophils # (Auto) 3.7, Lymphocytes # (Auto) 1.3, Monocytes # (Auto) 0.9, Eosinophils # (Auto) 0.3, Basophils # (Auto) 0.0, Immature Granulocyte # (Auto) 0.0, Sodium Level 133, Potassium Level 4.1, Chloride Level 102, Carbon Dioxide Level 20, Anion Gap 11, Blood Urea Nitrogen 8, Creatinine 0.70, Estimat Glomerular Filtration Rate 106, BUN/Creatinine Ratio 11, Glucose Level 94, Calcium Level 9.5, Corrected Calcium 9.3, Total Bilirubin 0.9, Aspartate Amino Transf (AST/SGOT) 31, Alanine Aminotransferase (ALT/SGPT) 42, Alkaline Phosphatase 62, Total Protein 7.4, Albumin 4.3 03/31/23 05:14: White Blood Count 6.3, Red Blood Count 4.58, Hemoglobin 14.2, Hematocrit 41, Mean Corpuscular Volume 89, Mean Corpuscular Hemoglobin 31, Mean Corpuscular Hemoglobin Concent 35, Red Cell Distribution Width 12.7, Platelet Count 183, Mean Platelet Volume 12.2, Immature Granulocyte % (Auto) 0, Neutrophils (%) (Auto) 58, Lymphocytes (%) (Auto) 23, Monocytes (%) (Auto) 12, Eosinophils (%) (Auto) 7, Basophils (%) (Auto) 1, Neutrophils # (Auto) 3.7, Lymphocytes # (Auto) 1.4, Monocytes # (Auto) 0.8, Eosinophils # (Auto) 0.4, Basophils # (Auto) 0.0, Immature Granulocyte # (Auto) 0.0, Sodium Level 135, Potassium Level 4.2, Chloride Level 105, Carbon Dioxide Level 21, Anion Gap 9, Blood Urea Nitrogen 11, Creatinine 0.74, Estimat Glomerular Filtration Rate 104, BUN/Creatinine Ratio 15, Glucose Level 107, Calcium Level 9.1, Corrected Calcium 9.0, Total Bilirubin 0.4, Aspartate Amino Transf (AST/SGOT) 21, Alanine Aminotransferase (ALT/SGPT) 25, Alkaline Phosphatase 58, Total Protein 7.1, Albumin 4.1 Discharge Home Medications: Active Scripts Active Carvedilol 12.5 Mg Tablet 12.5 Mg PO BID WITH MEALS Omeprazole 20 Mg Capsule.dr 40 Mg PO DAILY BEFORE B-FAST TAKES 2 (20MG) CAPS Lisinopril 10 Mg Tablet 10 Mg PO DAILY Atorvastatin Calcium 40 Mg Tablet 40 Mg PO DAILY Eliquis (Apixaban) 5 Mg Tablet 5 Mg PO BID Instructions to patient/family Please see electronic discharge instructions given to patient. Diagnosis/Problems Diagnosis/Problems (1) Cerebellar stroke DIA MOORE DO Apr 03, 2023 05:26
[2023-04-03] MEDS: PANTOPRAZOLE 40 MG TABLET PO SCH (05:56)
[2023-04-03] MEDS: LORATADINE 10 MG TABLET PO SCH (07:57)
[2023-04-03] MEDS: carvediloL 12.5 MG TABLET PO SCH (07:57)
[2023-04-03] MEDS: APIXABAN 5 MG TABLET PO SCH (07:57)
[2023-04-03] MEDS: DOCUSATE SODIUM 100 MG CAPSULE PO SCH (07:58)
[2023-04-03] MEDS: SENNA W/DOCUSATE TABLET PO SCH (07:59)
[2023-04-03 08:00] VITALS: BP 135/68
[2023-04-03 11:41] VITALS: BP 135/68
--- NOTE | 2023-04-03 13:43 | Therapy Team Discharge Summary ---
Therapy Discharge Summary Discharge Recommendations Date of Discharge Apr 03, 2023 at 08:50 Physical Therapy Roll Left to Right (QC): 6 (Mod I) Sit to Lying (QC): 6 (Mod I) Lying to Sitting/Side of Bed(Q: 6 (Mod I) Sit to Stand (QC): 6 (Mod I) Chair/Kks-ti-Gkozo Xfer(QC): 6 (Mod I) Toilet Transfer (QC): 5 Car Transfer (QC): 6 (Mod I) Does the Patient Walk: Yes Mode of Locomotion: Walk Anticipated Mode of Locomotion: Walk Walk 10 feet (QC): 6 (Mod I) Walk 50 ft with 2 Turns(QC): 6 (Mod I) Walk 150 ft (QC): 6 (Mod I) Walking 10ft on uneven surface: 6 (Mod I) Gait Assistive Device: None Does the Pt Use a Wheelchair: No Wheel 50 ft with 2 turns (QC): 9 Wheel 150 ft (QC): 9 Type of Wheelchair: N/A #of Steps: 16 1 Step (curb) (QC): 6 (Mod I) 4 Steps (QC): 6 (Mod I) 12 Steps (QC): 6 (Mod I) Walking Assistive Device: Walker Balance Sitting Static: Normal Balance Sitting Dynamic: Good Balance-Standing Static: Fair Picking up an Object (QC): 6 (Mod I) Occupational Therapy Pt admitted to INU s/p CVA. At [facility], pt was independent with ADLS and functional mobility, no AD. Upon initial evaluation, pt was independent with eating, footwear and toileting, set up showering and UBD, and supervision-CGA with LBD and oral care. OT tx focused on increasing BUE strength and activity tolerance, neuromuscular reeducation, and increasing safety and independence with ADLs and functional mobility. Pt made good progress towards goals, attaining IND level with all ADLs. Pt discharged home, d/c from OT. No Skilled OT Needs ID'd Eating (QC): 6 Oral Hygiene (QC): 6 (standing at sink.) Shower/Bathe Self (QC): 6 Upper Body Dressing (QC): 6 Lower Body Dressing (QC): 6 On/Off Footwear (QC): 6 Toileting Hygiene (QC): 6 PT Detention Goals Hat Lacer Goals PT Hat Lacer Goals Time Frame: Apr 09, 2023 Roll Left to Right (QC): 6 (Pt will be Mod I with functional mobility, in order to safely return home alone. ) Sit to Lying (QC): 6 (Pt will be Mod I with functional mobility, in order to safely return home alone. ) Lying-Sitting on Side/Bed(QC): 6 (Pt will be Mod I with functional mobility, in order to safely return home alone. ) Sit to Stand (QC): 6 (Pt will be Mod I with functional mobility, in order to safely return home alone. ) Chair/Prz-pe-Lfgam Xfer(QC): 6 (Pt will be Mod I with functional mobility, in order to safely return home alone. ) Toilet/Commode Transfer (QC): 6 (Pt will be Mod I with functional mobility, in order to safely return home alone. ) Car Transfer (QC): 6 (Pt will be Mod I with functional mobility, in order to s afely return home alone. ) Does the Patient Walk: Yes Walk 10 feet (QC): 6 (Pt will be Mod I with functional mobility, in order to safely return home alone. ) Walk 10ft-Uneven Surface(QC): 6 (Pt will be Mod I with functional mobility, in order to safely return home alone. ) Walk 50ft with 2 Turns (QC): 6 (Pt will be Mod I with functional mobility, in order to safely return home alone. ) Walk 150 ft (QC): 6 (Pt will be Mod I with functional mobility, in order to safely return home alone. ) Does the Pt use WC or Scooter?: No Wheel 50 feet with 2 turns (QC: 9 Type: N/A Wheel 150 feet: 9 Type: N/A 1 Step (curb) (QC): 6 (Pt will be Mod I with functional mobility, in order to safely return home alone. ) 4 Steps (QC): 6 (Pt will be Mod I with functional mobility, in order to safely return home alone. ) 12 Steps (QC): 6 (Pt will be Mod I with functional mobility, in order to safely return home alone. ) Picking up an Object (QC): 6 (Pt will be Mod I with functional mobility, in order to safely return home alone. ) OT Detention Goals Hat Lacer Goals Time Frame: Apr 11, 2023 Eating (QC): 6 (met) Oral Hygiene (QC): 6 (met) Toileting Hygiene (QC): 6 (met) Shower/Bathe Self (QC): 6 (met) Upper Body Dressing (QC): 6 (met) Lower Body Dressing (QC): 6 (met) On/Off Footwear (QC): 6 (met) 1=Demonstrate adherence to instructed precautions during ADL tasks. 2=Patient will verbalize/demonstrate understanding of assistive devices/modifications for ADL. 3=Patient will improve strength/tolerance for activity to enable patient to perform ADL's. STEPHANIE RENO OT Apr 03, 2023 13:43
--- NOTE | 2023-04-03 14:19 | Therapy Team Discharge Summary ---
Therapy Discharge Summary Discharge Recommendations Date of Discharge Apr 03, 2023 at 08:50 Therapy D/C Recommendations: Home w/ Family Support, Physical Therapy Outpatient Physical Therapy Pt is a 58 y/o male who had blurry vision, ptosis, dizziness, and facial droop on 03/20/23; Admitted to on 03/21/23; Admitted to ARU 03/26/23. At [facility], pt was Ind with no AD and driving. Upon PT eval, pt was CGA/SBA for all aspects of functional mobility. PT focused on B LE strength, balance, endurance, walking without an AD, and overall safety and Ind. Pt progressed well with PT and met all set goals. Pt is Ind with functional mobility. Pt discharged from ARU to home with outpatient services; D/C from PT at this time. Roll Left to Right (QC): 6 (Mod I) Sit to Lying (QC): 6 (Mod I) Lying to Sitting/Side of Bed(Q: 6 (Mod I) Sit to Stand (QC): 6 (Mod I) Chair/Vke-wy-Zorlr Xfer(QC): 6 (Mod I) Toilet Transfer (QC): 6 (Mod I ) Car Transfer (QC): 6 (Mod I) Does the Patient Walk: Yes Mode of Locomotion: Walk Anticipated Mode of Locomotion: Walk Walk 10 feet (QC): 6 (Mod I) Walk 50 ft with 2 Turns(QC): 6 (Mod I) Walk 150 ft (QC): 6 (Mod I) Walking 10ft on uneven surface: 6 (Mod I) Gait Assistive Device: None Does the Pt Use a Wheelchair: No Wheel 50 ft with 2 turns (QC): 9 Wheel 150 ft (QC): 9 Type of Wheelchair: N/A #of Steps: 16 1 Step (curb) (QC): 6 (Mod I) 4 Steps (QC): 6 (Mod I) 12 Steps (QC): 6 (Mod I) Walking Assistive Device: Walker Balance Sitting Static: Normal Balance Sitting Dynamic: Good Balance-Standing Static: Fair Picking up an Object (QC): 6 (Mod I) Occupational Therapy No Skilled OT Needs ID'd Eating (QC): 6 Oral Hygiene (QC): 6 (standing at sink.) Shower/Bathe Self (QC): 6 Upper Body Dressing (QC): 6 Lower Body Dressing (QC): 6 On/Off Footwear (QC): 6 Toileting Hygiene (QC): 6 PT Gun Tester Goals Senior Care Goals PT Gun Tester Goals Time Frame: Apr 09, 2023 Roll Left to Right (QC): 6 (Pt will be Mod I with functional mobility, in order to safely return home alone. ) Sit to Lying (QC): 6 (Pt will be Mod I with functional mobility, in order to safely return home alone. ) Lying-Sitting on Side/Bed(QC): 6 (Pt will be Mod I with functional mobility, in order to safely return home alone. ) Sit to Stand (QC): 6 (Pt will be Mod I with functional mobility, in order to safely return home alone. ) Chair/Voq-da-Ibxiv Xfer(QC): 6 (Pt will be Mod I with functional mobility, in order to safely return home alone. ) Toilet/Commode Transfer (QC): 6 (Pt will be Mod I with functional mobility, in order to safely return home alone. ) Car Transfer (QC): 6 (Pt will be Mod I with functional mobility, in order to safely return home alone. ) Does the Patient Walk: Yes Walk 10 feet (QC): 6 (Pt will be Mod I with functional mobility, in order to safely return home alone. ) Walk 10ft-Uneven Surface(QC): 6 (Pt will be Mod I with functional mobility, in order to safely return home alone. ) Walk 50ft with 2 Turns (QC): 6 (Pt will be Mod I with functional mobility, in order to safely return home alone. ) Walk 150 ft (QC): 6 (Pt will be Mod I with functional mobility, in order to safely return home alone. ) Does the Pt use WC or Scooter?: No Wheel 50 feet with 2 turns (QC: 9 Type: N/A Wheel 150 feet: 9 Type: N/A 1 Step (curb) (QC): 6 (Pt will be Mod I with functional mobility, in order to safely return home alone. ) 4 Steps (QC): 6 (Pt will be Mod I with functional mobility, in order to safely return home alone. ) 12 Steps (QC): 6 (Pt will be Mod I with functional mobility, in order to safely return home alone. ) Picking up an Object (QC): 6 (Pt will be Mod I with functional mobility, in order to safely return home alone. ) OT Gun Tester Goals Senior Care Goals Time Frame: Apr 11, 2023 Eating (QC): 6 (met) Oral Hygiene (QC): 6 (met) Toileting Hygiene (QC): 6 (met) Shower/Bathe Self (QC): 6 (met) Upper Body Dressing (QC): 6 (met) Lower Body Dressing (QC): 6 (met) On/Off Footwear (QC): 6 (met) 1=Demonstrate adherence to instructed precautions during ADL tasks. 2=Patient will verbalize/demonstrate understanding of assistive devices/modifications for ADL. 3=Patient will improve strength/tolerance for activity to enable patient to perform ADL's. FELIPA DEAN PT Apr 03, 2023 14:19
== END 2023-04-03 08:50 | disposition home or self-care (01) | DRG 57 ==
PROVIDERS: ADMIT Internal Medicine; ATTEND Internal Medicine
DX: I69.334 Monoplegia of upper limb following cerebral infarction affecting left non-dominant side (principal); F17.200 Nicotine dependence, unspecified, uncomplicated; Z91.81 History of falling; K22.70 Barrett's esophagus without dysplasia; E78.00 Pure hypercholesterolemia, unspecified; I10 Essential (primary) hypertension; K21.9 Gastro-esophageal reflux disease without esophagitis; E11.40 Type 2 diabetes mellitus with diabetic neuropathy, unspecified; I25.2 Old myocardial infarction; Z88.0 Allergy status to penicillin; Z88.1 Allergy status to other antibiotic agents; Z79.01 Long term (current) use of anticoagulants; Z79.899 Other long term (current) drug therapy
CPT/HCPCS: 36415; 80053; 85025

== ENCOUNTER 2023-04-21 15:10 | Outpatient (RCR) | payer OTHER ==
[~2023-04-21 15:10] MED LIST changes: +APIX5TAB PO; +ATOR40TA70 PO; +CARV12.53 PO; +CARV3.122 PO; +LISI10TA25 PO; +OMEP20CA18 PO
== END 2023-04-22 | disposition home or self-care (01) ==
PROVIDERS: ATTEND Hospitalist
DX: I69.354 Hemiplegia and hemiparesis following cerebral infarction affecting left non-dominant side (principal)

== ENCOUNTER → 2023-04-22 | Outpatient (CLI) | payer OTHER | LOC: CARD 10:16 | PROVIDERS: ATTEND Hospitalist | DX: I49.8 Other specified cardiac arrhythmias (principal) | CPT/HCPCS: 93246 ==

== ENCOUNTER → 2023-05-22 | Outpatient (RCR) | payer OTHER | END | disposition home or self-care (01) | PROVIDERS: ATTEND Hospitalist | DX: I69.354 Hemiplegia and hemiparesis following cerebral infarction affecting left non-dominant side (principal) ==